=== PATIENT | female | born 1930 | race African-American/Black ===

== ENCOUNTER 2016-07-06 12:43 | Inpatient (IN) | payer MEDICARE, OTHER ==
[~2016-07-06] VITALS: Ht 170.2 cm; Wt 99.8 kg
[2016-07-06] VITALS (8 sets, daily range): BP systolic 106–138; BP diastolic 51–81
[~2016-07-06 12:43] MED LIST: ACETAMINOPHEN325 M1 ORAL; ACETAMINOPHEN500 MG ORAL; ALBUTEROL2.5 MG/3 M HHN; ARICEPT10 MG ORAL; ARICEPT10 MG PO; COLACE100 MG PO; COLACE250 MG ORAL; DEPAKENE L250 MG/5 M ORAL; DEPAKENE250 MG PO; Diltiazem Hcl ORAL; FUROSEMIDE40 MG ORAL; GLUCOPHAGE500 MG PO; GLUCOSAMINE HC500 MG PO; IMDUR30 MG PO; IRON325 M1 PO; Ipratropium Bromide HHN; Isosorbide Mononitrate ORAL; LASIX20 M1 ORAL; LASIX20 MG PO; LEVAQUIN500 MG ORAL; LIPITOR20 MG ORAL; LIPITOR40 MG ORAL; MIRALAX17 G1 PO; MIRALAX17 GM ORAL; NAMENDA10 MG ORAL; NAMENDA10 MG PO; NORCO 5-325 TA1 EACH ORAL; NORVASC5 MG ORAL; PLAVIX75 MG ORAL; PLAVIX75 MG PO; POTASSIUM CHLO20 ME1 ORAL; POTASSIUM CHLO20 ME1 PO; PROTONIX40 MG ORAL; Potassium Chloride ORAL; SIMVASTATIN40 MG PO; TENORMIN50 MG ORAL; TENORMIN50 MG PO; TYLENOL325 MG ORAL; ZITHROMAX500 MG ORAL
--- NOTE | 2016-07-06 12:54 | Emergency Room Report ---
History of Present Illness General Chief Complaint: Dyspnea/Respdistress Source: EMS Present Illness HPI Patient presents from nursing facility with respiratory distress Paramedics reported the patient was seen early the morning by primary physician Patient has acutely decompensated since then Patient herself is not able to provide any input Is in acute respiratory distress There was no reports of vomiting or diarrhea patient has had a previous CVA with what appears to be right-sided carotid surgery Unknown regarding fevers History of present illness is significantly limited given the patient's presentation Allergies: Coded Allergies: AMOXICILLIN (Verified Allergy, Mild, DIARRHEA, 11/03/08) PENICILLINS (Verified Allergy, Mild, HIVES, 09/11/10) Patient History Limited by: medical condition Past Medical History: see triage record Pertinent Family History: unable to obtain Now: No Reviewed Nursing Documentation: PMH: Agreed, PSxH: Agreed Nursing Documentation-PMH Hx Cardiac Problems: Yes Hx Hypertension: Yes Hx Pacemaker: No Hx Asthma: No Hx COPD: Yes Hx Diabetes: No Hx Cancer: No Hx Gastrointestinal Problems: No Hx Dialysis: No Hx Neurological Problems: No Hx Cerebrovascular Accident: No Hx Dementia: Yes Hx Alzheimer's Disease: Yes Hx Seizures: No Hx Speech Problem: Yes Hx Dysphasia: Yes Hx Weakness: Yes Review of Systems All Other Systems: limited - Other than the ones mentioned in the history of present illness all others are reviewed however they do stay limited due to the patient's mental status Physical Exam Vital Signs Date Time Temp Pulse Resp B/P Pulse Ox O2 Delivery O2 Flow Rate FiO2 07/06/16 12:44 106 30 98/44 93 Simple Mask 15.0 Sp02 EP Interpretation: reviewed, normal General Appearance: severe distress - Patient is tachypneic decreased responsiveness, Head: normocephalic, atraumatic Eyes: bilateral eye PERRL ENT: dry mucus membranes, other - Patient has evidence of right-sided neck surgery, has a fullness to the neck area Neck: supple Respiratory: decreased breath sounds, accessory muscle use, wheezing Cardiovascular #1: regular rate, rhythm, no edema Gastrointestinal: soft, no mass Musculoskeletal: other - Patient is not responsive to physical or verbal stimuli, unknown regarding musculoskeletal exam Neurologic: other - Patient has decreased mentation, maintaining gag reflex, appears in acute respiratory distress Skin: no rash, warm/dry Lymphatic: no adenopathy Procedures Critical Care Time Critical Care Time 50 minutes for initial critical presentation Acute respiratory distress impending failure multiple re\re evaluations Not including any procedural time Medical Decision Making Diagnostic Impression: Primary Impression: Respiratory distress Additional Impressions: CHF (congestive heart failure) COPD (chronic obstructive pulmonary disease) Pneumonia ER Course Patient presents in acute respiratory distress Acute intervention is taken for further improvement Patient's ABG is also reassuring I did make contact with the admitting physician Patient's imaging studies also concerning for the left lower lobe infiltrate versus other Patient's presentation limited the use of IV saline and the patient has a history of CHF along with a left-sided markings consideration for CHF is also made Is the reason for the limited IV saline boluses Labs Test 07/06/16 13:00 07/06/16 13:11 07/06/16 13:30 White Blood Count 9.9 K/UL (4.8-10.8) Red Blood Count 4.98 M/UL (4.20-5.40) Hemoglobin 12.8 G/DL (12.0-16.0) Hematocrit 42.3 % (37.0-47.0) Mean Corpuscular Volume 85 FL (80-99) Mean Corpuscular Hemoglobin 25.7 PG (27.0-31.0) Mean Corpuscular Hemoglobin Concent 30.3 G/DL (32.0-36.0) Red Cell Distribution Width 17.0 % (11.6-14.8) Platelet Count 259 K/UL (150-450) Mean Platelet Volume 8.2 FL (6.5-10.1) Neutrophils (%) (Auto) 79.8 % (45.0-75.0) Lymphocytes (%) (Auto) 10.7 % (20.0-45.0) Monocytes (%) (Auto) 7.8 % (1.0-10.0) Eosinophils (%) (Auto) 0.8 % (0.0-3.0) Basophils (%) (Auto) 0.9 % (0.0-2.0) Prothrombin Time 10.1 SEC (9.30-11.50) Prothromb Time International Ratio 1.0 (0.9-1.1) Activated Partial Thromboplast Time 26 SEC (23-33) Sodium Level 142 mEQ/L (135-145) Potassium Level 3.9 mEQ/L (3.4-4.9) Chloride Level 99 mEQ/L (98-107) Carbon Dioxide Level 28 mEQ/L (20-30) Anion Gap 15 (5-15) Blood Urea Nitrogen 12 mg/dL (7-23) Creatinine 0.8 mg/dL (0.5-0.9) Estimat Glomerular Filtration Rate mL/min (>60) Glucose Level 169 mg/dL (74-106) Lactic Acid Level 1.80 mmol/L (0.66-2.22) Calcium Level 8.4 mg/dL (8.6-10.2) Phosphorus Level 3.4 mg/dL (2.5-4.8) Magnesium Level 1.8 mg/dL (1.7-2.5) Total Bilirubin 0.4 mg/dL (0.0-1.2) Aspartate Amino Transf (AST/SGOT) 15 U/L (5-40) Alanine Aminotransferase (ALT/SGPT) 5 U/L (3-33) Alkaline Phosphatase 79 U/L (35-104) Total Creatine Kinase 963 U/L (26-140) Creatine Kinase MB 2.8 ng/mL (< 3.8) Creatine Kinase MB Relative Index 0.2 Troponin I < 0.30 ng/mL (<=0.30) Pro-B-Type Natriuretic Peptide 921 pg/mL (0-450) Total Protein 7.3 g/dL (6.6-8.7) Albumin 3.5 g/dL (3.5-5.2) Globulin 3.8 g/dL Albumin/Globulin Ratio 0.9 (1.0-2.7) Lipase 37 U/L (< 60) Valproic Acid (Depakene) Level 56 ug/mL (50-100) Urine Color Yellow Urine Appearance Clear Urine pH 6 (4.5-8.0) Urine Specific [place] 1.015 (1.005-1.035) Urine Protein Negative (NEGATIVE) Urine Glucose (UA) Negative (NEGATIVE) Urine Ketones Negative (NEGATIVE) Urine Occult Blood 1+ (NEGATIVE) Urine Nitrite Negative (NEGATIVE) Urine Bilirubin Negative (NEGATIVE) Urine Urobilinogen Normal MG/DL (0.0-1.0) Urine Leukocyte Esterase Negative (NEGATIVE) Urine RBC 2-4 /HPF (0 - 2) Urine WBC 0-2 /HPF (0 - 2) Urine Squamous Epithelial Cells Occasional /LPF Urine Bacteria Occasional /HPF (NONE) Arterial Blood pH 7.390 (7.350-7.450) Arterial Blood Partial Pressure CO2 47.8 mmHg (35.0-45.0) Arterial Blood Partial Pressure O2 325.1 mmHg (75.0-100.0) Arterial Blood HCO3 28.9 mmol/L (22.0-26.0) Arterial Blood Oxygen Saturation 99.5 % (92.0-98.0) Arterial Blood Base Excess 3.3 Nii Test Positive EKG Diagnostic Results Rate: normal Rhythm: NSR ST Segments: other - Nonspecific ST AND T WAVE CHANGES Rhythm Strip Diag. Results EP Interpretation: yes Chest X-Ray Diagnostic Results EP Interpretation: Yes Findings: no pneumothorax, other - left pna, inc markings Number of Views: 1 Last Vital Signs Date Time Temp Pulse Resp B/P Pulse Ox O2 Delivery O2 Flow Rate FiO2 07/06/16 12:49 106 30 98/44 93 Simple Mask 15.0 Status: improved Disposition: ADMITTED INPATIENT Condition: Critical ALESIA LAUGHLIN D.O. Jul 06, 2016 12:54
[2016-07-06] MEDS ORDERED: Ipratropium 0.02% Inh Soln 2.5ml UD HHN ONE (13:00)
[2016-07-06] MEDS ORDERED: Racemic EPINEPHrine 2.25% 0.5ml HHN ONE (13:00)
[2016-07-06] MEDS ORDERED: Albuterol ud Inhalation HHN ONE (13:00)
[2016-07-06 13:20] LABS: APPEARANCE,URINE CLEAR; KETONES,URINE NEGATIVE (NEGATIVE); LEUKOCYTE ESTERASE ,URINE NEGATIVE (NEGATIVE); NITRITE,URINE NEGATIVE (NEGATIVE); PH,URINE 6 (4.5-8.0); PROTEIN,URINE NEGATIVE (NEGATIVE); UROBILINOGEN,URINE NORMAL MG/DL (0.0-1.0)
[2016-07-06 13:25] LABS: BASOPHILS % (AUTO) 0.9 % (0.0-2.0); EOSINOPHILS % (AUTO) 0.8 % (0.0-3.0); LYMPHOCYTES % (AUTO) 10.7 % (20.0-45.0); MEAN CORPUSCULAR HEMOGLOBIN 25.7 PG (27.0-31.0); MEAN CORPUSCULAR HGB CONC 30.3 G/DL (32.0-36.0); MEAN CORPUSCULAR VOLUME 85 FL (80-99); MEAN PLATELET VOLUME 8.2 FL (6.5-10.1); MONOCYTES % (AUTO) 7.8 % (1.0-10.0); NEUTROPHILS % (AUTO) 79.8 % (45.0-75.0); PLATELET COUNT 259 K/UL (150-450); RED BLOOD COUNT 4.98 M/UL (4.20-5.40); WHITE BLOOD COUNT 9.9 K/UL (4.8-10.8)
[2016-07-06 13:28] LABS: TROPONIN I < 0.30 ng/mL (<=0.30)
[2016-07-06 13:30] LABS: ALANINE AMINOTRANSFERASE 5 U/L (3-33); ALBUMIN/GLOBULIN RATIO 0.9 (1.0-2.7); ANION GAP 15 (5-15); ASPARTATE AMINO TRANSFERASE 15 U/L (5-40); CALCIUM 8.4 mg/dL (8.6-10.2); CARBON DIOXIDE 28 mEQ/L (20-30); CHLORIDE 99 mEQ/L (98-107); CREATININE 0.8 mg/dL (0.5-0.9); HEMOLYSIS 3; LIPASE 37 U/L (< 60); MAGNESIUM 1.8 mg/dL (1.7-2.5); PHOSPHORUS 3.4 mg/dL (2.5-4.8); POTASSIUM 3.9 mEQ/L (3.4-4.9); SODIUM 142 mEQ/L (135-145); TOTAL PROTEIN 7.3 g/dL (6.6-8.7)
[2016-07-06 13:31] LABS: BACTERIA,URINE OCCASIONAL /HPF; SQUAMOUS EPITHELIAL CELL,UR OCCASIONAL /LPF (NONE/OCC); WBC,URINE 0-2 /HPF (0 - 2)
[2016-07-06 13:32] LABS: PROTHROMBIN TIME 10.1 SEC (9.30-11.50)
[2016-07-06 13:35] LABS: ABG ALLEN TEST POSITIVE; ABG BASE EXCESS 3.3; ABG PCO2 47.8 mmHg (35.0-45.0)
[2016-07-06 13:41] LABS: CKMB 2.8 ng/mL (< 3.8)
[2016-07-06] MEDS ORDERED: Solu-MEDROL 125mg Inj IVP ONE (13:45)
[2016-07-06] MEDS ORDERED: Vancomycin 1.5gm/D5W 300ml 300 ML IVPB ONE (14:00)
[2016-07-06] MEDS ORDERED: Aztreonam Inj 1 GM in NS 50 ML IV ONE (14:00)
[2016-07-06] MEDS ORDERED: Nitroglycerin Subl 0.4mg tab (Bottle Of 25) SL PRN (14:15)
[2016-07-06] MEDS ORDERED: DuoNeb 0.5-3(2.5)mg/3ml neb HHN PRN (14:15)
[2016-07-06] MEDS ORDERED: Mylanta II UD 30ml ORAL PRN (14:15)
[2016-07-06] MEDS ORDERED: Miralax 17gm pkt ORAL PRN (14:15)
--- NOTE | 2016-07-06 14:24 | Pulmonolgy Critical Care Note ---
Critical Care - Asmt/Plan Problems: (1) Respiratory distress (2) COPD (chronic obstructive pulmonary disease) (3) DM (diabetes mellitus) (4) Pneumonia Respiratory: monitor respiratory rate, adjust FIO2, CXR Cardiac: continue to monitor HR/BP Renal: F/U I&O, check electrolytes Infectious Disease: check cultures, other - start aztreonam, since pt is allergic to Penicllins Gastrointestinal: hold feedings Endocrine: monitor blood sugar, continue sliding scale insulin Hematologic: monitor H/H, transfuse if hgb<8.5 Neurologic: keep patient comfortable Prophylaxis: Protonix, Heparin Notes Reviewed: general assembler installer Discussed with: nurses, consultants, case techniciancommissioning manager - Objective Last 24 Hour Vital Signs Date Time Temp Pulse Resp B/P Pulse Ox O2 Delivery O2 Flow Rate FiO2 07/06/16 13:44 15.0 50 07/06/16 13:01 108 29 100 Facial 100 07/06/16 12:50 108 28 100 Bi-pap 100 07/06/16 12:50 106 30 Bi-pap 07/06/16 12:49 100.4 106 30 98/44 93 Simple Mask 15.0 07/06/16 12:45 90 25 132/67 100 Bi-pap 07/06/16 12:45 90 25 Bi-pap Status: awake Condition: critical HEENT: atraumatic Neck: full ROM Lungs: rales, rhonchi Heart: HR/BP stable, regular Abdomen: soft, feeding tube Extremities: no C/C/E, edema Critical Care - Subjective ROS Limited/Unobtainable: Yes Intubation Day: on BIPAP Interval Events: 86 year old female with Hx of COPD, DM, Cardiomyopathy, CAD, CVAnursing home resident,presented to ERwith respiratory distress Paramedics reported the patient was seen early the morning by primary physician. Patient has acutely decompensated since then Patient herself was not able to provide any input Is in acute respiratory distress. Patient had a CXR in the ER showing LLL infiltrate, she was put on BIPAP and transferred to [facility]: 50 Sputum Amount: None CXR: LLL infiltrate Labs: Laboratory Tests Test 07/08/16 11:00 Arterial Blood pH 7.430 (7.350-7.450) Arterial Blood Partial Pressure CO2 45.3 mmHg (35.0-45.0) H Arterial Blood Partial Pressure O2 469.4 mmHg (75.0-100.0) H Arterial Blood HCO3 29.4 mmol/L (22.0-26.0) H Arterial Blood Oxygen Saturation 99.5 % (92.0-98.0) H Arterial Blood Base Excess 41.4 Nii Test Positive DARIAN HOOKS Jul 06, 2016 14:24
[2016-07-06] MEDS ORDERED: Norco 5mg/325mg tab ORAL ONE (18:30)
[2016-07-06] MEDS ORDERED: metFORMIN 500mg tab ORAL STA (18:30)
[2016-07-06] MEDS ORDERED: Morphine Sulfate 2mg/ml Inj IVP ONE (20:00)
[2016-07-06] MEDS ORDERED: Norco 5mg/325mg tab ORAL PRN (20:00)
--- NOTE | 2016-07-06 20:05 | History & Physical ---
History and Physical History & Physicial #[id number] ILA LEE Jul 06, 2016 20:05
[2016-07-06] MEDS: D5 1/2NS 1,000 ML IV SCH (20:30)
[2016-07-06] MEDS ORDERED: Aztreonam Inj 1 GM in NS 50 ML IVPB SCH (20:30)
[2016-07-06] MEDS: Donepezil 10mg tab ORAL SCH (21:00)
[2016-07-06] MEDS: Valproic Acid 250mg/5ml Liquid ORAL SCH (21:00)
[2016-07-06] MEDS: Heparin 5000 units/ml inj SUBQ SCH (21:00)
[2016-07-06] MEDS: Memantine 10mg tab ORAL SCH (21:00)
[2016-07-06] MEDS: Aztreonam Inj 1 GM in NS 50 ML IVPB SCH (21:59)
[2016-07-06] MEDS: NovoLOG Insulin Flexpen SUBQ SCH (22:01)
[2016-07-07] VITALS: BP 118/82
[2016-07-07 04:00] VITALS: BP 138/67
--- NOTE | 2016-07-07 05:18 | History and Physical Report ---
DATE OF ADMISSION: 07/06/2016 HISTORY OF PRESENT ILLNESS: The patient was seen in the emergency room earlier today in the [facility]. She is 86-year-old female, who was found to be wheezing then have respiratory distress and desaturation of oxygen. The patient was transferred via 911 here to [facility] where she was evaluated by Dr. Douglas and is currently being admitted for respiratory distress. There is no history of vomiting or diarrhea. The patient currently is in the emergency room and is on BiPAP, the other is at the bedside PAST MEDICAL HISTORY: Significant for obesity, previous GI bleed, Alzheimer, hypertension, type 2 diabetes, osteoarthritis, congestive heart failure, coronary artery disease, and possible seizure disorder. PHYSICAL EXAMINATION: VITAL SIGNS: Temperature 98.5 degrees, blood pressure 134/61, respiratory rate 22, and pulse rate 85. GENERAL: The patient is obese. HEENT: Head, normocephalic. Neck is full. Face is pale. Sclerae not icteric. LUNGS: The patient has wheeze and upper respiratory rhonchi. HEART: Regular. Slightly tachycardic. ABDOMEN: Obese . EXTREMITIES: Lower extremities, edema 1+ is seen. LABORATORY AND DIAGNOSTIC DATA: The chemistry panel is normal. Electrolytes with CPK of 963. Troponin negative. Natriuretic peptic slightly elevated 921. Hemoglobin 12.8 and WBC 9.9. The valproic level is 56. Urine has 4 RBCs and 2 white blood cells. Chest x-ray suggestive of left sided pneumonia versus aspiration. IMPRESSION: 1. Respiratory distress. / Pneumonia 2. Congestive heart failure. 3. Chronic obstructive pulmonary disease. 4. Pneumonia. 5. Other conditions as mentioned hypertension , History of seizures and dementia. PLAN: At this point, keep the patient NPO, ST evaluation. Antibiotics considering the patient is penicillin allergic, BiPAP, and respiratory support. Continue anti seizure medication and her cardiac medication including Plavix, Imdur, Norvasc, and according to how the patient's condition evolves, we will make the proper changes in our future management. Neel Buchanan M.D. DR: Graeme JOB#: [id number] CC: AAYUSH
[2016-07-07] MEDS: Aztreonam Inj 1 GM in NS 50 ML IVPB SCH ×3 (05:19→22:02)
[2016-07-07 05:30] LABS: BASOPHILS % (AUTO) 0.5 % (0.0-2.0); LYMPHOCYTES % (AUTO) 9.3 % (20.0-45.0); MEAN CORPUSCULAR HGB CONC 31.9 G/DL (32.0-36.0); MEAN CORPUSCULAR VOLUME 82 FL (80-99); MEAN PLATELET VOLUME 8.4 FL (6.5-10.1); MONOCYTES % (AUTO) 5.4 % (1.0-10.0); NEUTROPHILS % (AUTO) 84.8 % (45.0-75.0); PLATELET COUNT 266 K/UL (150-450); RED BLOOD COUNT 4.87 M/UL (4.20-5.40); WHITE BLOOD COUNT 9.1 K/UL (4.8-10.8)
[2016-07-07 05:38] LABS: PROTHROMBIN TIME 10.1 SEC (9.30-11.50)
[2016-07-07 06:07] LABS: ALANINE AMINOTRANSFERASE 5 U/L (3-33); ALBUMIN/GLOBULIN RATIO 0.7 (1.0-2.7); ANION GAP 13 (5-15); ASPARTATE AMINO TRANSFERASE 19 U/L (5-40); CALCIUM 8.7 mg/dL (8.6-10.2); CARBON DIOXIDE 29 mEQ/L (20-30); CHLORIDE 99 mEQ/L (98-107); CHOLESTEROL 199 mg/dL (< 200); CHOLESTEROL/HDL RATIO 4.2 (3.3-4.4); CREATININE 0.7 mg/dL (0.5-0.9); HEMOGLOBIN A1C 5.8 % (< 6.0); HEMOLYSIS 4; LDL CHOLESTEROL (CALC.) 140 mg/dL (60-99); MAGNESIUM 2.3 mg/dL (1.7-2.5); PHOSPHORUS 2.4 mg/dL (2.5-4.8); POTASSIUM 4.4 mEQ/L (3.4-4.9); SODIUM 141 mEQ/L (135-145); TOTAL PROTEIN 7.8 g/dL (6.6-8.7)
[2016-07-07 06:18] LABS: THYROID STIMULATING HORMONE 0.113 uIU/mL (0.300-4.500)
[2016-07-07] MEDS: NovoLOG Insulin Flexpen SUBQ SCH ×4 (06:18→22:03)
[2016-07-07 08:00] VITALS: BP 112/68
[2016-07-07] MEDS: Valproic Acid 250mg/5ml Liquid ORAL SCH ×2 (08:03→22:04)
[2016-07-07] MEDS: Norco 5mg/325mg tab ORAL SCH ×2 (08:05→17:58)
[2016-07-07] MEDS: Docusate 250mg cap ORAL SCH (08:09)
[2016-07-07] MEDS: Memantine 10mg tab ORAL SCH ×2 (08:09→17:58)
[2016-07-07] MEDS: Heparin 5000 units/ml inj SUBQ SCH ×2 (08:26→22:04)
[2016-07-07] MEDS ORDERED: Imdur 30mg tab ORAL SCH (09:00)
--- NOTE | 2016-07-07 09:57 | Diagnostic Imaging Report ---
Indication: SOB Technique: One view of the chest Comparison: 02/13/2016 Findings: There are development of infiltrate in the left mid and lower lung. Previously demonstrated generalized interstitial prominence is no longer evident, although there is mild central bronchial wall thickening persisting clinical apparent difference could be due to better inspiration and exposure on the current study. No definite effusions. Aorta is calcified. Impression: Infiltrates within the left mid and lower lung, concerning for pneumonia Other findings as noted This agrees with the preliminary interpretation provided by the emergency room physician
[2016-07-07 12:00] VITALS: BP 114/64
--- NOTE | 2016-07-07 13:16 | General Progress Note ---
Assessment/Plan Status: doing well - on bipap Assessment/Plan 1. Respiratory distress. / Pneumonia left sided 2. Congestive heart failure. 3. Chronic obstructive pulmonary disease. 4. Pneumonia. 5. Other conditions as mentioned hypertension , History of seizures and dementia. Plan: Awaiting ST eval- start prednisone and taper.. Pulmonary support- Aztreonam and Vanco Subjective ROS Limited/Unobtainable: No Constitutional: Reports: malaise, weakness Respiratory: Reports: shortness of breath - on BIPAP Allergies: Coded Allergies: AMOXICILLIN (Verified Allergy, Mild, DIARRHEA, 11/03/08) PENICILLINS (Verified Allergy, Mild, HIVES, 09/11/10) Objective Last 24 Hour Vital Signs Date Time Temp Pulse Resp B/P Pulse Ox O2 Delivery O2 Flow Rate FiO2 07/07/16 12:55 78 22 97 Facial 40 07/07/16 12:00 40 07/07/16 12:00 98.1 68 22 114/64 98 Bi-pap 40 07/07/16 10:39 77 16 98 Facial 40 07/07/16 09:56 86 120/68 07/07/16 09:56 86 122/68 07/07/16 09:22 85 19 98 Facial 40 07/07/16 09:04 98.1 07/07/16 08:09 112/62 07/07/16 08:00 40 07/07/16 08:00 97.8 77 24 112/68 98 Bi-pap 40 07/07/16 08:00 97 07/07/16 06:45 79 20 97 Facial 40 07/07/16 05:05 80 19 99 Facial 40 07/07/16 04:00 40 07/07/16 04:00 98.1 100 22 138/67 98 Bi-pap 40 07/07/16 03:47 80 07/07/16 03:00 79 19 99 Facial 40 07/07/16 01:28 97 18 98 Facial 40 07/07/16 00:00 98.1 94 22 118/82 99 Bi-pap 40 07/07/16 00:00 40 07/06/16 23:52 82 07/06/16 22:45 85 17 99 Facial 40 07/06/16 21:03 97.5 82 20 122/62 99 Bi-pap 40 07/06/16 20:59 40 07/06/16 20:30 74 18 99 Facial 40 07/06/16 20:25 79 07/06/16 20:14 98.5 86 23 138/81 100 15.0 40 07/06/16 20:14 98.5 86 23 138/81 100 15.0 40 07/06/16 19:42 98.5 07/06/16 19:42 98.5 07/06/16 18:39 91 23 100 Facial 40 07/06/16 17:25 98.5 85 22 134/61 100 15.0 40 07/06/16 16:38 88 18 100 Facial 40 07/06/16 16:26 98.5 78 18 124/61 100 15.0 50 07/06/16 15:58 98.5 67 18 111/51 100 15.0 50 07/06/16 15:16 98.5 87 18 106/54 100 15.0 50 07/06/16 14:43 97 18 100 Facial 50 07/06/16 14:00 98.5 87 21 117/56 100 Bi-pap 50 07/06/16 13:44 15.0 50 Intake and Output 07/06/16 07/07/16 19:00 07:00 Intake Total 200 ml 550 ml Output Total 100 ml 1100 ml Balance 100 ml -550 ml Intake IV Total 200 ml 550 ml Output Urine Total 100 ml 1100 ml # Bowel Movements 1 Laboratory Tests 07/06/16 13:30: Arterial Blood pH 7.390, Arterial Blood Partial Pressure CO2 47.8H, Arterial Blood Partial Pressure O2 325.1H, Arterial Blood HCO3 28.9H, Arterial Blood Oxygen Saturation 99.5H, Arterial Blood Base Excess 3.3, Nii Test Positive 07/07/16 04:05: White Blood Count 9.1, Red Blood Count 4.87, Hemoglobin 12.7, Hematocrit 39.8, Mean Corpuscular Volume 82, Mean Corpuscular Hemoglobin 26.0L, Mean Corpuscular Hemoglobin Concent 31.9L, Red Cell Distribution Width 17.0H, Platelet Count 266 , Mean Platelet Volume 8.4, Neutrophils (%) (Auto) 84.8H, Lymphocytes (%) (Auto ) 9.3L, Monocytes (%) (Auto) 5.4, Eosinophils (%) (Auto) 0.0, Basophils (%) ( Auto) 0.5, Prothrombin Time 10.1, Prothromb Time International Ratio 1.0, Activated Partial Thromboplast Time 28, Sodium Level 141, Potassium Level 4.4, Chloride Level 99, Carbon Dioxide Level 29, Anion Gap 13, Blood Urea Nitrogen 14 , Creatinine 0.7, Estimat Glomerular Filtration Rate , Glucose Level 195H, Hemoglobin A1c 5.8, Lactic Acid Level 1.90, Uric Acid 6.0, Calcium Level 8.7, Phosphorus Level 2.4L, Magnesium Level 2.3, Total Bilirubin 0.3, Aspartate Amino Transf (AST/SGOT) 19, Alanine Aminotransferase (ALT/SGPT) 5, Alkaline Phosphatase 79, Total Creatine Kinase 955H, C-Reactive Protein, Quantitative 10.0H, Pro-B-Type Natriuretic Peptide 1772H, Total Protein 7.8, Albumin 3.4L, Globulin 4.4, Albumin/Globulin Ratio 0.7L, Triglycerides Level 58, Cholesterol Level 199, LDL Cholesterol 140H, HDL Cholesterol 47, Cholesterol/HDL Ratio 4.2, Thyroid Stimulating Hormone (TSH) 0.113L Height (Feet): 5 Height (Inches): 7.00 Weight (Pounds): 220 General Appearance: no apparent distress Neck: stiff neck Cardiovascular: regular rhythm Respiratory/Chest: decreased breath sounds, expiratory wheezing Abdomen: soft, other - obese Edema: trace edema ILA LEE Jul 07, 2016 13:15
[2016-07-07] MEDS: Vancomycin 1250mg/D5W 250ml IVPB SCH ×2 (13:39)
[2016-07-07] MEDS ORDERED: PredniSONE 20mg tab ORAL ONE (14:00)
[2016-07-07] MEDS: D5 1/2NS 1,000 ML IV SCH (15:18)
[2016-07-07 16:00] VITALS: BP 133/71
[2016-07-07 20:00] VITALS: BP 134/55
[2016-07-07] MEDS: Donepezil 10mg tab ORAL SCH (22:05)
[2016-07-08] VITALS: BP 148/58
[2016-07-08 04:00] VITALS: BP 127/99
[2016-07-08] MEDS: Aztreonam Inj 1 GM in NS 50 ML IVPB SCH ×3 (05:54→21:15)
[2016-07-08] MEDS: NovoLOG Insulin Flexpen SUBQ SCH ×4 (06:07→20:52)
[2016-07-08 08:00] VITALS: BP 131/68
[2016-07-08] MEDS ORDERED: PredniSONE 5mg tab ORAL SCH (09:00)
[2016-07-08] MEDS: Valproic Acid 250mg/5ml Liquid ORAL SCH ×2 (10:27→20:51)
[2016-07-08] MEDS: Memantine 10mg tab ORAL SCH ×2 (10:30→17:55)
[2016-07-08] MEDS: Docusate 250mg cap ORAL SCH (10:30)
[2016-07-08] MEDS: Heparin 5000 units/ml inj SUBQ SCH ×2 (10:42→20:53)
[2016-07-08] MEDS: Norco 5mg/325mg tab ORAL SCH ×2 (10:45→17:56)
[2016-07-08 11:20] LABS: ABG ALLEN TEST POSITIVE; ABG BASE EXCESS 41.4; ABG PCO2 45.3 mmHg (35.0-45.0)
--- NOTE | 2016-07-08 11:26 | General Progress Note ---
Assessment/Plan Status: stable Assessment/Plan 1. Respiratory distress. / Pneumonia left sided 2. Congestive heart failure. 3. Chronic obstructive pulmonary disease. 4. Pneumonia. 5. Other conditions as mentioned hypertension , History of seizures and dementia. Plan: ST eval- prednisone and taper.. Pulmonary support- Aztreonam and Vanco ? DC in am if OK?? Subjective ROS Limited/Unobtainable: No Constitutional: Reports: malaise, weakness Allergies: Coded Allergies: AMOXICILLIN (Verified Allergy, Mild, DIARRHEA, 11/03/08) PENICILLINS (Verified Allergy, Mild, HIVES, 09/11/10) Objective Last 24 Hour Vital Signs Date Time Temp Pulse Resp B/P Pulse Ox O2 Delivery O2 Flow Rate FiO2 07/08/16 10:45 117 127/64 07/08/16 10:29 117 127/64 07/08/16 08:00 97.5 74 16 131/68 100 07/08/16 06:56 71 16 100 Facial 40 07/08/16 05:20 67 16 100 Facial 40 07/08/16 04:00 97.2 23 127/99 99 Bi-pap 40 07/08/16 04:00 40 07/08/16 04:00 61 07/08/16 03:00 65 16 100 Facial 40 07/08/16 01:30 68 18 100 Facial 40 07/08/16 00:00 97.0 63 18 148/58 98 Bi-pap 40 07/08/16 00:00 40 07/07/16 23:32 71 16 99 Facial 40 07/07/16 21:09 62 18 99 Facial 40 07/07/16 20:00 97.9 69 18 134/55 99 Bi-pap 07/07/16 20:00 40 07/07/16 20:00 65 07/07/16 19:09 64 19 99 Facial 40 07/07/16 18:57 97.8 07/07/16 17:04 69 20 98 Facial 40 07/07/16 16:00 63 07/07/16 16:00 97.8 71 20 133/71 97 Bi-pap 07/07/16 16:00 40 07/07/16 14:56 72 18 98 Facial 40 07/07/16 12:55 78 22 97 Facial 40 07/07/16 12:00 40 07/07/16 12:00 98.1 68 22 114/64 98 Bi-pap 40 07/07/16 12:00 71 Intake and Output 07/07/16 07/08/16 19:00 07:00 Intake Total 1022 ml Output Total 410 ml 1750 ml Balance 612 ml -1750 ml Intake IV Total 1022 ml Output Urine Total 410 ml 1750 ml Laboratory Tests 07/08/16 11:00: Arterial Blood pH 7.430, Arterial Blood Partial Pressure CO2 45.3H, Arterial Blood Partial Pressure O2 469.4H, Arterial Blood HCO3 29.4H, Arterial Blood Oxygen Saturation 99.5H, Arterial Blood Base Excess 41.4, Nii Test Positive Height (Feet): 5 Height (Inches): 7.00 Weight (Pounds): 220 General Appearance: no apparent distress Cardiovascular: regular rhythm Respiratory/Chest: decreased breath sounds Abdomen: soft ILA LEE Jul 08, 2016 11:26
--- NOTE | 2016-07-08 11:42 | Pulmonology Progress Note ---
Assessment/Plan Problems: (1) Respiratory distress (2) Pneumonia (3) COPD (chronic obstructive pulmonary disease) (4) DM (diabetes mellitus) Assessment/Plan taper off bipap respiratory treatment IV antibiotics chest pt cxr in am check sputum repeat BC dvt prophylaxis Subjective ROS Limited/Unobtainable: No Interval Events: looks comfortable Constitutional: Reports: no symptoms HEENT: Repors: no symptoms Respiratory: Reports: no symptoms Allergies: Coded Allergies: AMOXICILLIN (Verified Allergy, Mild, DIARRHEA, 11/03/08) PENICILLINS (Verified Allergy, Mild, HIVES, 09/11/10) Objective Last 24 Hour Vital Signs Date Time Temp Pulse Resp B/P Pulse Ox O2 Delivery O2 Flow Rate FiO2 07/08/16 10:45 117 127/64 07/08/16 10:29 117 127/64 07/08/16 08:00 97.5 74 16 131/68 100 07/08/16 06:56 71 16 100 Facial 40 07/08/16 05:20 67 16 100 Facial 40 07/08/16 04:00 97.2 23 127/99 99 Bi-pap 40 07/08/16 04:00 40 07/08/16 04:00 61 07/08/16 03:00 65 16 100 Facial 40 07/08/16 01:30 68 18 100 Facial 40 07/08/16 00:00 97.0 63 18 148/58 98 Bi-pap 40 07/08/16 00:00 40 07/07/16 23:32 71 16 99 Facial 40 07/07/16 21:09 62 18 99 Facial 40 07/07/16 20:00 97.9 69 18 134/55 99 Bi-pap 07/07/16 20:00 40 07/07/16 20:00 65 07/07/16 19:09 64 19 99 Facial 40 07/07/16 18:57 97.8 07/07/16 17:04 69 20 98 Facial 40 07/07/16 16:00 63 07/07/16 16:00 97.8 71 20 133/71 97 Bi-pap 07/07/16 16:00 40 07/07/16 14:56 72 18 98 Facial 40 07/07/16 12:55 78 22 97 Facial 40 07/07/16 12:00 40 07/07/16 12:00 98.1 68 22 114/64 98 Bi-pap 40 07/07/16 12:00 71 Intake and Output 07/07/16 07/08/16 19:00 07:00 Intake Total 1022 ml Output Total 410 ml 1750 ml Balance 612 ml -1750 ml Intake IV Total 1022 ml Output Urine Total 410 ml 1750 ml General Appearance: WD/WN HEENT: atraumatic Respiratory/Chest: chest wall non-tender, lungs clear Cardiovascular: normal peripheral pulses, normal rate Abdomen: normal bowel sounds, soft, non tender Genitourinary: normal external genitalia Extremities: no cyanosis, no clubbing Skin: no rash, no lesions Neurologic/Psychiatric: lacing string cutter II-XII grossly normal, no motor/sensory deficits Musculoskeletal: normal muscle bulk Microbiology Date/Time Source Procedure Growth Status 07/06/16 13:00 Blood Blood Culture - Preliminary Resulted 07/06/16 13:00 Blood Blood Culture - Preliminary Resulted 07/06/16 13:25 Nasal Nares Influenza Types A,B Antigen (VU) - Final Complete Laboratory Tests 07/08/16 11:00: Arterial Blood pH 7.430, Arterial Blood Partial Pressure CO2 45.3H, Arterial Blood Partial Pressure O2 469.4H, Arterial Blood HCO3 29.4H, Arterial Blood Oxygen Saturation 99.5H, Arterial Blood Base Excess 41.4, Nii Test Positive Current Medications Medications (Trade) Dose Ordered Sig/Juwan Route PRN Reason Start Time Stop Time Status Last Admin Dose Admin Acetaminophen (Tylenol) 650 mg Q4H PRN ORAL fever 07/06/16 14:15 08/05/16 14:14 Acetaminophen/ Hydrocodone Bitart ([place] 5/325) 1 tab BID ORAL 07/07/16 09:00 07/14/16 08:59 07/08/16 10:45 Acetaminophen/ Hydrocodone Bitart ([place] 5/325) 1 tab TID PRN ORAL Moderate Pain (Pain Scale 4-6) 07/06/16 20:00 07/13/16 19:59 Albuterol/ Ipratropium (DuoNeb 0.5-3(2.5)mg/3ml) 3 ml Q4H PRN HHN Shortness of Breath 07/06/16 14:15 07/11/16 14:14 Amlodipine Besylate (Norvasc) 5 mg DAILY ORAL 07/07/16 09:00 08/06/16 08:59 07/08/16 10:29 Atenolol (Tenormin) 50 mg DAILY ORAL 07/07/16 09:00 08/06/16 08:59 07/08/16 10:45 Atorvastatin Calcium (Lipitor) 40 mg BEDTIME ORAL 07/06/16 21:00 08/05/16 20:59 07/07/16 22:05 Aztreonam/Sodium Chloride (Azactam/Sodium Chloride 50ml bag) 50 ml @ 100 mls/hr Q8H IVPB 07/06/16 22:00 07/13/16 21:59 07/08/16 05:54 Clopidogrel Bisulfate (Plavix) 75 mg DAILY ORAL 07/07/16 09:00 08/06/16 08:59 07/08/16 10:29 Dextrose (Dextrose 50%) STAT PRN IV Hypoglycemia 07/06/16 14:15 08/05/16 14:14 Docusate Sodium (Colace) 200 mg DAILY ORAL 07/07/16 09:00 08/06/16 08:59 07/08/16 10:30 Donepezil HCl (Aricept) 10 mg QHS ORAL 07/06/16 21:00 08/05/16 20:59 07/07/16 22:05 Heparin Sodium (Porcine) (Heparin 5000 units/ml) 5,000 units EVERY 12 HOURS SUBQ 07/06/16 21:00 08/05/16 20:59 07/08/16 10:42 Insulin Aspart (NovoLOG) BEFORE MEALS AND HS SUBQ 07/06/16 21:00 08/05/16 20:59 07/08/16 06:07 Isosorbide Mononitrate (Imdur) 30 mg DAILY ORAL 07/07/16 09:00 08/06/16 08:59 07/07/16 08:09 Memantine (Namenda) 10 mg BID ORAL 07/06/16 21:00 08/05/16 20:59 07/08/16 10:30 Nitroglycerin (Ntg) 0.4 mg Q5M X 3 DOSES PRN SL Prn Chest Pain 07/06/16 14:15 08/05/16 14:14 Ondansetron HCl (Zofran) 4 mg Q6H PRN IVP Nausea & Vomiting 07/06/16 14:15 08/05/16 14:14 Pantoprazole (Protonix) 40 mg BID ORAL 07/07/16 09:00 08/06/16 08:59 07/08/16 10:30 Polyethylene Glycol (Miralax) 17 gm DAILYPRN PRN ORAL Constipation 07/06/16 14:15 08/05/16 14:14 Prednisone (predniSONE) 30 mg DAILY ORAL 07/09/16 09:00 08/08/16 08:59 UNV Valproic Acid 250 mg 250 mg Q12HR@0900,2100 ORAL 07/06/16 21:00 08/05/16 20:59 07/08/16 10:27 Vancomycin HCl 1 ea 1 ea DAILY PRN MISC Per rx protocol 07/06/16 14:15 08/05/16 14:14 Vancomycin HCl/ Dextrose (Vancomycin/D5W 250ml) 250 ml @ 166.667 mls/hr Q24H IVPB 07/07/16 14:00 07/13/16 13:59 07/07/16 13:39 DARIAN HOOKS Jul 08, 2016 11:42
[2016-07-08] MEDS ORDERED: Docusate 100mg tablet NG ONE (11:45)
[2016-07-08 12:00] VITALS: BP 147/90
[2016-07-08] MEDS: Vancomycin 1250mg/D5W 250ml IVPB SCH ×2 (13:02)
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
[2016-07-08 16:14] VITALS: BP 142/115
[2016-07-08 20:00] VITALS: BP 108/51
[2016-07-08] MEDS: Donepezil 10mg tab ORAL SCH (20:50)
[2016-07-08] MEDS: Pantoprazole Inj IVP SCH (20:50)
[2016-07-08] MEDS ORDERED: D5W IVPB ONE (22:00)
[2016-07-08] MEDS ORDERED: VANCOMYCIN IVPB ONE (22:00)
[2016-07-09] VITALS: BP 133/64
[2016-07-09 04:00] VITALS: BP 117/67
[2016-07-09] MEDS: Aztreonam Inj 1 GM in NS 50 ML IVPB SCH ×3 (05:18→21:05)
[2016-07-09 05:56] LABS: BASOPHILS % (AUTO) 0.8 % (0.0-2.0); EOSINOPHILS % (AUTO) 0.1 % (0.0-3.0); LYMPHOCYTES % (AUTO) 24.6 % (20.0-45.0); MEAN CORPUSCULAR HEMOGLOBIN 25.4 PG (27.0-31.0); MEAN CORPUSCULAR HGB CONC 29.8 G/DL (32.0-36.0); MEAN CORPUSCULAR VOLUME 85 FL (80-99); MEAN PLATELET VOLUME 7.5 FL (6.5-10.1); MONOCYTES % (AUTO) 11.2 % (1.0-10.0); NEUTROPHILS % (AUTO) 63.2 % (45.0-75.0); PLATELET COUNT 289 K/UL (150-450); RED CELL DISTRIBUTION WIDTH 16.7 % (11.6-14.8); WHITE BLOOD COUNT 10.5 K/UL (4.8-10.8)
[2016-07-09 06:28] LABS: ALANINE AMINOTRANSFERASE < 5 U/L (3-33); ALBUMIN/GLOBULIN RATIO 0.7 (1.0-2.7); ANION GAP 15 (5-15); ASPARTATE AMINO TRANSFERASE 17 U/L (5-40); CALCIUM 8.5 mg/dL (8.6-10.2); CARBON DIOXIDE 29 mEQ/L (20-30); CHLORIDE 100 mEQ/L (98-107); CREATININE 0.7 mg/dL (0.5-0.9); CRP QUANT 1.7 mg/dL (< 0.5); HEMOLYSIS 5; PHOSPHORUS 2.7 mg/dL (2.5-4.8); POTASSIUM 3.3 mEQ/L (3.4-4.9); SODIUM 144 mEQ/L (135-145); TOTAL PROTEIN 7.1 g/dL (6.6-8.7)
[2016-07-09] MEDS: NovoLOG Insulin Flexpen SUBQ SCH ×4 (06:30→21:05)
[2016-07-09 08:00] VITALS: BP 154/65
[2016-07-09] MEDS ORDERED: PredniSONE 20mg tab ORAL SCH (09:00)
[2016-07-09] MEDS: Pantoprazole Inj IVP SCH ×2 (09:49→21:42)
[2016-07-09] MEDS: Valproic Acid 250mg/5ml Liquid ORAL SCH ×2 (09:49→21:04)
[2016-07-09] MEDS: Norco 5mg/325mg tab ORAL SCH ×2 (09:50→16:43)
[2016-07-09] MEDS: Memantine 10mg tab ORAL SCH ×2 (09:51→16:42)
[2016-07-09] MEDS: Docusate 100mg tablet NG SCH (09:51)
[2016-07-09] MEDS: Heparin 5000 units/ml inj SUBQ SCH ×2 (09:56→21:42)
--- NOTE | 2016-07-09 10:01 | Pulmonology Progress Note ---
Assessment/Plan Problems: (1) Respiratory distress (2) Pneumonia (3) COPD (chronic obstructive pulmonary disease) (4) DM (diabetes mellitus) Assessment/Plan taper off bipap respiratory treatment tolerating NC very well Dc Norvasc and IV antibiotics chest pt check cxr i sputum still pending repeat BC dvt prophylaxis DC NOrvasc and Atenolol. awaiting Video swallow Subjective ROS Limited/Unobtainable: No Interval Events: awake, comfortable, on NC, not communicating Allergies: Coded Allergies: AMOXICILLIN (Verified Allergy, Mild, DIARRHEA, 11/03/08) PENICILLINS (Verified Allergy, Mild, HIVES, 09/11/10) Objective Last 24 Hour Vital Signs Date Time Temp Pulse Resp B/P Pulse Ox O2 Delivery O2 Flow Rate FiO2 07/09/16 09:51 154/65 07/09/16 09:51 57 154/65 07/09/16 09:03 98 Nasal Cannula 2.0 28 07/09/16 09:03 Nasal Cannula 2.0 28 07/09/16 08:00 97.0 57 17 154/65 100 Nasal Cannula 2.0 07/09/16 04:00 52 07/09/16 04:00 96.4 61 19 117/67 100 Nasal Cannula 2.0 07/09/16 00:00 48 07/09/16 00:00 97.0 17 133/64 98 Nasal Cannula 2.0 07/08/16 20:00 53 07/08/16 20:00 97.5 57 13 108/51 95 Nasal Cannula 2.0 07/08/16 20:00 2.0 07/08/16 19:30 68 14 98 2.0 28 07/08/16 17:55 142/98 07/08/16 16:14 97.9 87 14 142/115 100 Room Air 07/08/16 16:00 64 07/08/16 16:00 2.0 07/08/16 13:01 127/64 07/08/16 12:00 2.0 07/08/16 12:00 97.5 61 20 147/90 97 07/08/16 10:45 117 127/64 07/08/16 10:29 117 127/64 Intake and Output 07/08/16 07/09/16 18:59 06:59 Intake Total 600 ml 200 ml Output Total 700 ml 1005 ml Balance -100 ml -805 ml Intake IV Total 600 ml 200 ml Output Urine Total 700 ml 1005 ml Stool Total 0 ml General Appearance: WD/WN HEENT: normocephalic, atraumatic Respiratory/Chest: crackles/rales Breasts: no masses Cardiovascular: normal peripheral pulses Abdomen: normal bowel sounds, soft, non tender Extremities: no cyanosis, no clubbing Skin: no lesions Neurologic/Psychiatric: guardian ad litem II-XII grossly normal Lymphatic: no neck adenopathy Microbiology Date/Time Source Procedure Growth Status 07/06/16 13:00 Blood Blood Culture - Preliminary Staphylococcus Sp Coag Neg Resulted 07/06/16 13:00 Blood Blood Culture - Preliminary Staphylococcus Sp Coag Neg Resulted 07/06/16 13:25 Nasal Nares Influenza Types A,B Antigen (VU) - Final Complete 07/06/16 20:30 Buttock Right Gram Stain - Final Resulted 07/06/16 20:30 Wound Culture - Preliminary Morganella Morg Spp Morganii Gram Negative Bacillus 2 Strep Species, Gamma-Hemolytic Resulted Laboratory Tests 07/08/16 11:00: Arterial Blood pH 7.430, Arterial Blood Partial Pressure CO2 45.3H, Arterial Blood Partial Pressure O2 469.4H, Arterial Blood HCO3 29.4H, Arterial Blood Oxygen Saturation 99.5H, Arterial Blood Base Excess 41.4, Nii Test Positive 07/08/16 13:00: Vancomycin Level Trough 10.0 07/09/16 03:50: White Blood Count 10.5, Red Blood Count 5.00, Hemoglobin 12.7, Hematocrit 42.5, Mean Corpuscular Volume 85, Mean Corpuscular Hemoglobin 25.4L, Mean Corpuscular Hemoglobin Concent 29.8L, Red Cell Distribution Width 16.7H, Platelet Count 289 , Mean Platelet Volume 7.5, Neutrophils (%) (Auto) 63.2, Lymphocytes (%) (Auto) 24.6, Monocytes (%) (Auto) 11.2H, Eosinophils (%) (Auto) 0.1, Basophils (%) ( Auto) 0.8, Sodium Level 144, Potassium Level 3.3L, Chloride Level 100, Carbon Dioxide Level 29, Anion Gap 15, Blood Urea Nitrogen 15, Creatinine 0.7, Estimat Glomerular Filtration Rate , Glucose Level 71L, Calcium Level 8.5L, Phosphorus Level 2.7, Total Bilirubin 0.3, Aspartate Amino Transf (AST/SGOT) 17, Alanine Aminotransferase (ALT/SGPT) < 5, Alkaline Phosphatase 87, C-Reactive Protein, Quantitative 1.7H, Pro-B-Type Natriuretic Peptide 691H, Total Protein 7.1, Albumin 3.1L, Globulin 4.0, Albumin/Globulin Ratio 0.7L Current Medications Medications (Trade) Dose Ordered Sig/Juwan Route PRN Reason Start Time Stop Time Status Last Admin Dose Admin Acetaminophen (Tylenol) 650 mg Q4H PRN ORAL fever 07/06/16 14:15 08/05/16 14:14 Acetaminophen/ Hydrocodone Bitart ([place] 5/325) 1 tab BID ORAL 07/07/16 09:00 07/14/16 08:59 07/09/16 09:50 Acetaminophen/ Hydrocodone Bitart ([place] 5/325) 1 tab TID PRN ORAL Moderate Pain (Pain Scale 4-6) 07/06/16 20:00 07/13/16 19:59 Albuterol/ Ipratropium (DuoNeb 0.5-3(2.5)mg/3ml) 3 ml Q4H PRN HHN Shortness of Breath 07/06/16 14:15 07/11/16 14:14 Amlodipine Besylate (Norvasc) 5 mg DAILY ORAL 07/07/16 09:00 08/06/16 08:59 07/09/16 09:51 Atenolol (Tenormin) 50 mg DAILY ORAL 07/07/16 09:00 08/06/16 08:59 07/08/16 10:45 Atorvastatin Calcium (Lipitor) 40 mg BEDTIME ORAL 07/06/16 21:00 08/05/16 20:59 07/08/16 20:51 Aztreonam/Sodium Chloride (Azactam/Sodium Chloride 50ml bag) 50 ml @ 100 mls/hr Q8H IVPB 07/06/16 22:00 07/13/16 21:59 07/09/16 05:18 Clopidogrel Bisulfate (Plavix) 75 mg DAILY ORAL 07/07/16 09:00 08/06/16 08:59 07/09/16 09:50 Dextrose (Dextrose 50%) STAT PRN IV Hypoglycemia 07/06/16 14:15 08/05/16 14:14 Docusate Sodium 200 mg 200 mg DAILY NG 07/09/16 09:00 08/08/16 08:59 07/09/16 09:51 Donepezil HCl (Aricept) 10 mg QHS ORAL 07/06/16 21:00 08/05/16 20:59 07/08/16 20:50 Heparin Sodium (Porcine) (Heparin 5000 units/ml) 5,000 units EVERY 12 HOURS SUBQ 07/06/16 21:00 08/05/16 20:59 07/09/16 09:56 Insulin Aspart (NovoLOG) BEFORE MEALS AND HS SUBQ 07/06/16 21:00 08/05/16 20:59 07/08/16 20:52 Isosorbide Dinitrate (Isordil) 10 mg TID ORAL 07/08/16 13:00 08/07/16 12:59 07/09/16 09:51 Memantine (Namenda) 10 mg BID ORAL 07/06/16 21:00 08/05/16 20:59 07/09/16 09:51 Nitroglycerin (Ntg) 0.4 mg Q5M X 3 DOSES PRN SL Prn Chest Pain 07/06/16 14:15 08/05/16 14:14 Ondansetron HCl (Zofran) 4 mg Q6H PRN IVP Nausea & Vomiting 07/06/16 14:15 08/05/16 14:14 Pantoprazole (Protonix) 40 mg EVERY 12 HOURS IVP 07/08/16 21:00 08/07/16 20:59 07/09/16 09:49 Polyethylene Glycol (Miralax) 17 gm DAILYPRN PRN ORAL Constipation 07/06/16 14:15 08/05/16 14:14 Prednisone (predniSONE) 30 mg DAILY ORAL 07/09/16 09:00 08/08/16 08:59 07/09/16 09:50 Valproic Acid (Depakene) 250 mg Q12HR@0900,2100 ORAL 07/06/16 21:00 08/05/16 20:59 07/09/16 09:49 Vancomycin HCl 1 ea 1 ea DAILY PRN MISC Per rx protocol 07/06/16 14:15 08/05/16 14:14 Vancomycin HCl/ Dextrose (Vancomycin/D5W 250ml) 300 ml @ 150 mls/hr Q24H IVPB 07/09/16 22:00 07/14/16 21:59 DARIAN HOOKS Jul 09, 2016 10:01
--- NOTE | 2016-07-09 11:02 | Cardiology Report ---
APPROVED REPORT EKG Measurement Heart [id number] Sinus tachycardia with premature atrial complexes with aberrant conduction Possible Left atrial enlargement Nonspecific T wave abnormality Abnormal ECG
[2016-07-09 12:00] VITALS: BP 128/51
--- NOTE | 2016-07-09 15:41 | General Progress Note ---
Assessment/Plan Status: stable Status Narrative failed swallowing study for reg food Assessment/Plan 1. Respiratory distress. / Pneumonia left sided ( Asp Prone) 2. Congestive heart failure. 3. Chronic obstructive pulmonary disease. 4. Pneumonia. 5. Other conditions as mentioned hypertension , History of seizures and dementia. Plan: ST eval- done- diet changed due to subtle aspiration prednisone and taper.. Pulmonary support- Aztreonam and Vanco hold norvasc and atenolol for low HR and start low dose hydralazine and Isosorbide ? DC in am if OK?? Subjective ROS Limited/Unobtainable: No Constitutional: Reports: malaise Allergies: Coded Allergies: AMOXICILLIN (Verified Allergy, Mild, DIARRHEA, 11/03/08) PENICILLINS (Verified Allergy, Mild, HIVES, 09/11/10) Objective Last 24 Hour Vital Signs Date Time Temp Pulse Resp B/P Pulse Ox O2 Delivery O2 Flow Rate FiO2 07/09/16 13:47 128/51 07/09/16 12:00 55 07/09/16 12:00 97.5 55 18 128/51 99 Nasal Cannula 3.0 07/09/16 10:49 97.0 07/09/16 09:51 154/65 07/09/16 09:51 57 154/65 07/09/16 09:03 98 Nasal Cannula 2.0 28 07/09/16 09:03 Nasal Cannula 2.0 28 07/09/16 08:00 70 07/09/16 08:00 97.0 57 17 154/65 100 Nasal Cannula 2.0 07/09/16 04:00 52 07/09/16 04:00 96.4 61 19 117/67 100 Nasal Cannula 2.0 07/09/16 00:00 48 07/09/16 00:00 97.0 17 133/64 98 Nasal Cannula 2.0 07/08/16 20:00 53 07/08/16 20:00 97.5 57 13 108/51 95 Nasal Cannula 2.0 07/08/16 20:00 2.0 07/08/16 19:30 68 14 98 2.0 28 07/08/16 17:55 142/98 07/08/16 16:14 97.9 87 14 142/115 100 Room Air 07/08/16 16:00 64 07/08/16 16:00 2.0 Intake and Output 07/08/16 07/09/16 18:59 06:59 Intake Total 600 ml 200 ml Output Total 700 ml 1005 ml Balance -100 ml -805 ml Intake IV Total 600 ml 200 ml Output Urine Total 700 ml 1005 ml Stool Total 0 ml Laboratory Tests 07/09/16 03:50: White Blood Count 10.5, Red Blood Count 5.00, Hemoglobin 12.7, Hematocrit 42.5, Mean Corpuscular Volume 85, Mean Corpuscular Hemoglobin 25.4L, Mean Corpuscular Hemoglobin Concent 29.8L, Red Cell Distribution Width 16.7H, Platelet Count 289 , Mean Platelet Volume 7.5, Neutrophils (%) (Auto) 63.2, Lymphocytes (%) (Auto) 24.6, Monocytes (%) (Auto) 11.2H, Eosinophils (%) (Auto) 0.1, Basophils (%) ( Auto) 0.8, Sodium Level 144, Potassium Level 3.3L, Chloride Level 100, Carbon Dioxide Level 29, Anion Gap 15, Blood Urea Nitrogen 15, Creatinine 0.7, Estimat Glomerular Filtration Rate , Glucose Level 71L, Calcium Level 8.5L, Phosphorus Level 2.7, Total Bilirubin 0.3, Aspartate Amino Transf (AST/SGOT) 17, Alanine Aminotransferase (ALT/SGPT) < 5, Alkaline Phosphatase 87, C-Reactive Protein, Quantitative 1.7H, Pro-B-Type Natriuretic Peptide 691H, Total Protein 7.1, Albumin 3.1L, Globulin 4.0, Albumin/Globulin Ratio 0.7L Height (Feet): 5 Height (Inches): 7.00 Weight (Pounds): 220 General Appearance: no apparent distress Cardiovascular: bradycardia Respiratory/Chest: decreased breath sounds Abdomen: soft ILA LEE Jul 09, 2016 15:41
[2016-07-09 16:00] VITALS: BP 128/81
[2016-07-09] MEDS: HydrALAZINE 10mg Tab ORAL SCH ×2 (16:42→21:04)
[2016-07-09 20:08] VITALS: BP 118/62
[2016-07-09] MEDS: Donepezil 10mg tab ORAL SCH (21:03)
[2016-07-09] MEDS ORDERED: Vancomycin 1.5 GM/D5W 300 ML IVPB SCH ×2 (22:00)
[2016-07-09] MEDS ORDERED: D5 1/2NS 1000ml IV ONE (22:53)
[2016-07-09] MEDS ORDERED: NS 275ml ONE (22:53)
[2016-07-09] MEDS ORDERED: Tubing IV Secondary IV ONE (22:53)
[2016-07-09] MEDS ORDERED: Sterile Water Irrig 1000ml IRRIG ONE (22:53)
[2016-07-10 00:18] VITALS: BP 126/48
[2016-07-10 04:08] VITALS: BP 122/91
[2016-07-10] MEDS: Aztreonam Inj 1 GM in NS 50 ML IVPB SCH (05:15)
[2016-07-10] MEDS: HydrALAZINE 10mg Tab ORAL SCH ×3 (05:15→21:26)
[2016-07-10 05:29] LABS: BASOPHILS % (AUTO) 1.4 % (0.0-2.0); EOSINOPHILS % (AUTO) 0.2 % (0.0-3.0); MEAN CORPUSCULAR HEMOGLOBIN 25.9 PG (27.0-31.0); MEAN CORPUSCULAR HGB CONC 30.7 G/DL (32.0-36.0); MEAN CORPUSCULAR VOLUME 84 FL (80-99); MEAN PLATELET VOLUME 7.8 FL (6.5-10.1); MONOCYTES % (AUTO) 12.8 % (1.0-10.0); NEUTROPHILS % (AUTO) 59.6 % (45.0-75.0); PLATELET COUNT 239 K/UL (150-450); RED BLOOD COUNT 4.22 M/UL (4.20-5.40); RED CELL DISTRIBUTION WIDTH 16.5 % (11.6-14.8); WHITE BLOOD COUNT 8.5 K/UL (4.8-10.8)
[2016-07-10 05:51] LABS: ALANINE AMINOTRANSFERASE 5 U/L (3-33); ALBUMIN/GLOBULIN RATIO 0.7 (1.0-2.7); ANION GAP 14 (5-15); ASPARTATE AMINO TRANSFERASE 14 U/L (5-40); CALCIUM 8.3 mg/dL (8.6-10.2); CARBON DIOXIDE 28 mEQ/L (20-30); CHLORIDE 104 mEQ/L (98-107); CREATININE 0.9 mg/dL (0.5-0.9); CRP QUANT 1.1 mg/dL (< 0.5); HEMOLYSIS 9; MAGNESIUM 2.1 mg/dL (1.7-2.5); PHOSPHORUS 3.4 mg/dL (2.5-4.8); POTASSIUM 3.3 mEQ/L (3.4-4.9); SODIUM 146 mEQ/L (135-145); TOTAL PROTEIN 6.4 g/dL (6.6-8.7)
[2016-07-10] MEDS: NovoLOG Insulin Flexpen SUBQ SCH ×4 (06:30→20:54)
[2016-07-10 08:00] VITALS: BP 145/65
[2016-07-10] MEDS: Valproic Acid 250mg/5ml Liquid ORAL SCH ×2 (08:44→20:39)
[2016-07-10] MEDS: Norco 5mg/325mg tab ORAL SCH ×2 (08:45→18:24)
[2016-07-10] MEDS: Memantine 10mg tab ORAL SCH ×2 (08:46→18:23)
[2016-07-10] MEDS: Docusate 100mg tablet NG SCH (08:46)
[2016-07-10] MEDS: Pantoprazole Inj IVP SCH (08:46)
[2016-07-10] MEDS: Heparin 5000 units/ml inj SUBQ SCH ×2 (08:47→20:40)
[2016-07-10] MEDS ORDERED: PredniSONE 5mg tab ORAL SCH (09:00)
[2016-07-10 09:48] LABS: ERYTHROCYTE SEDIMENTATION RATE 80 MM/HR (0-42)
[2016-07-10 12:00] VITALS: BP 139/69
--- NOTE | 2016-07-10 13:03 | General Progress Note ---
Assessment/Plan Status: stable Assessment/Plan status: 1. Respiratory distress. / Pneumonia left sided ( Asp Prone) 2. Congestive heart failure. 3. Chronic obstructive pulmonary disease. 4. Pneumonia. 5. Other conditions as mentioned hypertension , History of seizures and dementia. Plan: ST eval- done- diet changed due to subtle aspiration prednisone and taper.. Pulmonary support- Aztreonam and Vanco hold norvasc and atenolol for low HR and start low dose hydralazine and Isosorbide ? DC in am if OK?? today's CXR pending Subjective ROS Limited/Unobtainable: Yes Allergies: Coded Allergies: AMOXICILLIN (Verified Allergy, Mild, DIARRHEA, 11/03/08) PENICILLINS (Verified Allergy, Mild, HIVES, 09/11/10) Objective Last 24 Hour Vital Signs Date Time Temp Pulse Resp B/P Pulse Ox O2 Delivery O2 Flow Rate FiO2 07/10/16 12:00 97.3 70 20 139/69 98 Nasal Cannula 3.0 07/10/16 12:00 66 07/10/16 09:44 98.5 07/10/16 08:45 149/65 07/10/16 08:00 97.7 61 19 145/65 100 Nasal Cannula 3.0 07/10/16 08:00 61 07/10/16 05:15 122/91 07/10/16 04:08 98.5 61 18 122/91 97 Nasal Cannula 3.0 07/10/16 04:00 54 07/10/16 00:18 98.7 58 17 126/48 95 Nasal Cannula 3.0 07/10/16 00:00 54 07/09/16 21:04 129/62 07/09/16 20:24 Nasal Cannula 2.0 28 07/09/16 20:23 98 Nasal Cannula 2.0 28 07/09/16 20:08 97.9 66 26 118/62 99 Nasal Cannula 3.0 07/09/16 20:00 60 07/09/16 17:50 129/56 07/09/16 16:42 128/81 07/09/16 16:00 62 07/09/16 16:00 97.9 60 23 128/81 99 Nasal Cannula 3.0 07/09/16 13:47 128/51 Intake and Output 07/09/16 07/10/16 19:00 07:00 Intake Total 50 ml 100 ml Output Total 175 ml 300 ml Balance -125 ml -200 ml IV Total 50 ml 100 ml Output Urine Total 175 ml 300 ml # Bowel Movements 1 Laboratory Tests 07/10/16 03:25: White Blood Count 8.5, Red Blood Count 4.22, Hemoglobin 10.9L, Hematocrit 35.6L , Mean Corpuscular Volume 84, Mean Corpuscular Hemoglobin 25.9L, Mean Corpuscular Hemoglobin Concent 30.7L, Red Cell Distribution Width 16.5H, Platelet Count 239, Mean Platelet Volume 7.8, Neutrophils (%) (Auto) 59.6, Lymphocytes (%) (Auto) 26.0, Monocytes (%) (Auto) 12.8H, Eosinophils (%) (Auto) 0.2, Basophils (%) (Auto) 1.4, Erythrocyte Sedimentation Rate 80H, Sodium Level 146H, Potassium Level 3.3L, Chloride Level 104, Carbon Dioxide Level 28, Anion Gap 14, Blood Urea Nitrogen 25H, Creatinine 0.9, Estimat Glomerular Filtration Rate , Glucose Level 77, Calcium Level 8.3L, Phosphorus Level 3.4, Magnesium Level 2.1, Total Bilirubin 0.3, Aspartate Amino Transf (AST/SGOT) 14, Alanine Aminotransferase (ALT/SGPT) 5, Alkaline Phosphatase 65, C-Reactive Protein, Quantitative 1.1H, Total Protein 6.4L, Albumin 2.8L, Globulin 3.6, Albumin/ Globulin Ratio 0.7L Height (Feet): 5 Height (Inches): 7.00 Weight (Pounds): 220 General Appearance: no apparent distress Cardiovascular: regular rhythm Respiratory/Chest: decreased breath sounds Abdomen: soft Objective physical exam not changed ILA LEE Jul 10, 2016 13:03
--- NOTE | 2016-07-10 13:26 | Pulmonology Progress Note ---
Assessment/Plan Problems: (1) Respiratory distress (2) Pneumonia (3) COPD (chronic obstructive pulmonary disease) (4) DM (diabetes mellitus) Assessment/Plan off bipap still coughing BC positive respiratory treatment tolerating NC very well IV antibiotics, stop Aztronam chest pt check cxr revewed, no major changes sputum still pending repeat BC dvt prophylaxis may go to med/surg Subjective ROS Limited/Unobtainable: No Constitutional: Reports: no symptoms HEENT: Repors: no symptoms Respiratory: Reports: no symptoms Allergies: Coded Allergies: AMOXICILLIN (Verified Allergy, Mild, DIARRHEA, 11/03/08) PENICILLINS (Verified Allergy, Mild, HIVES, 09/11/10) Objective Last 24 Hour Vital Signs Date Time Temp Pulse Resp B/P Pulse Ox O2 Delivery O2 Flow Rate FiO2 07/10/16 12:00 97.3 70 20 139/69 98 Nasal Cannula 3.0 07/10/16 12:00 66 07/10/16 09:44 98.5 07/10/16 08:45 149/65 07/10/16 08:00 97.7 61 19 145/65 100 Nasal Cannula 3.0 07/10/16 08:00 61 07/10/16 05:15 122/91 07/10/16 04:08 98.5 61 18 122/91 97 Nasal Cannula 3.0 07/10/16 04:00 54 07/10/16 00:18 98.7 58 17 126/48 95 Nasal Cannula 3.0 07/10/16 00:00 54 07/09/16 21:04 129/62 07/09/16 20:24 Nasal Cannula 2.0 28 07/09/16 20:23 98 Nasal Cannula 2.0 28 07/09/16 20:08 97.9 66 26 118/62 99 Nasal Cannula 3.0 07/09/16 20:00 60 07/09/16 17:50 129/56 07/09/16 16:42 128/81 07/09/16 16:00 62 07/09/16 16:00 97.9 60 23 128/81 99 Nasal Cannula 3.0 07/09/16 13:47 128/51 Intake and Output 07/09/16 07/10/16 19:00 07:00 Intake Total 50 ml 100 ml Output Total 175 ml 300 ml Balance -125 ml -200 ml IV Total 50 ml 100 ml Output Urine Total 175 ml 300 ml # Bowel Movements 1 General Appearance: WD/WN HEENT: normocephalic, atraumatic Respiratory/Chest: chest wall non-tender, lungs clear Breasts: no masses Cardiovascular: normal peripheral pulses Abdomen: normal bowel sounds, soft, non tender Extremities: no cyanosis Skin: no rash Neurologic/Psychiatric: telecom sales consultant II-XII grossly normal Microbiology Date/Time Source Procedure Growth Status 07/08/16 16:45 Sputum Induced Gram Stain - Final Complete 07/08/16 16:45 Sputum Induced Sputum Culture - Final NORMAL UPPER RESPIRATORY STEVE PRESENT Complete Laboratory Tests 07/10/16 03:25: White Blood Count 8.5, Red Blood Count 4.22, Hemoglobin 10.9L, Hematocrit 35.6L , Mean Corpuscular Volume 84, Mean Corpuscular Hemoglobin 25.9L, Mean Corpuscular Hemoglobin Concent 30.7L, Red Cell Distribution Width 16.5H, Platelet Count 239, Mean Platelet Volume 7.8, Neutrophils (%) (Auto) 59.6, Lymphocytes (%) (Auto) 26.0, Monocytes (%) (Auto) 12.8H, Eosinophils (%) (Auto) 0.2, Basophils (%) (Auto) 1.4, Erythrocyte Sedimentation Rate 80H, Sodium Level 146H, Potassium Level 3.3L, Chloride Level 104, Carbon Dioxide Level 28, Anion Gap 14, Blood Urea Nitrogen 25H, Creatinine 0.9, Estimat Glomerular Filtration Rate , Glucose Level 77, Calcium Level 8.3L, Phosphorus Level 3.4, Magnesium Level 2.1, Total Bilirubin 0.3, Aspartate Amino Transf (AST/SGOT) 14, Alanine Aminotransferase (ALT/SGPT) 5, Alkaline Phosphatase 65, C-Reactive Protein, Quantitative 1.1H, Total Protein 6.4L, Albumin 2.8L, Globulin 3.6, Albumin/ Globulin Ratio 0.7L Current Medications Medications (Trade) Dose Ordered Sig/[place]wan Route PRN Reason Start Time Stop Time Status Last Admin Dose Admin Acetaminophen (Tylenol) 650 mg Q4H PRN ORAL fever 07/06/16 14:15 08/05/16 14:14 Acetaminophen/ Hydrocodone Bitart ([place] 5/325) 1 tab BID ORAL 07/07/16 09:00 07/14/16 08:59 07/10/16 08:45 Acetaminophen/ Hydrocodone Bitart ([place] 5/325) 1 tab TID PRN ORAL Moderate Pain (Pain Scale 4-6) 07/06/16 20:00 07/13/16 19:59 Albuterol/ Ipratropium (DuoNeb 0.5-3(2.5)mg/3ml) 3 ml Q4H PRN HHN Shortness of Breath 07/06/16 14:15 07/11/16 14:14 Atorvastatin Calcium (Lipitor) 40 mg BEDTIME ORAL 07/06/16 21:00 08/05/16 20:59 07/09/16 21:04 Clopidogrel Bisulfate (Plavix) 75 mg DAILY ORAL 07/07/16 09:00 08/06/16 08:59 07/10/16 08:45 Dextrose (Dextrose 50%) STAT PRN IV Hypoglycemia 07/06/16 14:15 08/05/16 14:14 Docusate Sodium 200 mg 200 mg DAILY NG 07/09/16 09:00 08/08/16 08:59 07/10/16 08:46 Donepezil HCl (Aricept) 10 mg QHS ORAL 07/06/16 21:00 08/05/16 20:59 07/09/16 21:03 Heparin Sodium (Porcine) (Heparin 5000 units/ml) 5,000 units EVERY 12 HOURS SUBQ 07/06/16 21:00 08/05/16 20:59 07/10/16 08:47 Hydralazine HCl (Apresoline) 10 mg Q8HR ORAL 07/09/16 16:00 08/08/16 15:59 07/10/16 05:15 Insulin Aspart (NovoLOG) BEFORE MEALS AND HS SUBQ 07/06/16 21:00 08/05/16 20:59 07/10/16 11:55 Isosorbide Dinitrate (Isordil) 10 mg TID ORAL 07/08/16 13:00 08/07/16 12:59 07/10/16 08:45 Levofloxacin (Levaquin) 100 ml @ 100 mls/hr Q24H IVPB 07/10/16 13:30 07/17/16 13:29 UNV Memantine (Namenda) 10 mg BID ORAL 07/06/16 21:00 08/05/16 20:59 07/10/16 08:46 Nitroglycerin (Ntg) 0.4 mg Q5M X 3 DOSES PRN SL Prn Chest Pain 07/06/16 14:15 08/05/16 14:14 Ondansetron HCl (Zofran) 4 mg Q6H PRN IVP Nausea & Vomiting 07/06/16 14:15 08/05/16 14:14 Pantoprazole (Protonix) 40 mg EVERY 12 HOURS IVP 07/08/16 21:00 08/07/16 20:59 07/10/16 08:46 Polyethylene Glycol (Miralax) 17 gm DAILYPRN PRN ORAL Constipation 07/06/16 14:15 08/05/16 14:14 Prednisone 20 mg 20 mg DAILY ORAL 07/11/16 09:00 08/10/16 08:59 Valproic Acid (Depakene) 250 mg Q12HR@0900,2100 ORAL 07/06/16 21:00 08/05/16 20:59 07/10/16 08:44 Vancomycin HCl (Vanco rx to dose) 1 ea DAILY PRN MISC Per rx protocol 07/06/16 14:15 08/05/16 14:14 Vancomycin HCl/ Dextrose (Vancomycin/D5W 250ml) 300 ml @ 150 mls/hr Q24H IVPB 07/09/16 22:00 07/14/16 21:59 07/09/16 21:43 DARIAN HOOKS Jul 10, 2016 13:26
[2016-07-10] MEDS ORDERED: DuoNeb 0.5-3(2.5)mg/3ml neb HHN PRN ×2 (13:30→15:00)
[2016-07-10] MEDS ORDERED: Promethazine/Codeine 5ml UD ORAL PRN ×2 (13:30→15:30)
[2016-07-10] MEDS ORDERED: Nitroglycerin Subl 0.4mg tab (Bottle Of 25) SL PRN (14:45)
[2016-07-10] MEDS ORDERED: Norco 5mg/325mg tab ORAL PRN (15:30)
[2016-07-10 16:00] VITALS: BP 130/50
[2016-07-10] MEDS ORDERED: Tubing IV Secondary IV ONE (17:18)
[2016-07-10 20:00] VITALS: BP 140/57
[2016-07-10] MEDS ORDERED: Donepezil 10mg tab NG SCH (21:00)
[2016-07-10] MEDS ORDERED: Vancomycin 1.5 GM in D5W 300 ML IVPB SCH (22:00)
[2016-07-11] VITALS: BP 149/68
[2016-07-11 04:00] VITALS: BP 161/79
[2016-07-11] MEDS: NovoLOG Insulin Flexpen SUBQ SCH ×2 (06:28→12:48)
[2016-07-11] MEDS: HydrALAZINE 10mg Tab ORAL SCH (06:28)
[2016-07-11 07:19] LABS: ALANINE AMINOTRANSFERASE 8 U/L (3-33); ALBUMIN/GLOBULIN RATIO 0.7 (1.0-2.7); ANION GAP 14 (5-15); ASPARTATE AMINO TRANSFERASE 22 U/L (5-40); CALCIUM 8.3 mg/dL (8.6-10.2); CARBON DIOXIDE 27 mEQ/L (20-30); CHLORIDE 101 mEQ/L (98-107); CREATININE 0.7 mg/dL (0.5-0.9); HEMOLYSIS 87; POTASSIUM 3.9 mEQ/L (3.4-4.9); SODIUM 142 mEQ/L (135-145); TOTAL PROTEIN 7.1 g/dL (6.6-8.7)
[2016-07-11 07:26] LABS: BASOPHILS % (AUTO) 0.8 % (0.0-2.0); EOSINOPHILS % (AUTO) 1.9 % (0.0-3.0); LYMPHOCYTES % (AUTO) 24.9 % (20.0-45.0); MEAN CORPUSCULAR HEMOGLOBIN 26.3 PG (27.0-31.0); MEAN CORPUSCULAR VOLUME 85 FL (80-99); MEAN PLATELET VOLUME 8.8 FL (6.5-10.1); MONOCYTES % (AUTO) 11.3 % (1.0-10.0); NEUTROPHILS % (AUTO) 61.1 % (45.0-75.0); PLATELET COUNT 249 K/UL (150-450); RED BLOOD COUNT 5.03 M/UL (4.20-5.40); RED CELL DISTRIBUTION WIDTH 16.7 % (11.6-14.8)
[2016-07-11 08:37] VITALS: BP 97/52
--- NOTE | 2016-07-11 08:46 | Diagnostic Imaging Report ---
Indications: DYSPNEA Technique: Portable AP chest Findings: Comparison: 07/10/2016 Cardiac silhouette remains enlarged. Pulmonary vascular redistribution and bilateral interstitial infiltrates have decreased. No new abnormality identified. IMPRESSION: Decrease in bilateral congestive changes
[2016-07-11] MEDS ORDERED: PredniSONE 20mg tab ORAL SCH ×2 (09:00)
[2016-07-11] MEDS ORDERED: Docusate 100mg tablet NG SCH (09:00)
--- NOTE | 2016-07-11 09:36 | General Progress Note ---
Assessment/Plan Status: stable Status Narrative still coughing Assessment/Plan DC to ECF status: 1. Respiratory distress. / Pneumonia left sided ( Asp Prone) 2. Congestive heart failure. 3. Chronic obstructive pulmonary disease. 4. Pneumonia. 5. Other conditions as mentioned hypertension , History of seizures and dementia. Plan: ST eval- done- diet changed due to subtle aspiration prednisone and taper.. Pulmonary support- Aztreonam and Vanco hold norvasc and atenolol for low HR and start low dose hydralazine and Isosorbide ? DC in am if OK?? today's CXR pending Subjective ROS Limited/Unobtainable: No Allergies: Coded Allergies: AMOXICILLIN (Verified Allergy, Mild, DIARRHEA, 11/03/08) PENICILLINS (Verified Allergy, Mild, HIVES, 09/11/10) Objective Last 24 Hour Vital Signs Date Time Temp Pulse Resp B/P Pulse Ox O2 Delivery O2 Flow Rate FiO2 07/11/16 08:37 98.2 67 20 97/52 100 Nasal Cannula 2.0 07/11/16 07:33 Nasal Cannula 2.0 28 07/11/16 07:33 98 Nasal Cannula 2.0 28 07/11/16 07:33 85 20 Nasal Cannula 2.0 28 07/11/16 06:28 161/79 07/11/16 04:00 97.3 86 19 161/79 97 Nasal Cannula 2.0 07/11/16 00:00 97.6 69 19 149/68 100 Nasal Cannula 2.0 07/10/16 21:26 140/57 07/10/16 20:30 72 18 Nasal Cannula 2.0 28 07/10/16 20:27 Nasal Cannula 2.0 28 07/10/16 20:27 99 Nasal Cannula 2.0 28 07/10/16 20:00 97.9 78 18 140/57 100 Room Air 07/10/16 18:23 130/50 07/10/16 16:00 98.1 70 18 130/50 98 Nasal Cannula 3.0 07/10/16 14:08 139/69 07/10/16 13:39 139/69 07/10/16 12:00 97.3 70 20 139/69 98 Nasal Cannula 3.0 07/10/16 12:00 66 07/10/16 09:44 98.5 Intake and Output 07/10/16 07/11/16 19:00 07:00 Intake Total 410 ml 400 ml Output Total 225 ml 775 ml Balance 185 ml -375 ml Intake Oral 410 ml IV Total 400 ml Output Urine Total 225 ml 775 ml # Bowel Movements 1 1 Current Medications Medications (Trade) Dose Ordered Sig/Juwan Route PRN Reason Start Time Stop Time Status Last Admin Dose Admin Acetaminophen (Tylenol) 650 mg Q4H PRN ORAL fever 07/10/16 15:15 08/09/16 15:14 Acetaminophen/ Hydrocodone Bitart (Telferner 5/325) 1 tab BID ORAL 07/10/16 18:00 07/17/16 17:59 07/10/16 18:24 Acetaminophen/ Hydrocodone Bitart (Telferner 5/325) 1 tab Q8H PRN ORAL Moderate Pain (Pain Scale 4-6) 07/10/16 15:30 07/17/16 15:29 Albuterol/ Ipratropium (DuoNeb 0.5-3(2.5)mg/3ml) 3 ml Q4H PRN HHN Shortness of Breath 07/10/16 15:00 07/15/16 14:59 Atorvastatin Calcium (Lipitor) 40 mg BEDTIME ORAL 07/10/16 21:00 08/09/16 20:59 07/10/16 20:39 Clopidogrel Bisulfate (Plavix) 75 mg DAILY ORAL 07/11/16 09:00 08/10/16 08:59 Dextrose (Dextrose 50%) STAT PRN IV Hypoglycemia 07/11/16 14:15 08/10/16 14:14 Docusate Sodium (Colace) 200 mg DAILY NG 07/11/16 09:00 08/10/16 08:59 Donepezil HCl (Aricept) 10 mg QHS NG 07/10/16 21:00 08/09/16 20:59 07/10/16 20:39 Heparin Sodium (Porcine) (Heparin 5000 units/ml) 5,000 units EVERY 12 HOURS SUBQ 07/10/16 21:00 08/09/16 20:59 07/10/16 20:40 Hydralazine HCl (Apresoline) 10 mg Q8HR ORAL 07/10/16 22:00 08/09/16 21:59 07/11/16 06:28 Insulin Aspart (NovoLOG) BEFORE MEALS AND HS SUBQ 07/10/16 16:30 08/09/16 16:29 07/10/16 20:54 Isosorbide Dinitrate (Isordil) 10 mg TID ORAL 07/10/16 18:00 08/09/16 17:59 07/10/16 18:23 Levofloxacin 100 ml @ 100 mls/hr Q24H IVPB 07/10/16 17:00 07/17/16 16:59 07/10/16 18:48 Memantine (Namenda) 10 mg BID ORAL 07/10/16 18:00 08/09/16 17:59 07/10/16 18:23 Nitroglycerin (Ntg) 0.4 mg Q5M X 3 DOSES PRN SL Prn Chest Pain 07/10/16 14:45 08/09/16 14:44 Ondansetron HCl (Zofran) 4 mg Q6H PRN IVP Nausea & Vomiting 07/10/16 15:30 08/09/16 15:29 Polyethylene Glycol (Miralax) 17 gm DAILYPRN PRN ORAL Constipation 07/11/16 14:15 08/10/16 14:14 Prednisone (predniSONE) 20 mg DAILY ORAL 07/11/16 09:00 08/10/16 08:59 Promethazine HCl/ Codeine (Phenergan with Codeine) 5 ml Q4H PRN ORAL For Cough 07/10/16 15:30 08/09/16 15:29 Valproic Acid (Depakene) 250 mg Q12HR@0900,2100 ORAL 07/10/16 21:00 08/09/16 20:59 07/10/16 20:39 Vancomycin HCl (Vanco rx to dose) 1 ea DAILY PRN MISC Per rx protocol 07/10/16 09:00 08/09/16 08:59 Vancomycin HCl/ Dextrose (Vancomycin/D5W 250ml) 300 ml @ 150 mls/hr Q24H IVPB 07/10/16 22:00 07/15/16 21:59 07/10/16 21:25 Laboratory Tests 07/11/16 05:15: White Blood Count 11.0H, Red Blood Count 5.03, Hemoglobin 13.2, Hematocrit 42.6 , Mean Corpuscular Volume 85, Mean Corpuscular Hemoglobin 26.3L, Mean Corpuscular Hemoglobin Concent 31.0L, Red Cell Distribution Width 16.7H, Platelet Count 249, Mean Platelet Volume 8.8, Neutrophils (%) (Auto) 61.1, Lymphocytes (%) (Auto) 24.9, Monocytes (%) (Auto) 11.3H, Eosinophils (%) (Auto) 1.9, Basophils (%) (Auto) 0.8, Sodium Level 142, Potassium Level 3.9, Chloride Level 101, Carbon Dioxide Level 27, Anion Gap 14, Blood Urea Nitrogen 16, Creatinine 0.7, Estimat Glomerular Filtration Rate , Glucose Level 64L, Calcium Level 8.3L, Total Bilirubin 0.4, Aspartate Amino Transf (AST/SGOT) 22, Alanine Aminotransferase (ALT/SGPT) 8, Alkaline Phosphatase 69, Total Protein 7.1, Albumin 3.0L, Globulin 4.1, Albumin/Globulin Ratio 0.7L Height (Feet): 5 Height (Inches): 7.00 Weight (Pounds): 220 General Appearance: no apparent distress Respiratory/Chest: decreased breath sounds Objective physical exam not changed ILA LEE Jul 11, 2016 09:36
[2016-07-11] MEDS ORDERED: PREDNISONE20 MG ORAL (09:41)
--- NOTE | 2016-07-11 09:42 | Discharge Instructions ---
Discharge Instructions Discharge Instructions Follow up with: myself at [facility] Diet: cardiac 2 GM Na, low fat, other - aspiration percautions- Puree with thickened liquids Special Instructions aspiration percautions- For Congestive Heart Failure Reminder Report to your physician any weight gain of 5 pounds or more in one week. ILA LEE Jul 11, 2016 09:42
[2016-07-11] MEDS: Valproic Acid 250mg/5ml Liquid ORAL SCH (09:46)
[2016-07-11] MEDS: Memantine 10mg tab ORAL SCH (09:47)
[2016-07-11 09:55] VITALS: BP 131/61
[2016-07-11] MEDS: Heparin 5000 units/ml inj SUBQ SCH (10:02)
[2016-07-11] MEDS: Norco 5mg/325mg tab ORAL SCH (10:06)
[2016-07-11 12:03] VITALS: BP 116/55
[2016-07-11] MEDS ORDERED: Tubing IV Secondary IV ONE (14:02)
[2016-07-11] MEDS ORDERED: Miralax 17gm pkt ORAL PRN (14:15)
--- NOTE | 2016-07-11 18:43 | Pulmonology Progress Note ---
Assessment/Plan Problems: (1) Respiratory distress (2) Pneumonia (3) COPD (chronic obstructive pulmonary disease) (4) DM (diabetes mellitus) Assessment/Plan off bipap still coughing BC positive respiratory treatment tolerating NC very well IV antibiotics, stop Aztronam chest pt check cxr revewed, no major changes sputum still pending repeat BC dvt prophylaxis may go to med/surg Subjective ROS Limited/Unobtainable: No Respiratory: Reports: dyspnea at rest, dyspnea on exertion, productive cough, shortness of breath, sputum, wheezing Allergies: Coded Allergies: AMOXICILLIN (Verified Allergy, Mild, DIARRHEA, 11/03/08) PENICILLINS (Verified Allergy, Mild, HIVES, 09/11/10) Objective Last 24 Hour Vital Signs Date Time Temp Pulse Resp B/P Pulse Ox O2 Delivery O2 Flow Rate FiO2 07/11/16 12:03 97.8 63 20 116/55 100 Nasal Cannula 2.0 07/11/16 09:58 130/61 07/11/16 09:55 67 131/61 07/11/16 08:37 98.2 67 20 97/52 100 Nasal Cannula 2.0 07/11/16 07:33 Nasal Cannula 2.0 28 07/11/16 07:33 98 Nasal Cannula 2.0 28 07/11/16 07:33 85 20 Nasal Cannula 2.0 28 07/11/16 06:28 161/79 07/11/16 04:00 97.3 86 19 161/79 97 Nasal Cannula 2.0 07/11/16 00:00 97.6 69 19 149/68 100 Nasal Cannula 2.0 07/10/16 21:26 140/57 07/10/16 20:30 72 18 Nasal Cannula 2.0 28 07/10/16 20:27 Nasal Cannula 2.0 28 07/10/16 20:27 99 Nasal Cannula 2.0 28 07/10/16 20:00 97.9 78 18 140/57 100 Room Air Intake and Output 07/10/16 07/11/16 19:00 07:00 Intake Total 410 ml 400 ml Output Total 225 ml 775 ml Balance 185 ml -375 ml Intake Oral 410 ml IV Total 400 ml Output Urine Total 225 ml 775 ml # Bowel Movements 1 1 General Appearance: no acute distress HEENT: normocephalic, atraumatic, PERRL Respiratory/Chest: chest wall non-tender, decreased breath sounds, accessory muscle use, rhonchi Breasts: no masses Cardiovascular: normal peripheral pulses, normal rate, regular rhythm, no JVD Abdomen: normal bowel sounds, soft, non tender, no organomegaly Genitourinary: normal external genitalia Extremities: no cyanosis Skin: no rash, no lesions Neurologic/Psychiatric: student support services director II-XII grossly normal, no motor/sensory deficits Laboratory Tests 07/11/16 05:15: White Blood Count 11.0H, Red Blood Count 5.03, Hemoglobin 13.2, Hematocrit 42.6 , Mean Corpuscular Volume 85, Mean Corpuscular Hemoglobin 26.3L, Mean Corpuscular Hemoglobin Concent 31.0L, Red Cell Distribution Width 16.7H, Platelet Count 249, Mean Platelet Volume 8.8, Neutrophils (%) (Auto) 61.1, Lymphocytes (%) (Auto) 24.9, Monocytes (%) (Auto) 11.3H, Eosinophils (%) (Auto) 1.9, Basophils (%) (Auto) 0.8, Sodium Level 142, Potassium Level 3.9, Chloride Level 101, Carbon Dioxide Level 27, Anion Gap 14, Blood Urea Nitrogen 16, Creatinine 0.7, Estimat Glomerular Filtration Rate , Glucose Level 64L, Calcium Level 8.3L, Total Bilirubin 0.4, Aspartate Amino Transf (AST/SGOT) 22, Alanine Aminotransferase (ALT/SGPT) 8, Alkaline Phosphatase 69, Total Protein 7.1, Albumin 3.0L, Globulin 4.1, Albumin/Globulin Ratio 0.7L DARIAN HOOKS Jul 11, 2016 18:43
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
--- NOTE | 2016-07-14 10:31 | Diagnostic Imaging Report ---
Indication: DYSPNEA Technique: One view of the chest Comparison: 07/06/2016 Findings: Increased density of consolidation of the left mid and lower lung is noted. Right lung and pleural space remain clear. There is slightly better inspiration currently. There is central bronchial wall thickening, probably on the basis of senescent changes. The heart size is upper limits normal Impression: Increasingly dense consolidation of the left mid and lower lung, likely representing pneumonia
--- NOTE | 2016-07-14 10:32 | Diagnostic Imaging Report ---
Indication: DYSPNEA Technique: One view of the chest Comparison: 07/07/2016 Findings: Interim near-complete clearing of previously demonstrated left basilar opacity. No new infiltrates. Heart remains enlarged. Aorta is tortuous and calcified. Contrast is seen within the colon Impression: Interim clearing of previously demonstrated left basilar opacity. No new infiltrates. Other findings as noted
--- NOTE | 2016-07-23 12:00 | Diagnostic Imaging Report ---
Indication: Dysphasia Procedure and findings: Real-time fluoroscopic imaging performed in a lateral projection in conjunction with the speech pathologist evaluation. Variable consistencies of barium given per mouth. Findings: Significant abnormalities of both oral and pharyngeal phases of swallowing are demonstrated. Total fluoroscopic time 237 seconds. Trace penetration noted with thin barium. No definite aspiration identified. Abnormal video swallow. Please refer to speech pathology evaluation for more information.
== END 2016-07-11 14:00 | DRG 190 ==
LOC: EDBD 12:43 → EDUNIT# 12:43 → EDBEDREQ 12:55 → EMR 13:00 → 2W 13:03 → EDBEDREQSVC 13:46 → EDBEDREQ 15:52 → 4W 07-10 14:38
PROC: 5A09457 Assistance with Respiratory Ventilation, 24-96 Consecutive Hours, Continuous Positive Airway Pressure (ICD-10-PCS; principal; 2016-07-06)
DX: J44.0 Chronic obstructive pulmonary disease with (acute) lower respiratory infection (principal); J18.9 Pneumonia, unspecified organism; J96.00 Acute respiratory failure, unspecified whether with hypoxia or hypercapnia; L89.153 Pressure ulcer of sacral region, stage 3; I11.0 Hypertensive heart disease with heart failure; I50.9 Heart failure, unspecified; F03.90 Unspecified dementia, unspecified severity, without behavioral disturbance, psychotic disturbance, mood disturbance, and anxiety; I10 Essential (primary) hypertension; Z88.0 Allergy status to penicillin
CPT/HCPCS: 36415; 36600; 71010; 74230; 80053; 80061; 80069; 80164; 80202; 81003; 82164; 82550; 82553; 82803; 82962; 83036; 83605; 83690; 83735; 83880; 84100; 84443; 84484; 84550; 85025; 85610; 85651; 85730; 86140; 86710; 87040; 87070; 87181; 87205; 93005; 94640; 94660; 94664; 94760; J1815

== ENCOUNTER 2017-09-06 10:38 | Inpatient (IN) | payer MEDICARE, OTHER ==
[2017-09-06] VITALS (7 sets, daily range): BP systolic 103–156; BP diastolic 43–92
[~2017-09-06] VITALS: Ht 160 cm; Wt 89.4 kg
[~2017-09-06 10:38] MED LIST changes: +PREDNISONE20 MG ORAL
[2017-09-06] MEDS ORDERED: LIPITOR40 MG ORAL (11:01)
[2017-09-06] MEDS ORDERED: BETADINE1 EAC1 TP (11:01)
[2017-09-06] MEDS ORDERED: EYE ALLERGY REL15 M1 OP ×2 (11:01)
[2017-09-06] MEDS ORDERED: NAMENDA10 MG ORAL (11:01)
[2017-09-06] MEDS ORDERED: NORCO 5-325 TA1 EACH ORAL (11:01)
[2017-09-06] MEDS ORDERED: FUROSEMIDE20 M1 ORAL (11:01)
[2017-09-06] MEDS ORDERED: CALMOSEPTINE1 APPLIC TOPIC (11:01)
[2017-09-06] MEDS ORDERED: MULTIVITAMINS1 EAC8 ORAL (11:01)
[2017-09-06] MEDS ORDERED: VITAMIN C500 M1 ORAL (11:06)
[2017-09-06] MEDS ORDERED: PLAVIX75 MG ORAL (11:06)
[2017-09-06] MEDS ORDERED: VALPROIC A250 MG/5 M PO (11:06)
[2017-09-06] MEDS ORDERED: TRIPLE ANTIBI28.4 GM TP (11:06)
[2017-09-06] MEDS ORDERED: MIRTAZAPINE15 MG ORAL (11:06)
[2017-09-06] MEDS ORDERED: OMEPRAZOLE20 M2 ORAL (11:06)
--- NOTE | 2017-09-06 11:16 | Emergency Room Report ---
History of Present Illness General Chief Complaint: Fever Source: Family Member, Medical Record, EMS Present Illness HPI 87-year-old female, with dementia nonverbal, bedbound, hypertension, COPD, CAD with stents, CHF, presenting with respiratory distress. Patient unable to speak , family members states that patient was fine on , however yesterday and this morning, more respiratory distress and coughing. Making a gurgling sound. No other history able to be obtained Allergies: Coded Allergies: AMOXICILLIN (Verified Allergy, Mild, DIARRHEA, 11/03/08) PENICILLINS (Verified Allergy, Mild, HIVES, 09/11/10) Patient History Past Medical History: see triage record Past Surgical History: unable to obtain Pertinent Family History: unable to obtain Last Menstrual Period: Post Reviewed Nursing Documentation: PMH: Agreed, PSxH: Agreed Nursing Documentation-PMH Hx Cardiac Problems: Yes - CHF, Atherosclerosis, Hyperlipidemia Hx Hypertension: Yes Hx Pacemaker: No Hx Asthma: No - PNA Hx COPD: Yes Hx Diabetes: Yes Hx Cancer: No Hx Gastrointestinal Problems: Yes - Dysphagia Hx Dialysis: No Hx Neurological Problems: Yes - Weakness, Morbid Obesity Hx Cerebrovascular Accident: No Hx Dementia: Yes Hx Alzheimer's Disease: Yes 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 Hx Memory Loss: Yes Hx Speech Problem: Yes Hx Aphasia: Yes Hx Dysphasia: Yes Hx Weakness: Yes Review of Systems All Other Systems: limited Physical Exam Vital Signs Date Time Temp Pulse Resp B/P (MAP) Pulse Ox O2 Delivery O2 Flow Rate FiO2 09/06/17 10:40 100.3 120 28 107/81 97 Nasal Cannula 4.0 100.2 Sp02 EP Interpretation: abnormal General Appearance: severe distress, lethargic, Chronically Ill Head: normocephalic, atraumatic Eyes: bilateral eye normal inspection, bilateral eye PERRL, bilateral eye EOMI ENT: dry mucus membranes, other - +secretions Neck: normal inspection, full range of motion, supple Respiratory: respiratory distress, crackles, wheezing, chest symmetrical Cardiovascular #1: tachycardia, edema Cardiovascular #2: 2+ radial (R), 2+ radial (L) Gastrointestinal: other - soft abdomen no grimace to deep palpation Musculoskeletal: other - no signs trauma Neurologic: other - not speaking, but moans/withdraws to pain Psychiatric: other Skin: normal inspection, normal color, no rash, warm/dry, well hydrated, normal turgor Procedures Critical Care Time Critical Care Time 40 minutes of CC time 87 female with respiratory distress VS: Tachycardic, tachypneic, febrile PLAN: IV access, labs, lactate, troponin, Blood/Urine Cx, Abx, IVF Anticipate admission to [facility] vs. [facility] CC time also includes review of labs, review of EMR, discussion with family and paperwork from SNF, d/w hospitalist CC could include dosing of pressors, additional Abx CC time does not include procedures Medical Decision Making Diagnostic Impression: Primary Impression: HCAP (healthcare-associated pneumonia) Additional Impressions: Respiratory failure UTI (urinary tract infection) Severe sepsis Influenza B CHF (congestive heart failure) ER Course 87-year-old female p/w SOB for 2 days. DDX: COPD exacerbation, ACS, pneumonia, CHF exacerbation, viral illness Plan: IV access, hospital monitor, O2 nasal cannula, EKG, CXR obtain basic labs including blood gas, troponin, Duonebs, steroids, abx Fluids - NOT full bolus due to CHF ER Course: Patient was satting 80 use or nasal cannula, put on nonrebreather and it is satting at 95% Given nebulizer for wheezing Broad-spectrum antibiotics Given for both healthcare associated pneumonia and UTI, patient is allergic to penicillin Patient's ABG, not hypercarbic but is hypoxic. She is currently on nonrebreather satting at 97% Patient placed on BIPAP Sepsis Re-examination Time: 12 PM VS: Temp 100 HR 133 BP 140/90 RR 25 CVS: Tachycardic Respiratory: Wheezing bilaterally Peripheral pulses: 2+ radial Capillary refill: <2 seconds Skin exam: warm, dry, no rash, not mottled Disposition: Patient will be admitted to [facility] D/W hospitalist Dr Martin Please note that this Emergency Department Report was dictated using [employer] writer technology software, occasionally this can lead to erroneous entry secondary to interpretation by the dictation equipment. EKG Diagnostic Results EP Interpretation: Yes Rate: Tachycardic Rhythm: NSR ST Segments: No acute changes ASA given to patient: No Rhythm Strip EP Interpretation: Yes [id number] Rhythm: NSR, no PVCs, no ectopy Chest X-ray CXR: Ordered: Yes 1 view Indication: SOB EP interpretation: Yes Interpretation: Cardiomegaly, left-sided consolidation Impression: Left-sided pneumonia Electronically signed by Maria Alejandra Raya MD Laboratory Tests Test 09/06/17 10:55 09/06/17 11:00 09/06/17 11:22 White Blood Count 9.9 K/UL (4.8-10.8) Red Blood Count 4.69 M/UL (4.20-5.40) Hemoglobin 13.0 G/DL (12.0-16.0) Hematocrit 40.7 % (37.0-47.0) Mean Corpuscular Volume 87 FL (80-99) Mean Corpuscular Hemoglobin 27.8 PG (27.0-31.0) Mean Corpuscular Hemoglobin Concent 32.0 G/DL (32.0-36.0) Red Cell Distribution Width 15.5 % (11.6-14.8) H Platelet Count 188 K/UL (150-450) Mean Platelet Volume 8.4 FL (6.5-10.1) Neutrophils (%) (Auto) 81.1 % (45.0-75.0) H Lymphocytes (%) (Auto) 11.7 % (20.0-45.0) L Monocytes (%) (Auto) 6.3 % (1.0-10.0) Eosinophils (%) (Auto) 0.0 % (0.0-3.0) Basophils (%) (Auto) 0.9 % (0.0-2.0) Sodium Level 137 MMOL/L (136-145) Potassium Level 3.6 MMOL/L (3.5-5.1) Chloride Level 100 MMOL/L (98-107) Carbon Dioxide Level 29 MMOL/L (21-32) Anion Gap 8 mmol/L (5-15) Blood Urea Nitrogen 12 mg/dL (7-18) Creatinine 1.0 MG/DL (0.55-1.30) Estimate Glomerular Filtration Rate mL/min (>60) Glucose Level Pending Lactic Acid Level 2.20 mmol/L (0.66-2.22) Calcium Level Pending Total Bilirubin 0.4 MG/DL (0.2-1.0) Aspartate Amino Transferase (AST) 43 U/L (15-37) H Alanine Aminotransferase (ALT) 14 U/L (12-78) Alkaline Phosphatase 93 U/L (46-116) Troponin I 0.131 ng/mL (0.000-0.056) Pro-B-Type Natriuretic Peptide 1161 pg/mL (0-125) H Total Protein 7.5 G/DL (6.4-8.2) Albumin 2.7 G/DL (3.4-5.0) L Globulin 4.8 g/dL Albumin/Globulin Ratio 0.6 (1.0-2.7) L Arterial Blood pH 7.445 (7.350-7.450) Arterial Blood Partial Pressure CO2 33.4 mmHg (35.0-45.0) L Arterial Blood Partial Pressure O2 63.8 mmHg (75.0-100.0) L Arterial Blood HCO3 22.4 mmol/L (22.0-26.0) Arterial Blood Oxygen Saturation 92.4 % (92.0-98.0) Arterial Blood Base Excess -1.1 Nii Test Positive Urine Color Pale yellow Urine Appearance Slightly cloudy Urine pH 6 (4.5-8.0) Urine Specific [place] 1.010 (1.005-1.035) Urine Protein 2+ (NEGATIVE) H Urine Glucose (UA) Negative (NEGATIVE) Urine Ketones Negative (NEGATIVE) Urine Occult Blood 4+ (NEGATIVE) H Urine Nitrite Positive (NEGATIVE) H Urine Bilirubin Negative (NEGATIVE) Urine Urobilinogen Normal MG/DL (0.0-1.0) Urine Leukocyte Esterase 2+ (NEGATIVE) H Urine RBC 5-10 /HPF (0 - 2) H Urine WBC 2-4 /HPF (0 - 2) Urine Squamous Epithelial Cells Moderate /LPF (NONE/OCC) H Urine Bacteria Moderate /HPF (NONE) H Microbiology Date/Time Source Procedure Growth Status 09/06/17 10:55 Nasal Nares Influenza Types A,B Antigen (VU) - Final Complete Last Vital Signs Date Time Temp Pulse Resp B/P (MAP) Pulse Ox O2 Delivery O2 Flow Rate FiO2 09/06/17 10:40 100.3 120 28 107/81 97 Nasal Cannula 4.0 100.2 Disposition: ADMITTED INPATIENT Condition: Critical Maria Alejandra Raya M.D. Sep 06, 2017 11:16
--- NOTE | 2017-09-06 11:21 | Diagnostic Imaging Report ---
Indication: Cough Comparison: 07/11/2016 A single view chest radiograph was obtained. Findings: There is dense opacification of the retrocardiac aspect of the left lung base. This is associated with volume loss with shifting of the heart and trachea toward the left. Findings indicate atelectasis. There could be other superimposed disease such as a pleural effusion or pneumonia. Clinical correlation is needed. The bones are osteopenic. IMPRESSION: Left basilar atelectasis. Further evaluation recommended. Follow-up recommended.
[2017-09-06 11:30] LABS: BASOPHILS % (AUTO) 0.9 % (0.0-2.0); HEMATOCRIT 40.7 % (37.0-47.0); LYMPHOCYTES % (AUTO) 11.7 % (20.0-45.0); MEAN CORPUSCULAR VOLUME 87 FL (80-99); MONOCYTES % (AUTO) 6.3 % (1.0-10.0); NEUTROPHILS % (AUTO) 81.1 % (45.0-75.0); PLATELET COUNT 188 K/UL (150-450); RED BLOOD COUNT 4.69 M/UL (4.20-5.40); RED CELL DISTRIBUTION WIDTH 15.5 % (11.6-14.8); WHITE BLOOD COUNT 9.9 K/UL (4.8-10.8)
[2017-09-06] MEDS ORDERED: Solu-MEDROL 125mg Inj IVP ONE (11:30)
[2017-09-06] MEDS ORDERED: Vancomycin 1.5gm/D5W 250ml 250 ML IVPB ONE (11:30)
[2017-09-06 11:34] LABS: ANION GAP 8 mmol/L (5-15); BLOOD UREA NITROGEN 12 mg/dL (7-18); CALCIUM 8.9 MG/DL (8.5-10.1); CARBON DIOXIDE 29 MMOL/L (21-32); CHLORIDE 100 MMOL/L (98-107); POTASSIUM 3.6 MMOL/L (3.5-5.1); SODIUM 137 MMOL/L (136-145)
[2017-09-06] MEDS: Ipratropium 0.02% Inh Soln 2.5ml UD HHN SCH ×3 (11:39→12:09)
[2017-09-06] MEDS: Albuterol ud Inhalation HHN SCH ×3 (11:39→12:09)
[2017-09-06 11:45] LABS: ALANINE AMINOTRANSFERASE 14 U/L (12-78); ALBUMIN 2.7 G/DL (3.4-5.0); ALBUMIN/GLOBULIN RATIO 0.6 (1.0-2.7); ALKALINE PHOSPHATASE 93 U/L (46-116); ASPARTATE AMINO TRANSFERASE 43 U/L (15-37); BILIRUBIN,TOTAL 0.4 MG/DL (0.2-1.0)
[2017-09-06] MEDS ORDERED: Acetaminophen 650 MG SUPP RECTAL ONE (11:45)
[2017-09-06 11:46] LABS: APPEARANCE,URINE SLIGHTLY CLOUDY; BILIRUBIN, URINE NEGATIVE (NEGATIVE); COLOR,URINE PALE YELLOW; GLUCOSE, URINE (UA) NEGATIVE (NEGATIVE); KETONES,URINE NEGATIVE (NEGATIVE); LEUKOCYTE ESTERASE ,URINE 2+ (NEGATIVE); NITRITE,URINE POSITIVE (NEGATIVE); PH,URINE 6 (4.5-8.0); PROTEIN,URINE 2+ (NEGATIVE); UROBILINOGEN,URINE NORMAL MG/DL (0.0-1.0)
--- NOTE | 2017-09-06 14:29 | Infectious Diseases Prog Note ---
Assessment/Plan Problems: (1) HCAP (healthcare-associated pneumonia) Assessment & Plan: complicated with respiratory failure, will send sputum culture and start vancomycin, aztreonam and flagyl empiric coverage (2) Influenza B Assessment & Plan: complicated with Left side pneumonia , will start tamiflu and keep in droplets isolation (3) Severe sepsis Assessment & Plan: due to the above, will send blood culture and start vancomycin and aztreonam pending culture results (4) Respiratory failure Assessment & Plan: due to the above, continue BIPAP for respiratory support and monitor ABG, with CXR (5) UTI (urinary tract infection) Assessment & Plan: will send urine culture and start aztreonam empiric coverage (6) DM (diabetes mellitus) Assessment & Plan: recommend tight glycemic control to keep blood glucose between 100-140 Subjective Allergies: Coded Allergies: AMOXICILLIN (Verified Allergy, Mild, DIARRHEA, 11/03/08) PENICILLINS (Verified Allergy, Mild, HIVES, 09/11/10) Objective Vital Signs Last 24 Hour Vital Signs Date Time Temp Pulse Resp B/P (MAP) Pulse Ox O2 Delivery O2 Flow Rate FiO2 09/06/17 14:00 101.1 106 23 155/73 100 Bi-pap 100 101.1 09/06/17 13:20 102.9 09/06/17 13:00 102.9 140 28 131/83 100 Bi-pap 100 102.9 09/06/17 12:36 100 09/06/17 12:30 104 28 100 Full Face 100 09/06/17 12:30 104 28 100 Bi-pap 100 09/06/17 12:00 140 20 144/43 97 Non-Rebreather 15.0 09/06/17 11:48 104.5 09/06/17 11:39 138 32 Non-Rebreather 15.0 100 09/06/17 11:39 136 32 98 Non-Rebreather 15.0 100 09/06/17 10:45 104.5 125 22 156/92 92 Nasal Cannula 2.0 104.5 09/06/17 10:40 100.3 120 28 107/81 97 Nasal Cannula 4.0 100.2 Height (Feet): 5 Height (Inches): 3.00 Weight (Pounds): 190 Microbiology Date/Time Source Procedure Growth Status 09/06/17 10:55 Nasal Nares Influenza Types A,B Antigen (VU) - Final Complete Laboratory Tests Test 09/06/17 10:55 09/06/17 11:00 09/06/17 11:22 09/06/17 13:10 White Blood Count 9.9 K/UL (4.8-10.8) Red Blood Count 4.69 M/UL (4.20-5.40) Hemoglobin 13.0 G/DL (12.0-16.0) Hematocrit 40.7 % (37.0-47.0) Mean Corpuscular Volume 87 FL (80-99) Mean Corpuscular Hemoglobin 27.8 PG (27.0-31.0) Mean Corpuscular Hemoglobin Concent 32.0 G/DL (32.0-36.0) Red Cell Distribution Width 15.5 % (11.6-14.8) H Platelet Count 188 K/UL (150-450) Mean Platelet Volume 8.4 FL (6.5-10.1) Neutrophils (%) (Auto) 81.1 % (45.0-75.0) H Lymphocytes (%) (Auto) 11.7 % (20.0-45.0) L Monocytes (%) (Auto) 6.3 % (1.0-10.0) Eosinophils (%) (Auto) 0.0 % (0.0-3.0) Basophils (%) (Auto) 0.9 % (0.0-2.0) Sodium Level 137 MMOL/L (136-145) Potassium Level 3.6 MMOL/L (3.5-5.1) Chloride Level 100 MMOL/L (98-107) Carbon Dioxide Level 29 MMOL/L (21-32) Anion Gap 8 mmol/L (5-15) Blood Urea Nitrogen 12 mg/dL (7-18) Creatinine 1.0 MG/DL (0.55-1.30) Estimat Glomerular Filtration Rate mL/min (>60) Glucose Level Pending Lactic Acid Level 2.20 mmol/L (0.66-2.22) 5.10 mmol/L (0.66-2.22) H Calcium Level Pending Total Bilirubin 0.4 MG/DL (0.2-1.0) Aspartate Amino Transf (AST/SGOT) 43 U/L (15-37) H Alanine Aminotransferase (ALT/SGPT) 14 U/L (12-78) Alkaline Phosphatase 93 U/L (46-116) Troponin I 0.131 ng/mL (0.000-0.056) Pro-B-Type Natriuretic Peptide 1161 pg/mL (0-125) H Total Protein 7.5 G/DL (6.4-8.2) Albumin 2.7 G/DL (3.4-5.0) L Globulin 4.8 g/dL Albumin/Globulin Ratio 0.6 (1.0-2.7) L Arterial Blood pH 7.445 (7.350-7.450) Arterial Blood Partial Pressure CO2 33.4 mmHg (35.0-45.0) L Arterial Blood Partial Pressure O2 63.8 mmHg (75.0-100.0) L Arterial Blood HCO3 22.4 mmol/L (22.0-26.0) Arterial Blood Oxygen Saturation 92.4 % (92.0-98.0) Arterial Blood Base Excess -1.1 Nii Test Positive Urine Color Pale yellow Urine Appearance Slightly cloudy Urine pH 6 (4.5-8.0) Urine Specific [place] 1.010 (1.005-1.035) Urine Protein 2+ (NEGATIVE) H Urine Glucose (UA) Negative (NEGATIVE) Urine Ketones Negative (NEGATIVE) Urine Occult Blood 4+ (NEGATIVE) H Urine Nitrite Positive (NEGATIVE) H Urine Bilirubin Negative (NEGATIVE) Urine Urobilinogen Normal MG/DL (0.0-1.0) Urine Leukocyte Esterase 2+ (NEGATIVE) H Urine RBC 5-10 /HPF (0 - 2) H Urine WBC 2-4 /HPF (0 - 2) Urine Squamous Epithelial Cells Moderate /LPF (NONE/OCC) H Urine Bacteria Moderate /HPF (NONE) H Current Medications Medications (Trade) Dose Ordered Sig/Juwan Route PRN Reason Start Time Stop Time Status Last Admin Dose Admin Aztreonam 2 gm/ Sodium Chloride 110 ml @ 220 mls/hr Q8H IVPB 09/06/17 15:00 09/13/17 14:59 Metronidazole (Flagyl) 500 mg Q6HR ORAL 09/06/17 18:00 09/13/17 17:59 Oseltamivir Phosphate (Tamiflu) 30 mg TWICE A DAY ORAL 09/06/17 15:30 09/11/17 15:29 Vancomycin HCl (Vanco rx to dose) 1 ea DAILY PRN MISC Per rx protocol 09/06/17 14:00 10/06/17 13:59 Eddy Garcia M.D. Sep 06, 2017 14:29
[2017-09-06] MEDS ORDERED: Nitroglycerin 2% oint pkt TOPIC ONE (15:30)
--- NOTE | 2017-09-06 15:37 | History & Physical ---
History and Physical History & Physicial seen in ER 87-year-old female, with dementia nonverbal, bedbound, hypertension, COPD, CAD with stents, CHF, presenting with respiratory distress. Patient unable to speak , family members states that patient was fine on , however yesterday and this morning, more respiratory distress and coughing. Making a gurgling sound. No other history able to be obtained daughter at bed side fever, respiratory distress on BIPAP (1) HCAP (healthcare-associated pneumonia), left side (2) Influenza B (3) Severe sepsis, tach high lactate (4) Respiratory failure on BIPAP- h/o COPD (5) UTI (urinary tract infection) (6) DM (diabetes mellitus) (7) PCN Allergy (8) OBS (9) DM (10) CHF (11) CAD (12) Sz DISORDER (13) Functional Quad # [id number] Antibiotics per ID Pulm support IV steroids Raúl ANN KELVIN Discussed with daughter the critical state ILA LEE Sep 06, 2017 15:37
--- NOTE | 2017-09-06 16:00 | Consultation ---
History of Present Illness General Date patient seen: Sep 06, 2017 Time patient seen: 15:00 Chief Complaint: Fever Referring physician: dr Buchanan Reason for Consultation: resp failure Present Illness HPI 87 y/old female, resident of the SNF, with PMH of CHF, COPD, DM, atherosclerosis, hyperlipidemia, morbid obesity, seizure disorder, dysphagia, dementia patient was altered and unable to provide any information according to daughter patient was fine on when she saw her mother On evaluation febrile, tachycardic, tachypneic, hypoxic lactic acid -5.1 no leucocytosis UA with evidence of probable UTI CXR with evidence of PNA positive for influenza type B elevated troponin -0.131 pro [id number] CXR with possible PNA ECG-ST no acute ischemic changes ABG on 5 L via NC demonstrated sat 94% only patient was admitted for further management Allergies: Coded Allergies: AMOXICILLIN (Verified Allergy, Mild, DIARRHEA, 11/03/08) PENICILLINS (Verified Allergy, Mild, HIVES, 09/11/10) Medication History Scheduled Albuterol Sulfate* (Albuterol Sulfate Hhn*), 2.5 MG HHN QIDRT Amlodipine Besylate (Norvasc), 5 MG ORAL DAILY, (Reported) Ascorbic Acid* (Vitamin C*), 500 MG ORAL DAILY, (Reported) Atenolol* (Tenormin*), 50 MG PO DAILY, (Reported) Atorvastatin Calcium* (Lipitor*), 40 MG ORAL BEDTIME, (Reported) Azithromycin (Zithromax), 500 MG ORAL DAILY Clopidogrel Bisulfate* (Plavix*), 75 MG PO DAILY, (Reported) Clopidogrel Bisulfate* (Plavix*), 75 MG ORAL DAILY Clopidogrel Bisulfate* (Plavix*), 75 MG ORAL DAILY, (Reported) Docusate Sodium (Docusate Sodium), 200 MG ORAL DAILY Docusate Sodium* (Colace*), 200 MG PO DAILY, (Reported) Donepezil Hcl* (Aricept*), 10 MG PO QHS, (Reported) Furosemide* (Lasix*), 20 MG ORAL DAILY, (Reported) Glucosamine Hcl (Glucosamine Hcl), 500 MG PO DAILY, (Reported) Isosorbide Mononitrate* (Imdur*), 30 MG PO DAILY, (Reported) Levofloxacin* (Levaquin*), 500 MG ORAL DAILY Memantine Hcl* (Namenda*), 10 MG ORAL TWICE A DAY, (Reported) Menthol (Calmoseptine Ointment), 1 APPLIC TOPIC DAILY, (Reported) Metformin Hcl* (Glucophage*), 500 MG PO BID, (Reported) Mirtazapine* (Remeron*), 7.5 MG ORAL DAILY, (Reported) Multivitamin With Minerals (Multivitamins With Minerals*), 1 TAB ORAL DAILY, ( Reported) Naphazoline Hcl/Pheniramine (Eye Allergy Relief Drops), 15 ML OP FOUR TIMES A DAY, (Reported) Naphazoline Hcl/Pheniramine (Eye Allergy Relief Drops), 15 ML OP TID, (Reported) Neomycn/Baci Zn/Pmyx Bs/Pramox (Triple Antibiotic Plus Ointmnt), 28.4 GM TP DAILY, (Reported) Omeprazole (Omeprazole), 20 MG ORAL DAILY, (Reported) Pantoprazole* (Protonix*), 40 MG ORAL DAILY, (Reported) Pantoprazole* (Protonix*), 40 MG ORAL DAILY Polyethylene Glycol* (Miralax*), 17 GM ORAL Q72H, (Reported) Potassium Chloride* (K-Dur*), 20 MEQ PO DAILY, (Reported) Povidone-Iodine (Betadine), 1 EACH TP DAILY, (Reported) Valproic Acid (Valproic Acid), 250 MG ORAL BID [Diltiazem Hcl], 120 MG ORAL DAILY [Ipratropium [place]], 500 MCG HHN QIDRT [Isosorbide Mononitrate], 30 MG ORAL DAILY [Potassium Chloride], 20 MEQ ORAL DAILY Scheduled PRN Acetaminophen* (Tylenol Extra Strength*), 1,000 MG ORAL Q4HR PRN for Moderate Pain (Pain Scale 4-6), (Reported) Acetaminophen* (Acetaminophen 325MG Tablet*), 650 MG ORAL Q4H PRN for Mild Pain/ Temp > 100.5 Hydrocodone Bit/Acetaminophen 5-325* (Donna 5-325*), 1 TAB ORAL TID PRN for For Pain, (Reported) Polyethylene Glycol* (Miralax*), 17 GM ORAL EVERY 72 HOURS PRN for Constipation Valproate Sodium (Valproic Acid), 250 MG PO BID PRN for For Seizures, (Reported) Discontinued Medications Acetaminophen (Tylenol), 650 MG ORAL Q4HR PRN for Mild Pain (Pain Scale 1-3), ( Reported) Discontinued Reason: Medication dose changed Atenolol* (Tenormin*), 50 MG ORAL DAILY Discontinued Reason: Therapy completed Atorvastatin Calcium* (Lipitor*), 40 MG ORAL BEDTIME, (Reported) Discontinued Reason: Therapy completed Atorvastatin Calcium* (Lipitor*), 40 MG ORAL BEDTIME Discontinued Reason: Therapy completed Donepezil Hcl* (Aricept*), 10 MG ORAL QHS Discontinued Reason: Therapy completed Furosemide (Furosemide), 20 MG PO DAILY, (Reported) Discontinued Reason: Therapy completed Furosemide* (Lasix*), 20 MG ORAL DAILY Discontinued Reason: Therapy completed Furosemide* (Lasix*), 40 MG ORAL DAILY Discontinued Reason: Therapy completed Hydrocodone Bit/Acetaminophen 5-325* (Donna 5-325*), 1 TAB ORAL BID, (Reported) Discontinued Reason: Therapy completed Hydrocodone Bit/Acetaminophen 5-325* (Donna 5-325*), 1 TAB ORAL BID PRN for Moderate Pain (Pain Scale 4-6) Discontinued Reason: Therapy completed Memantine Hcl* (Namenda*), 10 MG PO BID, (Reported) Discontinued Reason: Therapy completed Memantine Hcl* (Namenda*), 10 MG ORAL DAILY Discontinued Reason: Therapy completed Potassium Chloride* (K-Dur*), 40 MEQ ORAL DAILY Discontinued Reason: Therapy completed Prednisone* (Prednisone*), 20 MG ORAL DAILY Discontinued Reason: Therapy completed Valproic Acid (Depakene), 250 MG PO DAILY, (Reported) Discontinued Reason: Therapy completed Patient History Healthcare decision maker Resuscitation status Advanced Directive on File Yes Review of Systems ROS Narrative unable to obtain due to ALOC Physical Exam General Appearance: lethargic Lines, tubes and drains: peripheral HEENT: normocephalic, atraumatic, anicteric, other - BiPAP mask on 18/11/ FiO2 100% Neck: non-tender, normal alignment, supple Respiratory/Chest: expiratory wheezing Cardiovascular/Chest: tachycardia - ST on tele Abdomen: normal bowel sounds, non tender, soft - obese Extremities: no calf tenderness, normal capillary refill Neurologic: abnormal gait, other - lethargic Musculoskeletal: atrophy - BLE Last 24 Hour Vital Signs Date Time Temp Pulse Resp B/P (MAP) Pulse Ox O2 Delivery O2 Flow Rate FiO2 09/06/17 15:25 117 18 100 Full Face 100 09/06/17 15:00 101.1 110 25 126/60 100 Bi-pap 100 101.1 09/06/17 14:00 101.1 106 23 155/73 100 Bi-pap 100 101.1 09/06/17 13:20 102.9 09/06/17 13:00 102.9 140 28 131/83 100 Bi-pap 100 102.9 09/06/17 12:36 100 09/06/17 12:30 104 28 100 Full Face 100 09/06/17 12:30 104 28 100 Bi-pap 100 09/06/17 12:00 140 20 144/43 97 Non-Rebreather 15.0 09/06/17 11:48 104.5 09/06/17 11:39 138 32 Non-Rebreather 15.0 100 09/06/17 11:39 136 32 98 Non-Rebreather 15.0 100 09/06/17 10:45 104.5 125 22 156/92 92 Nasal Cannula 2.0 104.5 09/06/17 10:40 100.3 120 28 107/81 97 Nasal Cannula 4.0 100.2 Laboratory Tests Test 09/06/17 10:55 09/06/17 11:00 09/06/17 11:22 09/06/17 13:10 White Blood Count 9.9 K/UL (4.8-10.8) Red Blood Count 4.69 M/UL (4.20-5.40) Hemoglobin 13.0 G/DL (12.0-16.0) Hematocrit 40.7 % (37.0-47.0) Mean Corpuscular Volume 87 FL (80-99) Mean Corpuscular Hemoglobin 27.8 PG (27.0-31.0) Mean Corpuscular Hemoglobin Concent 32.0 G/DL (32.0-36.0) Red Cell Distribution Width 15.5 % (11.6-14.8) H Platelet Count 188 K/UL (150-450) Mean Platelet Volume 8.4 FL (6.5-10.1) Neutrophils (%) (Auto) 81.1 % (45.0-75.0) H Lymphocytes (%) (Auto) 11.7 % (20.0-45.0) L Monocytes (%) (Auto) 6.3 % (1.0-10.0) Eosinophils (%) (Auto) 0.0 % (0.0-3.0) Basophils (%) (Auto) 0.9 % (0.0-2.0) Sodium Level 137 MMOL/L (136-145) Potassium Level 3.6 MMOL/L (3.5-5.1) Chloride Level 100 MMOL/L (98-107) Carbon Dioxide Level 29 MMOL/L (21-32) Anion Gap 8 mmol/L (5-15) Blood Urea Nitrogen 12 mg/dL (7-18) Creatinine 1.0 MG/DL (0.55-1.30) Estimat Glomerular Filtration Rate mL/min (>60) Glucose Level Pending Lactic Acid Level 2.20 mmol/L (0.66-2.22) 5.10 mmol/L (0.66-2.22) H Calcium Level Pending Total Bilirubin 0.4 MG/DL (0.2-1.0) Aspartate Amino Transf (AST/SGOT) 43 U/L (15-37) H Alanine Aminotransferase (ALT/SGPT) 14 U/L (12-78) Alkaline Phosphatase 93 U/L (46-116) Troponin I 0.131 ng/mL (0.000-0.056) Pro-B-Type Natriuretic Peptide 1161 pg/mL (0-125) H Total Protein 7.5 G/DL (6.4-8.2) Albumin 2.7 G/DL (3.4-5.0) L Globulin 4.8 g/dL Albumin/Globulin Ratio 0.6 (1.0-2.7) L Arterial Blood pH 7.445 (7.350-7.450) Arterial Blood Partial Pressure CO2 33.4 mmHg (35.0-45.0) L Arterial Blood Partial Pressure O2 63.8 mmHg (75.0-100.0) L Arterial Blood HCO3 22.4 mmol/L (22.0-26.0) Arterial Blood Oxygen Saturation 92.4 % (92.0-98.0) Arterial Blood Base Excess -1.1 Nii Test Positive Urine Color Pale yellow Urine Appearance Slightly cloudy Urine pH 6 (4.5-8.0) Urine Specific [place] 1.010 (1.005-1.035) Urine Protein 2+ (NEGATIVE) H Urine Glucose (UA) Negative (NEGATIVE) Urine Ketones Negative (NEGATIVE) Urine Occult Blood 4+ (NEGATIVE) H Urine Nitrite Positive (NEGATIVE) H Urine Bilirubin Negative (NEGATIVE) Urine Urobilinogen Normal MG/DL (0.0-1.0) Urine Leukocyte Esterase 2+ (NEGATIVE) H Urine RBC 5-10 /HPF (0 - 2) H Urine WBC 2-4 /HPF (0 - 2) Urine Squamous Epithelial Cells Moderate /LPF (NONE/OCC) H Urine Bacteria Moderate /HPF (NONE) H Microbiology Date/Time Source Procedure Growth Status 09/06/17 10:55 Nasal Nares Influenza Types A,B Antigen (VU) - Final Complete Height (Feet): 5 Height (Inches): 3.00 Weight (Pounds): 190 Medications Current Medications Medications (Trade) Dose Ordered Sig/Juwan Route PRN Reason Start Time Stop Time Status Last Admin Dose Admin Acetaminophen (Tylenol) 650 mg Q4H PRN GT Mild Pain/Temp > 100.5 09/06/17 15:45 10/06/17 15:44 Atenolol (Tenormin) 50 mg DAILY NG 09/07/17 09:00 10/07/17 08:59 Aztreonam 2 gm/ Sodium Chloride 110 ml @ 220 mls/hr Q8H IVPB 09/06/17 15:00 09/13/17 14:59 Clopidogrel Bisulfate (Plavix) 75 mg DAILY NG 09/07/17 09:00 10/07/17 08:59 Dextrose/Sodium Chloride 1,000 ml @ 75 mls/hr [id number] IV 09/06/17 15:45 10/06/17 15:44 Docusate Sodium (Colace) 200 mg DAILY GT 09/07/17 09:00 10/07/17 08:59 Heparin Sodium (Porcine) (Heparin 5000 units/ml) 5,000 units EVERY 8 HOURS SUBQ 09/06/17 22:00 10/06/17 21:59 Methylprednisolone Sodium Succinate (Solu-MEDROL) 40 mg EVERY 8 HOURS IVP 09/06/17 22:00 10/06/17 21:59 Metronidazole (Flagyl) 500 mg Q6HR ORAL 09/06/17 18:00 09/13/17 17:59 Oseltamivir Phosphate (Tamiflu) 30 mg TWICE A DAY ORAL 09/06/17 15:30 09/11/17 15:29 Pantoprazole (Protonix) 40 mg Q12HR IVP 09/06/17 21:00 10/06/17 20:59 Valproic Acid (Depakene) 250 mg BID NG 09/06/17 18:00 10/06/17 17:59 Vancomycin HCl (Vanco rx to dose) 1 ea DAILY PRN MISC Per rx protocol 09/06/17 14:00 10/06/17 13:59 Vancomycin HCl/ Dextrose 250 ml @ 166.667 mls/hr Q24H IVPB 09/07/17 13:00 09/12/17 12:59 Assessment/Plan Assessment/Plan ASSESSMENT acute toxic metabolic encephalopathy ( likely due to resp failure and sepsis) Acute hypoxemic RF requiring BiPAP severe sepsis UTI HCAP influenza type B COPD exacerbation CHF DM Hyperlipidemia seizure disorder morbid obesity PLAN OF CARE KELVIN status BiPAP ABG in am and titrate settings as needed IV steroids taper as permitted Fup with CXR pulmonary toilet droplet isolation empiric abx and Tamiflu ID follows fup with cx serial troponin ECHO a/PLT-Plavix , BB check lipid panel, continue stain BS management seizure precautions, hold Depakote due to ALOC for now DVT GI prophylaxis bowel regimen supportive care swallow eval when more alert case discussed and evaluated by supervising physician Luis Alberto Guerra)Shayla NP Sep 06, 2017 16:00
[2017-09-06] MEDS: Aztreonam Inj 2 GM in NS 110 ML IVPB SCH ×2 (16:24→22:02)
[2017-09-06] MEDS: D5NS 1,000 ML IV SCH (16:59)
[2017-09-06] MEDS: metroNIDAZOLE 500mg tab ORAL SCH (18:00)
[2017-09-06] MEDS: Valproic Acid 250mg/5ml Liquid NG SCH (21:56)
[2017-09-06] MEDS: Solu-MEDROL 40mg Inj IVP SCH (21:56)
[2017-09-06] MEDS: Pantoprazole Inj IVP SCH (21:57)
[2017-09-06] MEDS: Heparin 5000 units/ml inj SUBQ SCH (21:59)
--- NOTE | 2017-09-06 23:00 | Consultation ---
DATE OF CONSULTATION: 09/06/2017 INFECTIOUS DISEASE CONSULTATION CONSULTING PHYSICIAN: Eddy Worthy M.D. REQUESTING PHYSICIAN: Neel Buchanan M.D. REASON FOR CONSULTATION: Left-sided pneumonia with influenza B infection, sepsis, and urinary tract infection. Recommendation for antibiotics therapy in a patient who is allergic to penicillin and amoxicillin. HISTORY OF PRESENT ILLNESS: The patient is an 87-year-old female with past medical history of congestive heart failure, hyperlipidemia, hypertension, chronic obstructive pulmonary disease, diabetes, dysphagia, and Alzheimer dementia, who was sent from the correction at [facility] to the emergency room at [facility] for respiratory distress and productive cough. The patient was altered, becoming hypoxemic with more shortness of breath and coughing yellowish phlegm. The patient was found to be febrile in the emergency room with temperature of 100.3 with low oxygen saturation and tachycardia, so she was started on BiPAP. The patient received vancomycin and Levaquin in the emergency room. Chest x-ray showed left-sided pneumonia, so Infectious Disease consultation was requested since the patient is allergic to penicillin and amoxicillin for further evaluation and management of her pneumonia, influenza, sepsis, and urinary tract infection. As of note, the patient is a poor historian, cannot provide any history. History was mainly obtained from the medical record and daughter at the bedside. REVIEW OF SYSTEMS: Unable to obtain. The patient is a poor historian. Unable to provide any history. PAST MEDICAL HISTORY: Significant for congestive heart failure, atherosclerosis, hyperlipidemia, hypertension, chronic obstructive pulmonary disease, diabetes, dysphagia, morbid obesity, dementia with Alzheimer, memory loss, speech disorder, aphasia, dysphagia, and weakness. PAST SURGICAL HISTORY: Not on records. FAMILY HISTORY: Unable to obtain. SOCIAL HISTORY: The patient lives at [facility]. No recent drugs, tobacco, or alcohol. ALLERGIES: She is allergic to penicillin with skin rash and amoxicillin and unclear reaction. MEDICATIONS: She was given vancomycin, methylprednisolone, and Levaquin in the emergency room. For the rest of her medications, please refer to MAR. PHYSICAL EXAMINATION: VITAL SIGNS: Temperature is 101, pulse 106, respirations 23, blood pressure 155/73, and pulse oximetry 100% on FiO2 of 100% on BiPAP machine. GENERAL: Elderly female, morbidly obese, lying in bed, unresponsive on BiPAP machine, not in distress. Daughter at the bedside. HEENT: Normocephalic and atraumatic. Pupils reactive to light equally. Unable to assess oral mucosa due to the BiPAP. NECK: Supple. No lymphadenopathy. CARDIOVASCULAR: She is tachycardic. S1 and S2 normal. No murmur or gallop. LUNGS: She had crackles and wheezing mainly on the left lower base with diminished breathing sounds. ABDOMEN: Soft, obese, and mildly distended. No rebound. No organomegaly. No ascites. EXTREMITIES: Trace edema. No cyanosis. SKIN: No rash. No hives. LABORATORY AND DIAGNOSTIC DATA: Labs showed white count of 9.9, hemoglobin of 13, and platelet count of 188. BUN of 12, creatinine of 1. AST of 43, ALT of 14. Urinalysis showed positive nitrites, +2 leukocyte esterase, WBC 2 to 4, and moderate amount of bacteria. Microbiology, blood culture and urine culture pending at the time of this dictation. Influenza screening came back positive for influenza B. Imaging, chest x-ray showed left basilar atelectases. ASSESSMENT AND RECOMMENDATIONS: 1. Healthcare-acquired pneumonia, complicated with respiratory failure and sepsis. We will send sputum culture and start the patient on vancomycin, aztreonam, and Flagyl empiric coverage pending culture. Monitor chest x-ray. 2. Influenza B infection, complicated with left-sided pneumonia. We will start Tamiflu and wide-spectrum antibiotics. Continue inhalers. Keep in droplet isolation for now. 3. Severe sepsis due to the above. We will send blood culture and start vancomycin and aztreonam empirically pending blood culture results. 4. Respiratory failure, acute due to the above. Continue BiPAP for respiratory support and monitor ABG with chest x-ray. Pulmonary team is following. 5. Urinary tract infection. We will send urine culture and start aztreonam empiric coverage. 6. Diabetes, recommend tight glycemic control to keep blood glucose between 100 to 140. Thank you for the consultation. Infectious Disease will continue to follow. Please feel free to call with any question. Plan of care was discussed with the daughter at the bedside and the property disposal officer nurse practitioner. Eddy Worthy M.D. DR: DEANDRA JOB#: [id number] CC:
[2017-09-07] VITALS: BP 123/59
[2017-09-07] MEDS: metroNIDAZOLE 500mg tab ORAL SCH ×4 (00:45→17:43)
[2017-09-07 04:00] VITALS: BP 115/62
[2017-09-07] MEDS: D5NS 1,000 ML IV SCH ×2 (06:00→10:47)
[2017-09-07] MEDS: Solu-MEDROL 40mg Inj IVP SCH ×2 (06:45→20:15)
[2017-09-07] MEDS: Heparin 5000 units/ml inj SUBQ SCH ×3 (06:47→20:16)
[2017-09-07 06:57] LABS: HEMOGLOBIN 13.9 G/DL (12.0-16.0); MEAN CORPUSCULAR VOLUME 85 FL (80-99); PLATELET COUNT 177 K/UL (150-450); RED BLOOD COUNT 4.93 M/UL (4.20-5.40); RED CELL DISTRIBUTION WIDTH 15.4 % (11.6-14.8); WHITE BLOOD COUNT 13.8 K/UL (4.8-10.8)
[2017-09-07 07:17] LABS: ALANINE AMINOTRANSFERASE 13 U/L (12-78); ALBUMIN 2.2 G/DL (3.4-5.0); ALBUMIN/GLOBULIN RATIO 0.4 (1.0-2.7); ALKALINE PHOSPHATASE 72 U/L (46-116); ANION GAP 11 mmol/L (5-15); ASPARTATE AMINO TRANSFERASE 35 U/L (15-37); BILIRUBIN,TOTAL 0.5 MG/DL (0.2-1.0); BLOOD UREA NITROGEN 13 mg/dL (7-18); CALCIUM 8.8 MG/DL (8.5-10.1); CARBON DIOXIDE 27 MMOL/L (21-32); CHLORIDE 101 MMOL/L (98-107); CHOLESTEROL 158 MG/DL (< 200); CREATINE KINASE 794 U/L (26-308); CREATININE 1.1 MG/DL (0.55-1.30); GAMMA GLUTAMYL TRANSPEPTIDASE 40 U/L (5-85); HDL CHOLESTEROL 55 MG/DL (40-60); PHOSPHORUS 2.8 MG/DL (2.5-4.9); SODIUM 138 MMOL/L (136-145); TRIGLYCERIDES 43 MG/DL (30-150)
[2017-09-07 07:24] LABS: POTASSIUM 2.7 MMOL/L (3.5-5.1)
[2017-09-07] MEDS: Aztreonam Inj 2 GM in NS 110 ML IVPB SCH ×3 (07:43→22:22)
[2017-09-07] MEDS: Acetaminophen 650mg/20.3ml GT PRN (07:45)
[2017-09-07 08:00] VITALS: BP 136/56
[2017-09-07] MEDS: Valproic Acid 250mg/5ml Liquid NG SCH ×2 (08:41→20:15)
[2017-09-07] MEDS: Pantoprazole Inj IVP SCH ×2 (08:41→20:14)
[2017-09-07] MEDS: Docusate 100mg/10ml Liq GT SCH (08:42)
[2017-09-07] MEDS ORDERED: Morphine Sulfate 2mg/ml Inj IVP PRN (09:30)
[2017-09-07] MEDS ORDERED: Levemir Flexpen SUBQ ONE (10:30)
--- NOTE | 2017-09-07 10:36 | General Progress Note ---
Assessment/Plan Problem List: (1) Severe sepsis Assessment & Plan: pneumonia ? aspiration and Influenza B ICD Codes: A41.9 - Sepsis, unspecified organism; R65.20 - Severe sepsis without septic shock SNOMED: 17874188 (2) COPD (chronic obstructive pulmonary disease) ICD Codes: J44.9 - COPD (chronic obstructive pulmonary disease) SNOMED: 27069928 (3) CHF (congestive heart failure) ICD Codes: I50.9 - Heart failure, unspecified SNOMED: 51186805 (4) Functional quadriplegia ICD Codes: R53.2 - Functional quadriplegia SNOMED: 716214673346745 (5) DM (diabetes mellitus) ICD Codes: E11.9 - DM (diabetes mellitus) SNOMED: 06199004 Status Narrative (1) HCAP (healthcare-associated pneumonia), left side (2) Influenza B (3) Severe sepsis, tach high lactate (4) Respiratory failure on BIPAP- h/o COPD (5) UTI (urinary tract infection) (6) DM (diabetes mellitus) (7) PCN Allergy (8) OBS (9) DM (10) CHF (11) CAD (12) sZ DISORDER Assessment/Plan Respiratory support Antibiotics per ID IV steroid- taper as possible Sliding scale insulin NGT feeding until ST eval Subjective ROS Limited/Unobtainable: No Constitutional: Reports: malaise Allergies: Coded Allergies: AMOXICILLIN (Verified Allergy, Mild, DIARRHEA, 11/03/08) PENICILLINS (Verified Allergy, Mild, HIVES, 09/11/10) Objective Last 24 Hour Vital Signs Date Time Temp Pulse Resp B/P (MAP) Pulse Ox O2 Delivery O2 Flow Rate FiO2 09/07/17 08:41 89 136/56 09/07/17 08:10 98.9 09/07/17 08:00 97.3 84 20 136/56 100 Nasal Cannula 2.0 97.3 09/07/17 08:00 2.0 09/07/17 07:45 98.9 09/07/17 07:38 109 19 100 Full Face 100 09/07/17 05:13 109 19 100 Full Face 100 09/07/17 04:00 100 09/07/17 04:00 96 09/07/17 04:00 98.9 89 20 115/62 100 Bi-pap 100 98.9 09/07/17 03:15 100 22 100 Full Face 100 09/07/17 00:47 104 30 98 Full Face 100 09/07/17 00:00 100 09/07/17 00:00 93 09/07/17 00:00 99.0 84 20 123/59 100 Bi-pap 100 99.0 09/06/17 22:40 109 26 98 Full Face 100 09/06/17 21:28 100 22 98 Full Face 100 09/06/17 20:00 100 09/06/17 20:00 99.3 84 20 146/59 100 Bi-pap 100 99.3 09/06/17 19:48 105 22 98 Full Face 100 09/06/17 17:19 111 23 99 Full Face 100 09/06/17 16:50 101.1 128 20 103/86 100 Bi-pap 15.0 100 101.1 09/06/17 16:32 103/86 09/06/17 16:00 101.1 128 20 103/86 100 Bi-pap 100 101.1 09/06/17 15:25 117 18 100 Full Face 100 09/06/17 15:00 101.1 110 25 126/60 100 Bi-pap 100 101.1 09/06/17 14:00 101.1 106 23 155/73 100 Bi-pap 100 101.1 09/06/17 13:20 102.9 09/06/17 13:00 102.9 140 28 131/83 100 Bi-pap 100 102.9 09/06/17 12:36 100 09/06/17 12:30 104 28 100 Full Face 100 09/06/17 12:30 104 28 100 Bi-pap 100 09/06/17 12:00 140 20 144/43 97 Non-Rebreather 15.0 09/06/17 11:48 104.5 09/06/17 11:39 138 32 Non-Rebreather 15.0 100 09/06/17 11:39 136 32 98 Non-Rebreather 15.0 100 09/06/17 10:45 104.5 125 22 156/92 92 Nasal Cannula 2.0 104.5 09/06/17 10:40 100.3 120 28 107/81 97 Nasal Cannula 4.0 100.2 Intake and Output 09/06/17 09/07/17 19:00 07:00 Intake Total 1225 ml 935 ml Output Total 60 ml 1000 ml Balance 1165 ml -65 ml Intake IV Total 1225 ml 935 ml Output Urine Total 1000 ml Stool Total 60 ml # Bowel Movements 1 2 Laboratory Tests 09/06/17 10:55: White Blood Count 9.9, Red Blood Count 4.69, Hemoglobin 13.0, Hematocrit 40.7, Mean Corpuscular Volume 87, Mean Corpuscular Hemoglobin 27.8, Mean Corpuscular Hemoglobin Concent 32.0, Red Cell Distribution Width 15.5H, Platelet Count 188, Mean Platelet Volume 8.4, Neutrophils (%) (Auto) 81.1H, Lymphocytes (%) (Auto) 11.7L, Monocytes (%) (Auto) 6.3, Eosinophils (%) (Auto) 0.0, Basophils (%) (Auto ) 0.9, Sodium Level 137, Potassium Level 3.6, Chloride Level 100, Carbon Dioxide Level 29, Anion Gap 8, Blood Urea Nitrogen 12, Creatinine 1.0, Estimat Glomerular Filtration Rate , Glucose Level [Pending], Lactic Acid Level 2.20, Calcium Level [Pending], Total Bilirubin 0.4, Aspartate Amino Transf (AST/SGOT) 43H, Alanine Aminotransferase (ALT/SGPT) 14, Alkaline Phosphatase 93, Troponin I 0.131H, C-Reactive Protein, Quantitative 11.7H, Pro-B-Type Natriuretic Peptide 1161H, Total Protein 7.5, Albumin 2.7L, Globulin 4.8, Albumin/Globulin Ratio 0.6L 09/06/17 11:00: Arterial Blood pH 7.445, Arterial Blood Partial Pressure CO2 33.4L, Arterial Blood Partial Pressure O2 63.8L, Arterial Blood HCO3 22.4, Arterial Blood Oxygen Saturation 92.4, Arterial Blood Base Excess -1.1, Nii Test Positive 09/06/17 11:22: Urine Color Pale yellow, Urine Appearance Slightly cloudy, Urine pH 6, Urine Specific [place] 1.010, Urine Protein 2+H, Urine Glucose (UA) Negative, Urine Ketones Negative, Urine Occult Blood 4+H, Urine Nitrite PositiveH, Urine Bilirubin Negative, Urine Urobilinogen Normal, Urine Leukocyte Esterase 2+H, Urine RBC 5-10H, Urine WBC 2-4, Urine Squamous Epithelial Cells ModerateH, Urine Bacteria ModerateH 09/06/17 13:10: Lactic Acid Level 5.10H 09/07/17 06:00: White Blood Count 13.8H, Red Blood Count 4.93, Hemoglobin 13.9, Hematocrit 42.0 , Mean Corpuscular Volume 85, Mean Corpuscular Hemoglobin 28.1, Mean Corpuscular Hemoglobin Concent 33.0, Red Cell Distribution Width 15.4H, Platelet Count 177, Mean Platelet Volume 9.1, Neutrophils (%) (Auto) , Lymphocytes (%) (Auto) , Monocytes (%) (Auto) , Eosinophils (%) (Auto) , Basophils (%) (Auto) , Differential Total Cells Counted 100, Neutrophils % ( Manual) 78H, Lymphocytes % (Manual) 13L, Monocytes % (Manual) 3, Eosinophils % ( Manual) 0, Basophils % (Manual) 0, Band Neutrophils 6, Platelet Estimate DecreasedL, Platelet Morphology Normal, Anisocytosis 1+, Sodium Level 138, Potassium Level 2.7*L, Chloride Level 101, Carbon Dioxide Level 27, Anion Gap 11 , Blood Urea Nitrogen 13, Creatinine 1.1, Estimat Glomerular Filtration Rate , Glucose Level 214H, Hemoglobin A1c 6.7H, Lactic Acid Level 4.10H, Uric Acid 5.0 , Calcium Level 8.8, Phosphorus Level 2.8, Magnesium Level 1.8, Total Bilirubin 0.5, Gamma Glutamyl Transpeptidase 40, Aspartate Amino Transf (AST/SGOT) 35, Alanine Aminotransferase (ALT/SGPT) 13, Alkaline Phosphatase 72, Total Creatine Kinase 794H, Troponin I 0.640H, Pro-B-Type Natriuretic Peptide 2531H, Total Protein 7.4, Albumin 2.2L, Globulin 5.2, Albumin/Globulin Ratio 0.4L, Triglycerides Level 43, Cholesterol Level 158, LDL Cholesterol 89, HDL Cholesterol 55, Cholesterol/HDL Ratio 2.9L, Thyroid Stimulating Hormone (TSH) 0.111L 09/07/17 08:00: Arterial Blood pH 7.430, Arterial Blood Partial Pressure CO2 34.1L, Arterial Blood Partial Pressure O2 327.4H, Arterial Blood HCO3 22.3, Arterial Blood Oxygen Saturation 99.8H, Arterial Blood Base Excess -1.3, Nii Test Positive 09/07/17 08:40: Lactic Acid Level 3.90H Height (Feet): 5 Height (Inches): 3.00 Weight (Pounds): 190 General Appearance: mild distress EENT: other - NGT Cardiovascular: tachycardia Respiratory/Chest: decreased breath sounds Abdomen: distended Edema: no edema noted Arm (L), no edema noted Arm (R), no edema noted Leg (L), no edema noted Leg (R), no edema noted Pedal (L), no edema noted Pedal (R), no edema noted Generalized Skin: other - functional Quad IAL LEE Sep 07, 2017 10:36
[2017-09-07] MEDS ORDERED: Nitroglycerin 2% oint pkt TOPIC ONE (10:45)
--- NOTE | 2017-09-07 11:45 | Wound Care Consultation ---
Wound Assessment Wound Assessment #1: Wound Number: 1 Wound Present on Admission: Yes New Wound: No Status Change of Wound: No Wound Location Body Site Modif: left Wound Location Body Site: trochanter Wound Type: pressure ulcer Paola Test: Does not Paola Pressure Ulcer Stage: Deep Tissue Injury Wound Thickness: Full Thickness Wound Length: 5.5 Wound Width: 5.5 Wound Depth: utd Percent of Wound Purple/Maroon: 100 Wound Drainage Amount: None Wound Drainage Odor: None/Absent Tissue Surrounding Wound: Intact Wound General Appearance: Reddened - purple/maroon Wound Assessment #2: Wound Number: 2 Wound Present on Admission: Yes New Wound: No Status Change of Wound: No Wound Location Body Site Modif: left, mid Wound Location Body Site: back Wound Type: pressure ulcer Paola Test: Does not Paola Pressure Ulcer Stage: Deep Tissue Injury Wound Thickness: Full Thickness Wound Length: 2.5 Wound Width: 5.0 Wound Depth: utd Percent of Wound Purple/Maroon: 100 Wound Drainage Amount: None Wound Drainage Odor: None/Absent Tissue Surrounding Wound: Intact Wound General Appearance: Reddened - purple/maroon Wound Assessment #3: Wound Number: 3 Wound Present on Admission: Yes New Wound: No Status Change of Wound: No Wound Location Body Site Modif: right Wound Location Body Site: heel Wound Type: pressure ulcer Paola Test: Does not Paola Pressure Ulcer Stage: Deep Tissue Injury Wound Thickness: Full Thickness Wound Length: 3.5 Wound Width: 4.5 Wound Depth: utd Percent of Wound Purple/Maroon: 100 Wound Drainage Amount: None Wound Drainage Odor: None/Absent Tissue Surrounding Wound: Erythemic Wound General Appearance: Reddened - maroon/purple Wound Assessment #4: Wound Number: 4 Wound Present on Admission: Yes New Wound: No Status Change of Wound: No Wound Location Body Site Modif: left Wound Location Body Site: heel Wound Type: pressure ulcer Paola Test: Does not Paola Pressure Ulcer Stage: Unstageable Wound Thickness: Full Thickness Wound Length: 2.5 Wound Width: 2.5 Wound Depth: utd Percent of Wound [place]/Red: 50 Percent of Wound Purple/Maroon: 50 Wound Drainage Description: Serosanguineous Wound Drainage Amount: Scant Wound Drainage Odor: None/Absent Tissue Surrounding Wound: Erythemic Wound General Appearance: Reddened - maroon, Draining Wound Assessment #5: Wound Number: 5 Wound Present on Admission: Yes New Wound: No Status Change of Wound: No Wound Location Body Site Modif: mid Wound Location Body Site: sacral Wound Type: pressure ulcer Paola Test: Does not Paola Pressure Ulcer Stage: III Wound Thickness: Full Thickness Wound Length: 3.5 Wound Width: 3.5 Wound Depth: 0.3 Percent of Wound [place]/Red: 90 Percent of Wound Bed Yellow/Wh: 10 Wound Drainage Description: Serosanguineous Wound Drainage Amount: Moderate Wound Drainage Odor: None/Absent Tissue Surrounding Wound: Macerated Wound General Appearance: Reddened, Draining Wound Comment #1 Left trochanter DTI pressure ulcer #2 Left mid back DTI pressure ulcer #3 Right heel DTI pressure ulcer #4 Left heel unstageable pressure ulcer #5 Sacral stage III pressure ulcer Recommendation -Local wound care per protocol -Keep clean and dry -Turn and reposition -Offload both heels -Heel protector on both heels -Optimize nutrition -Low air loss mattress -Assess and f/u accordingly for any changes PAOLA WINSLOW RN Sep 07, 2017 11:45
[2017-09-07 12:00] VITALS: BP 135/96
[2017-09-07] MEDS: NovoLOG Insulin Flexpen SUBQ SCH ×2 (12:01→17:48)
--- NOTE | 2017-09-07 12:07 | Diagnostic Imaging Report ---
Indication: Abdominal pain Comparison: None Single view of the abdomen obtained Findings: NG tube is in the body the stomach in good position. Bowel gas pattern is nonspecific. Bones are osteopenic. IMPRESSION: NG tube in good position
--- NOTE | 2017-09-07 13:11 | Pulmonology Progress Note ---
Assessment/Plan Assessment/Plan ASSESSMENT acute toxic metabolic encephalopathy ( likely due to resp failure and sepsis) Acute hypoxemic RF requiring BiPAP severe sepsis UTI HCAP influenza type B COPD exacerbation elevated troponin CHF DM Hyperlipidemia seizure disorder morbid obesity PLAN OF C[employer] [place]EL[place]IN status off BiPAP ABG stable this am downgraded to NC IV steroids and taper as permitted Fup with CXR in am pulmonary toilet droplet isolation empiric abx and Tamiflu ID follows fup with cx serial troponin with elevation- per PMD ? cardio eval ECHO a/PLT-Plavix , BB lipid panel stable , continue stain BS management seizure precautions, hold Depakote due to ALOC for now DVT GI prophylaxis bowel regimen supportive care swallow eval when more alert case discussed and evaluated by supervising physician Subjective Allergies: Coded Allergies: AMOXICILLIN (Verified Allergy, Mild, DIARRHEA, 11/03/08) PENICILLINS (Verified Allergy, Mild, HIVES, 09/11/10) Subjective weaned from BiPAP Objective Last 24 Hour Vital Signs Date Time Temp Pulse Resp B/P (MAP) Pulse Ox O2 Delivery O2 Flow Rate FiO2 09/07/17 12:00 2.0 09/07/17 12:00 97.9 89 20 135/96 100 Nasal Cannula 2.0 97.9 09/07/17 11:32 135/96 09/07/17 10:47 136/56 09/07/17 08:41 89 136/56 09/07/17 08:10 98.9 09/07/17 08:00 84 09/07/17 08:00 97.3 84 20 136/56 100 Nasal Cannula 2.0 97.3 09/07/17 08:00 2.0 09/07/17 07:45 98.9 09/07/17 07:38 109 19 100 Full Face 100 09/07/17 07:00 Nasal Cannula 2.0 28 09/07/17 05:13 109 19 100 Full Face 100 09/07/17 04:00 100 09/07/17 04:00 96 09/07/17 04:00 98.9 89 20 115/62 100 Bi-pap 100 98.9 09/07/17 03:15 100 22 100 Full Face 100 09/07/17 00:47 104 30 98 Full Face 100 09/07/17 00:00 100 09/07/17 00:00 93 09/07/17 00:00 99.0 84 20 123/59 100 Bi-pap 100 99.0 09/06/17 22:40 109 26 98 Full Face 100 09/06/17 21:28 100 22 98 Full Face 100 09/06/17 20:00 100 09/06/17 20:00 99.3 84 20 146/59 100 Bi-pap 100 99.3 09/06/17 19:48 105 22 98 Full Face 100 09/06/17 17:19 111 23 99 Full Face 100 09/06/17 16:50 101.1 128 20 103/86 100 Bi-pap 15.0 100 101.1 09/06/17 16:32 103/86 09/06/17 16:00 101.1 128 20 103/86 100 Bi-pap 100 101.1 09/06/17 15:25 117 18 100 Full Face 100 09/06/17 15:00 101.1 110 25 126/60 100 Bi-pap 100 101.1 09/06/17 14:00 101.1 106 23 155/73 100 Bi-pap 100 101.1 09/06/17 13:20 102.9 09/06/17 13:00 102.9 140 28 131/83 100 Bi-pap 100 102.9 Intake and Output 09/06/17 09/07/17 19:00 07:00 Intake Total 1225 ml 935 ml Output Total 60 ml 1000 ml Balance 1165 ml -65 ml Intake IV Total 1225 ml 935 ml Output Urine Total 1000 ml Stool Total 60 ml # Bowel Movements 1 2 Objective General Appearance: somnolent, arousable, open eyes spontaneously Lines, tubes and drains: peripheral HEENT: normocephalic, atraumatic, anicteric, O 2 via NC, NGT with TF Neck: non-tender, normal alignment, supple Respiratory/Chest: few expiratory wheezes Cardiovascular/Chest: SR on tele Abdomen: normal bowel sounds, non tender, soft - obese Extremities: no calf tenderness, normal capillary refill Neurologic: abnormal gait, rigid Musculoskeletal: atrophy - BLE Microbiology Date/Time Source Procedure Growth Status 09/06/17 18:00 Sputum Expectorated Gram Stain - Final Resulted 09/06/17 18:00 Sputum Expectorated Sputum Culture - Preliminary Resulted 09/06/17 10:55 Nasal Nares Influenza Types A,B Antigen (VU) - Final Complete 09/06/17 11:22 Urine,Clean Catch Urine Culture - Preliminary Gram Negative Bacillus 1 Resulted Laboratory Tests 09/06/17 13:10: Lactic Acid Level 5.10H 09/07/17 06:00: Lactic Acid Level 4.10H, White Blood Count 13.8H, Red Blood Count 4.93, Hemoglobin 13.9, Hematocrit 42.0, Mean Corpuscular Volume 85, Mean Corpuscular Hemoglobin 28.1, Mean Corpuscular Hemoglobin Concent 33.0, Red Cell Distribution Width 15.4H, Platelet Count 177, Mean Platelet Volume 9.1, Neutrophils (%) (Auto) , Lymphocytes (%) (Auto) , Monocytes (%) (Auto) , Eosinophils (%) (Auto) , Basophils (%) (Auto) , Differential Total Cells Counted 100, Neutrophils % (Manual) 78H, Lymphocytes % (Manual) 13L, Monocytes % (Manual) 3, Eosinophils % (Manual) 0, Basophils % (Manual) 0, Band Neutrophils 6, Platelet Estimate DecreasedL, Platelet Morphology Normal, Anisocytosis 1+, Sodium Level 138, Potassium Level 2.7*L, Chloride Level 101, Carbon Dioxide Level 27, Anion Gap 11, Blood Urea Nitrogen 13, Creatinine 1.1, Estimat Glomerular Filtration Rate , Glucose Level 214H, Hemoglobin A1c 6.7H, Uric Acid 5.0, Calcium Level 8.8, Phosphorus Level 2.8, Magnesium Level 1.8, Total Bilirubin 0.5, Gamma Glutamyl Transpeptidase 40, Aspartate Amino Transf ( AST/SGOT) 35, Alanine Aminotransferase (ALT/SGPT) 13, Alkaline Phosphatase 72, Total Creatine Kinase 794H, Troponin I 0.640H, C-Reactive Protein, Quantitative > 70.0H, Pro-B-Type Natriuretic Peptide 2531H, Total Protein 7.4, Albumin 2.2L, Globulin 5.2, Albumin/Globulin Ratio 0.4L, Triglycerides Level 43, Cholesterol Level 158, LDL Cholesterol 89, HDL Cholesterol 55, Cholesterol/HDL Ratio 2.9L, Thyroid Stimulating Hormone (TSH) 0.111L 09/07/17 08:00: Arterial Blood pH 7.430, Arterial Blood Partial Pressure CO2 34.1L, Arterial Blood Partial Pressure O2 327.4H, Arterial Blood HCO3 22.3, Arterial Blood Oxygen Saturation 99.8H, Arterial Blood Base Excess -1.3, Nii Test Positive 09/07/17 08:40: Lactic Acid Level 3.90H Current Medications Medications (Trade) Dose Ordered Sig/[place] Route PRN Reason Start Time Stop Time Status Last Admin Dose Admin Acetaminophen (Tylenol) 650 mg Q4H PRN GT Mild Pain/Temp > 100.5 09/06/17 15:45 10/06/17 15:44 09/07/17 07:45 Albuterol/ Ipratropium (Albuterol/ Ipratropium) 3 ml Q4H PRN HHN Shortness of Breath 09/06/17 16:30 09/11/17 16:29 Atenolol (Tenormin) 50 mg DAILY NG 09/07/17 09:00 10/07/17 08:59 09/07/17 08:41 Aztreonam 2 gm/ Sodium Chloride 110 ml @ 220 mls/hr Q8H IVPB 09/06/17 15:00 09/13/17 14:59 09/07/17 07:43 Clopidogrel Bisulfate (Plavix) 75 mg DAILY NG 09/07/17 09:00 10/07/17 08:59 09/07/17 08:41 Dextrose (Dextrose 50%) STAT PRN IV Hypoglycemia 09/07/17 11:00 10/07/17 10:59 Dextrose/Sodium Chloride 1,000 ml @ 50 mls/hr Q20H IV 09/07/17 11:00 10/07/17 10:59 09/07/17 10:47 Docusate Sodium (Colace) 200 mg DAILY GT 09/07/17 09:00 10/07/17 08:59 Heparin Sodium (Porcine) (Heparin 5000 units/ml) 5,000 units EVERY 8 HOURS SUBQ 09/06/17 22:00 10/06/17 21:59 09/07/17 06:47 Hydromorphone HCl (Dilaudid) 0.5 mg Q4H PRN IVP Pain Scale (6-10) 09/07/17 10:00 09/14/17 09:59 Insulin Aspart (NovoLOG) Q6HR SUBQ 09/07/17 12:00 10/07/17 11:59 09/07/17 12:01 Isosorbide Dinitrate (Isordil) 10 mg Q6HR NG 09/07/17 12:00 10/07/17 11:59 09/07/17 11:32 Methylprednisolone Sodium Succinate (Solu-MEDROL) 40 mg EVERY 12 HOURS IVP 09/07/17 21:00 10/06/17 21:59 Metronidazole (Flagyl) 500 mg Q6HR ORAL 09/06/17 18:00 09/13/17 17:59 09/07/17 11:31 Oseltamivir Phosphate (Tamiflu) 30 mg DAILY ORAL 09/08/17 09:00 09/10/17 09:15 Pantoprazole (Protonix) 40 mg Q12HR IVP 09/06/17 21:00 10/06/17 20:59 09/07/17 08:41 Valproic Acid (Depakene) 500 mg Q12HR NG 09/07/17 21:00 10/07/17 20:59 Vancomycin HCl (Vanco rx to dose) 1 ea DAILY PRN MISC Per rx protocol 09/06/17 14:00 10/06/17 13:59 Vancomycin HCl/ Dextrose 250 ml @ 166.667 mls/hr Q24H IVPB 09/07/17 13:00 09/12/17 12:59 Luis Alberto (Fransisco)Shayla NP Sep 07, 2017 13:11
[2017-09-07] MEDS: Vancomycin 1250mg/D5W 250ml IVPB SCH (13:42)
--- NOTE | 2017-09-07 14:56 | Infectious Diseases Prog Note ---
Assessment/Plan Problems: (1) HCAP (healthcare-associated pneumonia) Assessment & Plan: complicated with respiratory failure, await sputum culture and continue vancomycin, aztreonam and flagyl empiric coverage (2) Influenza B Assessment & Plan: complicated with Left side pneumonia , continue tamiflu for 5 days, and keep in droplets isolation (3) Severe sepsis Assessment & Plan: due to the above, await blood culture and continue vancomycin and aztreonam pending culture results (4) Respiratory failure Assessment & Plan: due to the above, continue BIPAP for respiratory support and monitor ABG, with CXR (5) UTI (urinary tract infection) Assessment & Plan: await urine culture and continue aztreonam empiric coverage (6) DM (diabetes mellitus) Assessment & Plan: recommend tight glycemic control to keep blood glucose between 100-140 (7) Diarrhea Assessment & Plan: will send stool for C diff Subjective ROS Limited/Unobtainable: Yes Allergies: Coded Allergies: AMOXICILLIN (Verified Allergy, Mild, DIARRHEA, 11/03/08) PENICILLINS (Verified Allergy, Mild, HIVES, 09/11/10) Subjective she was resting in bed, awake and alert, off BIPAP, no cough or SOB, no fever or chills, had diarrhea Objective Vital Signs Last 24 Hour Vital Signs Date Time Temp Pulse Resp B/P (MAP) Pulse Ox O2 Delivery O2 Flow Rate FiO2 09/07/17 12:00 80 09/07/17 12:00 2.0 09/07/17 12:00 97.9 89 20 135/96 100 Nasal Cannula 2.0 97.9 09/07/17 11:32 135/96 09/07/17 10:47 136/56 09/07/17 08:41 89 136/56 09/07/17 08:10 98.9 09/07/17 08:00 84 09/07/17 08:00 97.3 84 20 136/56 100 Nasal Cannula 2.0 97.3 09/07/17 08:00 2.0 09/07/17 07:45 98.9 09/07/17 07:38 109 19 100 Full Face 100 09/07/17 07:00 Nasal Cannula 2.0 28 09/07/17 05:13 109 19 100 Full Face 100 09/07/17 04:00 100 09/07/17 04:00 96 09/07/17 04:00 98.9 89 20 115/62 100 Bi-pap 100 98.9 09/07/17 03:15 100 22 100 Full Face 100 09/07/17 00:47 104 30 98 Full Face 100 09/07/17 00:00 100 09/07/17 00:00 93 09/07/17 00:00 99.0 84 20 123/59 100 Bi-pap 100 99.0 09/06/17 22:40 109 26 98 Full Face 100 09/06/17 21:28 100 22 98 Full Face 100 09/06/17 20:00 100 09/06/17 20:00 99.3 84 20 146/59 100 Bi-pap 100 99.3 09/06/17 19:48 105 22 98 Full Face 100 09/06/17 17:19 111 23 99 Full Face 100 09/06/17 16:50 101.1 128 20 103/86 100 Bi-pap 15.0 100 101.1 09/06/17 16:32 103/86 09/06/17 16:00 101.1 128 20 103/86 100 Bi-pap 100 101.1 09/06/17 15:25 117 18 100 Full Face 100 09/06/17 15:00 101.1 110 25 126/60 100 Bi-pap 100 101.1 Height (Feet): 5 Height (Inches): 3.00 Weight (Pounds): 190 General Appearance: WD/WN, no acute distress HEENT: normocephalic, atraumatic, anicteric, mucous membranes moist, PERRL Respiratory/Chest: chest wall non-tender, lungs clear, normal breath sounds, no respiratory distress, no accessory muscle use Cardiovascular: normal peripheral pulses, normal rate, regular rhythm, no gallop/murmur, no JVD Abdomen: normal bowel sounds, soft, non tender, no organomegaly, non distended , no mass, no scars Extremities: no cyanosis, no clubbing Skin: no rash, no lesions Neurologic/Psychiatric: alert Microbiology Date/Time Source Procedure Growth Status 09/06/17 18:00 Sputum Expectorated Gram Stain - Final Resulted 09/06/17 18:00 Sputum Expectorated Sputum Culture - Preliminary Resulted 09/06/17 10:55 Nasal Nares Influenza Types A,B Antigen (VU) - Final Complete 09/06/17 11:22 Urine,Clean Catch Urine Culture - Preliminary Gram Negative Bacillus 1 Resulted Laboratory Tests Test 09/07/17 06:00 09/07/17 08:00 09/07/17 08:40 White Blood Count 13.8 K/UL (4.8-10.8) H Red Blood Count 4.93 M/UL (4.20-5.40) Hemoglobin 13.9 G/DL (12.0-16.0) Hematocrit 42.0 % (37.0-47.0) Mean Corpuscular Volume 85 FL (80-99) Mean Corpuscular Hemoglobin 28.1 PG (27.0-31.0) Mean Corpuscular Hemoglobin Concent 33.0 G/DL (32.0-36.0) Red Cell Distribution Width 15.4 % (11.6-14.8) H Platelet Count 177 K/UL (150-450) Mean Platelet Volume 9.1 FL (6.5-10.1) Neutrophils (%) (Auto) % (45.0-75.0) Lymphocytes (%) (Auto) % (20.0-45.0) Monocytes (%) (Auto) % (1.0-10.0) Eosinophils (%) (Auto) % (0.0-3.0) Basophils (%) (Auto) % (0.0-2.0) Differential Total Cells Counted 100 Neutrophils % (Manual) 78 % (45-75) H Lymphocytes % (Manual) 13 % (20-45) L Monocytes % (Manual) 3 % (1-10) Eosinophils % (Manual) 0 % (0-3) Basophils % (Manual) 0 % (0-2) Band Neutrophils 6 % (0-8) Platelet Estimate Decreased L Platelet Morphology Normal Anisocytosis 1+ Sodium Level 138 MMOL/L (136-145) Potassium Level 2.7 MMOL/L (3.5-5.1) *L Chloride Level 101 MMOL/L (98-107) Carbon Dioxide Level 27 MMOL/L (21-32) Anion Gap 11 mmol/L (5-15) Blood Urea Nitrogen 13 mg/dL (7-18) Creatinine 1.1 MG/DL (0.55-1.30) Estimat Glomerular Filtration Rate mL/min (>60) Glucose Level 214 MG/DL (74-106) H Hemoglobin A1c 6.7 % (4.3-6.0) H Lactic Acid Level 4.10 mmol/L (0.66-2.22) H 3.90 mmol/L (0.66-2.22) H Uric Acid 5.0 MG/DL (2.6-7.2) Calcium Level 8.8 MG/DL (8.5-10.1) Phosphorus Level 2.8 MG/DL (2.5-4.9) Magnesium Level 1.8 MG/DL (1.8-2.4) Total Bilirubin 0.5 MG/DL (0.2-1.0) Gamma Glutamyl Transpeptidase 40 U/L (5-85) Aspartate Amino Transf (AST/SGOT) 35 U/L (15-37) Alanine Aminotransferase (ALT/SGPT) 13 U/L (12-78) Alkaline Phosphatase 72 U/L (46-116) Total Creatine Kinase 794 U/L (26-308) H Troponin I 0.640 ng/mL (0.000-0.056) C-Reactive Protein, Quantitative > 70.0 mg/dL (0.00-0.90) H Pro-B-Type Natriuretic Peptide 2531 pg/mL (0-125) H Total Protein 7.4 G/DL (6.4-8.2) Albumin 2.2 G/DL (3.4-5.0) L Globulin 5.2 g/dL Albumin/Globulin Ratio 0.4 (1.0-2.7) L Triglycerides Level 43 MG/DL (30-150) Cholesterol Level 158 MG/DL (< 200) LDL Cholesterol 89 mg/dL (<100) HDL Cholesterol 55 MG/DL (40-60) Cholesterol/HDL Ratio 2.9 (3.3-4.4) L Thyroid Stimulating Hormone (TSH) 0.111 uiU/mL (0.358-3.740) Arterial Blood pH 7.430 (7.350-7.450) Arterial Blood Partial Pressure CO2 34.1 mmHg (35.0-45.0) L Arterial Blood Partial Pressure O2 327.4 mmHg (75.0-100.0) H Arterial Blood HCO3 22.3 mmol/L (22.0-26.0) Arterial Blood Oxygen Saturation 99.8 % (92.0-98.0) H Arterial Blood Base Excess -1.3 Nii Test Positive Current Medications Medications (Trade) Dose Ordered Sig/Juwan Route PRN Reason Start Time Stop Time Status Last Admin Dose Admin Acetaminophen (Tylenol) 650 mg Q4H PRN GT Mild Pain/Temp > 100.5 09/06/17 15:45 10/06/17 15:44 09/07/17 07:45 Albuterol/ Ipratropium (Albuterol/ Ipratropium) 3 ml Q4H PRN HHN Shortness of Breath 09/06/17 16:30 09/11/17 16:29 Atenolol (Tenormin) 50 mg DAILY NG 09/07/17 09:00 10/07/17 08:59 09/07/17 08:41 Aztreonam 2 gm/ Sodium Chloride 110 ml @ 220 mls/hr Q8H IVPB 09/06/17 15:00 09/13/17 14:59 09/07/17 07:43 Clopidogrel Bisulfate (Plavix) 75 mg DAILY NG 09/07/17 09:00 10/07/17 08:59 09/07/17 08:41 Dextrose (Dextrose 50%) STAT PRN IV Hypoglycemia 09/07/17 11:00 10/07/17 10:59 Dextrose/Sodium Chloride 1,000 ml @ 50 mls/hr Q20H IV 09/07/17 11:00 10/07/17 10:59 09/07/17 10:47 Docusate Sodium (Colace) 200 mg DAILY GT 09/07/17 09:00 10/07/17 08:59 Heparin Sodium (Porcine) (Heparin 5000 units/ml) 5,000 units EVERY 8 HOURS SUBQ 09/06/17 22:00 10/06/17 21:59 09/07/17 13:40 Hydromorphone HCl (Dilaudid) 0.5 mg Q4H PRN IVP Pain Scale (6-10) 09/07/17 10:00 09/14/17 09:59 Insulin Aspart (NovoLOG) Q6HR SUBQ 09/07/17 12:00 10/07/17 11:59 09/07/17 12:01 Isosorbide Dinitrate (Isordil) 10 mg Q6HR NG 09/07/17 12:00 10/07/17 11:59 09/07/17 11:32 Methylprednisolone Sodium Succinate (Solu-MEDROL) 40 mg EVERY 12 HOURS IVP 09/07/17 21:00 10/06/17 21:59 Metronidazole (Flagyl) 500 mg Q6HR ORAL 09/06/17 18:00 09/13/17 17:59 09/07/17 11:31 Oseltamivir Phosphate (Tamiflu) 30 mg DAILY ORAL 09/08/17 09:00 09/10/17 09:15 Pantoprazole (Protonix) 40 mg Q12HR IVP 09/06/17 21:00 10/06/17 20:59 09/07/17 08:41 Valproic Acid (Depakene) 500 mg Q12HR NG 09/07/17 21:00 10/07/17 20:59 Vancomycin HCl (Vanco rx to dose) 1 ea DAILY PRN MISC Per rx protocol 09/06/17 14:00 10/06/17 13:59 Vancomycin HCl/ Dextrose 250 ml @ 166.667 mls/hr Q24H IVPB 09/07/17 13:00 09/12/17 12:59 09/07/17 13:42 Eddy Worthy M.D. Sep 07, 2017 14:56
--- NOTE | 2017-09-07 15:30 | Cardiology Report ---
APPROVED REPORT EXAM: Two-dimensional and M-mode echocardiogram with Doppler and color Doppler. INDICATION Congestive Heart Failure M-Mode DIMENSIONS IVSd1.3 (0.7-1.1cm)Left Atrium (MM)3.2 (1.6-4.0cm) LVDd5.7 (3.5-5.6cm)Aortic Root3.3 (2.0-3.7cm) PWd1.4 (0.7-1.1cm)Aortic Cusp Exc.1.6 (1.5-2.0cm) IVSs1.7 cm LVDs4.5 (2.5-4.0cm) PWs1.4 cm Global left ventricular hypokinesis. Mild left ventricular enlargements . Left ventricular ejection fraction estimated to be 45 %. Mild left ventricular hypertrophy by 2-D. No evidence of pericardial effusion . Right cardiac chamber sizes are within normal limits . Heavy Focal aortic valve sclerosis . Heavy Thickened mitral valve leaflets . Mitral annulus and aortic root calcification. Pulmonic valve not well visualized. Normal tricuspid valve structure. IVC at normal size with physiologic collapse. A color flow and spectral Doppler study was performed and revealed: Mild aortic regurgitation. Peak aortic valve gradient of 17 mm Hg and a mean of 9 mmHg. Aortic valve area 1.7 cm2 calculated by continuity equation. Mild mitral regurgitation. Mitral diastolic velocities suggest reduced left ventricular relaxation c/w mild LV diastolic dysfunction (Grade I ). Mild tricuspid regurgitation. Tricuspid systolic velocities suggests peak right ventricular systolic pressure of 38 mmHg,consistent with mild pulmonary hypertension. No Pulmonic regurgitation present.
[2017-09-07 16:00] VITALS: BP 110/60
[2017-09-07] MEDS ORDERED: Tubing IV Secondary IV ONE (16:48)
[2017-09-07] MEDS ORDERED: D5NS 1000ml IV ONE (16:48)
--- NOTE | 2017-09-07 19:30 | History and Physical Report ---
DATE OF ADMISSION: 09/06/2017 HISTORY OF PRESENT ILLNESS: The patient is an 87-year-old female, who has multiple medical problems. The patient came into emergency room with respiratory discomfort and coughing. PAST HISTORY: Significant for organic brain syndrome, obesity, previous GI bleed, hypertension, type 2 diabetes, osteoarthritis, congestive heart failure, coronary artery disease, and possible seizure disorder. The patient was in respiratory distress in emergency room, started on BiPAP and was found to have pneumonia, most likely aspiration related. ALLERGIES: Amoxicillin and penicillin. PHYSICAL EXAMINATION: VITAL SIGNS: The patient was tachypneic with a temperature of 100.3 degrees, pulse rate of 120, respiratory rate of 28, and blood pressure of 108/81. NECK: Full on BiPAP. Sclerae are not icteric. LUNGS: Rhonchi bilaterally. HEART: Heart sounds distant, however, tachycardic. ABDOMEN: Obese. Soft. EXTREMITIES: Lower extremities trace edema. LABORATORY AND DIAGNOSTIC DATA: Initial labs, WBC 9.9 and hemoglobin 13. Electrolytes are normal. Troponin 0.131. Pro natriuretic peptic 1161. Albumin 2.7. Urinalysis, 4 WBCs and 2+ leukocyte esterase. Initial blood gas, pH 7.44, pCO2 33, and pO2 63. IMPRESSION: 1. Pneumonia left side most likely aspiration. 2. Influenza B. 3. Severe sepsis with tachycardia and high lactate level. 4. Respiratory failure, on BiPAP. 5. UTI. 6. Diabetes mellitus. 7. Penicillin allergy. 8. Organic brain syndrome. 9. Diabetes mellitus. 10. History of congestive heart failure. 11. Coronary artery disease. 12. Seizure disorder. 13. Functional quadriplegia. PLAN: The patient was put on NG tube and Olsen catheter. Started on Azactam, Flagyl, and Tamiflu. Started also on IV prednisone and Flagyl. Depakote and Protonix continued. Also started on Isordil, Plavix, and atenolol. Slow IV hydration. Breathing support. Consultants were called. According to how the patient's condition evolves, we will make the proper changes in our future management. Neel Buchanan M.D. DR: JERARDO JOB#: [id number] CC:
[2017-09-07 20:00] VITALS: BP 138/86
[2017-09-08] VITALS: BP 117/88
[2017-09-08] MEDS: metroNIDAZOLE 500mg tab ORAL SCH ×4 (00:01→17:33)
[2017-09-08] MEDS: NovoLOG Insulin Flexpen SUBQ SCH ×4 (00:03→17:48)
[2017-09-08 04:00] VITALS: BP 114/86
[2017-09-08] MEDS: Heparin 5000 units/ml inj SUBQ SCH ×3 (05:37→21:29)
[2017-09-08] MEDS: D5NS 1,000 ML IV SCH (05:38)
[2017-09-08] MEDS: Aztreonam Inj 2 GM in NS 110 ML IVPB SCH ×3 (06:15→23:07)
[2017-09-08 07:29] LABS: HEMATOCRIT 39.2 % (37.0-47.0); HEMOGLOBIN 12.8 G/DL (12.0-16.0); MEAN CORPUSCULAR VOLUME 86 FL (80-99); PLATELET COUNT 186 K/UL (150-450); RED BLOOD COUNT 4.56 M/UL (4.20-5.40); RED CELL DISTRIBUTION WIDTH 15.7 % (11.6-14.8); WHITE BLOOD COUNT 10.9 K/UL (4.8-10.8)
[2017-09-08 08:00] VITALS: BP 129/61
[2017-09-08 08:11] LABS: ALANINE AMINOTRANSFERASE 15 U/L (12-78); ALBUMIN 1.9 G/DL (3.4-5.0); ALBUMIN/GLOBULIN RATIO 0.4 (1.0-2.7); ALKALINE PHOSPHATASE 67 U/L (46-116); ANION GAP 8 mmol/L (5-15); ASPARTATE AMINO TRANSFERASE 38 U/L (15-37); BILIRUBIN,TOTAL 0.3 MG/DL (0.2-1.0); BLOOD UREA NITROGEN 22 mg/dL (7-18); CALCIUM 8.6 MG/DL (8.5-10.1); CARBON DIOXIDE 26 MMOL/L (21-32); CHLORIDE 108 MMOL/L (98-107); CHOLESTEROL 155 MG/DL (< 200); CREATININE 0.9 MG/DL (0.55-1.30); GAMMA GLUTAMYL TRANSPEPTIDASE 36 U/L (5-85); HDL CHOLESTEROL 23 MG/DL (40-60); PHOSPHORUS 2.3 MG/DL (2.5-4.9); POTASSIUM 3.2 MMOL/L (3.5-5.1); SODIUM 142 MMOL/L (136-145); TRIGLYCERIDES 90 MG/DL (30-150)
[2017-09-08] MEDS: Docusate 100mg/10ml Liq GT SCH (09:00)
[2017-09-08] MEDS: Pantoprazole Inj IVP SCH (09:18)
[2017-09-08] MEDS: Valproic Acid 250mg/5ml Liquid NG SCH ×2 (09:19→21:28)
[2017-09-08] MEDS: Solu-MEDROL 40mg Inj IVP SCH (09:19)
[2017-09-08] MEDS ORDERED: Potassium Phosphate 30 MM in NS 275 ML IV ONE (11:00)
--- NOTE | 2017-09-08 11:32 | General Progress Note ---
Assessment/Plan Problem List: (1) Severe sepsis Assessment & Plan: pneumonia ? aspiration and Influenza B ICD Codes: A41.9 - Sepsis, unspecified organism; R65.20 - Severe sepsis without septic shock SNOMED: 90530359 (2) COPD (chronic obstructive pulmonary disease) ICD Codes: J44.9 - COPD (chronic obstructive pulmonary disease) SNOMED: 65727925 (3) CHF (congestive heart failure) ICD Codes: I50.9 - Heart failure, unspecified SNOMED: 50535416 (4) Functional quadriplegia ICD Codes: R53.2 - Functional quadriplegia SNOMED: 393877905806484 (5) DM (diabetes mellitus) ICD Codes: E11.9 - DM (diabetes mellitus) SNOMED: 93530394 (6) Elevated troponin I level ICD Codes: R74.8 - Abnormal levels of other serum enzymes SNOMED: 308915369 Status: stable Assessment/Plan Respiratory support Antibiotics per ID IV steroid- taper as possible Sliding scale insulin NGT feeding until ST eval DC IV to tele increase isordil Subjective ROS Limited/Unobtainable: No Constitutional: Reports: malaise Allergies: Coded Allergies: AMOXICILLIN (Verified Allergy, Mild, DIARRHEA, 11/03/08) PENICILLINS (Verified Allergy, Mild, HIVES, 09/11/10) Objective Last 24 Hour Vital Signs Date Time Temp Pulse Resp B/P (MAP) Pulse Ox O2 Delivery O2 Flow Rate FiO2 09/08/17 10:19 74 20 Nasal Cannula 2.0 28 09/08/17 09:20 75 129/69 09/08/17 07:48 91 Nasal Cannula 2.0 28 09/08/17 07:48 Nasal Cannula 2.0 28 09/08/17 05:33 134/82 09/08/17 04:00 2.0 09/08/17 04:00 97.7 80 20 114/86 96 Nasal Cannula 2.0 97.7 09/08/17 03:37 76 09/08/17 00:01 138/86 09/08/17 00:00 2.0 09/08/17 00:00 98.9 82 20 117/88 96 Nasal Cannula 2.0 98.9 09/08/17 00:00 77 09/07/17 20:00 2.0 09/07/17 20:00 98.6 80 21 138/86 95 Nasal Cannula 2.0 98.6 09/07/17 20:00 71 09/07/17 19:53 Nasal Cannula 2.0 100 09/07/17 17:44 132/87 09/07/17 16:00 98.0 92 21 110/60 99 Nasal Cannula 2.0 98.0 09/07/17 16:00 2.0 09/07/17 16:00 66 09/07/17 12:00 80 09/07/17 12:00 2.0 09/07/17 12:00 97.9 89 20 135/96 100 Nasal Cannula 2.0 97.9 09/07/17 11:32 135/96 Intake and Output 09/07/17 09/08/17 19:00 07:00 Intake Total 1150.000 ml 1040 ml Output Total 750 ml 350 ml Balance 400.000 ml 690 ml Intake IV Total 955.000 ml 580 ml Tube Feeding 105 ml 360 ml Other 90 ml 100 ml Output Urine Total 750 ml 350 ml # Bowel Movements 5 1 Laboratory Tests 09/08/17 06:45: White Blood Count 10.9H, Red Blood Count 4.56, Hemoglobin 12.8, Hematocrit 39.2 , Mean Corpuscular Volume 86, Mean Corpuscular Hemoglobin 28.0, Mean Corpuscular Hemoglobin Concent 32.6, Red Cell Distribution Width 15.7H, Platelet Count 186, Mean Platelet Volume 9.2, Neutrophils (%) (Auto) , Lymphocytes (%) (Auto) , Monocytes (%) (Auto) , Eosinophils (%) (Auto) , Basophils (%) (Auto) , Differential Total Cells Counted 100, Neutrophils % ( Manual) 83H, Lymphocytes % (Manual) 11L, Monocytes % (Manual) 6, Eosinophils % ( Manual) 0, Basophils % (Manual) 0, Band Neutrophils 0, Platelet Estimate Adequate, Platelet Morphology Normal, Anisocytosis 1+, Sodium Level 142, Potassium Level 3.2L, Chloride Level 108H, Carbon Dioxide Level 26, Anion Gap 8 , Blood Urea Nitrogen 22H, Creatinine 0.9, Estimat Glomerular Filtration Rate , Glucose Level 156H, Uric Acid 5.3, Calcium Level 8.6, Phosphorus Level 2.3L, Magnesium Level 1.9, Total Bilirubin 0.3, Gamma Glutamyl Transpeptidase 36, Aspartate Amino Transf (AST/SGOT) 38H, Alanine Aminotransferase (ALT/SGPT) 15, Alkaline Phosphatase 67, Troponin I 0.265H, Pro-B-Type Natriuretic Peptide 1412H , Total Protein 7.0, Albumin 1.9L, Globulin 5.1, Albumin/Globulin Ratio 0.4L, Triglycerides Level 90, Cholesterol Level 155, LDL Cholesterol 85, HDL Cholesterol 23L, Cholesterol/HDL Ratio 6.7H Height (Feet): 5 Height (Inches): 3.00 Weight (Pounds): 190 EENT: other - NGT+ Cardiovascular: regular rhythm Respiratory/Chest: decreased breath sounds Abdomen: soft ILA LEE 5, 2018 11:32
--- NOTE | 2017-09-08 11:43 | Diagnostic Imaging Report ---
Indication: Shortness of breath Technique: One view of the chest Comparison: 09/06/2017 Findings: Left mid and lower lung opacity has improved, likely reflecting improving atelectasis/consolidation and pleural fluid. However, retrocardiac consolidation with air bronchograms persists. There is some residual faint opacity in the left midlung. Nodular and linear opacities have developed at the right lung base. Heart size is normal. There is suggestion of left lateral tracheal and esophageal deviation in the lower neck. Nasogastric tube has been placed, tip projected at the level gastric body Impression: Significantly improved pleural and parenchymal disease on the left. However, retrocardiac consolidation and left midlung patchy infiltrates persist Developing right perihilar and basilar atelectasis versus reticular infiltrates Apparent leftward tracheal and esophageal deviation, may indicate lower neck/upper mediastinal mass or enlarged right thyroid lobe.
--- NOTE | 2017-09-08 12:16 | Pulmonology Progress Note ---
Assessment/Plan Problems: (1) Pneumonia (2) Respiratory failure (3) COPD (chronic obstructive pulmonary disease) (4) DM (diabetes mellitus) (5) ARF (acute renal failure) Assessment/Plan BIPAP prn titrate fio2 ot Sat of 92% respiratory treatment IV abc check sputum dvt prophylaxis, Subjective ROS Limited/Unobtainable: Yes Constitutional: Reports: no symptoms Respiratory: Reports: no symptoms Allergies: Coded Allergies: AMOXICILLIN (Verified Allergy, Mild, DIARRHEA, 11/03/08) PENICILLINS (Verified Allergy, Mild, HIVES, 09/11/10) Objective Last 24 Hour Vital Signs Date Time Temp Pulse Resp B/P (MAP) Pulse Ox O2 Delivery O2 Flow Rate FiO2 09/08/17 10:19 74 20 Nasal Cannula 2.0 28 09/08/17 09:20 75 129/69 09/08/17 07:48 91 Nasal Cannula 2.0 28 09/08/17 07:48 Nasal Cannula 2.0 28 09/08/17 05:33 134/82 09/08/17 04:00 2.0 09/08/17 04:00 97.7 80 20 114/86 96 Nasal Cannula 2.0 97.7 09/08/17 03:37 76 09/08/17 00:01 138/86 09/08/17 00:00 2.0 09/08/17 00:00 98.9 82 20 117/88 96 Nasal Cannula 2.0 98.9 09/08/17 00:00 77 09/07/17 20:00 2.0 09/07/17 20:00 98.6 80 21 138/86 95 Nasal Cannula 2.0 98.6 09/07/17 20:00 71 09/07/17 19:53 Nasal Cannula 2.0 100 09/07/17 17:44 132/87 09/07/17 16:00 98.0 92 21 110/60 99 Nasal Cannula 2.0 98.0 09/07/17 16:00 2.0 09/07/17 16:00 66 Intake and Output 09/07/17 09/08/17 19:00 07:00 Intake Total 1150.000 ml 1040 ml Output Total 750 ml 350 ml Balance 400.000 ml 690 ml Intake IV Total 955.000 ml 580 ml Tube Feeding 105 ml 360 ml Other 90 ml 100 ml Output Urine Total 750 ml 350 ml # Bowel Movements 5 1 General Appearance: WD/WN, no acute distress HEENT: normocephalic, anicteric Respiratory/Chest: chest wall non-tender, decreased breath sounds, accessory muscle use Breasts: no masses Cardiovascular: normal peripheral pulses, normal rate Abdomen: normal bowel sounds, soft, non tender Genitourinary: normal external genitalia Extremities: no cyanosis Skin: no rash Microbiology Date/Time Source Procedure Growth Status 09/06/17 11:05 Blood Blood Culture - Preliminary NO GROWTH AFTER 24 HOURS Resulted 09/06/17 10:55 Blood Blood Culture - Preliminary NO GROWTH AFTER 24 HOURS Resulted 09/06/17 18:00 Sputum Expectorated Gram Stain - Final Resulted 09/06/17 18:00 Sputum Expectorated Sputum Culture - Preliminary NORMAL UPPER RESPIRATORY STEVE AT 24 ... Resulted 09/06/17 10:55 Nasal Nares MRSA Culture - Final NO METHICILLIN RESISTANT STAPH AUREUS... Complete 09/06/17 10:55 Nasal Nares Influenza Types A,B Antigen (VU) - Final Complete 09/07/17 18:00 Stool Clostridium difficile Toxin Assay - Final Complete 09/06/17 11:22 Urine,Clean Catch Urine Culture - Final Escherichia Coli Complete Laboratory Tests 09/08/17 06:40: C-Reactive Protein, Quantitative [Pending] 09/08/17 06:45: White Blood Count 10.9H, Red Blood Count 4.56, Hemoglobin 12.8, Hematocrit 39.2 , Mean Corpuscular Volume 86, Mean Corpuscular Hemoglobin 28.0, Mean Corpuscular Hemoglobin Concent 32.6, Red Cell Distribution Width 15.7H, Platelet Count 186, Mean Platelet Volume 9.2, Neutrophils (%) (Auto) , Lymphocytes (%) (Auto) , Monocytes (%) (Auto) , Eosinophils (%) (Auto) , Basophils (%) (Auto) , Differential Total Cells Counted 100, Neutrophils % ( Manual) 83H, Lymphocytes % (Manual) 11L, Monocytes % (Manual) 6, Eosinophils % ( Manual) 0, Basophils % (Manual) 0, Band Neutrophils 0, Platelet Estimate Adequate, Platelet Morphology Normal, Anisocytosis 1+, Sodium Level 142, Potassium Level 3.2L, Chloride Level 108H, Carbon Dioxide Level 26, Anion Gap 8 , Blood Urea Nitrogen 22H, Creatinine 0.9, Estimat Glomerular Filtration Rate , Glucose Level 156H, Uric Acid 5.3, Calcium Level 8.6, Phosphorus Level 2.3L, Magnesium Level 1.9, Total Bilirubin 0.3, Gamma Glutamyl Transpeptidase 36, Aspartate Amino Transf (AST/SGOT) 38H, Alanine Aminotransferase (ALT/SGPT) 15, Alkaline Phosphatase 67, Troponin I 0.265H, Pro-B-Type Natriuretic Peptide 1412H , Total Protein 7.0, Albumin 1.9L, Globulin 5.1, Albumin/Globulin Ratio 0.4L, Triglycerides Level 90, Cholesterol Level 155, LDL Cholesterol 85, HDL Cholesterol 23L, Cholesterol/HDL Ratio 6.7H Current Medications Medications (Trade) Dose Ordered Sig/Juwan Route PRN Reason Start Time Stop Time Status Last Admin Dose Admin Acetaminophen (Tylenol) 650 mg Q4H PRN GT Mild Pain/Temp > 100.5 09/06/17 15:45 10/06/17 15:44 09/07/17 07:45 Albuterol/ Ipratropium (Albuterol/ Ipratropium) 3 ml Q4H PRN HHN Shortness of Breath 09/06/17 16:30 09/11/17 16:29 Atenolol (Tenormin) 50 mg DAILY NG 09/07/17 09:00 10/07/17 08:59 09/08/17 09:20 Aztreonam 2 gm/ Sodium Chloride 110 ml @ 220 mls/hr Q8H IVPB 09/06/17 15:00 09/13/17 14:59 09/08/17 06:15 Clopidogrel Bisulfate (Plavix) 75 mg DAILY NG 09/07/17 09:00 10/07/17 08:59 09/08/17 09:19 Dextrose (Dextrose 50%) STAT PRN IV Hypoglycemia 09/07/17 11:00 10/07/17 10:59 Docusate Sodium (Colace) 200 mg DAILY GT 09/07/17 09:00 10/07/17 08:59 Heparin Sodium (Porcine) (Heparin 5000 units/ml) 5,000 units EVERY 8 HOURS SUBQ 09/06/17 22:00 10/06/17 21:59 09/08/17 05:37 Hydromorphone HCl (Dilaudid) 0.5 mg Q4H PRN IVP Pain Scale (6-10) 09/07/17 10:00 09/14/17 09:59 Insulin Aspart (NovoLOG) Q6HR SUBQ 09/07/17 12:00 10/07/17 11:59 09/08/17 05:36 Isosorbide Dinitrate (Isordil) 20 mg Q6HR NG 09/08/17 12:00 10/08/17 11:59 Methylprednisolone Sodium Succinate (Solu-MEDROL) 40 mg DAILY IVP 09/09/17 09:00 10/06/17 21:59 Metronidazole (Flagyl) 500 mg Q6HR ORAL 09/06/17 18:00 09/13/17 17:59 09/08/17 05:33 Oseltamivir Phosphate (Tamiflu) 30 mg DAILY ORAL 09/08/17 09:00 09/10/17 09:15 09/08/17 09:22 Pantoprazole (Protonix) 40 mg DAILY IVP 09/09/17 09:00 10/06/17 20:59 Potassium Phosphate 30 mm/ Sodium Chloride 285 ml @ 47.5 mls/hr ONCE ONCE IV 09/08/17 11:00 09/08/17 16:59 Valproic Acid (Depakene) 500 mg Q12HR NG 09/07/17 21:00 10/07/17 20:59 09/08/17 09:19 Vancomycin HCl (Vanco rx to dose) 1 ea DAILY PRN MISC Per rx protocol 09/06/17 14:00 10/06/17 13:59 Vancomycin HCl/ Dextrose 250 ml @ 166.667 mls/hr Q24H IVPB 09/07/17 13:00 09/12/17 12:59 09/07/17 13:42 DARIAN HOOKS Sep 08, 2017 12:16
[2017-09-08 12:55] VITALS: BP 128/71
[2017-09-08] MEDS: Vancomycin 1250mg/D5W 250ml IVPB SCH (13:52)
--- NOTE | 2017-09-08 14:07 | Infectious Diseases Prog Note ---
Assessment/Plan Problems: (1) HCAP (healthcare-associated pneumonia) Assessment & Plan: complicated with respiratory failure, await sputum culture and continue vancomycin, aztreonam and flagyl empiric coverage (2) Influenza B Assessment & Plan: complicated with Left side pneumonia , continue tamiflu for 5 days, and keep in droplets isolation (3) Severe sepsis Assessment & Plan: due to the above, await blood culture and continue vancomycin and aztreonam pending culture results (4) Respiratory failure Assessment & Plan: due to the above, improving, off BIPAP , monitor CXR (5) UTI (urinary tract infection) Assessment & Plan: due to E coli , already on aztreonam coverage (6) DM (diabetes mellitus) Assessment & Plan: recommend tight glycemic control to keep blood glucose between 100-140 (7) Diarrhea Assessment & Plan: not due to C diff , with negative toxin Subjective ROS Limited/Unobtainable: Yes Allergies: Coded Allergies: AMOXICILLIN (Verified Allergy, Mild, DIARRHEA, 11/03/08) PENICILLINS (Verified Allergy, Mild, HIVES, 09/11/10) Subjective she was resting in bed, alert, off BIPAP, no cough or SOB, no fever or chills, no diarrhea today, still has NGT for feeding and meds Objective Vital Signs Last 24 Hour Vital Signs Date Time Temp Pulse Resp B/P (MAP) Pulse Ox O2 Delivery O2 Flow Rate FiO2 09/08/17 12:55 97.7 79 18 128/71 98 Nasal Cannula 2.0 97.7 09/08/17 12:11 128/71 09/08/17 10:19 74 20 Nasal Cannula 2.0 28 09/08/17 09:20 75 129/69 09/08/17 08:00 97.8 75 18 129/61 93 Nasal Cannula 2.0 97.8 09/08/17 07:48 91 Nasal Cannula 2.0 28 09/08/17 07:48 Nasal Cannula 2.0 28 09/08/17 05:33 134/82 09/08/17 04:00 2.0 09/08/17 04:00 97.7 80 20 114/86 96 Nasal Cannula 2.0 97.7 09/08/17 03:37 76 09/08/17 00:01 138/86 09/08/17 00:00 2.0 09/08/17 00:00 98.9 82 20 117/88 96 Nasal Cannula 2.0 98.9 09/08/17 00:00 77 09/07/17 20:00 2.0 09/07/17 20:00 98.6 80 21 138/86 95 Nasal Cannula 2.0 98.6 09/07/17 20:00 71 09/07/17 19:53 Nasal Cannula 2.0 100 09/07/17 17:44 132/87 09/07/17 16:00 98.0 92 21 110/60 99 Nasal Cannula 2.0 98.0 09/07/17 16:00 2.0 09/07/17 16:00 66 Height (Feet): 5 Height (Inches): 3.00 Weight (Pounds): 190 General Appearance: WD/WN, no acute distress HEENT: normocephalic, atraumatic, anicteric, mucous membranes moist Respiratory/Chest: chest wall non-tender, no respiratory distress, no accessory muscle use, decreased breath sounds, expiratory wheezing Cardiovascular: normal peripheral pulses, normal rate, regular rhythm, no gallop/murmur, no JVD Abdomen: normal bowel sounds, soft, non tender, no organomegaly, non distended , no mass, no scars Extremities: no cyanosis, no clubbing Skin: no rash, no lesions, no ulcers Neurologic/Psychiatric: alert Lymphatic: no neck adenopathy, no groin adenopathy Microbiology Date/Time Source Procedure Growth Status 09/06/17 11:05 Blood Blood Culture - Preliminary NO GROWTH AFTER 24 HOURS Resulted 09/06/17 10:55 Blood Blood Culture - Preliminary NO GROWTH AFTER 24 HOURS Resulted 09/06/17 18:00 Sputum Expectorated Gram Stain - Final Resulted 09/06/17 18:00 Sputum Expectorated Sputum Culture - Preliminary NORMAL UPPER RESPIRATORY STEVE AT 24 ... Resulted 09/06/17 10:55 Nasal Nares MRSA Culture - Final NO METHICILLIN RESISTANT STAPH AUREUS... Complete 09/06/17 10:55 Nasal Nares Influenza Types A,B Antigen (VU) - Final Complete 09/07/17 18:00 Stool Clostridium difficile Toxin Assay - Final Complete 09/06/17 11:22 Urine,Clean Catch Urine Culture - Final Escherichia Coli Complete Laboratory Tests Test 09/08/17 06:40 09/08/17 06:45 C-Reactive Protein, Quantitative 23.3 mg/dL (0.00-0.90) H White Blood Count 10.9 K/UL (4.8-10.8) H Red Blood Count 4.56 M/UL (4.20-5.40) Hemoglobin 12.8 G/DL (12.0-16.0) Hematocrit 39.2 % (37.0-47.0) Mean Corpuscular Volume 86 FL (80-99) Mean Corpuscular Hemoglobin 28.0 PG (27.0-31.0) Mean Corpuscular Hemoglobin Concent 32.6 G/DL (32.0-36.0) Red Cell Distribution Width 15.7 % (11.6-14.8) H Platelet Count 186 K/UL (150-450) Mean Platelet Volume 9.2 FL (6.5-10.1) Neutrophils (%) (Auto) % (45.0-75.0) Lymphocytes (%) (Auto) % (20.0-45.0) Monocytes (%) (Auto) % (1.0-10.0) Eosinophils (%) (Auto) % (0.0-3.0) Basophils (%) (Auto) % (0.0-2.0) Differential Total Cells Counted 100 Neutrophils % (Manual) 83 % (45-75) H Lymphocytes % (Manual) 11 % (20-45) L Monocytes % (Manual) 6 % (1-10) Eosinophils % (Manual) 0 % (0-3) Basophils % (Manual) 0 % (0-2) Band Neutrophils 0 % (0-8) Platelet Estimate Adequate Platelet Morphology Normal Anisocytosis 1+ Sodium Level 142 MMOL/L (136-145) Potassium Level 3.2 MMOL/L (3.5-5.1) L Chloride Level 108 MMOL/L (98-107) H Carbon Dioxide Level 26 MMOL/L (21-32) Anion Gap 8 mmol/L (5-15) Blood Urea Nitrogen 22 mg/dL (7-18) H Creatinine 0.9 MG/DL (0.55-1.30) Estimat Glomerular Filtration Rate mL/min (>60) Glucose Level 156 MG/DL (74-106) H Uric Acid 5.3 MG/DL (2.6-7.2) Calcium Level 8.6 MG/DL (8.5-10.1) Phosphorus Level 2.3 MG/DL (2.5-4.9) L Magnesium Level 1.9 MG/DL (1.8-2.4) Total Bilirubin 0.3 MG/DL (0.2-1.0) Gamma Glutamyl Transpeptidase 36 U/L (5-85) Aspartate Amino Transf (AST/SGOT) 38 U/L (15-37) H Alanine Aminotransferase (ALT/SGPT) 15 U/L (12-78) Alkaline Phosphatase 67 U/L (46-116) Troponin I 0.265 ng/mL (0.000-0.056) Pro-B-Type Natriuretic Peptide 1412 pg/mL (0-125) H Total Protein 7.0 G/DL (6.4-8.2) Albumin 1.9 G/DL (3.4-5.0) L Globulin 5.1 g/dL Albumin/Globulin Ratio 0.4 (1.0-2.7) L Triglycerides Level 90 MG/DL (30-150) Cholesterol Level 155 MG/DL (< 200) LDL Cholesterol 85 mg/dL (<100) HDL Cholesterol 23 MG/DL (40-60) L Cholesterol/HDL Ratio 6.7 (3.3-4.4) H Current Medications Medications (Trade) Dose Ordered Sig/Juwan Route PRN Reason Start Time Stop Time Status Last Admin Dose Admin Acetaminophen (Tylenol) 650 mg Q4H PRN GT Mild Pain/Temp > 100.5 09/06/17 15:45 10/06/17 15:44 09/07/17 07:45 Albuterol/ Ipratropium (Albuterol/ Ipratropium) 3 ml Q4H PRN HHN Shortness of Breath 09/06/17 16:30 09/11/17 16:29 Atenolol (Tenormin) 50 mg DAILY NG 09/07/17 09:00 10/07/17 08:59 09/08/17 09:20 Aztreonam 2 gm/ Sodium Chloride 110 ml @ 220 mls/hr Q8H IVPB 09/06/17 15:00 09/13/17 14:59 09/08/17 06:15 Clopidogrel Bisulfate (Plavix) 75 mg DAILY NG 09/07/17 09:00 10/07/17 08:59 09/08/17 09:19 Dextrose (Dextrose 50%) STAT PRN IV Hypoglycemia 09/07/17 11:00 10/07/17 10:59 Docusate Sodium (Colace) 200 mg DAILY GT 09/07/17 09:00 10/07/17 08:59 Heparin Sodium (Porcine) (Heparin 5000 units/ml) 5,000 units EVERY 8 HOURS SUBQ 09/06/17 22:00 10/06/17 21:59 09/08/17 05:37 Hydromorphone HCl (Dilaudid) 0.5 mg Q4H PRN IVP Pain Scale (6-10) 09/07/17 10:00 09/14/17 09:59 Insulin Aspart (NovoLOG) Q6HR SUBQ 09/07/17 12:00 10/07/17 11:59 09/08/17 12:26 Isosorbide Dinitrate (Isordil) 20 mg Q6HR NG 09/08/17 12:00 10/08/17 11:59 09/08/17 12:11 Methylprednisolone Sodium Succinate (Solu-MEDROL) 40 mg DAILY IVP 09/09/17 09:00 10/06/17 21:59 Metronidazole (Flagyl) 500 mg Q6HR ORAL 09/06/17 18:00 09/13/17 17:59 09/08/17 12:10 Oseltamivir Phosphate (Tamiflu) 30 mg DAILY ORAL 09/08/17 09:00 09/10/17 09:15 09/08/17 09:22 Pantoprazole (Protonix) 40 mg DAILY IVP 09/09/17 09:00 10/06/17 20:59 Potassium Phosphate 30 mm/ Sodium Chloride 285 ml @ 47.5 mls/hr ONCE ONCE IV 09/08/17 11:00 09/08/17 16:59 09/08/17 12:24 Valproic Acid (Depakene) 500 mg Q12HR NG 09/07/17 21:00 10/07/17 20:59 09/08/17 09:19 Vancomycin HCl (Vanco rx to dose) 1 ea DAILY PRN MISC Per rx protocol 09/06/17 14:00 10/06/17 13:59 Vancomycin HCl/ Dextrose 250 ml @ 166.667 mls/hr Q24H IVPB 09/07/17 13:00 09/12/17 12:59 09/08/17 13:52 Eddy Worthy M.D. Sep 08, 2017 14:07
--- NOTE | 2017-09-08 14:29 | Cardiac Electrophysiology PN ---
Subjective Subjective [id number] Objective Last 24 Hour Vital Signs Date Time Temp Pulse Resp B/P (MAP) Pulse Ox O2 Delivery O2 Flow Rate FiO2 09/08/17 12:55 97.7 79 18 128/71 98 Nasal Cannula 2.0 97.7 09/08/17 12:11 128/71 09/08/17 10:19 74 20 Nasal Cannula 2.0 28 09/08/17 09:20 75 129/69 09/08/17 08:00 97.8 75 18 129/61 93 Nasal Cannula 2.0 97.8 09/08/17 07:48 91 Nasal Cannula 2.0 28 09/08/17 07:48 Nasal Cannula 2.0 28 09/08/17 05:33 134/82 09/08/17 04:00 2.0 09/08/17 04:00 97.7 80 20 114/86 96 Nasal Cannula 2.0 97.7 09/08/17 03:37 76 09/08/17 00:01 138/86 09/08/17 00:00 2.0 09/08/17 00:00 98.9 82 20 117/88 96 Nasal Cannula 2.0 98.9 09/08/17 00:00 77 09/07/17 20:00 2.0 09/07/17 20:00 98.6 80 21 138/86 95 Nasal Cannula 2.0 98.6 09/07/17 20:00 71 09/07/17 19:53 Nasal Cannula 2.0 100 09/07/17 17:44 132/87 09/07/17 16:00 98.0 92 21 110/60 99 Nasal Cannula 2.0 98.0 09/07/17 16:00 2.0 09/07/17 16:00 66 Intake and Output 09/07/17 09/08/17 19:00 07:00 Intake Total 1150.000 ml 1040 ml Output Total 750 ml 350 ml Balance 400.000 ml 690 ml Intake IV Total 955.000 ml 580 ml Tube Feeding 105 ml 360 ml Other 90 ml 100 ml Output Urine Total 750 ml 350 ml # Bowel Movements 5 1 Laboratory Tests Test 09/08/17 06:40 09/08/17 06:45 C-Reactive Protein, Quantitative 23.3 mg/dL (0.00-0.90) H White Blood Count 10.9 K/UL (4.8-10.8) H Red Blood Count 4.56 M/UL (4.20-5.40) Hemoglobin 12.8 G/DL (12.0-16.0) Hematocrit 39.2 % (37.0-47.0) Mean Corpuscular Volume 86 FL (80-99) Mean Corpuscular Hemoglobin 28.0 PG (27.0-31.0) Mean Corpuscular Hemoglobin Concent 32.6 G/DL (32.0-36.0) Red Cell Distribution Width 15.7 % (11.6-14.8) H Platelet Count 186 K/UL (150-450) Mean Platelet Volume 9.2 FL (6.5-10.1) Neutrophils (%) (Auto) % (45.0-75.0) Lymphocytes (%) (Auto) % (20.0-45.0) Monocytes (%) (Auto) % (1.0-10.0) Eosinophils (%) (Auto) % (0.0-3.0) Basophils (%) (Auto) % (0.0-2.0) Differential Total Cells Counted 100 Neutrophils % (Manual) 83 % (45-75) H Lymphocytes % (Manual) 11 % (20-45) L Monocytes % (Manual) 6 % (1-10) Eosinophils % (Manual) 0 % (0-3) Basophils % (Manual) 0 % (0-2) Band Neutrophils 0 % (0-8) Platelet Estimate Adequate Platelet Morphology Normal Anisocytosis 1+ Sodium Level 142 MMOL/L (136-145) Potassium Level 3.2 MMOL/L (3.5-5.1) L Chloride Level 108 MMOL/L (98-107) H Carbon Dioxide Level 26 MMOL/L (21-32) Anion Gap 8 mmol/L (5-15) Blood Urea Nitrogen 22 mg/dL (7-18) H Creatinine 0.9 MG/DL (0.55-1.30) Estimat Glomerular Filtration Rate mL/min (>60) Glucose Level 156 MG/DL (74-106) H Uric Acid 5.3 MG/DL (2.6-7.2) Calcium Level 8.6 MG/DL (8.5-10.1) Phosphorus Level 2.3 MG/DL (2.5-4.9) L Magnesium Level 1.9 MG/DL (1.8-2.4) Total Bilirubin 0.3 MG/DL (0.2-1.0) Gamma Glutamyl Transpeptidase 36 U/L (5-85) Aspartate Amino Transf (AST/SGOT) 38 U/L (15-37) H Alanine Aminotransferase (ALT/SGPT) 15 U/L (12-78) Alkaline Phosphatase 67 U/L (46-116) Troponin I 0.265 ng/mL (0.000-0.056) Pro-B-Type Natriuretic Peptide 1412 pg/mL (0-125) H Total Protein 7.0 G/DL (6.4-8.2) Albumin 1.9 G/DL (3.4-5.0) L Globulin 5.1 g/dL Albumin/Globulin Ratio 0.4 (1.0-2.7) L Triglycerides Level 90 MG/DL (30-150) Cholesterol Level 155 MG/DL (< 200) LDL Cholesterol 85 mg/dL (<100) HDL Cholesterol 23 MG/DL (40-60) L Cholesterol/HDL Ratio 6.7 (3.3-4.4) H Microbiology Date/Time Source Procedure Growth Status 09/06/17 11:05 Blood Blood Culture - Preliminary NO GROWTH AFTER 24 HOURS Resulted 09/06/17 10:55 Blood Blood Culture - Preliminary NO GROWTH AFTER 24 HOURS Resulted 09/06/17 18:00 Sputum Expectorated Gram Stain - Final Resulted 09/06/17 18:00 Sputum Expectorated Sputum Culture - Preliminary NORMAL UPPER RESPIRATORY STEVE AT 24 ... Resulted 09/06/17 10:55 Nasal Nares MRSA Culture - Final NO METHICILLIN RESISTANT STAPH AUREUS... Complete 09/06/17 10:55 Nasal Nares Influenza Types A,B Antigen (VU) - Final Complete 09/07/17 18:00 Stool Clostridium difficile Toxin Assay - Final Complete 09/06/17 11:22 Urine,Clean Catch Urine Culture - Final Escherichia Coli Complete MARKEL PAGE Sep 08, 2017 14:29
[2017-09-08 16:15] VITALS: BP 124/67
--- NOTE | 2017-09-08 18:15 | Consultation ---
DATE OF CONSULTATION: 09/08/2017 CARDIOLOGY CONSULTATION CONSULTING PHYSICIAN: Deangelo Chan M.D. REFERRING PHYSICIAN: Neel Buchanan M.D. REASON FOR CONSULTATION: Management of hypertension and coronary artery disease. HISTORY OF PRESENT ILLNESS: The patient is an 87-year-old, lady with history of hypertension, diabetes, and coronary artery disease with history of three stents at [facility] about 4-5 years ago per the patient's daughter at the bedside. The patient also has history of advanced dementia, obesity, as well as osteoarthritis and congestive heart failure and possible seizure disorder. The patient was brought to the emergency room for shortness of breath and was found with respiratory distress in the ER, was started on BiPAP, likely aspiration related. At the time of my evaluation, the patient has been on NG-tube and the daughter is at bedside, is unable to provide any information. REVIEW OF SYMPTOMS: Cannot be obtained. PAST MEDICAL HISTORY: As mentioned above. FAMILY HISTORY: Noncontributory. ALLERGIES: She is allergic to amoxicillin and penicillin. PHYSICAL EXAMINATION: VITAL SIGNS: Blood pressure of 122/71, pulse 79, respirations 18, and temperature 97.7 degrees. HEAD AND NECK: No JVD, and she has NG tube. LUNGS: Coarse rhonchi. CARDIOVASCULAR: Regular S1 and S2 with no gallop or murmur. ABDOMEN: Obese. EXTREMITIES: 1+ pitting edema. LABORATORY AND DIAGNOSTIC DATA: Her EKG shows sinus rhythm with nonspecific ST-T wave abnormality. Her echocardiogram shows ejection fraction of 45% and left ventricular hypertrophy. No evidence of pericardial effusion and aortic valve area 1.7 cm2. Her labs show white count of 10.9, hemoglobin of 12.8, hematocrit of 39.2, and platelet count of 186. Sodium 142, potassium 3.2, BUN of 22, creatinine 0.9, and glucose of 156. Her troponin is 0.265 and 0.640. ASSESSMENT AND PLAN: 1. Non-ST elevation myocardial infarction elevated cardiac enzymes. The level was 0.64 and now is 0.26. The patient is currently nonverbal. We will treat the patient medically with Isordil, atenolol 50 mg daily, Plavix 75 mg daily, and aspirin. After stabilization, the patient may need a nuclear stress test, but at this time, the patient is confused and nonverbal and unable to proceed. 2. Coronary artery disease, history of prior stent placement. Again, on Plavix, Isordil, and atenolol. We will add Lipitor to her medical regimen. 3. Hypertension. Continue Isordil and atenolol. 4. Severe hypokalemia. Potassium was replaced. 5. Cardiomyopathy, ejection fraction of 45%. 6. Aspiration pneumonia, on Flagyl, vancomycin, and aztreonam. Thank you very much, Dr. Buchanan, for allowing me to participate in the care of this patient. Please do not hesitate to contact me for any questions regarding my evaluation. Deangelo Chan M.D. DR: KENYATTA JOB#: [id number] CC:
[2017-09-08 20:00] VITALS: BP 155/67
[2017-09-09] VITALS: BP 158/78
[2017-09-09] MEDS: metroNIDAZOLE 500mg tab ORAL SCH ×4 (00:04→17:56)
[2017-09-09] MEDS: NovoLOG Insulin Flexpen SUBQ SCH ×4 (00:13→18:00)
[2017-09-09 04:00] VITALS: BP 135/70
[2017-09-09] MEDS: Heparin 5000 units/ml inj SUBQ SCH ×3 (05:47→21:01)
[2017-09-09] MEDS: Aztreonam Inj 2 GM in NS 110 ML IVPB SCH ×3 (06:05→23:00)
[2017-09-09 08:00] VITALS: BP 123/69
[2017-09-09] MEDS ORDERED: Solu-MEDROL 40mg Inj IVP SCH (09:00)
[2017-09-09 09:41] LABS: HEMATOCRIT 34.2 % (37.0-47.0); HEMOGLOBIN 11.3 G/DL (12.0-16.0); MEAN CORPUSCULAR VOLUME 86 FL (80-99); PLATELET COUNT 190 K/UL (150-450); RED BLOOD COUNT 3.97 M/UL (4.20-5.40); RED CELL DISTRIBUTION WIDTH 15.8 % (11.6-14.8); WHITE BLOOD COUNT 11.6 K/UL (4.8-10.8)
[2017-09-09] MEDS: Valproic Acid 250mg/5ml Liquid NG SCH ×2 (09:49→20:51)
[2017-09-09] MEDS: Docusate 100mg/10ml Liq GT SCH (09:49)
[2017-09-09] MEDS: Aspirin EC 81mg tab ORAL SCH (09:49)
[2017-09-09] MEDS: Pantoprazole Inj IVP SCH (09:50)
[2017-09-09 09:56] LABS: ALANINE AMINOTRANSFERASE 9 U/L (12-78); ALBUMIN 1.8 G/DL (3.4-5.0); ALBUMIN/GLOBULIN RATIO 0.4 (1.0-2.7); ALKALINE PHOSPHATASE 59 U/L (46-116); ANION GAP 11 mmol/L (5-15); ASPARTATE AMINO TRANSFERASE 25 U/L (15-37); BILIRUBIN,TOTAL 0.3 MG/DL (0.2-1.0); BLOOD UREA NITROGEN 27 mg/dL (7-18); CALCIUM 8.6 MG/DL (8.5-10.1); CARBON DIOXIDE 23 MMOL/L (21-32); CHLORIDE 111 MMOL/L (98-107); CREATININE 0.9 MG/DL (0.55-1.30); GAMMA GLUTAMYL TRANSPEPTIDASE 32 U/L (5-85); PHOSPHORUS 3.4 MG/DL (2.5-4.9); POTASSIUM 3.4 MMOL/L (3.5-5.1); SODIUM 145 MMOL/L (136-145)
--- NOTE | 2017-09-09 10:33 | Pulmonology Progress Note ---
Assessment/Plan Problems: (1) Pneumonia (2) Respiratory failure (3) COPD (chronic obstructive pulmonary disease) (4) DM (diabetes mellitus) (5) ARF (acute renal failure) Assessment/Plan off BIPAP now, titrate fio2 ot Sat of 92% respiratory treatment IV abc check sputum dvt prophylaxis, swallow study when mental status is better. Subjective ROS Limited/Unobtainable: No Interval Events: still altered, has a NG tube feeding Allergies: Coded Allergies: AMOXICILLIN (Verified Allergy, Mild, DIARRHEA, 11/03/08) PENICILLINS (Verified Allergy, Mild, HIVES, 09/11/10) Objective Last 24 Hour Vital Signs Date Time Temp Pulse Resp B/P (MAP) Pulse Ox O2 Delivery O2 Flow Rate FiO2 09/09/17 09:49 77 123/69 09/09/17 06:49 Nasal Cannula 2.0 09/09/17 06:49 69 Nasal Cannula 2.0 09/09/17 05:46 155/67 09/09/17 04:00 69 09/09/17 04:00 97.9 67 20 135/70 96 Nasal Cannula 2.0 97.9 09/09/17 00:10 155/67 09/09/17 00:00 64 09/09/17 00:00 97.9 65 22 158/78 96 Nasal Cannula 2.0 97.9 09/08/17 20:00 63 09/08/17 20:00 98.8 79 24 155/67 96 Nasal Cannula 2.0 98.8 17 09/08/17 19:03 Nasal Cannula 2.0 28 09/08/17 19:03 98 Nasal Cannula 2.0 28 09/08/17 17:33 124/57 09/08/17 16:15 99.1 71 124/67 97 99.1 17 09/08/17 16:00 66 09/08/17 12:55 97.7 79 18 128/71 98 Nasal Cannula 2.0 97.7 09/08/17 12:11 128/71 09/08/17 12:02 66 Intake and Output 09/08/17 09/09/17 19:00 07:00 Intake Total 1388.334 ml 310 ml Output Total 550 ml 475 ml Balance 838.334 ml -165 ml Intake Free Water 220 ml IV Total 838.334 ml Tube Feeding 330 ml 210 ml Other 100 ml Output Urine Total 550 ml 475 ml # Bowel Movements 4 General Appearance: WD/WN HEENT: normocephalic, atraumatic Respiratory/Chest: chest wall non-tender, lungs clear Breasts: no masses Cardiovascular: normal rate Abdomen: normal bowel sounds, soft, non tender Genitourinary: normal external genitalia Extremities: no cyanosis Microbiology Date/Time Source Procedure Growth Status 09/06/17 11:05 Blood Blood Culture - Preliminary NO GROWTH AFTER 24 HOURS Resulted 09/06/17 10:55 Blood Blood Culture - Preliminary NO GROWTH AFTER 24 HOURS Resulted 09/06/17 18:00 Sputum Expectorated Gram Stain - Final Complete 09/06/17 18:00 Sputum Expectorated Sputum Culture - Final NORMAL UPPER RESPIRATORY STEVE PRESENT Complete 09/06/17 10:55 Nasal Nares MRSA Culture - Final NO METHICILLIN RESISTANT STAPH AUREUS... Complete 09/06/17 10:55 Nasal Nares Influenza Types A,B Antigen (VU) - Final Complete 09/07/17 18:00 Stool Clostridium difficile Toxin Assay - Final Complete 09/06/17 11:22 Urine,Clean Catch Urine Culture - Final Escherichia Coli Complete Laboratory Tests 09/09/17 08:50: White Blood Count 11.6H, Red Blood Count 3.97L, Hemoglobin 11.3L, Hematocrit 34.2L, Mean Corpuscular Volume 86, Mean Corpuscular Hemoglobin 28.5, Mean Corpuscular Hemoglobin Concent 33.1, Red Cell Distribution Width 15.8H, Platelet Count 190, Mean Platelet Volume 8.8, Neutrophils (%) (Auto) , Lymphocytes (%) (Auto) , Monocytes (%) (Auto) , Eosinophils (%) (Auto) , Basophils (%) (Auto) , Neutrophils % (Manual) [Pending], Lymphocytes % (Manual) [Pending], Platelet Estimate [Pending], Platelet Morphology [Pending], Sodium Level 145, Potassium Level 3.4L, Chloride Level 111H, Carbon Dioxide Level 23, Anion Gap 11, Blood Urea Nitrogen 27H, Creatinine 0.9, Estimat Glomerular Filtration Rate , Glucose Level 130H, Uric Acid 5.4, Calcium Level 8.6, Phosphorus Level 3.4, Magnesium Level 2.2, Total Bilirubin 0.3, Gamma Glutamyl Transpeptidase 32, Aspartate Amino Transf (AST/SGOT) 25, Alanine Aminotransferase (ALT/SGPT) 9L, Alkaline Phosphatase 59, Troponin I 0.170H, Pro- B-Type Natriuretic Peptide 2375H, Total Protein 6.5, Albumin 1.8L, Globulin 4.7 , Albumin/Globulin Ratio 0.4L, Valproic Acid (Depakene) Level 21L Current Medications Medications (Trade) Dose Ordered Sig/Juwan Route PRN Reason Start Time Stop Time Status Last Admin Dose Admin Acetaminophen (Tylenol) 650 mg Q4H PRN GT Mild Pain/Temp > 100.5 09/06/17 15:45 10/06/17 15:44 09/07/17 07:45 Albuterol/ Ipratropium (Albuterol/ Ipratropium) 3 ml Q4H PRN HHN Shortness of Breath 09/06/17 16:30 09/11/17 16:29 Aspirin (Ecotrin) 81 mg DAILY ORAL 09/09/17 09:00 10/09/17 08:59 09/09/17 09:49 Atenolol (Tenormin) 50 mg DAILY NG 09/07/17 09:00 10/07/17 08:59 09/09/17 09:49 Atorvastatin Calcium (Lipitor) 10 mg BEDTIME ORAL 09/08/17 21:00 10/08/17 20:59 09/08/17 21:28 Aztreonam 2 gm/ Sodium Chloride 110 ml @ 220 mls/hr Q8H IVPB 09/06/17 15:00 09/13/17 14:59 09/09/17 06:05 Clopidogrel Bisulfate (Plavix) 75 mg DAILY NG 09/07/17 09:00 10/07/17 08:59 09/09/17 09:49 Dextrose (Dextrose 50%) STAT PRN IV Hypoglycemia 09/07/17 11:00 10/07/17 10:59 Docusate Sodium (Colace) 200 mg DAILY GT 09/07/17 09:00 10/07/17 08:59 09/09/17 09:49 Heparin Sodium (Porcine) (Heparin 5000 units/ml) 5,000 units EVERY 8 HOURS SUBQ 09/06/17 22:00 10/06/17 21:59 09/09/17 05:47 Hydromorphone HCl (Dilaudid) 0.5 mg Q4H PRN IVP Pain Scale (6-10) 09/07/17 10:00 09/14/17 09:59 Insulin Aspart (NovoLOG) Q6HR SUBQ 09/07/17 12:00 10/07/17 11:59 09/09/17 05:49 Isosorbide Dinitrate (Isordil) 20 mg Q6HR NG 09/08/17 12:00 10/08/17 11:59 09/09/17 05:46 Methylprednisolone Sodium Succinate (Solu-MEDROL) 40 mg DAILY IVP 09/09/17 09:00 10/06/17 21:59 09/09/17 09:50 Metronidazole (Flagyl) 500 mg Q6HR ORAL 09/06/17 18:00 09/13/17 17:59 09/09/17 05:46 Oseltamivir Phosphate (Tamiflu) 30 mg DAILY ORAL 09/08/17 09:00 09/10/17 09:15 09/09/17 09:56 Pantoprazole (Protonix) 40 mg DAILY IVP 09/09/17 09:00 10/06/17 20:59 09/09/17 09:50 Valproic Acid (Depakene) 500 mg Q12HR NG 09/07/17 21:00 10/07/17 20:59 09/09/17 09:49 Vancomycin HCl (Vanco rx to dose) 1 ea DAILY PRN MISC Per rx protocol 09/06/17 14:00 10/06/17 13:59 Vancomycin HCl/ Dextrose 250 ml @ 166.667 mls/hr Q24H IVPB 09/07/17 13:00 09/12/17 12:59 09/08/17 13:52 DARIAN HOOKS Sep 09, 2017 10:33
[2017-09-09 12:00] VITALS: BP 141/61
[2017-09-09] MEDS: Vancomycin 1250mg/D5W 250ml IVPB SCH (12:10)
--- NOTE | 2017-09-09 13:33 | General Progress Note ---
Assessment/Plan Problem List: (1) Severe sepsis Assessment & Plan: pneumonia ? aspiration and Influenza B ICD Codes: A41.9 - Sepsis, unspecified organism; R65.20 - Severe sepsis without septic shock SNOMED: 55015306 (2) COPD (chronic obstructive pulmonary disease) ICD Codes: J44.9 - COPD (chronic obstructive pulmonary disease) SNOMED: 96399876 (3) CHF (congestive heart failure) ICD Codes: I50.9 - Heart failure, unspecified SNOMED: 72124140 (4) Functional quadriplegia ICD Codes: R53.2 - Functional quadriplegia SNOMED: 089263895184307 (5) DM (diabetes mellitus) ICD Codes: E11.9 - DM (diabetes mellitus) SNOMED: 93456946 (6) Elevated troponin I level ICD Codes: R74.8 - Abnormal levels of other serum enzymes SNOMED: 486596082 Status: stable Status Narrative cant take PO Assessment/Plan discussed with daughter who is considering PEG IV K supplement Respiratory support Antibiotics per ID IV steroid- taper as possible Sliding scale insulin NGT feeding until ST eval DC IV to tele increase isordil dose Subjective ROS Limited/Unobtainable: No Constitutional: Reports: malaise Allergies: Coded Allergies: AMOXICILLIN (Verified Allergy, Mild, DIARRHEA, 11/03/08) PENICILLINS (Verified Allergy, Mild, HIVES, 09/11/10) Objective Last 24 Hour Vital Signs Date Time Temp Pulse Resp B/P (MAP) Pulse Ox O2 Delivery O2 Flow Rate FiO2 09/09/17 12:10 124/68 09/09/17 12:00 98.1 66 20 141/61 97 Nasal Cannula 2.0 98.1 09/09/17 09:49 77 123/69 09/09/17 08:00 97.9 77 20 123/69 97 Nasal Cannula 2.0 97.9 09/09/17 08:00 72 09/09/17 06:49 Nasal Cannula 2.0 09/09/17 06:49 69 Nasal Cannula 2.0 09/09/17 05:46 155/67 09/09/17 04:00 69 09/09/17 04:00 97.9 67 20 135/70 96 Nasal Cannula 2.0 97.9 09/09/17 00:10 155/67 09/09/17 00:00 64 09/09/17 00:00 97.9 65 22 158/78 96 Nasal Cannula 2.0 97.9 09/08/17 20:00 63 09/08/17 20:00 98.8 79 24 155/67 96 Nasal Cannula 2.0 98.8 17 09/08/17 19:03 Nasal Cannula 2.0 28 09/08/17 19:03 98 Nasal Cannula 2.0 28 09/08/17 17:33 124/57 09/08/17 16:15 99.1 71 124/67 97 99.1 17 09/08/17 16:00 66 Intake and Output 09/08/17 09/09/17 19:00 07:00 Intake Total 1388.334 ml 310 ml Output Total 550 ml 475 ml Balance 838.334 ml -165 ml Intake Free Water 220 ml IV Total 838.334 ml Tube Feeding 330 ml 210 ml Other 100 ml Output Urine Total 550 ml 475 ml # Bowel Movements 4 Laboratory Tests 09/09/17 08:50: White Blood Count 11.6H, Red Blood Count 3.97L, Hemoglobin 11.3L, Hematocrit 34.2L, Mean Corpuscular Volume 86, Mean Corpuscular Hemoglobin 28.5, Mean Corpuscular Hemoglobin Concent 33.1, Red Cell Distribution Width 15.8H, Platelet Count 190, Mean Platelet Volume 8.8, Neutrophils (%) (Auto) , Lymphocytes (%) (Auto) , Monocytes (%) (Auto) , Eosinophils (%) (Auto) , Basophils (%) (Auto) , Differential Total Cells Counted 100, Neutrophils % ( Manual) 90H, Lymphocytes % (Manual) 5L, Monocytes % (Manual) 5, Eosinophils % ( Manual) 0, Basophils % (Manual) 0, Band Neutrophils 0, Platelet Estimate Adequate, Platelet Morphology Normal, Hypochromasia 1+, Poikilocytosis 2+, Anisocytosis 1+, Sodium Level 145, Potassium Level 3.4L, Chloride Level 111H, Carbon Dioxide Level 23, Anion Gap 11, Blood Urea Nitrogen 27H, Creatinine 0.9, Estimat Glomerular Filtration Rate , Glucose Level 130H, Uric Acid 5.4, Calcium Level 8.6, Phosphorus Level 3.4, Magnesium Level 2.2, Total Bilirubin 0.3, Gamma Glutamyl Transpeptidase 32, Aspartate Amino Transf (AST/SGOT) 25, Alanine Aminotransferase (ALT/SGPT) 9L, Alkaline Phosphatase 59, Troponin I 0.170H, Pro- B-Type Natriuretic Peptide 2375H, Total Protein 6.5, Albumin 1.8L, Globulin 4.7 , Albumin/Globulin Ratio 0.4L, Valproic Acid (Depakene) Level 21L 09/09/17 12:00: Vancomycin Level Trough 9.0 Height (Feet): 5 Height (Inches): 3.00 Weight (Pounds): 190 EENT: other - NGT Cardiovascular: regular rhythm Respiratory/Chest: decreased breath sounds Abdomen: soft ILA LEE Sep 09, 2017 13:33
[2017-09-09] MEDS ORDERED: Potassium Chloride 40 MEQ in Sodium Chloride 500ML 550 ML IVPB ONE (15:00)
--- NOTE | 2017-09-09 15:00 | Infectious Diseases Prog Note ---
Assessment/Plan Problems: (1) HCAP (healthcare-associated pneumonia) Assessment & Plan: complicated with respiratory failure, sputum culture showed normal respiratory reny , continue vancomycin , aztreonam and flagyl empiric coverage, monitor CXR (2) Influenza B Assessment & Plan: complicated with Left side pneumonia , continue tamiflu for 5 days, and keep in droplets isolation (3) Severe sepsis Assessment & Plan: due to the above, blood culture remains negative , continue vancomycin and aztreonam pending culture results (4) Respiratory failure Assessment & Plan: due to the above, improving, off BIPAP , monitor CXR (5) UTI (urinary tract infection) Assessment & Plan: due to E coli , already on aztreonam coverage (6) DM (diabetes mellitus) Assessment & Plan: recommend tight glycemic control to keep blood glucose between 100-140 (7) Diarrhea Assessment & Plan: not due to C diff , with negative toxin (8) Dysphagia Assessment & Plan: due to poor mentation, may need PEG tube for feeding Subjective ROS Limited/Unobtainable: Yes Allergies: Coded Allergies: AMOXICILLIN (Verified Allergy, Mild, DIARRHEA, 11/03/08) PENICILLINS (Verified Allergy, Mild, HIVES, 09/11/10) Subjective she was more awake and alert, but nonverbal, no cough or SOB, no fever or chills , no diarrhea today, still has NGT for feeding and meds, daughter at the bedside Objective Vital Signs Last 24 Hour Vital Signs Date Time Temp Pulse Resp B/P (MAP) Pulse Ox O2 Delivery O2 Flow Rate FiO2 09/09/17 12:10 124/68 09/09/17 12:00 98.1 66 20 141/61 97 Nasal Cannula 2.0 98.1 09/09/17 12:00 63 09/09/17 09:49 77 123/69 09/09/17 08:00 97.9 77 20 123/69 97 Nasal Cannula 2.0 97.9 09/09/17 08:00 72 09/09/17 06:49 Nasal Cannula 2.0 09/09/17 06:49 69 Nasal Cannula 2.0 09/09/17 05:46 155/67 09/09/17 04:00 69 09/09/17 04:00 97.9 67 20 135/70 96 Nasal Cannula 2.0 97.9 09/09/17 00:10 155/67 09/09/17 00:00 64 09/09/17 00:00 97.9 65 22 158/78 96 Nasal Cannula 2.0 97.9 09/08/17 20:00 63 09/08/17 20:00 98.8 79 24 155/67 96 Nasal Cannula 2.0 98.8 17 09/08/17 19:03 Nasal Cannula 2.0 28 09/08/17 19:03 98 Nasal Cannula 2.0 28 09/08/17 17:33 124/57 09/08/17 16:15 99.1 71 124/67 97 99.1 17 09/08/17 16:00 66 Height (Feet): 5 Height (Inches): 3.00 Weight (Pounds): 190 General Appearance: WD/WN, no acute distress HEENT: normocephalic, atraumatic, anicteric, mucous membranes moist, PERRL, supple, no JVD Respiratory/Chest: chest wall non-tender, normal breath sounds, no respiratory distress, no accessory muscle use, decreased breath sounds Cardiovascular: normal peripheral pulses, normal rate, regular rhythm, no gallop/murmur, no JVD Abdomen: normal bowel sounds, soft, non tender, no organomegaly, non distended , no mass, no scars Extremities: no cyanosis, no clubbing Skin: no rash, no lesions, no ulcers Neurologic/Psychiatric: alert, responsive Lymphatic: no neck adenopathy, no groin adenopathy Musculoskeletal: normal muscle bulk, no effusion Microbiology Date/Time Source Procedure Growth Status 09/06/17 18:00 Sputum Expectorated Gram Stain - Final Complete 09/06/17 18:00 Sputum Expectorated Sputum Culture - Final NORMAL UPPER RESPIRATORY RENY PRESENT Complete 09/07/17 18:00 Stool Clostridium difficile Toxin Assay - Final Complete Laboratory Tests Test 09/09/17 08:50 09/09/17 12:00 White Blood Count 11.6 K/UL (4.8-10.8) H Red Blood Count 3.97 M/UL (4.20-5.40) L Hemoglobin 11.3 G/DL (12.0-16.0) L Hematocrit 34.2 % (37.0-47.0) L Mean Corpuscular Volume 86 FL (80-99) Mean Corpuscular Hemoglobin 28.5 PG (27.0-31.0) Mean Corpuscular Hemoglobin Concent 33.1 G/DL (32.0-36.0) Red Cell Distribution Width 15.8 % (11.6-14.8) H Platelet Count 190 K/UL (150-450) Mean Platelet Volume 8.8 FL (6.5-10.1) Neutrophils (%) (Auto) % (45.0-75.0) Lymphocytes (%) (Auto) % (20.0-45.0) Monocytes (%) (Auto) % (1.0-10.0) Eosinophils (%) (Auto) % (0.0-3.0) Basophils (%) (Auto) % (0.0-2.0) Differential Total Cells Counted 100 Neutrophils % (Manual) 90 % (45-75) H Lymphocytes % (Manual) 5 % (20-45) L Monocytes % (Manual) 5 % (1-10) Eosinophils % (Manual) 0 % (0-3) Basophils % (Manual) 0 % (0-2) Band Neutrophils 0 % (0-8) Platelet Estimate Adequate Platelet Morphology Normal Hypochromasia 1+ Poikilocytosis 2+ Anisocytosis 1+ Sodium Level 145 MMOL/L (136-145) Potassium Level 3.4 MMOL/L (3.5-5.1) L Chloride Level 111 MMOL/L (98-107) H Carbon Dioxide Level 23 MMOL/L (21-32) Anion Gap 11 mmol/L (5-15) Blood Urea Nitrogen 27 mg/dL (7-18) H Creatinine 0.9 MG/DL (0.55-1.30) Estimat Glomerular Filtration Rate mL/min (>60) Glucose Level 130 MG/DL (74-106) H Uric Acid 5.4 MG/DL (2.6-7.2) Calcium Level 8.6 MG/DL (8.5-10.1) Phosphorus Level 3.4 MG/DL (2.5-4.9) Magnesium Level 2.2 MG/DL (1.8-2.4) Total Bilirubin 0.3 MG/DL (0.2-1.0) Gamma Glutamyl Transpeptidase 32 U/L (5-85) Aspartate Amino Transf (AST/SGOT) 25 U/L (15-37) Alanine Aminotransferase (ALT/SGPT) 9 U/L (12-78) L Alkaline Phosphatase 59 U/L (46-116) Troponin I 0.170 ng/mL (0.000-0.056) Pro-B-Type Natriuretic Peptide 2375 pg/mL (0-125) H Total Protein 6.5 G/DL (6.4-8.2) Albumin 1.8 G/DL (3.4-5.0) L Globulin 4.7 g/dL Albumin/Globulin Ratio 0.4 (1.0-2.7) L Valproic Acid (Depakene) Level 21 MCG/ML (50-100) L Vancomycin Level Trough 9.0 ug/mL (5.0-12.0) Current Medications Medications (Trade) Dose Ordered Sig/Juwan Route PRN Reason Start Time Stop Time Status Last Admin Dose Admin Acetaminophen (Tylenol) 650 mg Q4H PRN GT Mild Pain/Temp > 100.5 09/06/17 15:45 10/06/17 15:44 09/07/17 07:45 Albuterol/ Ipratropium (Albuterol/ Ipratropium) 3 ml Q4H PRN HHN Shortness of Breath 09/06/17 16:30 09/11/17 16:29 Aspirin (Ecotrin) 81 mg DAILY ORAL 09/09/17 09:00 10/09/17 08:59 09/09/17 09:49 Atenolol (Tenormin) 50 mg DAILY NG 09/07/17 09:00 10/07/17 08:59 09/09/17 09:49 Atorvastatin Calcium (Lipitor) 10 mg BEDTIME ORAL 09/08/17 21:00 10/08/17 20:59 09/08/17 21:28 Aztreonam 2 gm/ Sodium Chloride 110 ml @ 220 mls/hr Q8H IVPB 09/06/17 15:00 09/13/17 14:59 09/09/17 14:08 Clopidogrel Bisulfate (Plavix) 75 mg DAILY NG 09/07/17 09:00 10/07/17 08:59 09/09/17 09:49 Dextrose (Dextrose 50%) STAT PRN IV Hypoglycemia 09/07/17 11:00 10/07/17 10:59 Docusate Sodium (Colace) 200 mg DAILY GT 09/07/17 09:00 10/07/17 08:59 09/09/17 09:49 Heparin Sodium (Porcine) (Heparin 5000 units/ml) 5,000 units EVERY 8 HOURS SUBQ 09/06/17 22:00 10/06/17 21:59 09/09/17 14:07 Hydromorphone HCl (Dilaudid) 0.5 mg Q4H PRN IVP Pain Scale (6-10) 09/07/17 10:00 09/14/17 09:59 Insulin Aspart (NovoLOG) Q6HR SUBQ 09/07/17 12:00 10/07/17 11:59 09/09/17 12:12 Isosorbide Dinitrate (Isordil) 30 mg Q6HR NG 09/09/17 18:00 10/09/17 17:59 Methylprednisolone Sodium Succinate (Solu-MEDROL) 30 mg DAILY IVP 09/10/17 09:00 10/10/17 08:59 Metronidazole (Flagyl) 500 mg Q6HR ORAL 09/06/17 18:00 09/13/17 17:59 09/09/17 12:10 Oseltamivir Phosphate (Tamiflu) 30 mg DAILY ORAL 09/08/17 09:00 09/10/17 09:15 09/09/17 09:56 Pantoprazole (Protonix) 40 mg DAILY IVP 09/09/17 09:00 10/06/17 20:59 09/09/17 09:50 Potassium Chloride 40 meq/ Sodium Chloride 570 ml @ 142.5 mls/ hr ONCE ONCE IVPB 09/09/17 15:00 09/09/17 18:59 09/09/17 14:10 Valproic Acid (Depakene) 500 mg Q12HR NG 09/07/17 21:00 10/07/17 20:59 09/09/17 09:49 Vancomycin HCl (Vanco rx to dose) 1 ea DAILY PRN MISC Per rx protocol 09/06/17 14:00 10/06/17 13:59 Vancomycin HCl/ Dextrose 250 ml @ 125 mls/hr Q24H IVPB 09/10/17 13:00 09/15/17 12:59 Eddy Worthy M.D. Sep 09, 2017 14:59
--- NOTE | 2017-09-09 15:13 | Cardiac Electrophysiology PN ---
Assessment/Plan Assessment/Plan 1. Non-ST elevation myocardial infarction The level was 0.64 and 0.26 and 0.1. The patient is currently nonverbal. We will treat the patient medically with Isordil, atenolol 50 mg daily, Plavix 75 mg daily, and aspirin. 2. Coronary artery disease, history of prior stent placement. Again, on Plavix, Isordil,atenolol and Lipitor 3. Hypertension. Continue Isordil and atenolol. 4. Severe hypokalemia. Potassium was replaced. 5. Cardiomyopathy, ejection fraction of 45%. 6. Aspiration pneumonia, on Flagyl, vancomycin, and aztreonam. 7. Dysphagia, couldn't get the swallow eval. ROCCO RN Subjective Subjective Poorly responsive getting GT feeding. Remained in SR with PACs Objective Last 24 Hour Vital Signs Date Time Temp Pulse Resp B/P (MAP) Pulse Ox O2 Delivery O2 Flow Rate FiO2 09/09/17 12:10 124/68 09/09/17 12:00 98.1 66 20 141/61 97 Nasal Cannula 2.0 98.1 09/09/17 12:00 63 09/09/17 09:49 77 123/69 09/09/17 08:00 97.9 77 20 123/69 97 Nasal Cannula 2.0 97.9 09/09/17 08:00 72 09/09/17 06:49 Nasal Cannula 2.0 09/09/17 06:49 69 Nasal Cannula 2.0 09/09/17 05:46 155/67 09/09/17 04:00 69 09/09/17 04:00 97.9 67 20 135/70 96 Nasal Cannula 2.0 97.9 09/09/17 00:10 155/67 09/09/17 00:00 64 09/09/17 00:00 97.9 65 22 158/78 96 Nasal Cannula 2.0 97.9 09/08/17 20:00 63 09/08/17 20:00 98.8 79 24 155/67 96 Nasal Cannula 2.0 98.8 17 09/08/17 19:03 Nasal Cannula 2.0 28 09/08/17 19:03 98 Nasal Cannula 2.0 28 09/08/17 17:33 124/57 09/08/17 16:15 99.1 71 124/67 97 99.1 17 09/08/17 16:00 66 Intake and Output 09/08/17 09/09/17 19:00 07:00 Intake Total 1388.334 ml 310 ml Output Total 550 ml 475 ml Balance 838.334 ml -165 ml Intake Free Water 220 ml IV Total 838.334 ml Tube Feeding 330 ml 210 ml Other 100 ml Output Urine Total 550 ml 475 ml # Bowel Movements 4 Laboratory Tests Test 09/09/17 08:50 09/09/17 12:00 White Blood Count 11.6 K/UL (4.8-10.8) H Red Blood Count 3.97 M/UL (4.20-5.40) L Hemoglobin 11.3 G/DL (12.0-16.0) L Hematocrit 34.2 % (37.0-47.0) L Mean Corpuscular Volume 86 FL (80-99) Mean Corpuscular Hemoglobin 28.5 PG (27.0-31.0) Mean Corpuscular Hemoglobin Concent 33.1 G/DL (32.0-36.0) Red Cell Distribution Width 15.8 % (11.6-14.8) H Platelet Count 190 K/UL (150-450) Mean Platelet Volume 8.8 FL (6.5-10.1) Neutrophils (%) (Auto) % (45.0-75.0) Lymphocytes (%) (Auto) % (20.0-45.0) Monocytes (%) (Auto) % (1.0-10.0) Eosinophils (%) (Auto) % (0.0-3.0) Basophils (%) (Auto) % (0.0-2.0) Differential Total Cells Counted 100 Neutrophils % (Manual) 90 % (45-75) H Lymphocytes % (Manual) 5 % (20-45) L Monocytes % (Manual) 5 % (1-10) Eosinophils % (Manual) 0 % (0-3) Basophils % (Manual) 0 % (0-2) Band Neutrophils 0 % (0-8) Platelet Estimate Adequate Platelet Morphology Normal Hypochromasia 1+ Poikilocytosis 2+ Anisocytosis 1+ Sodium Level 145 MMOL/L (136-145) Potassium Level 3.4 MMOL/L (3.5-5.1) L Chloride Level 111 MMOL/L (98-107) H Carbon Dioxide Level 23 MMOL/L (21-32) Anion Gap 11 mmol/L (5-15) Blood Urea Nitrogen 27 mg/dL (7-18) H Creatinine 0.9 MG/DL (0.55-1.30) Estimat Glomerular Filtration Rate mL/min (>60) Glucose Level 130 MG/DL (74-106) H Uric Acid 5.4 MG/DL (2.6-7.2) Calcium Level 8.6 MG/DL (8.5-10.1) Phosphorus Level 3.4 MG/DL (2.5-4.9) Magnesium Level 2.2 MG/DL (1.8-2.4) Total Bilirubin 0.3 MG/DL (0.2-1.0) Gamma Glutamyl Transpeptidase 32 U/L (5-85) Aspartate Amino Transf (AST/SGOT) 25 U/L (15-37) Alanine Aminotransferase (ALT/SGPT) 9 U/L (12-78) L Alkaline Phosphatase 59 U/L (46-116) Troponin I 0.170 ng/mL (0.000-0.056) Pro-B-Type Natriuretic Peptide 2375 pg/mL (0-125) H Total Protein 6.5 G/DL (6.4-8.2) Albumin 1.8 G/DL (3.4-5.0) L Globulin 4.7 g/dL Albumin/Globulin Ratio 0.4 (1.0-2.7) L Valproic Acid (Depakene) Level 21 MCG/ML (50-100) L Vancomycin Level Trough 9.0 ug/mL (5.0-12.0) Microbiology Date/Time Source Procedure Growth Status 09/06/17 18:00 Sputum Expectorated Gram Stain - Final Complete 09/06/17 18:00 Sputum Expectorated Sputum Culture - Final NORMAL UPPER RESPIRATORY STEVE PRESENT Complete 09/07/17 18:00 Stool Clostridium difficile Toxin Assay - Final Complete Objective HEAD AND NECK: No JVD, NG tube. LUNGS: Coarse rhonchi. CARDIOVASCULAR: Regular S1 and S2 with no gallop or murmur. ABDOMEN: Obese. EXTREMITIES: 1+ pitting edema. MARKEL PAGE Sep 09, 2017 15:13
--- NOTE | 2017-09-09 15:55 | GI Initial Consult Note ---
Xenia Zhangh Best N.P. 09/09/17 1554: History of Present Illness General Date patient seen: Sep 09, 2017 Time patient seen: 15:44 Reason for Hospitalization: Fever Referring physician: dr Buchanan Reason for Consultation: PEG EVALUATION Present Illness HPI 87-year-old female, with dementia nonverbal, bedbound, hypertension, COPD, CAD with stents, CHF, presenting with respiratory distress. Patient unable to speak , family members states that patient was fine on , however yesterday and this morning, more respiratory distress and coughing. Making a gurgling sound. No other history able to be obtained. GI consulted for PEG. ROS limited, pt seen alert NAD, noted with NGTFs. Hx significant for organic brain syndrome, obesity, previous GI bleed, hypertension , type 2 diabetes, osteoarthritis, congestive heart failure, coronary artery disease, and possible seizure disorder. The patient was in respiratory distress in emergency room, started on BiPAP and was found to have pneumonia, most likely aspiration related. ST evaluation noted >> temporary nonoral feeding to meet nutrition, will revaluate for swallow readiness tomorrow. Per RN report, patient daughter refuses to have PEG at this time, wishes for re-evaluation. Home Meds Active Scripts Valproic Acid (Valproic Acid) 250 Mg/5 Ml Liqd, 250 MG ORAL BID for 30 Days, ML Prov:ILA BUCHANAN 01/02/15 Docusate Sodium (Docusate Sodium) 250 Mg Cap, 200 MG ORAL DAILY for 30 Days, CAP Prov:ILA BUCHANAN 01/02/15 Albuterol Sulfate* (ALBUTEROL SULFATE HHN*) 2.5 Mg/3 Ml Inha, 2.5 MG HHN QIDRT for 10 Days, VIAL Prov:ILA BUCHANAN 01/02/15 Acetaminophen* (ACETAMINOPHEN 325MG TABLET*) 325 Mg Tab, 650 MG ORAL Q4H Y for Mild Pain/Temp > 100.5 for 30 Days, TAB Prov:ILA BUCHANAN 01/02/15 Reported Medications Ascorbic Acid* (VITAMIN C*) 500 Mg Tablet, 500 MG ORAL DAILY, #30 TAB 0 Refills 09/06/17 Neomycn/Baci Zn/Pmyx Bs/Pramox (TRIPLE ANTIBIOTIC PLUS OINTMNT) 28.4 Gm Oint...g., 28.4 GM TP DAILY, GM 09/06/17 Mirtazapine* (REMERON*) 15 Mg Tablet, 7.5 MG ORAL DAILY, TAB 09/06/17 Clopidogrel Bisulfate* (PLAVIX*) 75 Mg Tablet, 75 MG ORAL DAILY, TAB 09/06/17 Omeprazole (OMEPRAZOLE) 20 Mg Capsule.dr, 20 MG ORAL DAILY, CAP 09/06/17 Naphazoline Hcl/Pheniramine (EYE ALLERGY RELIEF DROPS) 15 Ml Drops, 15 ML OP TID , ML 09/06/17 Memantine Hcl* (NAMENDA*) 10 Mg Tablet, 10 MG ORAL TWICE A DAY, TAB 09/06/17 Multivitamin With Minerals (MULTIVITAMINS WITH MINERALS*) 1 Each Tablet, 1 TAB ORAL DAILY, TAB 09/06/17 Atorvastatin Calcium* (LIPITOR*) 40 Mg Tablet, 40 MG ORAL BEDTIME, #30 TAB 0 Refills 09/06/17 Furosemide* (LASIX*) 20 Mg Tablet, 20 MG ORAL DAILY, TAB 09/06/17 Hydrocodone Bit/Acetaminophen 5-325* (NORCO 5-325*) 1 Each Tablet, 1 TAB ORAL TID Y for For Pain, TAB 0 Refills 09/06/17 Menthol (Calmoseptine Ointment) 71 Gm Oint...g., 1 APPLIC TOPIC DAILY, APPLIC 09/06/17 Povidone-Iodine (BETADINE) 1 Each Med..swab, 1 EACH TP DAILY 09/06/17 Amlodipine Besylate (Norvasc) 5 Mg Tab, 5 MG ORAL DAILY, TAB 05/25/13 Polyethylene Glycol* (MIRALAX*) 17 Gm Powd.pack, 17 GM ORAL Q72H, PACKET 05/25/13 Donepezil Hcl* (ARICEPT*) 10 Mg Tablet, 10 MG PO QHS, #10 TAB Take 1 tablet by mouth every day. 04/23/12 Atenolol* (TENORMIN*) 50 Mg Tablet, 50 MG PO DAILY, #10 TAB Take 1 tablet by mouth every day. 04/23/12 Potassium Chloride* (K-DUR*) 20 Meq Tab.er.prt, 20 MEQ PO DAILY, #7 TAB Take 1 tablet by mouth daily. 04/23/12 Isosorbide Mononitrate* (IMDUR*) 30 Mg Tab.er.24h, 30 MG PO DAILY 04/23/12 Med list reviewed/reconciled: Yes Allergies: Coded Allergies: AMOXICILLIN (Verified Allergy, Mild, DIARRHEA, 11/03/08) PENICILLINS (Verified Allergy, Mild, HIVES, 09/11/10) Patient History Limited by: medical condition History Provided By: Medical Record PMH Narrative Past Medical History: see triage record Past Surgical History: unable to obtain Pertinent Family History: unable to obtain Last Menstrual Period: Post Reviewed Nursing Documentation: PMH: Agreed, PSxH: Agreed Nursing Documentation-PMH Hx Cardiac Problems: Yes - CHF, Atherosclerosis, Hyperlipidemia Hx Hypertension: Yes Hx Pacemaker: No Hx Asthma: No - PNA Hx COPD: Yes Hx Diabetes: Yes Hx Cancer: No Hx Gastrointestinal Problems: Yes - Dysphagia Hx Dialysis: No Hx Neurological Problems: Yes - Weakness, Morbid Obesity Hx Cerebrovascular Accident: No Hx Dementia: Yes Hx Alzheimer's Disease: Yes 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 Hx Memory Loss: Yes Hx Speech Problem: Yes Hx Aphasia: Yes Hx Dysphasia: Yes Hx Weakness: Yes Review of Systems All Other Systems: limited Physical Exam Vital Signs Date Time Temp Pulse Resp B/P (MAP) Pulse Ox O2 Delivery O2 Flow Rate FiO2 09/06/17 10:40 100.3 120 28 107/81 97 Nasal Cannula 4.0 100.2 09/06/17 11:39 100 Sp02 EP Interpretation: reviewed Labs Laboratory Tests Test 09/09/17 08:50 09/09/17 12:00 White Blood Count 11.6 K/UL (4.8-10.8) H Red Blood Count 3.97 M/UL (4.20-5.40) L Hemoglobin 11.3 G/DL (12.0-16.0) L Hematocrit 34.2 % (37.0-47.0) L Mean Corpuscular Volume 86 FL (80-99) Mean Corpuscular Hemoglobin 28.5 PG (27.0-31.0) Mean Corpuscular Hemoglobin Concent 33.1 G/DL (32.0-36.0) Red Cell Distribution Width 15.8 % (11.6-14.8) H Platelet Count 190 K/UL (150-450) Mean Platelet Volume 8.8 FL (6.5-10.1) Neutrophils (%) (Auto) % (45.0-75.0) Lymphocytes (%) (Auto) % (20.0-45.0) Monocytes (%) (Auto) % (1.0-10.0) Eosinophils (%) (Auto) % (0.0-3.0) Basophils (%) (Auto) % (0.0-2.0) Differential Total Cells Counted 100 Neutrophils % (Manual) 90 % (45-75) H Lymphocytes % (Manual) 5 % (20-45) L Monocytes % (Manual) 5 % (1-10) Eosinophils % (Manual) 0 % (0-3) Basophils % (Manual) 0 % (0-2) Band Neutrophils 0 % (0-8) Platelet Estimate Adequate Platelet Morphology Normal Hypochromasia 1+ Poikilocytosis 2+ Anisocytosis 1+ Sodium Level 145 MMOL/L (136-145) Potassium Level 3.4 MMOL/L (3.5-5.1) L Chloride Level 111 MMOL/L (98-107) H Carbon Dioxide Level 23 MMOL/L (21-32) Anion Gap 11 mmol/L (5-15) Blood Urea Nitrogen 27 mg/dL (7-18) H Creatinine 0.9 MG/DL (0.55-1.30) Estimat Glomerular Filtration Rate mL/min (>60) Glucose Level 130 MG/DL (74-106) H Uric Acid 5.4 MG/DL (2.6-7.2) Calcium Level 8.6 MG/DL (8.5-10.1) Phosphorus Level 3.4 MG/DL (2.5-4.9) Magnesium Level 2.2 MG/DL (1.8-2.4) Total Bilirubin 0.3 MG/DL (0.2-1.0) Gamma Glutamyl Transpeptidase 32 U/L (5-85) Aspartate Amino Transf (AST/SGOT) 25 U/L (15-37) Alanine Aminotransferase (ALT/SGPT) 9 U/L (12-78) L Alkaline Phosphatase 59 U/L (46-116) Troponin I 0.170 ng/mL (0.000-0.056) Pro-B-Type Natriuretic Peptide 2375 pg/mL (0-125) H Total Protein 6.5 G/DL (6.4-8.2) Albumin 1.8 G/DL (3.4-5.0) L Globulin 4.7 g/dL Albumin/Globulin Ratio 0.4 (1.0-2.7) L Valproic Acid (Depakene) Level 21 MCG/ML (50-100) L Vancomycin Level Trough 9.0 ug/mL (5.0-12.0) General Appearance: alert EENT: normal ENT inspection Neck: supple Respiratory: other Cardiovascular: normal rate Gastrointestinal: soft, ngt Neurologic: alert Skin: normal inspection, normal color, no rash Lymphatic: normal inspection, no adenopathy Current Medications Current Medications Medications (Trade) Dose Ordered Sig/Juwan Route PRN Reason Start Time Stop Time Status Last Admin Dose Admin Acetaminophen (Tylenol) 650 mg Q4H PRN GT Mild Pain/Temp > 100.5 09/06/17 15:45 10/06/17 15:44 09/07/17 07:45 Albuterol/ Ipratropium (Albuterol/ Ipratropium) 3 ml Q4H PRN HHN Shortness of Breath 09/06/17 16:30 09/11/17 16:29 Aspirin (Ecotrin) 81 mg DAILY ORAL 09/09/17 09:00 10/09/17 08:59 09/09/17 09:49 Atenolol (Tenormin) 50 mg DAILY NG 09/07/17 09:00 10/07/17 08:59 09/09/17 09:49 Atorvastatin Calcium (Lipitor) 10 mg BEDTIME ORAL 09/08/17 21:00 10/08/17 20:59 09/08/17 21:28 Aztreonam 2 gm/ Sodium Chloride 110 ml @ 220 mls/hr Q8H IVPB 09/06/17 15:00 09/13/17 14:59 09/09/17 14:08 Clopidogrel Bisulfate (Plavix) 75 mg DAILY NG 09/07/17 09:00 10/07/17 08:59 09/09/17 09:49 Dextrose (Dextrose 50%) STAT PRN IV Hypoglycemia 09/07/17 11:00 10/07/17 10:59 Docusate Sodium (Colace) 200 mg DAILY GT 09/07/17 09:00 10/07/17 08:59 09/09/17 09:49 Heparin Sodium (Porcine) (Heparin 5000 units/ml) 5,000 units EVERY 8 HOURS SUBQ 09/06/17 22:00 10/06/17 21:59 09/09/17 14:07 Hydromorphone HCl (Dilaudid) 0.5 mg Q4H PRN IVP Pain Scale (6-10) 09/07/17 10:00 09/14/17 09:59 Insulin Aspart (NovoLOG) Q6HR SUBQ 09/07/17 12:00 10/07/17 11:59 09/09/17 12:12 Isosorbide Dinitrate (Isordil) 30 mg Q6HR NG 09/09/17 18:00 10/09/17 17:59 Methylprednisolone Sodium Succinate (Solu-MEDROL) 30 mg DAILY IVP 09/10/17 09:00 10/10/17 08:59 Metronidazole (Flagyl) 500 mg Q6HR ORAL 09/06/17 18:00 09/13/17 17:59 09/09/17 12:10 Oseltamivir Phosphate (Tamiflu) 30 mg DAILY ORAL 09/08/17 09:00 09/10/17 09:15 09/09/17 09:56 Pantoprazole (Protonix) 40 mg DAILY IVP 09/09/17 09:00 10/06/17 20:59 09/09/17 09:50 Potassium Chloride 40 meq/ Sodium Chloride 570 ml @ 142.5 mls/ hr ONCE ONCE IVPB 09/09/17 15:00 09/09/17 18:59 09/09/17 14:10 Valproic Acid (Depakene) 500 mg Q12HR NG 09/07/17 21:00 10/07/17 20:59 09/09/17 09:49 Vancomycin HCl (Vanco rx to dose) 1 ea DAILY PRN MISC Per rx protocol 09/06/17 14:00 10/06/17 13:59 Vancomycin HCl/ Dextrose 250 ml @ 125 mls/hr Q24H IVPB 09/10/17 13:00 09/15/17 12:59 GI: Plan Problems: (1) Severe malnutrition (2) Elevated troponin I level (3) Diarrhea (4) Dysphagia (5) DM (diabetes mellitus) (6) Acute gastroenteritis (7) Dehydration Plan PEG on hold, procedure refused by daughter whom wishes patient to be re- evaluated at another time. - procedure will require cardiac clearance given elevated troponin levels. - patient is on plavix which must be discontinued min 48 hours prior any GI procedures fu ST recs/ video swallow cont NGTFs per RD ppi cdiff negative prn transfusions fu labs Discussed with Dr. Bueno. Thank you for this patient referral, we will follow. [email or web address] 09/16/17 1332: History of Present Illness General Reason for Hospitalization: Fever Present Illness Home Meds Active Scripts Valproic Acid (Valproic Acid) 250 Mg/5 Ml Liqd, 250 MG ORAL BID for 30 Days, ML Prov:ILA BUCHANAN 01/02/15 Docusate Sodium (Docusate Sodium) 250 Mg Cap, 200 MG ORAL DAILY for 30 Days, CAP Prov:ILA BUCHANAN 01/02/15 Albuterol Sulfate* (ALBUTEROL SULFATE HHN*) 2.5 Mg/3 Ml Inha, 2.5 MG HHN QIDRT for 10 Days, VIAL Prov:ILA BUCHANAN 01/02/15 Acetaminophen* (ACETAMINOPHEN 325MG TABLET*) 325 Mg Tab, 650 MG ORAL Q4H Y for Mild Pain/Temp > 100.5 for 30 Days, TAB Prov:ILA BUCHANAN 01/02/15 Reported Medications Ascorbic Acid* (VITAMIN C*) 500 Mg Tablet, 500 MG ORAL DAILY, #30 TAB 0 Refills 09/06/17 Neomycn/Baci Zn/Pmyx Bs/Pramox (TRIPLE ANTIBIOTIC PLUS OINTMNT) 28.4 Gm Oint...g., 28.4 GM TP DAILY, GM 09/06/17 Mirtazapine* (REMERON*) 15 Mg Tablet, 7.5 MG ORAL DAILY, TAB 09/06/17 Clopidogrel Bisulfate* (PLAVIX*) 75 Mg Tablet, 75 MG ORAL DAILY, TAB 09/06/17 Omeprazole (OMEPRAZOLE) 20 Mg Capsule.dr, 20 MG ORAL DAILY, CAP 09/06/17 Naphazoline Hcl/Pheniramine (EYE ALLERGY RELIEF DROPS) 15 Ml Drops, 15 ML OP TID , ML 09/06/17 Memantine Hcl* (NAMENDA*) 10 Mg Tablet, 10 MG ORAL TWICE A DAY, TAB 09/06/17 Multivitamin With Minerals (MULTIVITAMINS WITH MINERALS*) 1 Each Tablet, 1 TAB ORAL DAILY, TAB 09/06/17 Atorvastatin Calcium* (LIPITOR*) 40 Mg Tablet, 40 MG ORAL BEDTIME, #30 TAB 0 Refills 09/06/17 Furosemide* (LASIX*) 20 Mg Tablet, 20 MG ORAL DAILY, TAB 09/06/17 Hydrocodone Bit/Acetaminophen 5-325* (NORCO 5-325*) 1 Each Tablet, 1 TAB ORAL TID Y for For Pain, TAB 0 Refills 09/06/17 Menthol (Calmoseptine Ointment) 71 Gm Oint...g., 1 APPLIC TOPIC DAILY, APPLIC 09/06/17 Povidone-Iodine (BETADINE) 1 Each Med..swab, 1 EACH TP DAILY 09/06/17 Amlodipine Besylate (Norvasc) 5 Mg Tab, 5 MG ORAL DAILY, TAB 05/25/13 Polyethylene Glycol* (MIRALAX*) 17 Gm Powd.pack, 17 GM ORAL Q72H, PACKET 05/25/13 Donepezil Hcl* (ARICEPT*) 10 Mg Tablet, 10 MG PO QHS, #10 TAB Take 1 tablet by mouth every day. 04/23/12 Atenolol* (TENORMIN*) 50 Mg Tablet, 50 MG PO DAILY, #10 TAB Take 1 tablet by mouth every day. 04/23/12 Potassium Chloride* (K-DUR*) 20 Meq Tab.er.prt, 20 MEQ PO DAILY, #7 TAB Take 1 tablet by mouth daily. 04/23/12 Isosorbide Mononitrate* (IMDUR*) 30 Mg Tab.er.24h, 30 MG PO DAILY 04/23/12 Allergies: Coded Allergies: AMOXICILLIN (Verified Allergy, Mild, DIARRHEA, 11/03/08) PENICILLINS (Verified Allergy, Mild, HIVES, 09/11/10) GI: Plan Plan The patient was seen and examined at bedside and all new and available data was reviewed in the patients chart. I agree with the above findings, impression and plan. (Patient seen earlier today. Signature stamp does not reflect patient encounter time.). - MD Leatha BonillaHu [facility] Best N.PLinda Sep 09, 2017 15:54 LAKSHMI BUENO Sep 16, 2017 13:32
[2017-09-09 16:00] VITALS: BP 135/62
--- NOTE | 2017-09-09 16:24 | Cardiology Report ---
APPROVED REPORT EKG Measurement Heart [id number] ND [id number] Normal sinus rhythm Anterior infarct, age undetermined Abnormal ECG
[2017-09-09 20:00] VITALS: BP 143/68
[2017-09-10] VITALS (7 sets, daily range): BP systolic 127–173; BP diastolic 54–86
[2017-09-10] MEDS: metroNIDAZOLE 500mg tab ORAL SCH ×4 (00:33→18:48)
[2017-09-10] MEDS: NovoLOG Insulin Flexpen SUBQ SCH ×4 (00:38→18:00)
[2017-09-10] MEDS: Aztreonam Inj 2 GM in NS 110 ML IVPB SCH ×3 (06:12→22:53)
[2017-09-10] MEDS: Heparin 5000 units/ml inj SUBQ SCH ×3 (06:15→22:52)
[2017-09-10 07:26] LABS: HEMATOCRIT 36.2 % (37.0-47.0); MEAN CORPUSCULAR VOLUME 85 FL (80-99); PLATELET COUNT 203 K/UL (150-450); RED BLOOD COUNT 4.25 M/UL (4.20-5.40); RED CELL DISTRIBUTION WIDTH 15.8 % (11.6-14.8); WHITE BLOOD COUNT 15.1 K/UL (4.8-10.8)
[2017-09-10 07:34] LABS: ANION GAP 12 mmol/L (5-15); BLOOD UREA NITROGEN 22 mg/dL (7-18); CALCIUM 8.4 MG/DL (8.5-10.1); CARBON DIOXIDE 24 MMOL/L (21-32); CHLORIDE 109 MMOL/L (98-107); CREATININE 0.9 MG/DL (0.55-1.30); SODIUM 145 MMOL/L (136-145)
[2017-09-10 07:43] LABS: INR 0.9 (0.9-1.1)
[2017-09-10] MEDS ORDERED: Solu-MEDROL 40mg Inj IVP SCH (09:00)
[2017-09-10] MEDS: Docusate 100mg/10ml Liq GT SCH (09:57)
[2017-09-10] MEDS: Valproic Acid 250mg/5ml Liquid NG SCH ×2 (09:57→22:51)
[2017-09-10] MEDS: Aspirin EC 81mg tab ORAL SCH (09:57)
[2017-09-10] MEDS: Pantoprazole Inj IVP SCH (09:59)
--- NOTE | 2017-09-10 10:03 | Pulmonology Progress Note ---
Assessment/Plan Problems: (1) Pneumonia (2) Respiratory failure (3) COPD (chronic obstructive pulmonary disease) (4) DM (diabetes mellitus) (5) ARF (acute renal failure) Assessment/Plan off BIPAP now, doing much better titrate fio2 ot Sat of 92% respiratory treatment IV abc check sputum dvt prophylaxis, might need PEG cxr reviewed, much better. Subjective ROS Limited/Unobtainable: No Constitutional: Reports: no symptoms HEENT: Repors: no symptoms Respiratory: Reports: no symptoms Allergies: Coded Allergies: AMOXICILLIN (Verified Allergy, Mild, DIARRHEA, 11/03/08) PENICILLINS (Verified Allergy, Mild, HIVES, 09/11/10) Objective Last 24 Hour Vital Signs Date Time Temp Pulse Resp B/P (MAP) Pulse Ox O2 Delivery O2 Flow Rate FiO2 09/10/17 08:00 97.3 84 30 156/78 97 Nasal Cannula 2.0 97.3 09/10/17 06:55 85 Nasal Cannula 5.0 40 09/10/17 06:55 Nasal Cannula 5.0 40 09/10/17 06:55 81 20 95 Full Face 45 09/10/17 06:13 132/74 09/10/17 05:04 68 24 97 Full Face 45 09/10/17 04:00 99.1 76 28 132/74 98 Nasal Cannula 2.0 99.1 09/10/17 04:00 67 09/10/17 03:27 76 25 96 Full Face 45 09/10/17 01:12 78 34 94 Full Face 45 09/10/17 00:33 159/74 09/10/17 00:30 80 159/74 96 09/10/17 00:00 97.9 91 36 127/65 93 Nasal Cannula 2.0 97.9 09/10/17 00:00 84 09/09/17 22:28 102 24 98 Full Face 50 09/09/17 20:10 Nasal Cannula 3.0 32 09/09/17 20:00 92 Nasal Cannula 3.0 32 09/09/17 20:00 97.3 72 26 143/68 93 Nasal Cannula 2.0 97.3 09/09/17 20:00 72 09/09/17 17:56 135/63 09/09/17 16:00 98.1 68 20 135/62 98 Nasal Cannula 2.0 98.1 09/09/17 16:00 66 3/6/18 12:10 124/68 09/09/17 12:00 98.1 66 20 141/61 97 Nasal Cannula 2.0 98.1 09/09/17 12:00 63 Intake and Output 09/09/17 09/10/17 19:00 07:00 Intake Total 506 ml Output Total 300 ml 700 ml Balance 206 ml -700 ml IV Total 506 ml Output Urine Total 300 ml 700 ml Objective General Appearance: WD/WN Lines, tubes and drains: peripheral HEENT: normocephalic, atraumatic Neck: non-tender, normal alignment Respiratory/Chest: chest wall non-tender, lungs clear Breasts: no masses Cardiovascular/Chest: normal peripheral pulses, normal rate Abdomen: normal bowel sounds, non tender Genitourinary/Rectal: normal genital exam, heme negative stool Extremities: normal range of motion, non-tender Skin Exam: normal pigmentation Microbiology Date/Time Source Procedure Growth Status 09/07/17 18:00 Stool Clostridium difficile Toxin Assay - Final Complete Laboratory Tests 09/09/17 12:00: Vancomycin Level Trough 9.0 09/10/17 05:50: White Blood Count 15.1H, Red Blood Count 4.25, Hemoglobin 12.0, Hematocrit 36.2L , Mean Corpuscular Volume 85, Mean Corpuscular Hemoglobin 28.2, Mean Corpuscular Hemoglobin Concent 33.2, Red Cell Distribution Width 15.8H, Platelet Count 203, Mean Platelet Volume 9.4, Neutrophils (%) (Auto) , Lymphocytes (%) (Auto) , Monocytes (%) (Auto) , Eosinophils (%) (Auto) , Basophils (%) (Auto) , Neutrophils % (Manual) [Pending], Lymphocytes % (Manual) [Pending], Platelet Estimate [Pending], Platelet Morphology [Pending], Prothrombin Time 9.7, Prothromb Time International Ratio 0.9, Activated Partial Thromboplast Time 34H, Sodium Level 145, Potassium Level 3.0L, Chloride Level 109H, Carbon Dioxide Level 24, Anion Gap 12, Blood Urea Nitrogen 22H, Creatinine 0.9, Estimat Glomerular Filtration Rate , Glucose Level 156H, Calcium Level 8.4L Current Medications Medications (Trade) Dose Ordered Sig/Juwan Route PRN Reason Start Time Stop Time Status Last Admin Dose Admin Acetaminophen (Tylenol) 650 mg Q4H PRN GT Mild Pain/Temp > 100.5 09/06/17 15:45 10/06/17 15:44 09/07/17 07:45 Albuterol/ Ipratropium (Albuterol/ Ipratropium) 3 ml Q4H PRN HHN Shortness of Breath 09/06/17 16:30 09/11/17 16:29 Aspirin (Ecotrin) 81 mg DAILY ORAL 09/09/17 09:00 10/09/17 08:59 09/09/17 09:49 Atenolol (Tenormin) 50 mg DAILY NG 09/07/17 09:00 10/07/17 08:59 09/09/17 09:49 Atorvastatin Calcium (Lipitor) 10 mg BEDTIME ORAL 09/08/17 21:00 10/08/17 20:59 09/09/17 20:51 Aztreonam 2 gm/ Sodium Chloride 110 ml @ 220 mls/hr Q8H IVPB 09/06/17 15:00 09/13/17 14:59 09/10/17 06:12 Clopidogrel Bisulfate (Plavix) 75 mg DAILY NG 09/07/17 09:00 10/07/17 08:59 09/09/17 09:49 Dextrose (Dextrose 50%) STAT PRN IV Hypoglycemia 09/07/17 11:00 10/07/17 10:59 Docusate Sodium (Colace) 200 mg DAILY GT 09/07/17 09:00 10/07/17 08:59 09/09/17 09:49 Heparin Sodium (Porcine) (Heparin 5000 units/ml) 5,000 units EVERY 8 HOURS SUBQ 09/06/17 22:00 10/06/17 21:59 09/10/17 06:15 Hydromorphone HCl (Dilaudid) 0.5 mg Q4H PRN IVP Pain Scale (6-10) 09/07/17 10:00 09/14/17 09:59 Insulin Aspart (NovoLOG) Q6HR SUBQ 09/07/17 12:00 10/07/17 11:59 09/10/17 06:14 Isosorbide Dinitrate (Isordil) 30 mg Q6HR NG 09/09/17 18:00 10/09/17 17:59 09/10/17 06:13 Methylprednisolone Sodium Succinate (Solu-MEDROL) 30 mg DAILY IVP 09/10/17 09:00 10/10/17 08:59 Metronidazole (Flagyl) 500 mg Q6HR ORAL 09/06/17 18:00 09/13/17 17:59 09/10/17 06:13 Pantoprazole (Protonix) 40 mg DAILY IVP 09/09/17 09:00 10/06/17 20:59 09/09/17 09:50 Valproic Acid (Depakene) 500 mg Q12HR NG 09/07/17 21:00 10/07/17 20:59 09/09/17 20:51 Vancomycin HCl (Vanco rx to dose) 1 ea DAILY PRN MISC Per rx protocol 09/06/17 14:00 10/06/17 13:59 Vancomycin HCl/ Dextrose 250 ml @ 125 mls/hr Q24H IVPB 09/10/17 13:00 09/15/17 12:59 DARIAN HOOKS Sep 10, 2017 10:03
--- NOTE | 2017-09-10 11:31 | General Progress Note ---
Assessment/Plan Problem List: (1) Severe sepsis Assessment & Plan: pneumonia ? aspiration and Influenza B ICD Codes: A41.9 - Sepsis, unspecified organism; R65.20 - Severe sepsis without septic shock SNOMED: 74375920 (2) COPD (chronic obstructive pulmonary disease) ICD Codes: J44.9 - COPD (chronic obstructive pulmonary disease) SNOMED: 95499555 (3) CHF (congestive heart failure) Assessment & Plan: ej fx 40 % ICD Codes: I50.9 - Heart failure, unspecified SNOMED: 89953755 (4) Functional quadriplegia ICD Codes: R53.2 - Functional quadriplegia SNOMED: 322105431602713 (5) DM (diabetes mellitus) ICD Codes: E11.9 - DM (diabetes mellitus) SNOMED: 03927596 (6) Elevated troponin I level ICD Codes: R74.8 - Abnormal levels of other serum enzymes SNOMED: 184875723 Status: stable Assessment/Plan discussed with daughter who is considering PEG, so far refused IV K supplement add zestril change tenormin to coreg Respiratory support Antibiotics per ID IV steroid- taper as possible Sliding scale insulin NGT feeding until ST eval DC IV to tele increase isordil dose consider ltac Subjective ROS Limited/Unobtainable: No Constitutional: Reports: malaise Allergies: Coded Allergies: AMOXICILLIN (Verified Allergy, Mild, DIARRHEA, 11/03/08) PENICILLINS (Verified Allergy, Mild, HIVES, 09/11/10) Objective Last 24 Hour Vital Signs Date Time Temp Pulse Resp B/P (MAP) Pulse Ox O2 Delivery O2 Flow Rate FiO2 09/10/17 09:58 84 156/78 09/10/17 08:00 97.3 84 30 156/78 97 Nasal Cannula 2.0 97.3 09/10/17 06:55 85 Nasal Cannula 5.0 40 09/10/17 06:55 Nasal Cannula 5.0 40 09/10/17 06:55 81 20 95 Full Face 45 09/10/17 06:13 132/74 09/10/17 05:04 68 24 97 Full Face 45 09/10/17 04:00 99.1 76 28 132/74 98 Nasal Cannula 2.0 99.1 09/10/17 04:00 67 09/10/17 03:27 76 25 96 Full Face 45 09/10/17 01:12 78 34 94 Full Face 45 09/10/17 00:33 159/74 09/10/17 00:30 80 159/74 96 09/10/17 00:00 97.9 91 36 127/65 93 Nasal Cannula 2.0 97.9 09/10/17 00:00 84 09/09/17 22:28 102 24 98 Full Face 50 09/09/17 20:10 Nasal Cannula 3.0 32 09/09/17 20:00 92 Nasal Cannula 3.0 32 09/09/17 20:00 97.3 72 26 143/68 93 Nasal Cannula 2.0 97.3 09/09/17 20:00 72 09/09/17 17:56 135/63 09/09/17 16:00 98.1 68 20 135/62 98 Nasal Cannula 2.0 98.1 09/09/17 16:00 66 09/09/17 12:10 124/68 09/09/17 12:00 98.1 66 20 141/61 97 Nasal Cannula 2.0 98.1 09/09/17 12:00 63 Intake and Output 09/09/17 09/10/17 19:00 07:00 Intake Total 506 ml Output Total 300 ml 700 ml Balance 206 ml -700 ml IV Total 506 ml Output Urine Total 300 ml 700 ml Laboratory Tests 09/09/17 12:00: Vancomycin Level Trough 9.0 09/10/17 05:50: White Blood Count 15.1H, Red Blood Count 4.25, Hemoglobin 12.0, Hematocrit 36.2L , Mean Corpuscular Volume 85, Mean Corpuscular Hemoglobin 28.2, Mean Corpuscular Hemoglobin Concent 33.2, Red Cell Distribution Width 15.8H, Platelet Count 203, Mean Platelet Volume 9.4, Neutrophils (%) (Auto) , Lymphocytes (%) (Auto) , Monocytes (%) (Auto) , Eosinophils (%) (Auto) , Basophils (%) (Auto) , Differential Total Cells Counted 100, Neutrophils % ( Manual) 89H, Lymphocytes % (Manual) 9L, Monocytes % (Manual) 2, Eosinophils % ( Manual) 0, Basophils % (Manual) 0, Band Neutrophils 0, Platelet Estimate Adequate, Platelet Morphology Normal, Red Blood Cell Morphology Normal, Prothrombin Time 9.7, Prothromb Time International Ratio 0.9, Activated Partial Thromboplast Time 34H, Sodium Level 145, Potassium Level 3.0L, Chloride Level 109H, Carbon Dioxide Level 24, Anion Gap 12, Blood Urea Nitrogen 22H, Creatinine 0.9, Estimat Glomerular Filtration Rate , Glucose Level 156H, Calcium Level 8.4L Height (Feet): 5 Height (Inches): 3.00 Weight (Pounds): 190 EENT: other Cardiovascular: tachycardia Respiratory/Chest: decreased breath sounds Abdomen: soft ILA LEE Sep 10, 2017 11:31
[2017-09-10] MEDS: Albuterol/Ipratropium 3ml neb HHN PRN ×2 (11:45→17:44)
--- NOTE | 2017-09-10 12:08 | GI Progress Note ---
Assessment/Plan Problems: (1) Encounter for PEG (percutaneous endoscopic gastrostomy) ICD Codes: Z43.1 - Encounter for attention to gastrostomy SNOMED: 757420702, 426212475 (2) DM (diabetes mellitus) ICD Codes: E11.9 - DM (diabetes mellitus) SNOMED: 13665639 (3) Dehydration (4) Severe malnutrition ICD Codes: E43 - Unspecified severe protein-calorie malnutrition SNOMED: 27327047 (5) Dysphagia ICD Codes: R13.10 - Dysphagia, unspecified SNOMED: 65196159, 720172227 Status: unchanged Status Narrative Discussed with Dr. Davila. Assessment/Plan PEG on hold, procedure refused by daughter whom wishes patient to be re- evaluated at another time. - procedure will require cardiac clearance given elevated troponin levels. - patient is on plavix which must be discontinued min 48 hours prior any GI procedures - patient on BIPAP fu ST recs/ video swallow cont NGTFs per RD ppi cdiff negative prn transfusions fu labs The patient was seen and examined at bedside and all new and available data was reviewed in the patients chart. I agree with the above findings, impression and plan. (Patient seen earlier today. Signature stamp does not reflect patient encounter time.). - Travon Davila MD Subjective Subjective limited Objective Last 24 Hour Vital Signs Date Time Temp Pulse Resp B/P (MAP) Pulse Ox O2 Delivery O2 Flow Rate FiO2 09/10/17 11:55 74 20 100 Bi-pap 100 09/10/17 11:45 68 24 92 Venturi Mask 15.0 55 09/10/17 09:58 84 156/78 09/10/17 08:00 98.4 85 30 150/71 94 Nasal Cannula 2.0 98.4 09/10/17 06:55 85 Nasal Cannula 5.0 40 09/10/17 06:55 Nasal Cannula 5.0 40 09/10/17 06:55 81 20 95 Full Face 45 09/10/17 06:13 132/74 09/10/17 05:04 68 24 97 Full Face 45 09/10/17 04:00 99.1 76 28 132/74 98 Nasal Cannula 2.0 99.1 09/10/17 04:00 67 09/10/17 03:27 76 25 96 Full Face 45 09/10/17 01:12 78 34 94 Full Face 45 09/10/17 00:33 159/74 09/10/17 00:30 80 159/74 96 09/10/17 00:00 97.9 91 36 127/65 93 Nasal Cannula 2.0 97.9 09/10/17 00:00 84 09/09/17 22:28 102 24 98 Full Face 50 09/09/17 20:10 Nasal Cannula 3.0 32 09/09/17 20:00 92 Nasal Cannula 3.0 32 09/09/17 20:00 97.3 72 26 143/68 93 Nasal Cannula 2.0 97.3 09/09/17 20:00 72 09/09/17 17:56 135/63 09/09/17 16:00 98.1 68 20 135/62 98 Nasal Cannula 2.0 98.1 09/09/17 16:00 66 09/09/17 12:10 124/68 Intake and Output 09/09/17 09/10/17 19:00 07:00 Intake Total 506 ml Output Total 300 ml 700 ml Balance 206 ml -700 ml IV Total 506 ml Output Urine Total 300 ml 700 ml Laboratory Tests Test 09/10/17 05:50 White Blood Count 15.1 K/UL (4.8-10.8) H Red Blood Count 4.25 M/UL (4.20-5.40) Hemoglobin 12.0 G/DL (12.0-16.0) Hematocrit 36.2 % (37.0-47.0) L Mean Corpuscular Volume 85 FL (80-99) Mean Corpuscular Hemoglobin 28.2 PG (27.0-31.0) Mean Corpuscular Hemoglobin Concent 33.2 G/DL (32.0-36.0) Red Cell Distribution Width 15.8 % (11.6-14.8) H Platelet Count 203 K/UL (150-450) Mean Platelet Volume 9.4 FL (6.5-10.1) Neutrophils (%) (Auto) % (45.0-75.0) Lymphocytes (%) (Auto) % (20.0-45.0) Monocytes (%) (Auto) % (1.0-10.0) Eosinophils (%) (Auto) % (0.0-3.0) Basophils (%) (Auto) % (0.0-2.0) Differential Total Cells Counted 100 Neutrophils % (Manual) 89 % (45-75) H Lymphocytes % (Manual) 9 % (20-45) L Monocytes % (Manual) 2 % (1-10) Eosinophils % (Manual) 0 % (0-3) Basophils % (Manual) 0 % (0-2) Band Neutrophils 0 % (0-8) Platelet Estimate Adequate Platelet Morphology Normal Red Blood Cell Morphology Normal Prothrombin Time 9.7 SEC (9.30-11.50) Prothromb Time International Ratio 0.9 (0.9-1.1) Activated Partial Thromboplast Time 34 SEC (23-33) H Sodium Level 145 MMOL/L (136-145) Potassium Level 3.0 MMOL/L (3.5-5.1) L Chloride Level 109 MMOL/L (98-107) H Carbon Dioxide Level 24 MMOL/L (21-32) Anion Gap 12 mmol/L (5-15) Blood Urea Nitrogen 22 mg/dL (7-18) H Creatinine 0.9 MG/DL (0.55-1.30) Estimat Glomerular Filtration Rate mL/min (>60) Glucose Level 156 MG/DL (74-106) H Calcium Level 8.4 MG/DL (8.5-10.1) L C-Reactive Protein, Quantitative 2.7 mg/dL (0.00-0.90) H Height (Feet): 5 Height (Inches): 3.00 Weight (Pounds): 190 General Appearance: alert Cardiovascular: normal rate Respiratory/Chest: no respiratory distress, other - bipap Abdominal Exam: soft, other - NGT Katie Zhang N.Sergio Sep 10, 2017 12:08 LAKSHMI DAVILA Sep 16, 2017 13:36
[2017-09-10] MEDS ORDERED: Potassium Chloride 40 MEQ in Sodium Chloride 500ML 550 ML IVPB ONE (13:00)
[2017-09-10] MEDS: Vancomycin 1500mg IVPB SCH (13:56)
--- NOTE | 2017-09-10 15:13 | Infectious Diseases Prog Note ---
Assessment/Plan Problems: (1) HCAP (healthcare-associated pneumonia) Assessment & Plan: complicated with respiratory failure, sputum culture showed normal respiratory reny , continue vancomycin , aztreonam and flagyl empiric coverage, monitor CXR (2) Influenza B Assessment & Plan: complicated with Left side pneumonia , continue tamiflu for 5 days total , and keep in droplets isolation (3) Severe sepsis Assessment & Plan: due to the above, blood culture remains negative , continue vancomycin and aztreonam pending culture results (4) Respiratory failure Assessment & Plan: due to the above, improving, off BIPAP , monitor CXR (5) UTI (urinary tract infection) Assessment & Plan: due to E coli , already on aztreonam coverage (6) DM (diabetes mellitus) Assessment & Plan: recommend tight glycemic control to keep blood glucose between 100-140 (7) Diarrhea Assessment & Plan: not due to C diff , with negative toxin , suspect due to tube feeding (8) Dysphagia Assessment & Plan: due to poor mentation, may need PEG tube for feeding Subjective ROS Limited/Unobtainable: Yes Allergies: Coded Allergies: AMOXICILLIN (Verified Allergy, Mild, DIARRHEA, 11/03/08) PENICILLINS (Verified Allergy, Mild, HIVES, 09/11/10) Subjective she was unresponsive, nonverbal, on high flow oxygen , no cough or SOB, no fever or chills, no diarrhea today, still has NGT for feeding and meds, Objective Vital Signs Last 24 Hour Vital Signs Date Time Temp Pulse Resp B/P (MAP) Pulse Ox O2 Delivery O2 Flow Rate FiO2 09/10/17 13:55 156/78 09/10/17 11:55 74 20 100 Bi-pap 100 09/10/17 11:45 68 24 92 Venturi Mask 15.0 55 09/10/17 09:58 84 156/78 09/10/17 08:00 98.4 85 30 150/71 94 Nasal Cannula 2.0 98.4 09/10/17 06:55 85 Nasal Cannula 5.0 40 09/10/17 06:55 Nasal Cannula 5.0 40 09/10/17 06:55 81 20 95 Full Face 45 09/10/17 06:13 132/74 09/10/17 05:04 68 24 97 Full Face 45 09/10/17 04:00 99.1 76 28 132/74 98 Nasal Cannula 2.0 99.1 09/10/17 04:00 67 09/10/17 03:27 76 25 96 Full Face 45 09/10/17 01:12 78 34 94 Full Face 45 09/10/17 00:33 159/74 09/10/17 00:30 80 159/74 96 09/10/17 00:00 97.9 91 36 127/65 93 Nasal Cannula 2.0 97.9 09/10/17 00:00 84 09/09/17 22:28 102 24 98 Full Face 50 09/09/17 20:10 Nasal Cannula 3.0 32 09/09/17 20:00 92 Nasal Cannula 3.0 32 09/09/17 20:00 97.3 72 26 143/68 93 Nasal Cannula 2.0 97.3 09/09/17 20:00 72 09/09/17 17:56 135/63 09/09/17 16:00 98.1 68 20 135/62 98 Nasal Cannula 2.0 98.1 09/09/17 16:00 66 Height (Feet): 5 Height (Inches): 3.00 Weight (Pounds): 190 General Appearance: WD/WN, no acute distress HEENT: normocephalic, atraumatic, anicteric, mucous membranes moist, supple, no JVD Respiratory/Chest: chest wall non-tender, normal breath sounds, no respiratory distress, no accessory muscle use, decreased breath sounds, crackles/rales Cardiovascular: normal peripheral pulses, normal rate, regular rhythm, no gallop/murmur, no JVD Abdomen: normal bowel sounds, soft, non tender, no organomegaly, non distended , no mass, no scars Extremities: no cyanosis, no clubbing Skin: no rash, no lesions Neurologic/Psychiatric: unresponsiveness Lymphatic: no neck adenopathy, no groin adenopathy Musculoskeletal: normal muscle bulk, no effusion Microbiology Date/Time Source Procedure Growth Status 09/07/17 18:00 Stool Clostridium difficile Toxin Assay - Final Complete Laboratory Tests Test 09/10/17 05:50 White Blood Count 15.1 K/UL (4.8-10.8) H Red Blood Count 4.25 M/UL (4.20-5.40) Hemoglobin 12.0 G/DL (12.0-16.0) Hematocrit 36.2 % (37.0-47.0) L Mean Corpuscular Volume 85 FL (80-99) Mean Corpuscular Hemoglobin 28.2 PG (27.0-31.0) Mean Corpuscular Hemoglobin Concent 33.2 G/DL (32.0-36.0) Red Cell Distribution Width 15.8 % (11.6-14.8) H Platelet Count 203 K/UL (150-450) Mean Platelet Volume 9.4 FL (6.5-10.1) Neutrophils (%) (Auto) % (45.0-75.0) Lymphocytes (%) (Auto) % (20.0-45.0) Monocytes (%) (Auto) % (1.0-10.0) Eosinophils (%) (Auto) % (0.0-3.0) Basophils (%) (Auto) % (0.0-2.0) Differential Total Cells Counted 100 Neutrophils % (Manual) 89 % (45-75) H Lymphocytes % (Manual) 9 % (20-45) L Monocytes % (Manual) 2 % (1-10) Eosinophils % (Manual) 0 % (0-3) Basophils % (Manual) 0 % (0-2) Band Neutrophils 0 % (0-8) Platelet Estimate Adequate Platelet Morphology Normal Red Blood Cell Morphology Normal Prothrombin Time 9.7 SEC (9.30-11.50) Prothromb Time International Ratio 0.9 (0.9-1.1) Activated Partial Thromboplast Time 34 SEC (23-33) H Sodium Level 145 MMOL/L (136-145) Potassium Level 3.0 MMOL/L (3.5-5.1) L Chloride Level 109 MMOL/L (98-107) H Carbon Dioxide Level 24 MMOL/L (21-32) Anion Gap 12 mmol/L (5-15) Blood Urea Nitrogen 22 mg/dL (7-18) H Creatinine 0.9 MG/DL (0.55-1.30) Estimat Glomerular Filtration Rate mL/min (>60) Glucose Level 156 MG/DL (74-106) H Calcium Level 8.4 MG/DL (8.5-10.1) L C-Reactive Protein, Quantitative 2.7 mg/dL (0.00-0.90) H Current Medications Medications (Trade) Dose Ordered Sig/Juwan Route PRN Reason Start Time Stop Time Status Last Admin Dose Admin Acetaminophen (Tylenol) 650 mg Q4H PRN GT Mild Pain/Temp > 100.5 09/06/17 15:45 10/06/17 15:44 09/07/17 07:45 Albuterol/ Ipratropium (Albuterol/ Ipratropium) 3 ml Q4H PRN HHN Shortness of Breath 09/06/17 16:30 09/11/17 16:29 09/10/17 11:45 Aspirin (Ecotrin) 81 mg DAILY ORAL 09/09/17 09:00 10/09/17 08:59 09/10/17 09:57 Atorvastatin Calcium (Lipitor) 10 mg BEDTIME ORAL 09/08/17 21:00 10/08/17 20:59 09/09/17 20:51 Aztreonam 2 gm/ Sodium Chloride 110 ml @ 220 mls/hr Q8H IVPB 09/06/17 15:00 09/13/17 14:59 09/10/17 06:12 Carvedilol (Coreg) 12.5 mg EVERY 12 HOURS NG 09/10/17 21:00 10/10/17 20:59 Clopidogrel Bisulfate (Plavix) 75 mg DAILY NG 09/07/17 09:00 10/07/17 08:59 09/10/17 09:57 Dextrose (Dextrose 50%) STAT PRN IV Hypoglycemia 09/07/17 11:00 10/07/17 10:59 Docusate Sodium (Colace) 200 mg DAILY GT 09/07/17 09:00 10/07/17 08:59 09/10/17 09:57 Heparin Sodium (Porcine) (Heparin 5000 units/ml) 5,000 units EVERY 8 HOURS SUBQ 09/06/17 22:00 10/06/17 21:59 09/10/17 06:15 Hydromorphone HCl (Dilaudid) 0.5 mg Q4H PRN IVP Pain Scale (6-10) 09/07/17 10:00 09/14/17 09:59 Insulin Aspart (NovoLOG) Q6HR SUBQ 09/07/17 12:00 10/07/17 11:59 09/10/17 14:00 Isosorbide Dinitrate (Isordil) 30 mg Q6HR NG 09/09/17 18:00 10/09/17 17:59 09/10/17 13:55 Lisinopril (Zestril) 2.5 mg BID NG 09/10/17 18:00 10/10/17 17:59 Methylprednisolone Sodium Succinate (Solu-MEDROL) 20 mg DAILY IVP 09/11/17 09:00 10/11/17 08:59 Metronidazole (Flagyl) 500 mg Q6HR ORAL 09/06/17 18:00 09/13/17 17:59 09/10/17 13:55 Pantoprazole (Protonix) 40 mg DAILY IVP 09/09/17 09:00 10/06/17 20:59 09/10/17 09:59 Potassium Chloride 40 meq/ Sodium Chloride 570 ml @ 142.5 mls/ hr ONCE ONCE IVPB 09/10/17 13:00 09/10/17 16:59 Valproic Acid (Depakene) 500 mg Q12HR NG 09/07/17 21:00 10/07/17 20:59 09/10/17 09:57 Vancomycin HCl (Vanco rx to dose) 1 ea DAILY PRN MISC Per rx protocol 09/06/17 14:00 10/06/17 13:59 Vancomycin HCl/ Dextrose 250 ml @ 125 mls/hr Q24H IVPB 09/10/17 13:00 09/15/17 12:59 09/10/17 13:56 Eddy Worthy M.D. Sep 10, 2017 15:13
--- NOTE | 2017-09-10 17:59 | Cardiac Electrophysiology PN ---
Assessment/Plan Assessment/Plan 1. Non-ST elevation myocardial infarction The level was 0.64 and 0.26 and 0.1. The patient is currently nonverbal. Treat medically with Isordil, atenolol 50 mg daily, Plavix 75 mg daily, and aspirin via NG tube. 2. Coronary artery disease, history of prior stent placement. On Plavix, Isordil , atenolol and Lipitor 3. Hypertension. Continue Isordil and atenolol. 4. Severe hypokalemia. Potassium was replaced. 5. Cardiomyopathy, ejection fraction of 45%. 6. Aspiration pneumonia, on Flagyl, vancomycin, and aztreonam. 7. Dysphagia, failed video swallow. Family refused PEG and want redo video swallow. ROCCO RN Subjective Subjective Poorly responsive on face mask o2. Remained in SR.Family refused PEG placement. Objective Last 24 Hour Vital Signs Date Time Temp Pulse Resp B/P (MAP) Pulse Ox O2 Delivery O2 Flow Rate FiO2 09/10/17 17:40 71 33 98 Full Face 100 09/10/17 15:54 98.4 84 36 129/54 94 Nasal Cannula 2.0 98.4 09/10/17 13:55 156/78 09/10/17 12:00 98.4 84 36 173/86 94 Nasal Cannula 2.0 98.4 09/10/17 11:55 74 20 100 Bi-pap 100 09/10/17 11:45 68 24 92 Venturi Mask 15.0 55 09/10/17 09:58 84 156/78 09/10/17 08:00 98.4 85 30 150/71 94 Nasal Cannula 2.0 98.4 09/10/17 06:55 85 Nasal Cannula 5.0 40 09/10/17 06:55 Nasal Cannula 5.0 40 09/10/17 06:55 81 20 95 Full Face 45 09/10/17 06:13 132/74 09/10/17 05:04 68 24 97 Full Face 45 09/10/17 04:00 99.1 76 28 132/74 98 Nasal Cannula 2.0 99.1 09/10/17 04:00 67 09/10/17 03:27 76 25 96 Full Face 45 09/10/17 01:12 78 34 94 Full Face 45 09/10/17 00:33 159/74 09/10/17 00:30 80 159/74 96 09/10/17 00:00 97.9 91 36 127/65 93 Nasal Cannula 2.0 97.9 09/10/17 00:00 84 09/09/17 22:28 102 24 98 Full Face 50 09/09/17 20:10 Nasal Cannula 3.0 32 09/09/17 20:00 92 Nasal Cannula 3.0 32 09/09/17 20:00 97.3 72 26 143/68 93 Nasal Cannula 2.0 97.3 09/09/17 20:00 72 Intake and Output 09/09/17 09/10/17 19:00 07:00 Intake Total 506 ml Output Total 300 ml 700 ml Balance 206 ml -700 ml IV Total 506 ml Output Urine Total 300 ml 700 ml Laboratory Tests Test 09/10/17 05:50 White Blood Count 15.1 K/UL (4.8-10.8) H Red Blood Count 4.25 M/UL (4.20-5.40) Hemoglobin 12.0 G/DL (12.0-16.0) Hematocrit 36.2 % (37.0-47.0) L Mean Corpuscular Volume 85 FL (80-99) Mean Corpuscular Hemoglobin 28.2 PG (27.0-31.0) Mean Corpuscular Hemoglobin Concent 33.2 G/DL (32.0-36.0) Red Cell Distribution Width 15.8 % (11.6-14.8) H Platelet Count 203 K/UL (150-450) Mean Platelet Volume 9.4 FL (6.5-10.1) Neutrophils (%) (Auto) % (45.0-75.0) Lymphocytes (%) (Auto) % (20.0-45.0) Monocytes (%) (Auto) % (1.0-10.0) Eosinophils (%) (Auto) % (0.0-3.0) Basophils (%) (Auto) % (0.0-2.0) Differential Total Cells Counted 100 Neutrophils % (Manual) 89 % (45-75) H Lymphocytes % (Manual) 9 % (20-45) L Monocytes % (Manual) 2 % (1-10) Eosinophils % (Manual) 0 % (0-3) Basophils % (Manual) 0 % (0-2) Band Neutrophils 0 % (0-8) Platelet Estimate Adequate Platelet Morphology Normal Red Blood Cell Morphology Normal Prothrombin Time 9.7 SEC (9.30-11.50) Prothromb Time International Ratio 0.9 (0.9-1.1) Activated Partial Thromboplast Time 34 SEC (23-33) H Sodium Level 145 MMOL/L (136-145) Potassium Level 3.0 MMOL/L (3.5-5.1) L Chloride Level 109 MMOL/L (98-107) H Carbon Dioxide Level 24 MMOL/L (21-32) Anion Gap 12 mmol/L (5-15) Blood Urea Nitrogen 22 mg/dL (7-18) H Creatinine 0.9 MG/DL (0.55-1.30) Estimat Glomerular Filtration Rate mL/min (>60) Glucose Level 156 MG/DL (74-106) H Calcium Level 8.4 MG/DL (8.5-10.1) L C-Reactive Protein, Quantitative 2.7 mg/dL (0.00-0.90) H Microbiology Date/Time Source Procedure Growth Status 09/07/17 18:00 Stool Clostridium difficile Toxin Assay - Final Complete Objective HEAD AND NECK: No JVD, NG tube. LUNGS: Coarse rhonchi. CARDIOVASCULAR: Regular S1 and S2 with no gallop or murmur. ABDOMEN: Obese. EXTREMITIES: 1+ pitting edema. MARKEL PAGE Sep 10, 2017 17:59
[2017-09-10] MEDS: Lisinopril 2.5mg tab NG SCH (18:48)
[2017-09-10] MEDS: Carvedilol 12.5mg tab NG SCH (22:51)
[2017-09-11] VITALS: BP 152/104
[2017-09-11] MEDS: metroNIDAZOLE 500mg tab ORAL SCH ×4 (00:28→19:09)
[2017-09-11] MEDS: NovoLOG Insulin Flexpen SUBQ SCH ×4 (00:30→19:08)
[2017-09-11 04:00] VITALS: BP 137/69
[2017-09-11] MEDS: Aztreonam Inj 2 GM in NS 110 ML IVPB SCH ×3 (07:22→23:10)
[2017-09-11 07:39] LABS: HEMOGLOBIN 11.9 G/DL (12.0-16.0); MEAN CORPUSCULAR VOLUME 85 FL (80-99); PLATELET COUNT 193 K/UL (150-450); RED BLOOD COUNT 4.25 M/UL (4.20-5.40); RED CELL DISTRIBUTION WIDTH 15.6 % (11.6-14.8); WHITE BLOOD COUNT 9.7 K/UL (4.8-10.8)
[2017-09-11 08:00] VITALS: BP 144/67
[2017-09-11 08:12] LABS: ALANINE AMINOTRANSFERASE 8 U/L (12-78); ALBUMIN 1.5 G/DL (3.4-5.0); ALBUMIN/GLOBULIN RATIO 0.3 (1.0-2.7); ALKALINE PHOSPHATASE 59 U/L (46-116); ANION GAP 11 mmol/L (5-15); ASPARTATE AMINO TRANSFERASE 28 U/L (15-37); BILIRUBIN,TOTAL 0.4 MG/DL (0.2-1.0); BLOOD UREA NITROGEN 23 mg/dL (7-18); CALCIUM 8.5 MG/DL (8.5-10.1); CARBON DIOXIDE 24 MMOL/L (21-32); CHLORIDE 108 MMOL/L (98-107); GAMMA GLUTAMYL TRANSPEPTIDASE 37 U/L (5-85); PHOSPHORUS 2.5 MG/DL (2.5-4.9); POTASSIUM 3.1 MMOL/L (3.5-5.1); SODIUM 143 MMOL/L (136-145)
[2017-09-11] MEDS: Pantoprazole Inj IVP SCH (09:35)
[2017-09-11] MEDS: Solu-MEDROL 40mg Inj IVP SCH (09:36)
[2017-09-11] MEDS: Carvedilol 12.5mg tab NG SCH ×2 (09:36→21:32)
[2017-09-11] MEDS: Lisinopril 2.5mg tab NG SCH ×2 (09:37→19:09)
[2017-09-11] MEDS: Aspirin EC 81mg tab ORAL SCH (09:38)
[2017-09-11] MEDS: Valproic Acid 250mg/5ml Liquid NG SCH ×2 (09:38→21:30)
[2017-09-11] MEDS: Docusate 100mg/10ml Liq GT SCH (09:38)
--- NOTE | 2017-09-11 10:23 | Diagnostic Imaging Report ---
Indication: Dyspnea Comparison: 09/08/2017 A single view chest radiograph was obtained. Findings: Increasing airspace disease noted with patchy distribution and new disease in the right upper lobe and worsening disease in the left upper lobe and right lung base. Finding seen in the setting of prominent pulmonary vascularity and heart size which suggests this may be due to CHF. Please correlate clinically. Nasogastric tube is present remains in good position. IMPRESSION: Increasing patchy airspace disease probably on the basis of congestive heart failure. Please correlate clinically. Follow-up suggested. Superimposed pneumonia certainly possible.
[2017-09-11] MEDS: Hydromorphone 0.5mg/0.5ml inj IVP PRN (11:52)
[2017-09-11 12:00] VITALS: BP 131/65
--- NOTE | 2017-09-11 12:00 | GI Progress Note ---
Assessment/Plan Problems: (1) Encounter for PEG (percutaneous endoscopic gastrostomy) ICD Codes: Z43.1 - Encounter for attention to gastrostomy SNOMED: 834413108, 230184702 (2) DM (diabetes mellitus) ICD Codes: E11.9 - DM (diabetes mellitus) SNOMED: 88882599 (3) Dehydration (4) Severe malnutrition ICD Codes: E43 - Unspecified severe protein-calorie malnutrition SNOMED: 11198090 (5) Dysphagia ICD Codes: R13.10 - Dysphagia, unspecified SNOMED: 13458389, 880169085 Status: unchanged Status Narrative Discussed with Dr. Davila. Assessment/Plan PEG on hold, procedure refused by daughter whom wishes for another ST eval. - procedure will require cardiac clearance given elevated troponin levels. >> now normal - patient is on plavix which must be discontinued min 48 hours prior any GI procedures - patient on BIPAP fu ST recs/ video swallow cont NGTFs per RD ppi cdiff negative prn transfusions fu labs Subjective Subjective limited Objective Last 24 Hour Vital Signs Date Time Temp Pulse Resp B/P (MAP) Pulse Ox O2 Delivery O2 Flow Rate FiO2 09/11/17 09:37 144/67 09/11/17 09:36 87 144/67 09/11/17 09:25 80 30 98 Facial 50 09/11/17 08:00 97.5 87 41 144/67 94 Bi-pap 97.5 09/11/17 07:29 80 30 93 Facial 50 09/11/17 07:28 Bi-pap 50 09/11/17 07:28 93 Bi-pap 50 09/11/17 06:19 137/69 09/11/17 05:38 80 30 99 Facial 40 09/11/17 04:00 82 09/11/17 04:00 97.9 75 20 137/69 100 Bi-pap 100 97.9 09/11/17 03:29 74 25 97 Facial 40 09/11/17 00:28 129/54 09/11/17 00:00 79 09/11/17 00:00 99.0 76 20 152/104 100 Bi-pap 100 99.0 09/10/17 22:51 78 129/54 09/10/17 22:49 78 29 100 Facial 40 09/10/17 22:40 Bi-pap 40 3/7/18 21:20 76 30 100 Facial 80 09/10/17 20:00 99.1 72 20 147/62 100 Bi-pap 100 99.1 09/10/17 20:00 80 09/10/17 19:10 100 Bi-pap 40 09/10/17 19:10 76 30 100 Facial 100 09/10/17 18:48 129/54 09/10/17 18:00 129/54 09/10/17 17:40 71 33 98 Full Face 100 09/10/17 16:00 74 09/10/17 15:54 98.4 84 36 129/54 94 Nasal Cannula 2.0 98.4 09/10/17 13:55 156/78 09/10/17 12:00 74 09/10/17 12:00 98.4 84 36 173/86 94 Nasal Cannula 2.0 98.4 Intake and Output 09/10/17 09/11/17 19:00 07:00 Output Total 900 ml 1000 ml Balance -900 ml -1000 ml Output Urine Total 900 ml 1000 ml Laboratory Tests Test 09/11/17 06:10 09/11/17 09:15 White Blood Count 9.7 K/UL (4.8-10.8) Red Blood Count 4.25 M/UL (4.20-5.40) Hemoglobin 11.9 G/DL (12.0-16.0) L Hematocrit 36.0 % (37.0-47.0) L Mean Corpuscular Volume 85 FL (80-99) Mean Corpuscular Hemoglobin 28.0 PG (27.0-31.0) Mean Corpuscular Hemoglobin Concent 33.0 G/DL (32.0-36.0) Red Cell Distribution Width 15.6 % (11.6-14.8) H Platelet Count 193 K/UL (150-450) Mean Platelet Volume 9.2 FL (6.5-10.1) Neutrophils (%) (Auto) % (45.0-75.0) Lymphocytes (%) (Auto) % (20.0-45.0) Monocytes (%) (Auto) % (1.0-10.0) Eosinophils (%) (Auto) % (0.0-3.0) Basophils (%) (Auto) % (0.0-2.0) Neutrophils % (Manual) Pending Lymphocytes % (Manual) Pending Platelet Estimate Pending Platelet Morphology Pending Sodium Level 143 MMOL/L (136-145) Potassium Level 3.1 MMOL/L (3.5-5.1) L Chloride Level 108 MMOL/L (98-107) H Carbon Dioxide Level 24 MMOL/L (21-32) Anion Gap 11 mmol/L (5-15) Blood Urea Nitrogen 23 mg/dL (7-18) H Creatinine 1.0 MG/DL (0.55-1.30) Estimat Glomerular Filtration Rate mL/min (>60) Glucose Level 171 MG/DL (74-106) H Uric Acid 4.7 MG/DL (2.6-7.2) Calcium Level 8.5 MG/DL (8.5-10.1) Phosphorus Level 2.5 MG/DL (2.5-4.9) Magnesium Level 2.1 MG/DL (1.8-2.4) Total Bilirubin 0.4 MG/DL (0.2-1.0) Gamma Glutamyl Transpeptidase 37 U/L (5-85) Aspartate Amino Transf (AST/SGOT) 28 U/L (15-37) Alanine Aminotransferase (ALT/SGPT) 8 U/L (12-78) L Alkaline Phosphatase 59 U/L (46-116) Troponin I 0.050 ng/mL (0.000-0.056) Pro-B-Type Natriuretic Peptide 3460 pg/mL (0-125) H Total Protein 6.7 G/DL (6.4-8.2) Albumin 1.5 G/DL (3.4-5.0) L Globulin 5.2 g/dL Albumin/Globulin Ratio 0.3 (1.0-2.7) L Arterial Blood pH 7.488 (7.350-7.450) Arterial Blood Partial Pressure CO2 31.8 mmHg (35.0-45.0) L Arterial Blood Partial Pressure O2 77.3 mmHg (75.0-100.0) Arterial Blood HCO3 23.6 mmol/L (22.0-26.0) Arterial Blood Oxygen Saturation 95.8 % (92.0-98.0) Arterial Blood Base Excess 0.7 Nii Test Positive Height (Feet): 5 Height (Inches): 3.00 Weight (Pounds): 200 Cardiovascular: normal rate Respiratory/Chest: other - bipap Abdominal Exam: other - NGT Katie Zhang N.P. Sep 11, 2017 12:00
[2017-09-11] MEDS: Vancomycin 1500mg IVPB SCH (13:14)
--- NOTE | 2017-09-11 13:27 | General Progress Note ---
Assessment/Plan Problem List: (1) Severe sepsis Assessment & Plan: pneumonia ? aspiration and Influenza B ICD Codes: A41.9 - Sepsis, unspecified organism; R65.20 - Severe sepsis without septic shock SNOMED: 05302432 (2) COPD (chronic obstructive pulmonary disease) ICD Codes: J44.9 - COPD (chronic obstructive pulmonary disease) SNOMED: 01136546 (3) CHF (congestive heart failure) Assessment & Plan: ej fx 40 % ICD Codes: I50.9 - Heart failure, unspecified SNOMED: 50314346 (4) Functional quadriplegia ICD Codes: R53.2 - Functional quadriplegia SNOMED: 114819653348329 (5) DM (diabetes mellitus) ICD Codes: E11.9 - DM (diabetes mellitus) SNOMED: 92016291 (6) Elevated troponin I level ICD Codes: R74.8 - Abnormal levels of other serum enzymes SNOMED: 378310868 Status: unchanged Assessment/Plan discussed with daughter who is considering PEG, so far refused IV K supplement lasix add zestril change tenormin to coreg Respiratory support Antibiotics per ID IV steroid- taper as possible Sliding scale insulin NGT feeding until ST eval DC IV to tele increase isordil dose consider ltac Subjective ROS Limited/Unobtainable: Yes Allergies: Coded Allergies: AMOXICILLIN (Verified Allergy, Mild, DIARRHEA, 11/03/08) PENICILLINS (Verified Allergy, Mild, HIVES, 09/11/10) Objective Last 24 Hour Vital Signs Date Time Temp Pulse Resp B/P (MAP) Pulse Ox O2 Delivery O2 Flow Rate FiO2 09/11/17 09:37 144/67 09/11/17 09:36 87 144/67 09/11/17 09:25 80 30 98 Facial 50 09/11/17 08:00 97.5 87 41 144/67 94 Bi-pap 97.5 09/11/17 07:29 80 30 93 Facial 50 09/11/17 07:28 Bi-pap 50 09/11/17 07:28 93 Bi-pap 50 09/11/17 06:19 137/69 09/11/17 05:38 80 30 99 Facial 40 09/11/17 04:00 82 09/11/17 04:00 97.9 75 20 137/69 100 Bi-pap 100 97.9 09/11/17 03:29 74 25 97 Facial 40 09/11/17 00:28 129/54 09/11/17 00:00 79 09/11/17 00:00 99.0 76 20 152/104 100 Bi-pap 100 99.0 09/10/17 22:51 78 129/54 09/10/17 22:49 78 29 100 Facial 40 09/10/17 22:40 Bi-pap 40 09/10/17 21:20 76 30 100 Facial 80 09/10/17 20:00 99.1 72 20 147/62 100 Bi-pap 100 99.1 09/10/17 20:00 80 09/10/17 19:10 100 Bi-pap 40 09/10/17 19:10 76 30 100 Facial 100 09/10/17 18:48 129/54 09/10/17 18:00 129/54 09/10/17 17:40 71 33 98 Full Face 100 09/10/17 16:00 74 09/10/17 15:54 98.4 84 36 129/54 94 Nasal Cannula 2.0 98.4 09/10/17 13:55 156/78 Intake and Output 09/10/17 09/11/17 19:00 07:00 Output Total 900 ml 1000 ml Balance -900 ml -1000 ml Output Urine Total 900 ml 1000 ml Laboratory Tests 09/11/17 06:10: White Blood Count 9.7, Red Blood Count 4.25, Hemoglobin 11.9L, Hematocrit 36.0L , Mean Corpuscular Volume 85, Mean Corpuscular Hemoglobin 28.0, Mean Corpuscular Hemoglobin Concent 33.0, Red Cell Distribution Width 15.6H, Platelet Count 193, Mean Platelet Volume 9.2, Neutrophils (%) (Auto) , Lymphocytes (%) (Auto) , Monocytes (%) (Auto) , Eosinophils (%) (Auto) , Basophils (%) (Auto) , Differential Total Cells Counted 100, Neutrophils % ( Manual) 87H, Lymphocytes % (Manual) 10L, Monocytes % (Manual) 3, Eosinophils % ( Manual) 0, Basophils % (Manual) 0, Band Neutrophils 0, Platelet Estimate Adequate, Platelet Morphology Normal, Anisocytosis 1+, Sodium Level 143, Potassium Level 3.1L, Chloride Level 108H, Carbon Dioxide Level 24, Anion Gap 11 , Blood Urea Nitrogen 23H, Creatinine 1.0, Estimat Glomerular Filtration Rate , Glucose Level 171H, Uric Acid 4.7, Calcium Level 8.5, Phosphorus Level 2.5, Magnesium Level 2.1, Total Bilirubin 0.4, Gamma Glutamyl Transpeptidase 37, Aspartate Amino Transf (AST/SGOT) 28, Alanine Aminotransferase (ALT/SGPT) 8L, Alkaline Phosphatase 59, Troponin I 0.050, Pro-B-Type Natriuretic Peptide 3460H , Total Protein 6.7, Albumin 1.5L, Globulin 5.2, Albumin/Globulin Ratio 0.3L 09/11/17 09:15: Arterial Blood pH 7.488H, Arterial Blood Partial Pressure CO2 31.8L, Arterial Blood Partial Pressure O2 77.3, Arterial Blood HCO3 23.6, Arterial Blood Oxygen Saturation 95.8, Arterial Blood Base Excess 0.7, Nii Test Positive Height (Feet): 5 Height (Inches): 3.00 Weight (Pounds): 200 General Appearance: mild distress EENT: other - has ngt- had mild nasal bleed Neck: limited range of motion Cardiovascular: normal rate Respiratory/Chest: decreased breath sounds, rhonchi - bilaterally, other - + secretions Abdomen: distended Objective non verbal- cant take ILA Flores Sep 11, 2017 13:27
[2017-09-11] MEDS ORDERED: Potassium Chloride 40 MEQ in Sodium Chloride 500ML 550 ML IVPB ONE (13:30)
--- NOTE | 2017-09-11 13:40 | Pulmonology Progress Note ---
Assessment/Plan Problems: (1) Pneumonia (2) Respiratory failure (3) COPD (chronic obstructive pulmonary disease) (4) DM (diabetes mellitus) (5) ARF (acute renal failure) Assessment/Plan back on BIPAP now, doing worse cxr reviewed from 09/10: increase in infiltrates IV abx check sputum dvt prophylaxis, daughter thinking about changing the code status. Subjective ROS Limited/Unobtainable: No Constitutional: Reports: no symptoms HEENT: Repors: no symptoms Respiratory: Reports: no symptoms Allergies: Coded Allergies: AMOXICILLIN (Verified Allergy, Mild, DIARRHEA, 11/03/08) PENICILLINS (Verified Allergy, Mild, HIVES, 09/11/10) Objective Last 24 Hour Vital Signs Date Time Temp Pulse Resp B/P (MAP) Pulse Ox O2 Delivery O2 Flow Rate FiO2 09/11/17 09:37 144/67 09/11/17 09:36 87 144/67 09/11/17 09:25 80 30 98 Facial 50 09/11/17 08:00 97.5 87 41 144/67 94 Bi-pap 97.5 09/11/17 07:29 80 30 93 Facial 50 09/11/17 07:28 Bi-pap 50 09/11/17 07:28 93 Bi-pap 50 09/11/17 06:19 137/69 09/11/17 05:38 80 30 99 Facial 40 09/11/17 04:00 82 09/11/17 04:00 97.9 75 20 137/69 100 Bi-pap 100 97.9 09/11/17 03:29 74 25 97 Facial 40 09/11/17 00:28 129/54 09/11/17 00:00 79 09/11/17 00:00 99.0 76 20 152/104 100 Bi-pap 100 99.0 09/10/17 22:51 78 129/54 09/10/17 22:49 78 29 100 Facial 40 09/10/17 22:40 Bi-pap 40 09/10/17 21:20 76 30 100 Facial 80 09/10/17 20:00 99.1 72 20 147/62 100 Bi-pap 100 99.1 09/10/17 20:00 80 09/10/17 19:10 100 Bi-pap 40 09/10/17 19:10 76 30 100 Facial 100 09/10/17 18:48 129/54 09/10/17 18:00 129/54 09/10/17 17:40 71 33 98 Full Face 100 09/10/17 16:00 74 09/10/17 15:54 98.4 84 36 129/54 94 Nasal Cannula 2.0 98.4 09/10/17 13:55 156/78 Intake and Output 09/10/17 09/11/17 19:00 07:00 Output Total 900 ml 1000 ml Balance -900 ml -1000 ml Output Urine Total 900 ml 1000 ml Objective General Appearance: WD/WN Lines, tubes and drains: peripheral HEENT: normocephalic, atraumatic Neck: non-tender, normal alignment Respiratory/Chest: chest wall non-tender, lungs clear Breasts: no masses Cardiovascular/Chest: normal peripheral pulses, normal rate Abdomen: normal bowel sounds, non tender Genitourinary/Rectal: normal genital exam, heme negative stool Extremities: normal range of motion, non-tender Skin Exam: normal pigmentation Laboratory Tests 09/11/17 06:10: White Blood Count 9.7, Red Blood Count 4.25, Hemoglobin 11.9L, Hematocrit 36.0L , Mean Corpuscular Volume 85, Mean Corpuscular Hemoglobin 28.0, Mean Corpuscular Hemoglobin Concent 33.0, Red Cell Distribution Width 15.6H, Platelet Count 193, Mean Platelet Volume 9.2, Neutrophils (%) (Auto) , Lymphocytes (%) (Auto) , Monocytes (%) (Auto) , Eosinophils (%) (Auto) , Basophils (%) (Auto) , Differential Total Cells Counted 100, Neutrophils % ( Manual) 87H, Lymphocytes % (Manual) 10L, Monocytes % (Manual) 3, Eosinophils % ( Manual) 0, Basophils % (Manual) 0, Band Neutrophils 0, Platelet Estimate Adequate, Platelet Morphology Normal, Anisocytosis 1+, Sodium Level 143, Potassium Level 3.1L, Chloride Level 108H, Carbon Dioxide Level 24, Anion Gap 11 , Blood Urea Nitrogen 23H, Creatinine 1.0, Estimat Glomerular Filtration Rate , Glucose Level 171H, Uric Acid 4.7, Calcium Level 8.5, Phosphorus Level 2.5, Magnesium Level 2.1, Total Bilirubin 0.4, Gamma Glutamyl Transpeptidase 37, Aspartate Amino Transf (AST/SGOT) 28, Alanine Aminotransferase (ALT/SGPT) 8L, Alkaline Phosphatase 59, Troponin I 0.050, Pro-B-Type Natriuretic Peptide 3460H , Total Protein 6.7, Albumin 1.5L, Globulin 5.2, Albumin/Globulin Ratio 0.3L 09/11/17 09:15: Arterial Blood pH 7.488H, Arterial Blood Partial Pressure CO2 31.8L, Arterial Blood Partial Pressure O2 77.3, Arterial Blood HCO3 23.6, Arterial Blood Oxygen Saturation 95.8, Arterial Blood Base Excess 0.7, Nii Test Positive Current Medications Medications (Trade) Dose Ordered Sig/Juwan Route PRN Reason Start Time Stop Time Status Last Admin Dose Admin Acetaminophen (Tylenol) 650 mg Q4H PRN GT Mild Pain/Temp > 100.5 09/06/17 15:45 10/06/17 15:44 09/07/17 07:45 Albuterol/ Ipratropium (Albuterol/ Ipratropium) 3 ml Q4H PRN HHN Shortness of Breath 09/06/17 16:30 09/11/17 16:29 09/10/17 17:44 Aspirin (Ecotrin) 81 mg DAILY ORAL 09/09/17 09:00 10/09/17 08:59 09/11/17 09:38 Atorvastatin Calcium (Lipitor) 10 mg BEDTIME ORAL 09/08/17 21:00 10/08/17 20:59 09/10/17 22:51 Aztreonam 2 gm/ Sodium Chloride 110 ml @ 220 mls/hr Q8H IVPB 09/06/17 15:00 09/13/17 14:59 09/11/17 07:22 Carvedilol (Coreg) 12.5 mg EVERY 12 HOURS NG 09/10/17 21:00 10/10/17 20:59 09/11/17 09:36 Dextrose (Dextrose 50%) STAT PRN IV Hypoglycemia 09/07/17 11:00 10/07/17 10:59 Docusate Sodium (Colace) 200 mg DAILY GT 09/07/17 09:00 10/07/17 08:59 09/11/17 09:38 Furosemide (Lasix) 40 mg DAILY IV 09/12/17 09:00 10/12/17 08:59 Hydromorphone HCl (Dilaudid) 0.5 mg Q4H PRN IVP Pain Scale (6-10) 09/07/17 10:00 09/14/17 09:59 09/11/17 11:52 Insulin Aspart (NovoLOG) Q6HR SUBQ 09/07/17 12:00 10/07/17 11:59 09/11/17 11:54 Isosorbide Dinitrate (Isordil) 30 mg Q6HR NG 09/09/17 18:00 10/09/17 17:59 09/11/17 06:19 Lisinopril (Zestril) 2.5 mg BID NG 09/10/17 18:00 10/10/17 17:59 09/11/17 09:37 Methylprednisolone Sodium Succinate (Solu-MEDROL) 20 mg DAILY IVP 09/11/17 09:00 10/11/17 08:59 09/11/17 09:36 Metronidazole (Flagyl) 500 mg Q6HR ORAL 09/06/17 18:00 09/13/17 17:59 09/11/17 13:14 Pantoprazole (Protonix) 40 mg DAILY IVP 09/09/17 09:00 10/06/17 20:59 09/11/17 09:35 Potassium Chloride 40 meq/ Sodium Chloride 570 ml @ 142.5 mls/ hr ONCE ONCE IVPB 09/11/17 13:30 09/11/17 17:29 Potassium Chloride (K-Dur) 40 meq DAILY ORAL 09/12/17 09:00 10/12/17 08:59 Valproic Acid (Depakene) 500 mg Q12HR NG 09/07/17 21:00 10/07/17 20:59 09/11/17 09:38 Vancomycin HCl (Vanco rx to dose) 1 ea DAILY PRN MISC Per rx protocol 09/06/17 14:00 10/06/17 13:59 Vancomycin HCl/ Dextrose 250 ml @ 125 mls/hr Q24H IVPB 09/10/17 13:00 09/15/17 12:59 09/11/17 13:14 DARIAN HOOKS 8, 2018 13:40
--- NOTE | 2017-09-11 14:35 | Infectious Diseases Prog Note ---
Assessment/Plan Problems: (1) HCAP (healthcare-associated pneumonia) Assessment & Plan: complicated with respiratory failure, BACK OB bipap , will send sputum culture again , continue vancomycin , aztreonam and flagyl empiric coverage, monitor CXR (2) Influenza B Assessment & Plan: complicated with Left side pneumonia , continue tamiflu for 5 days total , and keep in droplets isolation (3) Severe sepsis Assessment & Plan: due to the above, blood culture remains negative , will repeat another sets of blood culture, and continue vancomycin and aztreonam empiric coverage (4) Respiratory failure Assessment & Plan: due to the above, not improving, back on BIPAP , monitor CXR , pulmonary is following (5) UTI (urinary tract infection) Assessment & Plan: due to E coli , already on aztreonam coverage (6) DM (diabetes mellitus) Assessment & Plan: recommend tight glycemic control to keep blood glucose between 100-140 (7) Diarrhea Assessment & Plan: not due to C diff , with negative toxin , suspect due to tube feeding (8) Dysphagia Assessment & Plan: due to poor mentation, may need PEG tube for feeding Subjective ROS Limited/Unobtainable: Yes Allergies: Coded Allergies: AMOXICILLIN (Verified Allergy, Mild, DIARRHEA, 11/03/08) PENICILLINS (Verified Allergy, Mild, HIVES, 09/11/10) Subjective she was wheezing with respiratory distress, back on BIPAP , unresponsive, nonverbal, no fever or chills, no diarrhea today, still has NGT for feeding and meds Objective Vital Signs Last 24 Hour Vital Signs Date Time Temp Pulse Resp B/P (MAP) Pulse Ox O2 Delivery O2 Flow Rate FiO2 09/11/17 12:00 96.6 82 37 131/65 99 Bi-pap 96.6 09/11/17 09:37 144/67 09/11/17 09:36 87 144/67 09/11/17 09:25 80 30 98 Facial 50 09/11/17 08:00 97.5 87 41 144/67 94 Bi-pap 97.5 09/11/17 07:29 80 30 93 Facial 50 09/11/17 07:28 Bi-pap 50 09/11/17 07:28 93 Bi-pap 50 09/11/17 06:19 137/69 09/11/17 05:38 80 30 99 Facial 40 09/11/17 04:00 82 09/11/17 04:00 97.9 75 20 137/69 100 Bi-pap 100 97.9 09/11/17 03:29 74 25 97 Facial 40 09/11/17 00:28 129/54 09/11/17 00:00 79 09/11/17 00:00 99.0 76 20 152/104 100 Bi-pap 100 99.0 09/10/17 22:51 78 129/54 09/10/17 22:49 78 29 100 Facial 40 09/10/17 22:40 Bi-pap 40 09/10/17 21:20 76 30 100 Facial 80 09/10/17 20:00 99.1 72 20 147/62 100 Bi-pap 100 99.1 09/10/17 20:00 80 09/10/17 19:10 100 Bi-pap 40 09/10/17 19:10 76 30 100 Facial 100 09/10/17 18:48 129/54 09/10/17 18:00 129/54 09/10/17 17:40 71 33 98 Full Face 100 09/10/17 16:00 74 09/10/17 15:54 98.4 84 36 129/54 94 Nasal Cannula 2.0 98.4 Height (Feet): 5 Height (Inches): 3.00 Weight (Pounds): 200 General Appearance: WD/WN, no acute distress HEENT: normocephalic, atraumatic, anicteric, mucous membranes moist, PERRL Respiratory/Chest: chest wall non-tender, lungs clear, normal breath sounds, no respiratory distress, no accessory muscle use, respiratory distress Cardiovascular: normal peripheral pulses, normal rate, regular rhythm, no gallop/murmur, no JVD Abdomen: normal bowel sounds, soft, non tender, no organomegaly, non distended , no mass, no scars Genitourinary: normal external genitalia Extremities: no cyanosis, no clubbing Skin: no rash, no lesions, no ulcers Neurologic/Psychiatric: unresponsiveness Laboratory Tests Test 09/11/17 06:10 09/11/17 09:15 White Blood Count 9.7 K/UL (4.8-10.8) Red Blood Count 4.25 M/UL (4.20-5.40) Hemoglobin 11.9 G/DL (12.0-16.0) L Hematocrit 36.0 % (37.0-47.0) L Mean Corpuscular Volume 85 FL (80-99) Mean Corpuscular Hemoglobin 28.0 PG (27.0-31.0) Mean Corpuscular Hemoglobin Concent 33.0 G/DL (32.0-36.0) Red Cell Distribution Width 15.6 % (11.6-14.8) H Platelet Count 193 K/UL (150-450) Mean Platelet Volume 9.2 FL (6.5-10.1) Neutrophils (%) (Auto) % (45.0-75.0) Lymphocytes (%) (Auto) % (20.0-45.0) Monocytes (%) (Auto) % (1.0-10.0) Eosinophils (%) (Auto) % (0.0-3.0) Basophils (%) (Auto) % (0.0-2.0) Differential Total Cells Counted 100 Neutrophils % (Manual) 87 % (45-75) H Lymphocytes % (Manual) 10 % (20-45) L Monocytes % (Manual) 3 % (1-10) Eosinophils % (Manual) 0 % (0-3) Basophils % (Manual) 0 % (0-2) Band Neutrophils 0 % (0-8) Platelet Estimate Adequate Platelet Morphology Normal Anisocytosis 1+ Sodium Level 143 MMOL/L (136-145) Potassium Level 3.1 MMOL/L (3.5-5.1) L Chloride Level 108 MMOL/L (98-107) H Carbon Dioxide Level 24 MMOL/L (21-32) Anion Gap 11 mmol/L (5-15) Blood Urea Nitrogen 23 mg/dL (7-18) H Creatinine 1.0 MG/DL (0.55-1.30) Estimat Glomerular Filtration Rate mL/min (>60) Glucose Level 171 MG/DL (74-106) H Uric Acid 4.7 MG/DL (2.6-7.2) Calcium Level 8.5 MG/DL (8.5-10.1) Phosphorus Level 2.5 MG/DL (2.5-4.9) Magnesium Level 2.1 MG/DL (1.8-2.4) Total Bilirubin 0.4 MG/DL (0.2-1.0) Gamma Glutamyl Transpeptidase 37 U/L (5-85) Aspartate Amino Transf (AST/SGOT) 28 U/L (15-37) Alanine Aminotransferase (ALT/SGPT) 8 U/L (12-78) L Alkaline Phosphatase 59 U/L (46-116) Troponin I 0.050 ng/mL (0.000-0.056) C-Reactive Protein, Quantitative 28.9 mg/dL (0.00-0.90) H Pro-B-Type Natriuretic Peptide 3460 pg/mL (0-125) H Total Protein 6.7 G/DL (6.4-8.2) Albumin 1.5 G/DL (3.4-5.0) L Globulin 5.2 g/dL Albumin/Globulin Ratio 0.3 (1.0-2.7) L Arterial Blood pH 7.488 (7.350-7.450) Arterial Blood Partial Pressure CO2 31.8 mmHg (35.0-45.0) L Arterial Blood Partial Pressure O2 77.3 mmHg (75.0-100.0) Arterial Blood HCO3 23.6 mmol/L (22.0-26.0) Arterial Blood Oxygen Saturation 95.8 % (92.0-98.0) Arterial Blood Base Excess 0.7 Nii Test Positive Current Medications Medications (Trade) Dose Ordered Sig/Juwan Route PRN Reason Start Time Stop Time Status Last Admin Dose Admin Acetaminophen (Tylenol) 650 mg Q4H PRN GT Mild Pain/Temp > 100.5 09/06/17 15:45 10/06/17 15:44 09/07/17 07:45 Albuterol/ Ipratropium (Albuterol/ Ipratropium) 3 ml Q4H PRN HHN Shortness of Breath 09/06/17 16:30 09/11/17 16:29 09/10/17 17:44 Aspirin (Ecotrin) 81 mg DAILY ORAL 09/09/17 09:00 10/09/17 08:59 09/11/17 09:38 Atorvastatin Calcium (Lipitor) 10 mg BEDTIME ORAL 09/08/17 21:00 10/08/17 20:59 09/10/17 22:51 Aztreonam 2 gm/ Sodium Chloride 110 ml @ 220 mls/hr Q8H IVPB 09/06/17 15:00 09/13/17 14:59 09/11/17 07:22 Carvedilol (Coreg) 12.5 mg EVERY 12 HOURS NG 09/10/17 21:00 10/10/17 20:59 09/11/17 09:36 Dextrose (Dextrose 50%) STAT PRN IV Hypoglycemia 09/07/17 11:00 10/07/17 10:59 Docusate Sodium (Colace) 200 mg DAILY GT 09/07/17 09:00 10/07/17 08:59 09/11/17 09:38 Furosemide (Lasix) 40 mg DAILY IV 09/12/17 09:00 10/12/17 08:59 Hydromorphone HCl (Dilaudid) 0.5 mg Q4H PRN IVP Pain Scale (6-10) 09/07/17 10:00 09/14/17 09:59 09/11/17 11:52 Insulin Aspart (NovoLOG) Q6HR SUBQ 09/07/17 12:00 10/07/17 11:59 09/11/17 11:54 Isosorbide Dinitrate (Isordil) 30 mg Q6HR NG 09/09/17 18:00 10/09/17 17:59 09/11/17 06:19 Lisinopril (Zestril) 2.5 mg BID NG 09/10/17 18:00 10/10/17 17:59 09/11/17 09:37 Methylprednisolone Sodium Succinate (Solu-MEDROL) 20 mg DAILY IVP 09/11/17 09:00 10/11/17 08:59 09/11/17 09:36 Metronidazole (Flagyl) 500 mg Q6HR ORAL 09/06/17 18:00 09/13/17 17:59 09/11/17 13:14 Pantoprazole (Protonix) 40 mg DAILY IVP 09/09/17 09:00 10/06/17 20:59 09/11/17 09:35 Potassium Chloride 40 meq/ Sodium Chloride 570 ml @ 142.5 mls/ hr ONCE ONCE IVPB 09/11/17 13:30 09/11/17 17:29 Potassium Chloride (K-Dur) 40 meq DAILY ORAL 09/12/17 09:00 10/12/17 08:59 Valproic Acid (Depakene) 500 mg Q12HR NG 09/07/17 21:00 10/07/17 20:59 09/11/17 09:38 Vancomycin HCl (Vanco rx to dose) 1 ea DAILY PRN MISC Per rx protocol 09/06/17 14:00 10/06/17 13:59 Vancomycin HCl/ Dextrose 250 ml @ 125 mls/hr Q24H IVPB 09/10/17 13:00 09/15/17 12:59 09/11/17 13:14 Eddy Worthy M.D. Sep 11, 2017 14:35
--- NOTE | 2017-09-11 15:23 | Cardiac Electrophysiology PN ---
Assessment/Plan Assessment/Plan 1. Non-ST elevation myocardial infarction . Troponin levels were 0.64 and 0.26 and 0.1. The patient is currently nonverbal. Treat medically with Isordil, atenolol 50 mg daily, Plavix 75 mg daily, and aspirin via NG tube. 2. Coronary artery disease, history of prior stent placement. On Plavix, Isordil , atenolol and Lipitor 3. Hypertension. Continue Isordil and atenolol. 4. Severe hypokalemia. Potassium was replaced. 5. Cardiomyopathy, ejection fraction of 45%.Lasix iv started 6. Aspiration pneumonia, on Flagyl, vancomycin, and aztreonam. 7. Dysphagia, failed video swallow. Family refused PEG DW RN Subjective Subjective Poorly responsive on face mask. Remained in SR. Family refused PEG placement. Objective Last 24 Hour Vital Signs Date Time Temp Pulse Resp B/P (MAP) Pulse Ox O2 Delivery O2 Flow Rate FiO2 09/11/17 14:44 131/65 09/11/17 12:00 96.6 82 37 131/65 99 Bi-pap 96.6 09/11/17 09:37 144/67 09/11/17 09:36 87 144/67 09/11/17 09:25 80 30 98 Facial 50 09/11/17 08:00 97.5 87 41 144/67 94 Bi-pap 97.5 09/11/17 07:29 80 30 93 Facial 50 09/11/17 07:28 Bi-pap 50 09/11/17 07:28 93 Bi-pap 50 09/11/17 06:19 137/69 09/11/17 05:38 80 30 99 Facial 40 09/11/17 04:00 82 09/11/17 04:00 97.9 75 20 137/69 100 Bi-pap 100 97.9 09/11/17 03:29 74 25 97 Facial 40 09/11/17 00:28 129/54 09/11/17 00:00 79 09/11/17 00:00 99.0 76 20 152/104 100 Bi-pap 100 99.0 09/10/17 22:51 78 129/54 09/10/17 22:49 78 29 100 Facial 40 09/10/17 22:40 Bi-pap 40 09/10/17 21:20 76 30 100 Facial 80 09/10/17 20:00 99.1 72 20 147/62 100 Bi-pap 100 99.1 09/10/17 20:00 80 09/10/17 19:10 100 Bi-pap 40 09/10/17 19:10 76 30 100 Facial 100 09/10/17 18:48 129/54 09/10/17 18:00 129/54 09/10/17 17:40 71 33 98 Full Face 100 09/10/17 16:00 74 09/10/17 15:54 98.4 84 36 129/54 94 Nasal Cannula 2.0 98.4 Intake and Output 09/10/17 09/11/17 19:00 07:00 Output Total 900 ml 1000 ml Balance -900 ml -1000 ml Output Urine Total 900 ml 1000 ml Laboratory Tests Test 09/11/17 06:10 09/11/17 09:15 White Blood Count 9.7 K/UL (4.8-10.8) Red Blood Count 4.25 M/UL (4.20-5.40) Hemoglobin 11.9 G/DL (12.0-16.0) L Hematocrit 36.0 % (37.0-47.0) L Mean Corpuscular Volume 85 FL (80-99) Mean Corpuscular Hemoglobin 28.0 PG (27.0-31.0) Mean Corpuscular Hemoglobin Concent 33.0 G/DL (32.0-36.0) Red Cell Distribution Width 15.6 % (11.6-14.8) H Platelet Count 193 K/UL (150-450) Mean Platelet Volume 9.2 FL (6.5-10.1) Neutrophils (%) (Auto) % (45.0-75.0) Lymphocytes (%) (Auto) % (20.0-45.0) Monocytes (%) (Auto) % (1.0-10.0) Eosinophils (%) (Auto) % (0.0-3.0) Basophils (%) (Auto) % (0.0-2.0) Differential Total Cells Counted 100 Neutrophils % (Manual) 87 % (45-75) H Lymphocytes % (Manual) 10 % (20-45) L Monocytes % (Manual) 3 % (1-10) Eosinophils % (Manual) 0 % (0-3) Basophils % (Manual) 0 % (0-2) Band Neutrophils 0 % (0-8) Platelet Estimate Adequate Platelet Morphology Normal Anisocytosis 1+ Sodium Level 143 MMOL/L (136-145) Potassium Level 3.1 MMOL/L (3.5-5.1) L Chloride Level 108 MMOL/L (98-107) H Carbon Dioxide Level 24 MMOL/L (21-32) Anion Gap 11 mmol/L (5-15) Blood Urea Nitrogen 23 mg/dL (7-18) H Creatinine 1.0 MG/DL (0.55-1.30) Estimat Glomerular Filtration Rate mL/min (>60) Glucose Level 171 MG/DL (74-106) H Uric Acid 4.7 MG/DL (2.6-7.2) Calcium Level 8.5 MG/DL (8.5-10.1) Phosphorus Level 2.5 MG/DL (2.5-4.9) Magnesium Level 2.1 MG/DL (1.8-2.4) Total Bilirubin 0.4 MG/DL (0.2-1.0) Gamma Glutamyl Transpeptidase 37 U/L (5-85) Aspartate Amino Transf (AST/SGOT) 28 U/L (15-37) Alanine Aminotransferase (ALT/SGPT) 8 U/L (12-78) L Alkaline Phosphatase 59 U/L (46-116) Troponin I 0.050 ng/mL (0.000-0.056) C-Reactive Protein, Quantitative 28.9 mg/dL (0.00-0.90) H Pro-B-Type Natriuretic Peptide 3460 pg/mL (0-125) H Total Protein 6.7 G/DL (6.4-8.2) Albumin 1.5 G/DL (3.4-5.0) L Globulin 5.2 g/dL Albumin/Globulin Ratio 0.3 (1.0-2.7) L Arterial Blood pH 7.488 (7.350-7.450) Arterial Blood Partial Pressure CO2 31.8 mmHg (35.0-45.0) L Arterial Blood Partial Pressure O2 77.3 mmHg (75.0-100.0) Arterial Blood HCO3 23.6 mmol/L (22.0-26.0) Arterial Blood Oxygen Saturation 95.8 % (92.0-98.0) Arterial Blood Base Excess 0.7 Nii Test Positive Objective HEAD AND NECK: No JVD, NG tube.Face MAsk LUNGS: Coarse rhonchi. CARDIOVASCULAR: Regular S1 and S2 with no gallop or murmur. ABDOMEN: Obese. EXTREMITIES: 1+ pitting edema. MARKEL PAGE Sep 11, 2017 15:23
[2017-09-11 16:00] VITALS: BP 126/79
[2017-09-11 20:00] VITALS: BP 117/53
[2017-09-11] MEDS ORDERED: Tubing IV Secondary IV ONE (22:17)
[2017-09-11] MEDS ORDERED: NS 275ml ONE (22:17)
[2017-09-11] MEDS ORDERED: D5NS 1000ml IV ONE (22:17)
[2017-09-12] VITALS (11 sets, daily range): BP systolic 118–147; BP diastolic 51–85
[2017-09-12] MEDS: metroNIDAZOLE 500mg tab ORAL SCH ×4 (00:50→18:47)
[2017-09-12] MEDS: NovoLOG Insulin Flexpen SUBQ SCH ×4 (00:55→18:49)
[2017-09-12] MEDS: Aztreonam Inj 2 GM in NS 110 ML IVPB SCH ×3 (05:56→23:25)
[2017-09-12 07:22] LABS: BASOPHILS % (AUTO) 0.7 % (0.0-2.0); HEMATOCRIT 30.7 % (37.0-47.0); HEMOGLOBIN 10.1 G/DL (12.0-16.0); LYMPHOCYTES % (AUTO) 9.4 % (20.0-45.0); MEAN CORPUSCULAR VOLUME 85 FL (80-99); MONOCYTES % (AUTO) 5.1 % (1.0-10.0); NEUTROPHILS % (AUTO) 84.7 % (45.0-75.0); PLATELET COUNT 235 K/UL (150-450); RED BLOOD COUNT 3.62 M/UL (4.20-5.40); RED CELL DISTRIBUTION WIDTH 15.5 % (11.6-14.8); WHITE BLOOD COUNT 10.3 K/UL (4.8-10.8)
[2017-09-12 07:32] LABS: ALANINE AMINOTRANSFERASE 6 U/L (12-78); ALBUMIN 1.4 G/DL (3.4-5.0); ALBUMIN/GLOBULIN RATIO 0.3 (1.0-2.7); ALKALINE PHOSPHATASE 49 U/L (46-116); ANION GAP 8 mmol/L (5-15); ASPARTATE AMINO TRANSFERASE 19 U/L (15-37); BILIRUBIN,TOTAL 0.3 MG/DL (0.2-1.0); BLOOD UREA NITROGEN 28 mg/dL (7-18); CALCIUM 8.3 MG/DL (8.5-10.1); CARBON DIOXIDE 27 MMOL/L (21-32); CHLORIDE 110 MMOL/L (98-107); CREATININE 0.9 MG/DL (0.55-1.30); POTASSIUM 3.1 MMOL/L (3.5-5.1); SODIUM 145 MMOL/L (136-145)
[2017-09-12 08:33] LABS: PHOSPHORUS 2.4 MG/DL (2.5-4.9)
--- NOTE | 2017-09-12 08:35 | Pre-Procedure Note/Attestation ---
Pre-Procedure Note/Attestation Complete Prior to Procedure Planned Procedure: not applicable Procedure Narrative: egd/peg Indications for Procedure Pre-Operative Diagnosis: dysphagia/FTT Attestation I attest that I discussed the nature of the procedure; its benefits; risks and complications; and alternatives (and the risks and benefits of such alternatives ), prior to the procedure, with the patient (or the patient's legal medical office representative). I attest that, if there was a reasonable possibility of needing a blood transfusion, the patient (or the patient's legal medical office representative) was given the [facility] standardized written summary, pursuant to the [place] Blood Safety Act ([place] Health and Safety Code # 1645, as amended). I attest that I re-evaluated the patient just prior to the surgery and that there has been no change in the patient's H&P, except as documented below: LAKSHMI BUENO Sep 12, 2017 08:35
--- NOTE | 2017-09-12 08:36 | General Progress Note ---
Assessment/Plan Problem List: (1) COPD (chronic obstructive pulmonary disease) ICD Codes: J44.9 - COPD (chronic obstructive pulmonary disease) SNOMED: 70541130 (2) DM (diabetes mellitus) ICD Codes: E11.9 - DM (diabetes mellitus) SNOMED: 51805723 (3) HTN (hypertension) ICD Codes: I10 - HTN (hypertension) SNOMED: 10956966 (4) SEIZURE, ALOC (5) Dysphagia ICD Codes: R13.10 - Dysphagia, unspecified SNOMED: 86628580, 521063586 Assessment/Plan plan EGD/peg placement today Subjective ROS Limited/Unobtainable: No Allergies: Coded Allergies: AMOXICILLIN (Verified Allergy, Mild, DIARRHEA, 11/03/08) PENICILLINS (Verified Allergy, Mild, HIVES, 09/11/10) Objective Last 24 Hour Vital Signs Date Time Temp Pulse Resp B/P (MAP) Pulse Ox O2 Delivery O2 Flow Rate FiO2 09/12/17 07:33 96 Bi-pap 09/12/17 07:33 Bi-pap 09/12/17 07:32 77 28 96 Facial 35 09/12/17 05:33 141/59 09/12/17 05:06 81 26 99 Facial 40 09/12/17 04:00 98.4 73 20 141/59 97 Bi-pap 100 98.4 09/12/17 04:00 77 09/12/17 03:27 76 22 96 Facial 40 09/12/17 01:03 72 22 99 Facial 40 09/12/17 00:50 147/57 09/12/17 00:00 98.4 82 20 147/57 96 Bi-pap 100 98.4 09/11/17 22:28 74 23 99 Facial 50 09/11/17 21:32 74 117/53 09/11/17 20:41 75 22 95 Facial 50 09/11/17 20:00 81 09/11/17 20:00 98.1 74 20 117/53 95 Bi-pap 100 98.1 09/11/17 19:53 Bi-pap 09/11/17 19:53 Bi-pap 09/11/17 19:53 71 20 96 Facial 50 09/11/17 19:09 119/53 09/11/17 19:09 119/53 09/11/17 17:02 70 22 98 Facial 50 09/11/17 16:00 81 09/11/17 16:00 96.4 68 20 126/79 100 Bi-pap 96.4 09/11/17 15:00 78 36 98 Facial 50 09/11/17 14:44 131/65 09/11/17 13:00 82 22 71 Facial 50 09/11/17 12:00 96.6 82 37 131/65 99 Bi-pap 96.6 09/11/17 12:00 83 09/11/17 11:00 80 30 97 Facial 50 09/11/17 09:37 144/67 09/11/17 09:36 87 144/67 09/11/17 09:25 80 30 98 Facial 50 Intake and Output 09/11/17 09/12/17 19:00 07:00 Intake Total 628 ml Output Total 950 ml 600 ml Balance -950 ml 28 ml IV Total 220 ml Tube Feeding 288 ml Other 120 ml Output Urine Total 950 ml 600 ml # Bowel Movements 1 Laboratory Tests 09/11/17 09:15: Arterial Blood pH 7.488H, Arterial Blood Partial Pressure CO2 31.8L, Arterial Blood Partial Pressure O2 77.3, Arterial Blood HCO3 23.6, Arterial Blood Oxygen Saturation 95.8, Arterial Blood Base Excess 0.7, Nii Test Positive 09/12/17 06:25: White Blood Count 10.3, Red Blood Count 3.62L, Hemoglobin 10.1L, Hematocrit 30.7L, Mean Corpuscular Volume 85, Mean Corpuscular Hemoglobin 27.9, Mean Corpuscular Hemoglobin Concent 32.8, Red Cell Distribution Width 15.5H, Platelet Count 235, Mean Platelet Volume 10.7H, Neutrophils (%) (Auto) 84.7H, Lymphocytes (%) (Auto) 9.4L, Monocytes (%) (Auto) 5.1, Eosinophils (%) (Auto) 0.0, Basophils (%) (Auto) 0.7, Prothrombin Time 10.7, Prothromb Time International Ratio 1.0, Activated Partial Thromboplast Time 32, Sodium Level 145, Potassium Level 3.1L, Chloride Level 110H, Carbon Dioxide Level 27, Anion Gap 8, Blood Urea Nitrogen 28H, Creatinine 0.9, Estimat Glomerular Filtration Rate , Glucose Level 155H, Uric Acid [Pending], Calcium Level 8.3L, Phosphorus Level [Pending], Magnesium Level [Pending], Total Bilirubin 0.3, Aspartate Amino Transf (AST/SGOT) 19, Alanine Aminotransferase (ALT/SGPT) 6L, Alkaline Phosphatase 49, Troponin I [Pending], Pro-B-Type Natriuretic Peptide [Pending], Total Protein 6.4, Albumin 1.4L, Globulin 5.0, Albumin/Globulin Ratio 0.3L Height (Feet): 5 Height (Inches): 3.00 Weight (Pounds): 200 General Appearance: no apparent distress EENT: normal ENT inspection Neck: supple Cardiovascular: normal rate Respiratory/Chest: decreased breath sounds Abdomen: normal bowel sounds, non tender, soft Extremities: non-tender LAKSHMI BUENO Sep 12, 2017 08:36
[2017-09-12] MEDS: Solu-MEDROL 40mg Inj IVP SCH (08:58)
[2017-09-12] MEDS: Valproic Acid 250mg/5ml Liquid NG SCH ×2 (08:59→21:23)
[2017-09-12] MEDS: Docusate 100mg/10ml Liq GT SCH (08:59)
[2017-09-12] MEDS: Lisinopril 2.5mg tab NG SCH ×2 (08:59→18:47)
[2017-09-12] MEDS: Aspirin EC 81mg tab ORAL SCH (08:59)
[2017-09-12] MEDS: Carvedilol 12.5mg tab NG SCH ×2 (09:00→21:23)
[2017-09-12] MEDS: Pantoprazole Inj IVP SCH (09:00)
[2017-09-12] MEDS ORDERED: Potassium Chloride 40 MEQ in Sodium Chloride 500ML 550 ML IVPB ONE (11:00)
[2017-09-12] MEDS ORDERED: LR 1000ml ONE (11:00)
[2017-09-12] MEDS ORDERED: Lidocaine 1% MPF 10mg/ml 5ml ONE (11:00)
[2017-09-12] MEDS ORDERED: NS 500ML IV ONE (11:00)
[2017-09-12] MEDS ORDERED: Propofol 200mg/20ml IV ONE (11:00)
--- NOTE | 2017-09-12 11:06 | General Progress Note ---
Assessment/Plan Problem List: (1) Severe sepsis Assessment & Plan: pneumonia ? aspiration and Influenza B ICD Codes: A41.9 - Sepsis, unspecified organism; R65.20 - Severe sepsis without septic shock SNOMED: 16455391 (2) COPD (chronic obstructive pulmonary disease) ICD Codes: J44.9 - COPD (chronic obstructive pulmonary disease) SNOMED: 76286131 (3) CHF (congestive heart failure) Assessment & Plan: ej fx 40 % ICD Codes: I50.9 - Heart failure, unspecified SNOMED: 25478370 (4) Functional quadriplegia ICD Codes: R53.2 - Functional quadriplegia SNOMED: 885820824367487 (5) DM (diabetes mellitus) ICD Codes: E11.9 - DM (diabetes mellitus) SNOMED: 69765884 (6) Elevated troponin I level ICD Codes: R74.8 - Abnormal levels of other serum enzymes SNOMED: 266830803 Status: stable Assessment/Plan discussed with daughter who agreed to PEG, PEG today IV K supplement lasix zestril change tenormin to coreg Respiratory support Antibiotics per ID IV steroid- taper as possible Sliding scale insulin NGT feeding until ST eval DC IV to tele increase isordil dose Subjective ROS Limited/Unobtainable: No Constitutional: Reports: malaise Allergies: Coded Allergies: AMOXICILLIN (Verified Allergy, Mild, DIARRHEA, 11/03/08) PENICILLINS (Verified Allergy, Mild, HIVES, 09/11/10) Objective Last 24 Hour Vital Signs Date Time Temp Pulse Resp B/P (MAP) Pulse Ox O2 Delivery O2 Flow Rate FiO2 09/12/17 09:48 84 30 93 Facial 30 09/12/17 09:00 64 146/59 09/12/17 08:59 146/59 09/12/17 08:00 98.5 64 21 146/59 94 Bi-pap 100 98.5 09/12/17 07:33 96 Bi-pap 09/12/17 07:33 Bi-pap 09/12/17 07:32 77 28 96 Facial 35 09/12/17 05:33 141/59 09/12/17 05:06 81 26 99 Facial 40 09/12/17 04:00 98.4 73 20 141/59 97 Bi-pap 100 98.4 09/12/17 04:00 77 09/12/17 03:27 76 22 96 Facial 40 09/12/17 01:03 72 22 99 Facial 40 09/12/17 00:50 147/57 09/12/17 00:00 98.4 82 20 147/57 96 Bi-pap 100 98.4 09/11/17 22:28 74 23 99 Facial 50 09/11/17 21:32 74 117/53 09/11/17 20:41 75 22 95 Facial 50 09/11/17 20:00 81 09/11/17 20:00 98.1 74 20 117/53 95 Bi-pap 100 98.1 09/11/17 19:53 Bi-pap 09/11/17 19:53 Bi-pap 09/11/17 19:53 71 20 96 Facial 50 09/11/17 19:09 119/53 09/11/17 19:09 119/53 09/11/17 17:02 70 22 98 Facial 50 09/11/17 16:00 81 09/11/17 16:00 96.4 68 20 126/79 100 Bi-pap 96.4 09/11/17 15:00 78 36 98 Facial 50 09/11/17 14:44 131/65 09/11/17 13:00 82 22 71 Facial 50 09/11/17 12:00 96.6 82 37 131/65 99 Bi-pap 96.6 09/11/17 12:00 83 Intake and Output 09/11/17 09/12/17 19:00 07:00 Intake Total 628 ml Output Total 950 ml 600 ml Balance -950 ml 28 ml IV Total 220 ml Tube Feeding 288 ml Other 120 ml Output Urine Total 950 ml 600 ml # Bowel Movements 1 Laboratory Tests 09/12/17 06:25: White Blood Count 10.3, Red Blood Count 3.62L, Hemoglobin 10.1L, Hematocrit 30.7L, Mean Corpuscular Volume 85, Mean Corpuscular Hemoglobin 27.9, Mean Corpuscular Hemoglobin Concent 32.8, Red Cell Distribution Width 15.5H, Platelet Count 235, Mean Platelet Volume 10.7H, Neutrophils (%) (Auto) 84.7H, Lymphocytes (%) (Auto) 9.4L, Monocytes (%) (Auto) 5.1, Eosinophils (%) (Auto) 0.0, Basophils (%) (Auto) 0.7, Prothrombin Time 10.7, Prothromb Time International Ratio 1.0, Activated Partial Thromboplast Time 32, Sodium Level 145, Potassium Level 3.1L, Chloride Level 110H, Carbon Dioxide Level 27, Anion Gap 8, Blood Urea Nitrogen 28H, Creatinine 0.9, Estimat Glomerular Filtration Rate , Glucose Level 155H, Uric Acid 5.1, Calcium Level 8.3L, Phosphorus Level 2.4L, Magnesium Level 2.1, Total Bilirubin 0.3, Aspartate Amino Transf (AST/SGOT ) 19, Alanine Aminotransferase (ALT/SGPT) 6L, Alkaline Phosphatase 49, Troponin I 0.023, Pro-B-Type Natriuretic Peptide 1654H, Total Protein 6.4, Albumin 1.4L, Globulin 5.0, Albumin/Globulin Ratio 0.3L Height (Feet): 5 Height (Inches): 3.00 Weight (Pounds): 200 General Appearance: no apparent distress Cardiovascular: normal rate, tachycardia Respiratory/Chest: decreased breath sounds Abdomen: distended Objective non verbal- cant take ILA Flores Sep 12, 2017 11:06
--- NOTE | 2017-09-12 11:22 | Endoscopy Procedure Note ---
Endoscopy Procedure Note General Indication for Procedure: dysphagia Procedures Performed: EGD Operative Findings/Diagnosis: same Specimen: none Pt Tolerated Procedure Well: Yes Estimated Blood Loss: none Anesthesia Anesthesiologist: lynn Anesthesia: MAC Inserted Devices Implant(s) used?: No GI Core Measures 50 yrs or older w/o bx or poly: Not Applicable 10yrs. F/U not recommended: Not Applicable LAKSHMI BUENO Sep 12, 2017 11:22
--- NOTE | 2017-09-12 11:38 | Immediate Post-Op Evaluation ---
Immediate Post-Op Evalulation Immediate Post-Op Evalulation Procedure: EGD/ PEG Date of Evaluation: Sep 12, 2017 Time of Evaluation: 11:37 IV Fluids: 300 Blood Pressure Systolic: 122 Blood Pressure Diastolic: 51 Pulse Rate: 83 Respiratory Rate: 14 O2 Sat by Pulse Oximetry: 100 Temperature (Fahrenheit): 98.0 Nausea: No Vomiting: No Complications none Patient Status: awake, reacts, patent - called RT for breathing tx; currently on 100% FM Hydration Status: adequate Drug: see chart DEEPA MENDEZ CRNA Sep 12, 2017 11:38
--- NOTE | 2017-09-12 12:15 | 48 Hour Post Anesthesia Eval ---
Post Anesthesia Evaluation Procedure: EGD/ PEG Date of Evaluation: Sep 12, 2017 Time of Evaluation: 12:15 Blood Pressure Systolic: 134 0: 66 Pulse Rate: 85 Respiratory Rate: 25 O2 Sat by Pulse Oximetry: 98 Airway: patent Nausea: No Vomiting: No Hydration Status: adequate Cardiopulmonary Status: stable Mental Status/LOC: patient returned to baseline Follow-up Care/Observations: na Post-Anesthesia Complications: none Follow-up care needed: N/A DEEPA MENDEZ CRNA Sep 12, 2017 12:15
[2017-09-12] MEDS: Hydromorphone 0.5mg/0.5ml inj IVP PRN (12:43)
[2017-09-12] MEDS: Vancomycin 1500mg IVPB SCH (12:54)
--- NOTE | 2017-09-12 13:29 | Pulmonology Progress Note ---
Assessment/Plan Problems: (1) Pneumonia (2) Respiratory failure (3) COPD (chronic obstructive pulmonary disease) (4) DM (diabetes mellitus) (5) ARF (acute renal failure) Assessment/Plan off BIPAP now, doing worse IV abx check sputum dvt prophylaxis, check electrolytes daughter thinking about changing the code status. Subjective ROS Limited/Unobtainable: No Constitutional: Reports: no symptoms HEENT: Repors: no symptoms Respiratory: Reports: no symptoms Allergies: Coded Allergies: AMOXICILLIN (Verified Allergy, Mild, DIARRHEA, 11/03/08) PENICILLINS (Verified Allergy, Mild, HIVES, 09/11/10) Objective Last 24 Hour Vital Signs Date Time Temp Pulse Resp B/P (MAP) Pulse Ox O2 Delivery O2 Flow Rate FiO2 09/12/17 12:15 85 25 98 09/12/17 11:55 98.0 85 25 134/66 10 Venturi Mask 50 98.0 09/12/17 11:44 89 30 138/60 97 Venturi Mask 50 09/12/17 11:39 85 19 125/60 100 Venturi Mask 50 09/12/17 11:38 208.4 83 14 100 09/12/17 11:33 80 19 122/59 100 Venturi Mask 50 09/12/17 11:28 97.8 81 15 122/85 100 Venturi Mask 50 97.8 09/12/17 09:48 84 30 93 Facial 30 09/12/17 09:00 64 146/59 09/12/17 08:59 146/59 09/12/17 08:00 98.5 64 21 146/59 94 Bi-pap 100 98.5 09/12/17 07:33 96 Bi-pap 09/12/17 07:33 Bi-pap 09/12/17 07:32 77 28 96 Facial 35 09/12/17 05:33 141/59 09/12/17 05:06 81 26 99 Facial 40 09/12/17 04:00 98.4 73 20 141/59 97 Bi-pap 100 98.4 09/12/17 04:00 77 09/12/17 03:27 76 22 96 Facial 40 09/12/17 01:03 72 22 99 Facial 40 09/12/17 00:50 147/57 09/12/17 00:00 98.4 82 20 147/57 96 Bi-pap 100 98.4 09/11/17 22:28 74 23 99 Facial 50 09/11/17 21:32 74 117/53 09/11/17 20:41 75 22 95 Facial 50 09/11/17 20:00 81 09/11/17 20:00 98.1 74 20 117/53 95 Bi-pap 100 98.1 09/11/17 19:53 Bi-pap 09/11/17 19:53 Bi-pap 09/11/17 19:53 71 20 96 Facial 50 09/11/17 19:09 119/53 09/11/17 19:09 119/53 09/11/17 17:02 70 22 98 Facial 50 09/11/17 16:00 81 09/11/17 16:00 96.4 68 20 126/79 100 Bi-pap 96.4 09/11/17 15:00 78 36 98 Facial 50 09/11/17 14:44 131/65 Intake and Output 09/11/17 09/12/17 19:00 07:00 Intake Total 628 ml Output Total 950 ml 600 ml Balance -950 ml 28 ml IV Total 220 ml Tube Feeding 288 ml Other 120 ml Output Urine Total 950 ml 600 ml # Bowel Movements 1 Objective General Appearance: WD/WN Lines, tubes and drains: peripheral HEENT: normocephalic, atraumatic Neck: non-tender, normal alignment Respiratory/Chest: chest wall non-tender, lungs clear Breasts: no masses Cardiovascular/Chest: normal peripheral pulses, normal rate Abdomen: normal bowel sounds, non tender Genitourinary/Rectal: normal genital exam, heme negative stool Extremities: normal range of motion, non-tender Skin Exam: normal pigmentation Laboratory Tests 09/12/17 06:25: White Blood Count 10.3, Red Blood Count 3.62L, Hemoglobin 10.1L, Hematocrit 30.7L, Mean Corpuscular Volume 85, Mean Corpuscular Hemoglobin 27.9, Mean Corpuscular Hemoglobin Concent 32.8, Red Cell Distribution Width 15.5H, Platelet Count 235, Mean Platelet Volume 10.7H, Neutrophils (%) (Auto) 84.7H, Lymphocytes (%) (Auto) 9.4L, Monocytes (%) (Auto) 5.1, Eosinophils (%) (Auto) 0.0, Basophils (%) (Auto) 0.7, Prothrombin Time 10.7, Prothromb Time International Ratio 1.0, Activated Partial Thromboplast Time 32, Sodium Level 145, Potassium Level 3.1L, Chloride Level 110H, Carbon Dioxide Level 27, Anion Gap 8, Blood Urea Nitrogen 28H, Creatinine 0.9, Estimat Glomerular Filtration Rate , Glucose Level 155H, Uric Acid 5.1, Calcium Level 8.3L, Phosphorus Level 2.4L, Magnesium Level 2.1, Total Bilirubin 0.3, Aspartate Amino Transf (AST/SGOT ) 19, Alanine Aminotransferase (ALT/SGPT) 6L, Alkaline Phosphatase 49, Troponin I 0.023, C-Reactive Protein, Quantitative 56.2H, Pro-B-Type Natriuretic Peptide 1654H, Total Protein 6.4, Albumin 1.4L, Globulin 5.0, Albumin/Globulin Ratio 0.3L 09/12/17 12:10: Vancomycin Level Trough 10.9 Current Medications Medications (Trade) Dose Ordered Sig/Juwan Route PRN Reason Start Time Stop Time Status Last Admin Dose Admin Acetaminophen (Tylenol) 650 mg Q4H PRN GT Mild Pain/Temp > 100.5 09/06/17 15:45 10/06/17 15:44 09/07/17 07:45 Aspirin (Ecotrin) 81 mg DAILY ORAL 09/09/17 09:00 10/09/17 08:59 09/12/17 08:59 Atorvastatin Calcium (Lipitor) 10 mg BEDTIME ORAL 09/08/17 21:00 10/08/17 20:59 09/11/17 21:30 Aztreonam 2 gm/ Sodium Chloride 110 ml @ 220 mls/hr Q8H IVPB 09/06/17 15:00 09/13/17 14:59 09/12/17 05:56 Carvedilol (Coreg) 12.5 mg EVERY 12 HOURS NG 09/10/17 21:00 10/10/17 20:59 09/12/17 09:00 Dextrose (Dextrose 50%) STAT PRN IV Hypoglycemia 09/07/17 11:00 10/07/17 10:59 Docusate Sodium (Colace) 200 mg DAILY GT 09/07/17 09:00 10/07/17 08:59 09/12/17 08:59 Furosemide (Lasix) 40 mg DAILY IV 09/12/17 09:00 10/12/17 08:59 09/12/17 09:00 Hydromorphone HCl (Dilaudid) 0.5 mg Q4H PRN IVP Pain Scale (6-10) 09/07/17 10:00 09/14/17 09:59 09/12/17 12:43 Insulin Aspart (NovoLOG) Q6HR SUBQ 09/07/17 12:00 10/07/17 11:59 09/12/17 05:49 Isosorbide Dinitrate (Isordil) 30 mg Q6HR NG 09/09/17 18:00 10/09/17 17:59 09/12/17 05:33 Lisinopril (Zestril) 2.5 mg BID NG 09/10/17 18:00 10/10/17 17:59 09/12/17 08:59 Methylprednisolone Sodium Succinate (Solu-MEDROL) 20 mg DAILY IVP 09/11/17 09:00 10/11/17 08:59 09/12/17 08:58 Metronidazole (Flagyl) 500 mg Q6HR ORAL 09/06/17 18:00 09/13/17 17:59 09/12/17 05:33 Pantoprazole (Protonix) 40 mg DAILY IVP 09/09/17 09:00 10/06/17 20:59 09/12/17 09:00 Potassium Chloride 40 meq/ Sodium Chloride 570 ml @ 142.5 mls/ hr ONCE ONCE IVPB 09/12/17 11:00 09/12/17 14:59 Potassium Chloride (K-Dur) 40 meq DAILY ORAL 09/12/17 09:00 10/12/17 08:59 09/12/17 08:59 Valproic Acid (Depakene) 500 mg Q12HR NG 09/07/17 21:00 10/07/17 20:59 09/12/17 08:59 Vancomycin HCl (Vanco rx to dose) 1 ea DAILY PRN MISC Per rx protocol 09/06/17 14:00 10/06/17 13:59 Vancomycin HCl/ Dextrose 250 ml @ 125 mls/hr Q24H IVPB 09/10/17 13:00 09/15/17 12:59 09/12/17 12:54 DARIAN HOOKS Sep 12, 2017 13:29
--- NOTE | 2017-09-12 14:19 | Infectious Diseases Prog Note ---
Assessment/Plan Problems: (1) HCAP (healthcare-associated pneumonia) Assessment & Plan: complicated with respiratory failure, off bipap today , still wheezing , continue vancomycin , aztreonam and flagyl empiric coverage, monitor CXR (2) Influenza B Assessment & Plan: complicated with Left side pneumonia , continue tamiflu for 5 days total , and keep in droplets isolation (3) Severe sepsis Assessment & Plan: due to the above, blood culture remains negative , will repeat another sets of blood culture, and continue vancomycin and aztreonam empiric coverage (4) Respiratory failure Assessment & Plan: due to the above, improving off BIPAP , monitor CXR , pulmonary is following (5) UTI (urinary tract infection) Assessment & Plan: due to E coli , already on aztreonam coverage (6) DM (diabetes mellitus) Assessment & Plan: recommend tight glycemic control to keep blood glucose between 100-140 (7) Diarrhea Assessment & Plan: not due to C diff , with negative toxin , suspect due to tube feeding (8) Dysphagia Assessment & Plan: due to poor mentation, has PEG tube for feeding placed today. Subjective ROS Limited/Unobtainable: Yes Allergies: Coded Allergies: AMOXICILLIN (Verified Allergy, Mild, DIARRHEA, 11/03/08) PENICILLINS (Verified Allergy, Mild, HIVES, 09/11/10) Subjective she was awake and alert, but not responsive , and wheezing , just had PEG tube placement , off BIPAP , nonverbal, no fever or chills, no diarrhea today, had some pain Objective Vital Signs Last 24 Hour Vital Signs Date Time Temp Pulse Resp B/P (MAP) Pulse Ox O2 Delivery O2 Flow Rate FiO2 09/12/17 12:15 85 25 98 09/12/17 11:55 98.0 85 25 134/66 10 Venturi Mask 50 98.0 09/12/17 11:44 89 30 138/60 97 Venturi Mask 50 09/12/17 11:39 85 19 125/60 100 Venturi Mask 50 09/12/17 11:38 208.4 83 14 100 09/12/17 11:33 80 19 122/59 100 Venturi Mask 50 09/12/17 11:28 97.8 81 15 122/85 100 Venturi Mask 50 97.8 09/12/17 09:48 84 30 93 Facial 30 09/12/17 09:00 64 146/59 09/12/17 08:59 146/59 09/12/17 08:00 98.5 64 21 146/59 94 Bi-pap 100 98.5 09/12/17 07:33 96 Bi-pap 09/12/17 07:33 Bi-pap 09/12/17 07:32 77 28 96 Facial 35 09/12/17 05:33 141/59 09/12/17 05:06 81 26 99 Facial 40 09/12/17 04:00 98.4 73 20 141/59 97 Bi-pap 100 98.4 09/12/17 04:00 77 09/12/17 03:27 76 22 96 Facial 40 09/12/17 01:03 72 22 99 Facial 40 09/12/17 00:50 147/57 09/12/17 00:00 98.4 82 20 147/57 96 Bi-pap 100 98.4 09/11/17 22:28 74 23 99 Facial 50 09/11/17 21:32 74 117/53 09/11/17 20:41 75 22 95 Facial 50 09/11/17 20:00 81 09/11/17 20:00 98.1 74 20 117/53 95 Bi-pap 100 98.1 09/11/17 19:53 Bi-pap 09/11/17 19:53 Bi-pap 09/11/17 19:53 71 20 96 Facial 50 09/11/17 19:09 119/53 09/11/17 19:09 119/53 09/11/17 17:02 70 22 98 Facial 50 09/11/17 16:00 81 09/11/17 16:00 96.4 68 20 126/79 100 Bi-pap 96.4 09/11/17 15:00 78 36 98 Facial 50 09/11/17 14:44 131/65 Height (Feet): 5 Height (Inches): 3.00 Weight (Pounds): 200 General Appearance: WD/WN, no acute distress HEENT: normocephalic, atraumatic, anicteric, mucous membranes moist, PERRL, EOMI, pharynx normal, supple, no JVD Respiratory/Chest: no respiratory distress, no accessory muscle use, decreased breath sounds, expiratory wheezing, inspiratory wheezing Cardiovascular: normal peripheral pulses, normal rate, regular rhythm, no gallop/murmur, no JVD Abdomen: normal bowel sounds, soft, non tender, no organomegaly, non distended , no mass, no scars Extremities: no cyanosis, no clubbing Skin: no rash, no lesions, no ulcers Neurologic/Psychiatric: alert, unresponsiveness Lymphatic: no neck adenopathy Musculoskeletal: normal muscle bulk, no effusion Laboratory Tests Test 09/12/17 06:25 09/12/17 12:10 White Blood Count 10.3 K/UL (4.8-10.8) Red Blood Count 3.62 M/UL (4.20-5.40) L Hemoglobin 10.1 G/DL (12.0-16.0) L Hematocrit 30.7 % (37.0-47.0) L Mean Corpuscular Volume 85 FL (80-99) Mean Corpuscular Hemoglobin 27.9 PG (27.0-31.0) Mean Corpuscular Hemoglobin Concent 32.8 G/DL (32.0-36.0) Red Cell Distribution Width 15.5 % (11.6-14.8) H Platelet Count 235 K/UL (150-450) Mean Platelet Volume 10.7 FL (6.5-10.1) H Neutrophils (%) (Auto) 84.7 % (45.0-75.0) H Lymphocytes (%) (Auto) 9.4 % (20.0-45.0) L Monocytes (%) (Auto) 5.1 % (1.0-10.0) Eosinophils (%) (Auto) 0.0 % (0.0-3.0) Basophils (%) (Auto) 0.7 % (0.0-2.0) Prothrombin Time 10.7 SEC (9.30-11.50) Prothromb Time International Ratio 1.0 (0.9-1.1) Activated Partial Thromboplast Time 32 SEC (23-33) Sodium Level 145 MMOL/L (136-145) Potassium Level 3.1 MMOL/L (3.5-5.1) L Chloride Level 110 MMOL/L (98-107) H Carbon Dioxide Level 27 MMOL/L (21-32) Anion Gap 8 mmol/L (5-15) Blood Urea Nitrogen 28 mg/dL (7-18) H Creatinine 0.9 MG/DL (0.55-1.30) Estimat Glomerular Filtration Rate mL/min (>60) Glucose Level 155 MG/DL (74-106) H Uric Acid 5.1 MG/DL (2.6-7.2) Calcium Level 8.3 MG/DL (8.5-10.1) L Phosphorus Level 2.4 MG/DL (2.5-4.9) L Magnesium Level 2.1 MG/DL (1.8-2.4) Total Bilirubin 0.3 MG/DL (0.2-1.0) Aspartate Amino Transf (AST/SGOT) 19 U/L (15-37) Alanine Aminotransferase (ALT/SGPT) 6 U/L (12-78) L Alkaline Phosphatase 49 U/L (46-116) Troponin I 0.023 ng/mL (0.000-0.056) C-Reactive Protein, Quantitative 56.2 mg/dL (0.00-0.90) H Pro-B-Type Natriuretic Peptide 1654 pg/mL (0-125) H Total Protein 6.4 G/DL (6.4-8.2) Albumin 1.4 G/DL (3.4-5.0) L Globulin 5.0 g/dL Albumin/Globulin Ratio 0.3 (1.0-2.7) L Vancomycin Level Trough 10.9 ug/mL (5.0-12.0) Current Medications Medications (Trade) Dose Ordered Sig/Juwan Route PRN Reason Start Time Stop Time Status Last Admin Dose Admin Acetaminophen (Tylenol) 650 mg Q4H PRN GT Mild Pain/Temp > 100.5 09/06/17 15:45 10/06/17 15:44 09/07/17 07:45 Aspirin (Ecotrin) 81 mg DAILY ORAL 09/09/17 09:00 10/09/17 08:59 09/12/17 08:59 Atorvastatin Calcium (Lipitor) 10 mg BEDTIME ORAL 09/08/17 21:00 10/08/17 20:59 09/11/17 21:30 Aztreonam 2 gm/ Sodium Chloride 110 ml @ 220 mls/hr Q8H IVPB 09/06/17 15:00 09/13/17 14:59 09/12/17 05:56 Carvedilol (Coreg) 12.5 mg EVERY 12 HOURS NG 09/10/17 21:00 10/10/17 20:59 3/9/18 09:00 Dextrose (Dextrose 50%) STAT PRN IV Hypoglycemia 09/07/17 11:00 10/07/17 10:59 Docusate Sodium (Colace) 200 mg DAILY GT 09/07/17 09:00 10/07/17 08:59 09/12/17 08:59 Furosemide (Lasix) 40 mg DAILY IV 09/12/17 09:00 10/12/17 08:59 09/12/17 09:00 Hydromorphone HCl (Dilaudid) 0.5 mg Q4H PRN IVP Pain Scale (6-10) 09/07/17 10:00 09/14/17 09:59 09/12/17 12:43 Insulin Aspart (NovoLOG) Q6HR SUBQ 09/07/17 12:00 10/07/17 11:59 09/12/17 05:49 Isosorbide Dinitrate (Isordil) 30 mg Q6HR NG 09/09/17 18:00 10/09/17 17:59 09/12/17 05:33 Lisinopril (Zestril) 2.5 mg BID NG 09/10/17 18:00 10/10/17 17:59 09/12/17 08:59 Methylprednisolone Sodium Succinate (Solu-MEDROL) 20 mg DAILY IVP 09/11/17 09:00 10/11/17 08:59 09/12/17 08:58 Metronidazole (Flagyl) 500 mg Q6HR ORAL 09/06/17 18:00 09/13/17 17:59 09/12/17 05:33 Pantoprazole (Protonix) 40 mg DAILY IVP 09/09/17 09:00 10/06/17 20:59 09/12/17 09:00 Potassium Chloride 40 meq/ Sodium Chloride 570 ml @ 142.5 mls/ hr ONCE ONCE IVPB 09/12/17 11:00 09/12/17 14:59 Potassium Chloride (K-Dur) 40 meq DAILY ORAL 09/12/17 09:00 10/12/17 08:59 09/12/17 08:59 Valproic Acid (Depakene) 500 mg Q12HR NG 09/07/17 21:00 10/07/17 20:59 09/12/17 08:59 Vancomycin HCl (Vanco rx to dose) 1 ea DAILY PRN MISC Per rx protocol 09/06/17 14:00 10/06/17 13:59 Vancomycin HCl 1 gm/Dextrose 275 ml @ 183.708 mls/hr Q12HR@0200,1200 IVPB 09/13/17 02:00 09/18/17 01:59 Vancomycin HCl/ Dextrose 250 ml @ 125 mls/hr Q24H IVPB 09/10/17 13:00 09/12/17 23:59 09/12/17 12:54 Eddy Worthy M.D. Sep 12, 2017 14:19
--- NOTE | 2017-09-12 15:28 | Cardiac Electrophysiology PN ---
Assessment/Plan Assessment/Plan 1. Non-ST elevation myocardial infarction . Troponin levels were 0.64 and 0.26 and 0.1. The patient is currently nonverbal. Continue Isordil, atenolol 50 mg daily, Plavix 75 mg daily and aspirin via NG tube. 2. Coronary artery disease, history of prior stent placement. On Plavix, Isordil , atenolol and Lipitor 3. Hypertension. Continue Isordil and atenolol. 4. Severe hypokalemia. Potassium was replaced. 5. Cardiomyopathy, ejection fraction of 45%.on Lasix 6. Aspiration pneumonia, on Flagyl, vancomycin, and aztreonam. 7. Dysphagia, S/P PEG today DW RN Subjective Subjective Poorly responsive on face mask. Remained in SR. S/P PEG placement today . Objective Last 24 Hour Vital Signs Date Time Temp Pulse Resp B/P (MAP) Pulse Ox O2 Delivery O2 Flow Rate FiO2 09/12/17 12:15 85 25 98 09/12/17 11:55 98.0 85 25 134/66 10 Venturi Mask 50 98.0 09/12/17 11:44 89 30 138/60 97 Venturi Mask 50 09/12/17 11:39 85 19 125/60 100 Venturi Mask 50 09/12/17 11:38 208.4 83 14 100 09/12/17 11:33 80 19 122/59 100 Venturi Mask 50 09/12/17 11:28 97.8 81 15 122/85 100 Venturi Mask 50 97.8 09/12/17 09:48 84 30 93 Facial 30 09/12/17 09:00 64 146/59 09/12/17 08:59 146/59 09/12/17 08:00 98.5 64 21 146/59 94 Bi-pap 100 98.5 09/12/17 07:33 96 Bi-pap 09/12/17 07:33 Bi-pap 09/12/17 07:32 77 28 96 Facial 35 09/12/17 05:33 141/59 09/12/17 05:06 81 26 99 Facial 40 09/12/17 04:00 98.4 73 20 141/59 97 Bi-pap 100 98.4 09/12/17 04:00 77 09/12/17 03:27 76 22 96 Facial 40 09/12/17 01:03 72 22 99 Facial 40 09/12/17 00:50 147/57 09/12/17 00:00 98.4 82 20 147/57 96 Bi-pap 100 98.4 09/11/17 22:28 74 23 99 Facial 50 09/11/17 21:32 74 117/53 09/11/17 20:41 75 22 95 Facial 50 09/11/17 20:00 81 09/11/17 20:00 98.1 74 20 117/53 95 Bi-pap 100 98.1 09/11/17 19:53 Bi-pap 09/11/17 19:53 Bi-pap 09/11/17 19:53 71 20 96 Facial 50 09/11/17 19:09 119/53 09/11/17 19:09 119/53 09/11/17 17:02 70 22 98 Facial 50 09/11/17 16:00 81 09/11/17 16:00 96.4 68 20 126/79 100 Bi-pap 96.4 Intake and Output 09/11/17 09/12/17 19:00 07:00 Intake Total 628 ml Output Total 950 ml 600 ml Balance -950 ml 28 ml IV Total 220 ml Tube Feeding 288 ml Other 120 ml Output Urine Total 950 ml 600 ml # Bowel Movements 1 Laboratory Tests Test 09/12/17 06:25 09/12/17 12:10 White Blood Count 10.3 K/UL (4.8-10.8) Red Blood Count 3.62 M/UL (4.20-5.40) L Hemoglobin 10.1 G/DL (12.0-16.0) L Hematocrit 30.7 % (37.0-47.0) L Mean Corpuscular Volume 85 FL (80-99) Mean Corpuscular Hemoglobin 27.9 PG (27.0-31.0) Mean Corpuscular Hemoglobin Concent 32.8 G/DL (32.0-36.0) Red Cell Distribution Width 15.5 % (11.6-14.8) H Platelet Count 235 K/UL (150-450) Mean Platelet Volume 10.7 FL (6.5-10.1) H Neutrophils (%) (Auto) 84.7 % (45.0-75.0) H Lymphocytes (%) (Auto) 9.4 % (20.0-45.0) L Monocytes (%) (Auto) 5.1 % (1.0-10.0) Eosinophils (%) (Auto) 0.0 % (0.0-3.0) Basophils (%) (Auto) 0.7 % (0.0-2.0) Prothrombin Time 10.7 SEC (9.30-11.50) Prothromb Time International Ratio 1.0 (0.9-1.1) Activated Partial Thromboplast Time 32 SEC (23-33) Sodium Level 145 MMOL/L (136-145) Potassium Level 3.1 MMOL/L (3.5-5.1) L Chloride Level 110 MMOL/L (98-107) H Carbon Dioxide Level 27 MMOL/L (21-32) Anion Gap 8 mmol/L (5-15) Blood Urea Nitrogen 28 mg/dL (7-18) H Creatinine 0.9 MG/DL (0.55-1.30) Estimat Glomerular Filtration Rate mL/min (>60) Glucose Level 155 MG/DL (74-106) H Uric Acid 5.1 MG/DL (2.6-7.2) Calcium Level 8.3 MG/DL (8.5-10.1) L Phosphorus Level 2.4 MG/DL (2.5-4.9) L Magnesium Level 2.1 MG/DL (1.8-2.4) Total Bilirubin 0.3 MG/DL (0.2-1.0) Aspartate Amino Transf (AST/SGOT) 19 U/L (15-37) Alanine Aminotransferase (ALT/SGPT) 6 U/L (12-78) L Alkaline Phosphatase 49 U/L (46-116) Troponin I 0.023 ng/mL (0.000-0.056) C-Reactive Protein, Quantitative 56.2 mg/dL (0.00-0.90) H Pro-B-Type Natriuretic Peptide 1654 pg/mL (0-125) H Total Protein 6.4 G/DL (6.4-8.2) Albumin 1.4 G/DL (3.4-5.0) L Globulin 5.0 g/dL Albumin/Globulin Ratio 0.3 (1.0-2.7) L Vancomycin Level Trough 10.9 ug/mL (5.0-12.0) Objective HEAD AND NECK: No JVD, NG tube.Face Mask LUNGS: Coarse rhonchi. CARDIOVASCULAR: Regular S1 and S2 with no gallop or murmur. ABDOMEN: Obese.PEG in place EXTREMITIES: 1+ pitting edema. MARKEL PAGE Sep 12, 2017 15:28
--- NOTE | 2017-09-12 19:15 | Procedure Note ---
DATE OF PROCEDURE: 09/12/2017 SURGEON: Fran Davila M.D. REFERRING PHYSICIAN: Neel Buchanan M.D. PROCEDURE: Upper endoscopy with PEG placement. ANESTHESIA: Per HAND [employer]SEM[employer]Y WORKER, Venus Weeks. INSTRUMENT: Olympus adult flexible upper endoscope. INDICATION: Dysphagia, failure to thrive. The procedure, risks, benefits, and possible consequences, including hemorrhage, aspiration, perforation and infection, and alternative treatments, were explained to the patient/legal guardian by Dr. Fran Davila and the patient/legal guardian understood and accepted these risks. DESCRIPTION OF PROCEDURE: After informed consent was obtained and the patient was adequately sedated, Olympus upper endoscope was advanced from the mouth into the second portion of duodenum and retroflexion was performed in the stomach. The patient had numerous polyps in the stomach, most probably fundic gland polyps. None of these polyps were biopsied. We had to do this procedure pretty fast because the patient was multiple medical problems, we did not want to spend too much time in the stomach. Then under endoscopic guidance under sterile condition, a 20-Frisian pull type of G-tube was successfully placed in epigastric area. The distance from the tip of the tube to skin was about 3 cm in size. The patient tolerated the procedure well without any complication. SUMMARY OF FINDINGS: 1. Status post successful PEG placement. 2. Multiple gastric polyps. RECOMMENDATIONS: 1. Abdominal binder. 2. Elevate the head of the bed at all times. 3. G-tube flush. 4. G-tube care. 5. Start tube feeding later today. 6. The patient currently on vancomycin. No need for adding antibiotics at this time. I want to thank Dr. Buchanan for this kind referral. Fran Davila M.D. DR: Yuliya JOB#: [id number] CC: Neel Buchanan M.D.
[2017-09-13] MEDS: metroNIDAZOLE 500mg tab ORAL SCH ×3 (00:10→11:54)
[2017-09-13] MEDS: NovoLOG Insulin Flexpen SUBQ SCH ×5 (01:11→23:55)
[2017-09-13] MEDS: Vancomycin 1gm in D5W 275ml IVPB SCH ×2 (02:16→11:59)
[2017-09-13 04:00] VITALS: BP 117/64
[2017-09-13] MEDS: Acetaminophen 650mg/20.3ml GT PRN ×2 (05:20→20:39)
[2017-09-13] MEDS: Aztreonam Inj 2 GM in NS 110 ML IVPB SCH ×3 (07:00→20:25)
--- NOTE | 2017-09-13 07:17 | General Progress Note ---
Assessment/Plan Problem List: (1) Severe sepsis Assessment & Plan: pneumonia ? aspiration and Influenza B ICD Codes: A41.9 - Sepsis, unspecified organism; R65.20 - Severe sepsis without septic shock SNOMED: 35578970 (2) COPD (chronic obstructive pulmonary disease) ICD Codes: J44.9 - COPD (chronic obstructive pulmonary disease) SNOMED: 33503315 (3) CHF (congestive heart failure) Assessment & Plan: ej fx 40 % ICD Codes: I50.9 - Heart failure, unspecified SNOMED: 66377297 (4) Functional quadriplegia ICD Codes: R53.2 - Functional quadriplegia SNOMED: 083912455873692 (5) DM (diabetes mellitus) ICD Codes: E11.9 - DM (diabetes mellitus) SNOMED: 84352683 (6) Elevated troponin I level ICD Codes: R74.8 - Abnormal levels of other serum enzymes SNOMED: 758191877 Assessment/Plan Labs reviewed discussed with daughter who agreed to PEG, PEG 09/12 K supplement lasix zestril change tenormin to coreg Respiratory support Antibiotics per ID IV steroid- taper as possible change to po Sliding scale insulin DC IV tele isordil Subjective ROS Limited/Unobtainable: No Constitutional: Reports: malaise Allergies: Coded Allergies: AMOXICILLIN (Verified Allergy, Mild, DIARRHEA, 11/03/08) PENICILLINS (Verified Allergy, Mild, HIVES, 09/11/10) Objective Last 24 Hour Vital Signs Date Time Temp Pulse Resp B/P (MAP) Pulse Ox O2 Delivery O2 Flow Rate FiO2 09/13/17 05:19 117/64 09/13/17 04:00 97.0 82 20 117/64 97 97.0 09/13/17 04:00 75 09/13/17 00:11 125/62 09/13/17 00:00 79 09/12/17 23:59 97.7 67 20 125/62 94 97.7 09/12/17 21:23 69 125/56 09/12/17 20:06 Venturi Mask 50 09/12/17 20:06 95 Venturi Mask 12.0 50 09/12/17 20:00 97.7 70 20 118/51 92 97.7 09/12/17 20:00 74 09/12/17 18:47 130/66 09/12/17 18:47 130/66 09/12/17 16:00 67 09/12/17 16:00 98.2 85 20 130/66 94 Venturi Mask 50 98.2 09/12/17 12:15 85 25 98 09/12/17 11:55 98.0 85 25 134/66 10 Venturi Mask 50 98.0 09/12/17 11:44 89 30 138/60 97 Venturi Mask 50 09/12/17 11:39 85 19 125/60 100 Venturi Mask 50 09/12/17 11:38 208.4 83 14 100 09/12/17 11:33 80 19 122/59 100 Venturi Mask 50 09/12/17 11:28 97.8 81 15 122/85 100 Venturi Mask 50 97.8 09/12/17 09:48 84 30 93 Facial 30 09/12/17 09:00 64 146/59 09/12/17 08:59 146/59 09/12/17 08:00 98.5 64 21 141/59 94 Bi-pap 35 98.5 09/12/17 08:00 82 09/12/17 07:33 96 Bi-pap 09/12/17 07:33 Bi-pap 09/12/17 07:32 77 28 96 Facial 35 Intake and Output 09/12/17 09/13/17 19:00 07:00 Intake Total 100 ml Output Total 700 ml 300 ml Balance -600 ml -300 ml IV Total 100 ml Output Urine Total 700 ml 300 ml # Voids 1 # Bowel Movements 1 Laboratory Tests 09/12/17 12:10: Vancomycin Level Trough 10.9 Height (Feet): 5 Height (Inches): 3.00 Weight (Pounds): 200 General Appearance: no apparent distress Cardiovascular: normal rate Respiratory/Chest: decreased breath sounds Abdomen: soft, other - GT Objective non verbal- cant take ILA Flores Sep 13, 2017 07:17
[2017-09-13 08:00] VITALS: BP 117/64
[2017-09-13 08:01] LABS: HEMATOCRIT 30.5 % (37.0-47.0); MEAN CORPUSCULAR VOLUME 85 FL (80-99); PLATELET COUNT 257 K/UL (150-450); RED BLOOD COUNT 3.59 M/UL (4.20-5.40); RED CELL DISTRIBUTION WIDTH 15.8 % (11.6-14.8); WHITE BLOOD COUNT 10.4 K/UL (4.8-10.8)
[2017-09-13 08:59] LABS: % IRON SATURATION 13 % (15-50); IRON 15 ug/dL (50-175); TOTAL IRON BINDING CAPACITY 116 ug/dL (250-450)
[2017-09-13] MEDS: Lisinopril 2.5mg tab NG SCH (09:00)
[2017-09-13] MEDS: Carvedilol 12.5mg tab NG SCH ×2 (09:00→20:38)
--- NOTE | 2017-09-13 09:03 | Pulmonology Progress Note ---
Assessment/Plan Problems: (1) Pneumonia (2) Respiratory failure (3) COPD (chronic obstructive pulmonary disease) (4) DM (diabetes mellitus) (5) ARF (acute renal failure) Assessment/Plan more stabel IV abx check sputum dvt prophylaxis, check electrolytes chest pt titrate fio2 to sat of 92% Subjective ROS Limited/Unobtainable: No Constitutional: Reports: no symptoms HEENT: Repors: no symptoms Respiratory: Reports: no symptoms Allergies: Coded Allergies: AMOXICILLIN (Verified Allergy, Mild, DIARRHEA, 11/03/08) PENICILLINS (Verified Allergy, Mild, HIVES, 09/11/10) Objective Last 24 Hour Vital Signs Date Time Temp Pulse Resp B/P (MAP) Pulse Ox O2 Delivery O2 Flow Rate FiO2 09/13/17 07:31 96 Venturi Mask 12.0 50 09/13/17 07:31 Venturi Mask 12.0 50 09/13/17 05:19 117/64 09/13/17 04:00 97.0 82 20 117/64 97 97.0 09/13/17 04:00 75 09/13/17 00:11 125/62 09/13/17 00:00 79 09/12/17 23:59 97.7 67 20 125/62 94 97.7 09/12/17 21:23 69 125/56 09/12/17 20:06 Venturi Mask 50 09/12/17 20:06 95 Venturi Mask 12.0 50 09/12/17 20:00 97.7 70 20 118/51 92 97.7 09/12/17 20:00 74 09/12/17 18:47 130/66 09/12/17 18:47 130/66 09/12/17 16:00 67 09/12/17 16:00 98.2 85 20 130/66 94 Venturi Mask 50 98.2 09/12/17 12:15 85 25 98 09/12/17 11:55 98.0 85 25 134/66 10 Venturi Mask 50 98.0 09/12/17 11:44 89 30 138/60 97 Venturi Mask 50 09/12/17 11:39 85 19 125/60 100 Venturi Mask 50 09/12/17 11:38 208.4 83 14 100 09/12/17 11:33 80 19 122/59 100 Venturi Mask 50 09/12/17 11:28 97.8 81 15 122/85 100 Venturi Mask 50 97.8 09/12/17 09:48 84 30 93 Facial 30 Intake and Output 09/12/17 09/13/17 19:00 07:00 Intake Total 100 ml 786 ml Output Total 700 ml 300 ml Balance -600 ml 486 ml Intake Free Water 210 ml IV Total 100 ml Tube Feeding 576 ml Output Urine Total 700 ml 300 ml # Voids 1 # Bowel Movements 1 Objective General Appearance: WD/WN Lines, tubes and drains: peripheral HEENT: normocephalic, atraumatic Neck: non-tender, normal alignment Respiratory/Chest: chest wall non-tender, lungs clear Breasts: no masses Cardiovascular/Chest: normal peripheral pulses, normal rate Abdomen: normal bowel sounds, non tender Genitourinary/Rectal: normal genital exam, heme negative stool Extremities: normal range of motion, non-tender Skin Exam: normal pigmentation Laboratory Tests 09/12/17 12:10: Vancomycin Level Trough 10.9 09/13/17 06:50: White Blood Count 10.4, Red Blood Count 3.59L, Hemoglobin 10.0L, Hematocrit 30.5L, Mean Corpuscular Volume 85, Mean Corpuscular Hemoglobin 27.9, Mean Corpuscular Hemoglobin Concent 32.9, Red Cell Distribution Width 15.8H, Platelet Count 257, Mean Platelet Volume 10.4H, Neutrophils (%) (Auto) , Lymphocytes (%) (Auto) , Monocytes (%) (Auto) , Eosinophils (%) (Auto) , Basophils (%) (Auto) , Neutrophils % (Manual) [Pending], Lymphocytes % (Manual) [Pending], Platelet Estimate [Pending], Platelet Morphology [Pending], Sodium Level [Pending], Potassium Level [Pending], Chloride Level [Pending], Carbon Dioxide Level [Pending], Blood Urea Nitrogen [Pending], Creatinine [Pending], Estimat Glomerular Filtration Rate [Pending], Glucose Level [Pending], Uric Acid [Pending], Calcium Level [Pending], Phosphorus Level [Pending], Magnesium Level [Pending], Iron Level [Pending], Unsaturated Iron Binding [Pending], Ferritin [Pending], Total Bilirubin [Pending], Gamma Glutamyl Transpeptidase [ Pending], Aspartate Amino Transf (AST/SGOT) [Pending], Alanine Aminotransferase (ALT/SGPT) [Pending], Alkaline Phosphatase [Pending], Troponin I 0.040, Pro-B- Type Natriuretic Peptide [Pending], Total Protein [Pending], Albumin [Pending], Globulin [Pending], Vitamin B12 Level [Pending], Folate [Pending] Current Medications Medications (Trade) Dose Ordered Sig/Juwan Route PRN Reason Start Time Stop Time Status Last Admin Dose Admin Acetaminophen (Tylenol) 650 mg Q4H PRN GT Mild Pain/Temp > 100.5 09/06/17 15:45 10/06/17 15:44 09/13/17 05:20 Aspirin (Ecotrin) 81 mg DAILY ORAL 09/09/17 09:00 10/09/17 08:59 09/12/17 08:59 Atorvastatin Calcium (Lipitor) 10 mg BEDTIME ORAL 09/08/17 21:00 10/08/17 20:59 09/12/17 21:22 Aztreonam 2 gm/ Sodium Chloride 110 ml @ 220 mls/hr Q8H IVPB 09/06/17 15:00 09/13/17 14:59 09/12/17 23:25 Carvedilol (Coreg) 12.5 mg EVERY 12 HOURS NG 09/10/17 21:00 10/10/17 20:59 09/12/17 21:23 Dextrose (Dextrose 50%) STAT PRN IV Hypoglycemia 09/07/17 11:00 10/07/17 10:59 Docusate Sodium (Colace) 200 mg DAILY GT 09/07/17 09:00 10/07/17 08:59 09/12/17 08:59 Furosemide (Lasix) 40 mg DAILY IV 09/12/17 09:00 10/12/17 08:59 09/12/17 09:00 Hydromorphone HCl (Dilaudid) 0.5 mg Q4H PRN IVP Pain Scale (6-10) 09/07/17 10:00 09/14/17 09:59 09/12/17 12:43 Insulin Aspart (NovoLOG) Q6HR SUBQ 09/07/17 12:00 10/07/17 11:59 09/13/17 08:00 Isosorbide Dinitrate (Isordil) 30 mg Q6HR NG 09/09/17 18:00 10/09/17 17:59 09/13/17 05:19 Lisinopril (Zestril) 2.5 mg BID NG 09/10/17 18:00 10/10/17 17:59 09/12/17 18:47 Methylprednisolone Sodium Succinate (Solu-MEDROL) 20 mg DAILY IVP 09/11/17 09:00 10/11/17 08:59 09/12/17 08:58 Metronidazole (Flagyl) 500 mg Q6HR ORAL 09/06/17 18:00 09/13/17 17:59 09/13/17 05:19 Pantoprazole (Protonix) 40 mg DAILY IVP 09/09/17 09:00 10/06/17 20:59 09/12/17 09:00 Potassium Chloride (K-Dur) 40 meq DAILY ORAL 09/12/17 09:00 10/12/17 08:59 09/12/17 08:59 Valproic Acid (Depakene) 500 mg Q12HR NG 09/07/17 21:00 10/07/17 20:59 09/12/17 21:23 Vancomycin HCl (Vanco rx to dose) 1 ea DAILY PRN MISC Per rx protocol 09/06/17 14:00 10/06/17 13:59 Vancomycin HCl 1 gm/Dextrose 275 ml @ 183.708 mls/hr Q12HR@0200,1200 IVPB 09/13/17 02:00 09/18/17 01:59 09/13/17 02:16 DARIAN HOOKS 10, 2018 09:03
[2017-09-13] MEDS: Valproic Acid 250mg/5ml Liquid NG SCH ×2 (09:04→20:38)
[2017-09-13] MEDS: Docusate 100mg/10ml Liq GT SCH (09:04)
[2017-09-13] MEDS: Pantoprazole Inj IVP SCH (09:05)
[2017-09-13] MEDS: Solu-MEDROL 40mg Inj IVP SCH (09:06)
[2017-09-13 09:12] LABS: ALANINE AMINOTRANSFERASE 8 U/L (12-78); ALBUMIN 1.4 G/DL (3.4-5.0); ALBUMIN/GLOBULIN RATIO 0.3 (1.0-2.7); ALKALINE PHOSPHATASE 47 U/L (46-116); ANION GAP 8 mmol/L (5-15); ASPARTATE AMINO TRANSFERASE 17 U/L (15-37); BILIRUBIN,TOTAL 0.3 MG/DL (0.2-1.0); BLOOD UREA NITROGEN 40 mg/dL (7-18); CALCIUM 8.3 MG/DL (8.5-10.1); CARBON DIOXIDE 26 MMOL/L (21-32); CHLORIDE 110 MMOL/L (98-107); FERRITIN 1330 NG/ML (8-388); GAMMA GLUTAMYL TRANSPEPTIDASE 31 U/L (5-85); PHOSPHORUS 2.8 MG/DL (2.5-4.9); POTASSIUM 3.1 MMOL/L (3.5-5.1); SODIUM 143 MMOL/L (136-145)
[2017-09-13] MEDS: Aspirin EC 81mg tab ORAL SCH (09:12)
[2017-09-13] MEDS: traMADol 50mg tab GT SCH ×2 (11:53→17:41)
[2017-09-13] MEDS: Metoclopramide 10mg/10ml Liq NG SCH ×3 (11:54→23:51)
[2017-09-13 12:00] VITALS: BP 141/65
--- NOTE | 2017-09-13 13:01 | Infectious Diseases Prog Note ---
Assessment/Plan Problems: (1) HCAP (healthcare-associated pneumonia) Assessment & Plan: complicated with respiratory failure, continue vancomycin , aztreonam and flagyl for 10 days total empiric coverage, monitor CXR. EOT 09/16 (2) Influenza B Assessment & Plan: complicated with Left side pneumonia , s/p tamiflu for 5 days total , may remove from droplets isolation (3) Severe sepsis Assessment & Plan: due to the above, blood culture remains negative , repeated another sets of blood culture is still negative , continue vancomycin and aztreonam empiric coverage (4) Respiratory failure Assessment & Plan: due to the above, improving off BIPAP , monitor CXR , pulmonary is following (5) UTI (urinary tract infection) Assessment & Plan: due to E coli , already on aztreonam coverage (6) DM (diabetes mellitus) Assessment & Plan: recommend tight glycemic control to keep blood glucose between 100-140 (7) Diarrhea Assessment & Plan: not due to C diff , with negative toxin , suspect due to tube feeding (8) Dysphagia Assessment & Plan: due to poor mentation, has PEG tube for feeding placed today. Subjective ROS Limited/Unobtainable: Yes Allergies: Coded Allergies: AMOXICILLIN (Verified Allergy, Mild, DIARRHEA, 11/03/08) PENICILLINS (Verified Allergy, Mild, HIVES, 09/11/10) Subjective she was more awake and alert, but not responsive , comfortable, not in distress , daughter at the bed side . had PEG tube placement , off BIPAP , no fever or chills, no diarrhea today Objective Vital Signs Last 24 Hour Vital Signs Date Time Temp Pulse Resp B/P (MAP) Pulse Ox O2 Delivery O2 Flow Rate FiO2 09/13/17 12:52 97.5 09/13/17 12:00 97.5 20 141/65 100 97.5 09/13/17 12:00 76 09/13/17 11:53 97.0 09/13/17 11:52 141/65 09/13/17 10:32 81 18 Venturi Mask 12.0 50 09/13/17 09:00 117/48 09/13/17 09:00 58 117/48 09/13/17 08:00 97.0 82 20 117/64 97 97.0 09/13/17 08:00 79 09/13/17 07:31 96 Venturi Mask 12.0 50 09/13/17 07:31 Venturi Mask 12.0 50 09/13/17 05:19 117/64 09/13/17 04:00 97.0 82 20 117/64 97 97.0 09/13/17 04:00 75 09/13/17 00:11 125/62 09/13/17 00:00 79 09/12/17 23:59 97.7 67 20 125/62 94 97.7 09/12/17 21:23 69 125/56 09/12/17 20:06 Venturi Mask 50 09/12/17 20:06 95 Venturi Mask 12.0 50 09/12/17 20:00 97.7 70 20 118/51 92 97.7 09/12/17 20:00 74 09/12/17 18:47 130/66 09/12/17 18:47 130/66 09/12/17 16:00 67 09/12/17 16:00 98.2 85 20 130/66 94 Venturi Mask 50 98.2 Height (Feet): 5 Height (Inches): 3.00 Weight (Pounds): 200 General Appearance: WD/WN, no acute distress HEENT: normocephalic, atraumatic, anicteric, mucous membranes moist, supple, no JVD Respiratory/Chest: chest wall non-tender, normal breath sounds, no respiratory distress, no accessory muscle use, decreased breath sounds, crackles/rales Cardiovascular: normal peripheral pulses, normal rate, regular rhythm, no gallop/murmur, no JVD Abdomen: normal bowel sounds, soft, non tender, no organomegaly, non distended , no mass, no scars Extremities: no cyanosis, no clubbing Skin: no rash, no lesions Neurologic/Psychiatric: alert, unresponsiveness Lymphatic: no neck adenopathy, no groin adenopathy Laboratory Tests Test 09/13/17 06:50 White Blood Count 10.4 K/UL (4.8-10.8) Red Blood Count 3.59 M/UL (4.20-5.40) L Hemoglobin 10.0 G/DL (12.0-16.0) L Hematocrit 30.5 % (37.0-47.0) L Mean Corpuscular Volume 85 FL (80-99) Mean Corpuscular Hemoglobin 27.9 PG (27.0-31.0) Mean Corpuscular Hemoglobin Concent 32.9 G/DL (32.0-36.0) Red Cell Distribution Width 15.8 % (11.6-14.8) H Platelet Count 257 K/UL (150-450) Mean Platelet Volume 10.4 FL (6.5-10.1) H Neutrophils (%) (Auto) % (45.0-75.0) Lymphocytes (%) (Auto) % (20.0-45.0) Monocytes (%) (Auto) % (1.0-10.0) Eosinophils (%) (Auto) % (0.0-3.0) Basophils (%) (Auto) % (0.0-2.0) Differential Total Cells Counted 100 Neutrophils % (Manual) 86 % (45-75) H Lymphocytes % (Manual) 9 % (20-45) L Monocytes % (Manual) 5 % (1-10) Eosinophils % (Manual) 0 % (0-3) Basophils % (Manual) 0 % (0-2) Band Neutrophils 0 % (0-8) Platelet Estimate Adequate Platelet Morphology Normal Anisocytosis 1+ Sodium Level 143 MMOL/L (136-145) Potassium Level 3.1 MMOL/L (3.5-5.1) L Chloride Level 110 MMOL/L (98-107) H Carbon Dioxide Level 26 MMOL/L (21-32) Anion Gap 8 mmol/L (5-15) Blood Urea Nitrogen 40 mg/dL (7-18) H Creatinine 1.0 MG/DL (0.55-1.30) Estimat Glomerular Filtration Rate mL/min (>60) Glucose Level 224 MG/DL (74-106) H Uric Acid 6.3 MG/DL (2.6-7.2) Calcium Level 8.3 MG/DL (8.5-10.1) L Phosphorus Level 2.8 MG/DL (2.5-4.9) Magnesium Level 2.3 MG/DL (1.8-2.4) Iron Level 15 ug/dL (50-175) L Total Iron Binding Capacity 116 ug/dL (250-450) L Percent Iron Saturation 13 % (15-50) L Unsaturated Iron Binding 101 ug/dL (112-346) L Ferritin 1330 NG/ML (8-388) H Total Bilirubin 0.3 MG/DL (0.2-1.0) Gamma Glutamyl Transpeptidase 31 U/L (5-85) Aspartate Amino Transf (AST/SGOT) 17 U/L (15-37) Alanine Aminotransferase (ALT/SGPT) 8 U/L (12-78) L Alkaline Phosphatase 47 U/L (46-116) Troponin I 0.040 ng/mL (0.000-0.056) Pro-B-Type Natriuretic Peptide 1849 pg/mL (0-125) H Total Protein 6.4 G/DL (6.4-8.2) Albumin 1.4 G/DL (3.4-5.0) L Globulin 5.0 g/dL Albumin/Globulin Ratio 0.3 (1.0-2.7) L Vitamin B12 Level 1233 PG/ML (193-986) H Folate 3.2 NG/ML (8.6-58.9) L Current Medications Medications (Trade) Dose Ordered Sig/Juwan Route PRN Reason Start Time Stop Time Status Last Admin Dose Admin Acetaminophen (Tylenol) 650 mg Q4H PRN GT Mild Pain/Temp > 100.5 09/06/17 15:45 10/06/17 15:44 09/13/17 05:20 Aspirin (Ecotrin) 81 mg DAILY ORAL 09/09/17 09:00 10/09/17 08:59 09/13/17 09:12 Atorvastatin Calcium (Lipitor) 10 mg BEDTIME ORAL 09/08/17 21:00 10/08/17 20:59 09/12/17 21:22 Aztreonam 2 gm/ Sodium Chloride 110 ml @ 220 mls/hr Q8H IVPB 09/13/17 20:00 09/14/17 23:59 Carvedilol (Coreg) 12.5 mg EVERY 12 HOURS NG 09/10/17 21:00 10/10/17 20:59 09/12/17 21:23 Dextrose (Dextrose 50%) STAT PRN IV Hypoglycemia 09/07/17 11:00 10/07/17 10:59 Docusate Sodium (Colace) 200 mg DAILY GT 09/07/17 09:00 10/07/17 08:59 09/13/17 09:04 Famotidine (Pepcid) 20 mg BID GT 09/13/17 18:00 10/13/17 17:59 Folic Acid (Folate) 5 mg DAILY GT 09/13/17 10:00 10/13/17 09:59 09/13/17 11:51 Furosemide (Lasix) 40 mg DAILY ORAL 09/14/17 09:00 10/14/17 08:59 Insulin Aspart (NovoLOG) Q6HR SUBQ 09/07/17 12:00 10/07/17 11:59 09/13/17 11:57 Isosorbide Dinitrate (Isordil) 20 mg Q6HR NG 09/13/17 12:00 10/13/17 11:59 09/13/17 11:52 Lisinopril (Zestril) 2.5 mg DAILY NG 09/14/17 09:00 10/10/17 17:59 Metoclopramide HCl (Reglan) 5 mg EVERY 6 HOURS NG 09/13/17 12:00 10/13/17 11:59 09/13/17 11:54 Metronidazole (Flagyl) 500 mg Q6HR ORAL 09/06/17 18:00 09/13/17 17:59 09/13/17 11:54 Potassium Chloride (K-Dur) 40 meq DAILY ORAL 09/12/17 09:00 10/12/17 08:59 09/13/17 09:00 Prednisone (predniSONE) 20 mg DAILY GT 09/14/17 09:00 10/14/17 08:59 Tramadol HCl (Ultram) 25 mg Q8H GT 09/13/17 10:00 09/20/17 09:59 09/13/17 11:53 Valproic Acid (Depakene) 500 mg Q12HR NG 09/07/17 21:00 10/07/17 20:59 09/13/17 09:04 Vancomycin HCl (Vanco rx to dose) 1 ea DAILY PRN MISC Per rx protocol 09/06/17 14:00 10/06/17 13:59 Vancomycin HCl 1 gm/Dextrose 275 ml @ 183.708 mls/hr Q12HR@0200,1200 IVPB 09/13/17 02:00 09/18/17 01:59 09/13/17 11:59 Eddy Worthy M.D. Sep 13, 2017 13:01
--- NOTE | 2017-09-13 15:16 | Cardiac Electrophysiology PN ---
Assessment/Plan Assessment/Plan 1. Non-ST elevation myocardial infarction. Troponin levels were 0.64 and 0.26 and 0.1. Nonverbal. Continue Isordil, atenolol 50 mg daily, Plavix 75 mg daily and aspirin via PEG 2. Coronary artery disease, history of prior stent placement. On Plavix, Isordil , atenolol and Lipitor 3. Hypertension. Continue Isordil and atenolol. 4. Severe hypokalemia. Potassium was replaced. 5. Cardiomyopathy, ejection fraction of 45%.on Lasix 6. Aspiration pneumonia, on iv Abx per ID 7. Dysphagia, S/P PEG DW RN Subjective Subjective Poorly responsive on face mask. Remained in SR. RN at bed side. Started on ABx again . Objective Last 24 Hour Vital Signs Date Time Temp Pulse Resp B/P (MAP) Pulse Ox O2 Delivery O2 Flow Rate FiO2 09/13/17 12:52 97.5 09/13/17 12:00 97.5 20 141/65 100 97.5 09/13/17 12:00 76 09/13/17 11:53 97.0 09/13/17 11:52 141/65 09/13/17 10:32 81 18 Venturi Mask 12.0 50 09/13/17 09:00 117/48 09/13/17 09:00 58 117/48 09/13/17 08:00 97.0 82 20 117/64 97 97.0 09/13/17 08:00 79 09/13/17 07:31 96 Venturi Mask 12.0 50 09/13/17 07:31 Venturi Mask 12.0 50 09/13/17 05:19 117/64 09/13/17 04:00 97.0 82 20 117/64 97 97.0 09/13/17 04:00 75 09/13/17 00:11 125/62 09/13/17 00:00 79 09/12/17 23:59 97.7 67 20 125/62 94 97.7 09/12/17 21:23 69 125/56 09/12/17 20:06 Venturi Mask 50 09/12/17 20:06 95 Venturi Mask 12.0 50 09/12/17 20:00 97.7 70 20 118/51 92 97.7 09/12/17 20:00 74 09/12/17 18:47 130/66 09/12/17 18:47 130/66 09/12/17 16:00 67 09/12/17 16:00 98.2 85 20 130/66 94 Venturi Mask 50 98.2 Intake and Output 09/12/17 09/13/17 19:00 07:00 Intake Total 100 ml 786 ml Output Total 700 ml 300 ml Balance -600 ml 486 ml Intake Free Water 210 ml IV Total 100 ml Tube Feeding 576 ml Output Urine Total 700 ml 300 ml # Voids 1 # Bowel Movements 1 Laboratory Tests Test 09/13/17 06:50 White Blood Count 10.4 K/UL (4.8-10.8) Red Blood Count 3.59 M/UL (4.20-5.40) L Hemoglobin 10.0 G/DL (12.0-16.0) L Hematocrit 30.5 % (37.0-47.0) L Mean Corpuscular Volume 85 FL (80-99) Mean Corpuscular Hemoglobin 27.9 PG (27.0-31.0) Mean Corpuscular Hemoglobin Concent 32.9 G/DL (32.0-36.0) Red Cell Distribution Width 15.8 % (11.6-14.8) H Platelet Count 257 K/UL (150-450) Mean Platelet Volume 10.4 FL (6.5-10.1) H Neutrophils (%) (Auto) % (45.0-75.0) Lymphocytes (%) (Auto) % (20.0-45.0) Monocytes (%) (Auto) % (1.0-10.0) Eosinophils (%) (Auto) % (0.0-3.0) Basophils (%) (Auto) % (0.0-2.0) Differential Total Cells Counted 100 Neutrophils % (Manual) 86 % (45-75) H Lymphocytes % (Manual) 9 % (20-45) L Monocytes % (Manual) 5 % (1-10) Eosinophils % (Manual) 0 % (0-3) Basophils % (Manual) 0 % (0-2) Band Neutrophils 0 % (0-8) Platelet Estimate Adequate Platelet Morphology Normal Anisocytosis 1+ Sodium Level 143 MMOL/L (136-145) Potassium Level 3.1 MMOL/L (3.5-5.1) L Chloride Level 110 MMOL/L (98-107) H Carbon Dioxide Level 26 MMOL/L (21-32) Anion Gap 8 mmol/L (5-15) Blood Urea Nitrogen 40 mg/dL (7-18) H Creatinine 1.0 MG/DL (0.55-1.30) Estimat Glomerular Filtration Rate mL/min (>60) Glucose Level 224 MG/DL (74-106) H Uric Acid 6.3 MG/DL (2.6-7.2) Calcium Level 8.3 MG/DL (8.5-10.1) L Phosphorus Level 2.8 MG/DL (2.5-4.9) Magnesium Level 2.3 MG/DL (1.8-2.4) Iron Level 15 ug/dL (50-175) L Total Iron Binding Capacity 116 ug/dL (250-450) L Percent Iron Saturation 13 % (15-50) L Unsaturated Iron Binding 101 ug/dL (112-346) L Ferritin 1330 NG/ML (8-388) H Total Bilirubin 0.3 MG/DL (0.2-1.0) Gamma Glutamyl Transpeptidase 31 U/L (5-85) Aspartate Amino Transf (AST/SGOT) 17 U/L (15-37) Alanine Aminotransferase (ALT/SGPT) 8 U/L (12-78) L Alkaline Phosphatase 47 U/L (46-116) Troponin I 0.040 ng/mL (0.000-0.056) Pro-B-Type Natriuretic Peptide 1849 pg/mL (0-125) H Total Protein 6.4 G/DL (6.4-8.2) Albumin 1.4 G/DL (3.4-5.0) L Globulin 5.0 g/dL Albumin/Globulin Ratio 0.3 (1.0-2.7) L Vitamin B12 Level 1233 PG/ML (193-986) H Folate 3.2 NG/ML (8.6-58.9) L Objective HEAD AND NECK: No JVD, NG tube.Face Mask LUNGS: Coarse rhonchi. CARDIOVASCULAR: Regular S1 and S2 with no gallop or murmur. ABDOMEN: Obese.PEG in place EXTREMITIES: 1+ pitting edema. MARKEL PAGE Sep 13, 2017 15:16
[2017-09-13 16:00] VITALS: BP 141/65
[2017-09-13 20:00] VITALS: BP 150/99
[2017-09-13 23:56] VITALS: BP 111/63
[2017-09-14] MEDS: Vancomycin 1gm in D5W 275ml IVPB SCH ×2 (01:39→11:37)
[2017-09-14] MEDS: traMADol 50mg tab GT SCH ×3 (01:39→17:19)
[2017-09-14] MEDS: Aztreonam Inj 2 GM in NS 110 ML IVPB SCH ×3 (03:57→20:52)
[2017-09-14] MEDS: Acetaminophen 650mg/20.3ml GT PRN (03:58)
[2017-09-14 04:00] VITALS: BP 103/48
[2017-09-14] MEDS: Metoclopramide 10mg/10ml Liq NG SCH ×3 (06:08→17:19)
[2017-09-14] MEDS: NovoLOG Insulin Flexpen SUBQ SCH ×3 (06:08→17:27)
[2017-09-14 08:00] VITALS: BP 116/66
[2017-09-14 08:32] LABS: HEMATOCRIT 30.9 % (37.0-47.0); HEMOGLOBIN 9.8 G/DL (12.0-16.0); MEAN CORPUSCULAR VOLUME 86 FL (80-99); PLATELET COUNT 324 K/UL (150-450); RED BLOOD COUNT 3.59 M/UL (4.20-5.40); RED CELL DISTRIBUTION WIDTH 16.2 % (11.6-14.8)
[2017-09-14] MEDS ORDERED: Lisinopril 2.5mg tab NG SCH (09:00)
[2017-09-14] MEDS ORDERED: Furosemide 40mg tab ORAL SCH (09:00)
[2017-09-14 09:02] LABS: ALANINE AMINOTRANSFERASE 7 U/L (12-78); ALBUMIN 1.5 G/DL (3.4-5.0); ALBUMIN/GLOBULIN RATIO 0.3 (1.0-2.7); ALKALINE PHOSPHATASE 55 U/L (46-116); ANION GAP 8 mmol/L (5-15); ASPARTATE AMINO TRANSFERASE 18 U/L (15-37); BILIRUBIN,TOTAL 0.2 MG/DL (0.2-1.0); BLOOD UREA NITROGEN 35 mg/dL (7-18); CALCIUM 7.7 MG/DL (8.5-10.1); CARBON DIOXIDE 27 MMOL/L (21-32); CHLORIDE 111 MMOL/L (98-107); CREATININE 0.9 MG/DL (0.55-1.30); SODIUM 146 MMOL/L (136-145)
[2017-09-14] MEDS: Docusate 100mg/10ml Liq GT SCH (09:15)
[2017-09-14] MEDS: Carvedilol 12.5mg tab NG SCH ×2 (09:17→20:54)
[2017-09-14] MEDS: Valproic Acid 250mg/5ml Liquid NG SCH ×2 (09:17→20:52)
[2017-09-14] MEDS: Aspirin EC 81mg tab ORAL SCH (09:18)
--- NOTE | 2017-09-14 11:26 | Pulmonology Progress Note ---
Assessment/Plan Problems: (1) Pneumonia (2) Respiratory failure (3) COPD (chronic obstructive pulmonary disease) (4) DM (diabetes mellitus) (5) ARF (acute renal failure) Assessment/Plan episode of rapid afib IV abx check sputum dvt prophylaxis, check electrolytes chest pt titrate fio2 to sat of 92% check CXR in am Subjective Interval Events: on face mask Allergies: Coded Allergies: AMOXICILLIN (Verified Allergy, Mild, DIARRHEA, 11/03/08) PENICILLINS (Verified Allergy, Mild, HIVES, 09/11/10) Objective Last 24 Hour Vital Signs Date Time Temp Pulse Resp B/P (MAP) Pulse Ox O2 Delivery O2 Flow Rate FiO2 09/14/17 09:18 116/66 09/14/17 09:17 91 116/66 09/14/17 09:12 Venturi Mask 12.0 50 09/14/17 09:11 97 Venturi Mask 12.0 50 09/14/17 08:00 97.0 91 22 116/66 99 Venturi Mask 12.0 50 97.0 09/14/17 06:08 119/74 09/14/17 04:00 96.6 85 20 103/48 100 Venturi Mask 12.0 50 96.6 09/14/17 04:00 121 09/14/17 02:38 97.5 09/14/17 00:00 116 09/13/17 23:56 97.5 100 20 111/63 100 Venturi Mask 12.0 50 97.5 09/13/17 23:52 111/63 09/13/17 21:09 97.5 09/13/17 20:38 118 150/99 09/13/17 20:00 121 09/13/17 20:00 97.5 118 20 150/99 97 Venturi Mask 12.0 50 97.5 09/13/17 19:05 Venturi Mask 12.0 50 09/13/17 19:05 97 Venturi Mask 12.0 50 09/13/17 17:41 97.5 09/13/17 17:39 123/62 09/13/17 16:00 97.4 73 20 141/65 100 Venturi Mask 12.0 50 97.4 09/13/17 16:00 62 09/13/17 12:00 97.5 20 141/65 100 97.5 09/13/17 12:00 76 09/13/17 11:53 97.0 09/13/17 11:52 141/65 Intake and Output 09/13/17 09/14/17 19:00 07:00 Intake Total 480 ml 858 ml Output Total 1100 ml 425 ml Balance -620 ml 433 ml Intake Free Water 150 ml Tube Feeding 480 ml 528 ml Other 180 ml Output Urine Total 1100 ml 425 ml Objective General Appearance: WD/WN Lines, tubes and drains: peripheral HEENT: normocephalic, atraumatic Neck: non-tender, normal alignment Respiratory/Chest: chest wall non-tender, lungs clear Breasts: no masses Cardiovascular/Chest: normal peripheral pulses, normal rate Abdomen: normal bowel sounds, non tender Genitourinary/Rectal: normal genital exam, heme negative stool Extremities: normal range of motion, non-tender Skin Exam: normal pigmentation Microbiology Date/Time Source Procedure Growth Status 09/12/17 06:35 Blood Blood Culture - Preliminary NO GROWTH AFTER 24 HOURS Resulted 09/12/17 06:25 Blood Blood Culture - Preliminary NO GROWTH AFTER 24 HOURS Resulted 09/12/17 17:00 Sputum Expectorated Gram Stain Pending Resulted 09/12/17 17:00 Sputum Expectorated Sputum Culture - Preliminary NO GROWTH Resulted Laboratory Tests 09/14/17 07:45: White Blood Count 11.0H, Red Blood Count 3.59L, Hemoglobin 9.8L, Hematocrit 30.9L, Mean Corpuscular Volume 86, Mean Corpuscular Hemoglobin 27.3, Mean Corpuscular Hemoglobin Concent 31.7L, Red Cell Distribution Width 16.2H, Platelet Count 324, Mean Platelet Volume 9.4, Neutrophils (%) (Auto) , Lymphocytes (%) (Auto) , Monocytes (%) (Auto) , Eosinophils (%) (Auto) , Basophils (%) (Auto) , Neutrophils % (Manual) [Pending], Lymphocytes % (Manual) [Pending], Platelet Estimate [Pending], Platelet Morphology [Pending], Erythrocyte Sedimentation Rate 115H, Sodium Level 146H, Potassium Level 3.0L, Chloride Level 111H, Carbon Dioxide Level 27, Anion Gap 8, Blood Urea Nitrogen 35H, Creatinine 0.9, Estimat Glomerular Filtration Rate , Glucose Level 213H, Uric Acid 6.3, Calcium Level 7.7L, Phosphorus Level 3.0, Magnesium Level 2.3, Total Bilirubin 0.2, Aspartate Amino Transf (AST/SGOT) 18, Alanine Aminotransferase (ALT/SGPT) 7L, Alkaline Phosphatase 55, C-Reactive Protein, Quantitative 12.9H, Pro-B-Type Natriuretic Peptide 3965H, Total Protein 5.8L, Albumin 1.5L, Globulin 4.3, Albumin/Globulin Ratio 0.3L Current Medications Medications (Trade) Dose Ordered Sig/Juwan Route PRN Reason Start Time Stop Time Status Last Admin Dose Admin Acetaminophen (Tylenol) 650 mg Q4H PRN GT Mild Pain/Temp > 100.5 09/06/17 15:45 10/06/17 15:44 09/14/17 03:58 Aspirin (Ecotrin) 81 mg DAILY ORAL 09/09/17 09:00 10/09/17 08:59 09/14/17 09:18 Atorvastatin Calcium (Lipitor) 10 mg BEDTIME ORAL 09/08/17 21:00 10/08/17 20:59 09/13/17 20:38 Aztreonam 2 gm/ Sodium Chloride 110 ml @ 220 mls/hr Q8H IVPB 09/13/17 20:00 09/14/17 23:59 09/14/17 03:57 Carvedilol (Coreg) 12.5 mg EVERY 12 HOURS NG 09/10/17 21:00 10/10/17 20:59 09/14/17 09:17 Dextrose (Dextrose 50%) STAT PRN IV Hypoglycemia 09/07/17 11:00 10/07/17 10:59 Docusate Sodium (Colace) 200 mg DAILY GT 09/07/17 09:00 10/07/17 08:59 09/14/17 09:15 Famotidine (Pepcid) 20 mg BID GT 09/13/17 18:00 10/13/17 17:59 09/14/17 09:16 Folic Acid (Folate) 5 mg DAILY GT 09/13/17 10:00 10/13/17 09:59 09/14/17 09:16 Furosemide (Lasix) 40 mg DAILY ORAL 09/14/17 09:00 10/14/17 08:59 09/14/17 09:19 Insulin Aspart (NovoLOG) Q6HR SUBQ 09/07/17 12:00 10/07/17 11:59 09/14/17 06:08 Lisinopril (Zestril) 2.5 mg DAILY NG 09/14/17 09:00 10/10/17 17:59 09/14/17 09:18 Metoclopramide HCl (Reglan) 5 mg EVERY 6 HOURS NG 09/13/17 12:00 10/13/17 11:59 09/14/17 06:08 Nitroglycerin (Ntg) 1 patch Q24H TDERMAL 09/14/17 12:00 10/14/17 11:59 Potassium Chloride 50 meq/ Sodium Chloride 575 ml @ 115 mls/hr ONCE ONCE IVPB 09/14/17 13:00 09/14/17 17:59 Potassium Chloride (K-Dur) 40 meq DAILY ORAL 09/12/17 09:00 10/12/17 08:59 09/14/17 09:19 Prednisone (predniSONE) 20 mg DAILY GT 09/14/17 09:00 10/14/17 08:59 09/14/17 09:17 Tramadol HCl (Ultram) 25 mg Q8H GT 09/13/17 10:00 09/20/17 09:59 09/14/17 09:20 Valproic Acid (Depakene) 500 mg Q12HR NG 09/07/17 21:00 10/07/17 20:59 09/14/17 09:17 Vancomycin HCl (Vanco rx to dose) 1 ea DAILY PRN MISC Per rx protocol 09/06/17 14:00 10/06/17 13:59 Vancomycin HCl 1 gm/Dextrose 275 ml @ 183.708 mls/hr Q12HR@0200,1200 IVPB 09/13/17 02:00 09/18/17 01:59 09/14/17 01:39 DARIAN HOOKS Sep 14, 2017 11:26
[2017-09-14] MEDS: Nitroglycerin Patch 0.2mg/hr TDERMAL SCH (11:38)
[2017-09-14 12:00] VITALS: BP 110/59
[2017-09-14] MEDS ORDERED: Potassium Chloride 50 MEQ in Sodium Chloride 500ML 550 ML IVPB ONE (13:00)
--- NOTE | 2017-09-14 13:04 | Infectious Diseases Prog Note ---
Assessment/Plan Problems: (1) HCAP (healthcare-associated pneumonia) Assessment & Plan: complicated with respiratory failure, continue vancomycin , aztreonam and flagyl for 10 days total empiric coverage, monitor CXR. EOT 09/16 (2) Influenza B Assessment & Plan: complicated with Left side pneumonia , s/p tamiflu for 5 days total , improved, may remove from droplets isolation (3) Severe sepsis Assessment & Plan: due to the above, blood culture remains negative , repeated another sets of blood culture is still negative , continue vancomycin and aztreonam empiric coverage (4) Respiratory failure Assessment & Plan: due to the above, improving off BIPAP , monitor CXR , pulmonary is following (5) UTI (urinary tract infection) Assessment & Plan: due to E coli , already on aztreonam coverage (6) DM (diabetes mellitus) Assessment & Plan: recommend tight glycemic control to keep blood glucose between 100-140 (7) Diarrhea Assessment & Plan: not due to C diff , with negative toxin , suspect due to tube feeding (8) Dysphagia Assessment & Plan: due to poor mentation, has PEG tube for feeding placed today. (9) Leukocytosis Assessment & Plan: suspect due to steroids , monitor WBC , taper steroids Subjective ROS Limited/Unobtainable: Yes Allergies: Coded Allergies: AMOXICILLIN (Verified Allergy, Mild, DIARRHEA, 11/03/08) PENICILLINS (Verified Allergy, Mild, HIVES, 09/11/10) Subjective she was more awake and alert, but not responsive , comfortable, not in distress , had PEG tube placement , on nasal canula , no fever or chills, no diarrhea today Objective Vital Signs Last 24 Hour Vital Signs Date Time Temp Pulse Resp B/P (MAP) Pulse Ox O2 Delivery O2 Flow Rate FiO2 09/14/17 12:00 100 09/14/17 11:38 116/66 09/14/17 09:18 116/66 09/14/17 09:17 91 116/66 09/14/17 09:12 Venturi Mask 12.0 50 09/14/17 09:11 97 Venturi Mask 12.0 50 09/14/17 08:00 100 09/14/17 08:00 97.0 91 22 116/66 99 Venturi Mask 12.0 50 97.0 09/14/17 06:08 119/74 09/14/17 04:00 96.6 85 20 103/48 100 Venturi Mask 12.0 50 96.6 09/14/17 04:00 121 09/14/17 02:38 97.5 09/14/17 00:00 116 09/13/17 23:56 97.5 100 20 111/63 100 Venturi Mask 12.0 50 97.5 09/13/17 23:52 111/63 09/13/17 21:09 97.5 09/13/17 20:38 118 150/99 09/13/17 20:00 121 09/13/17 20:00 97.5 118 20 150/99 97 Venturi Mask 12.0 50 97.5 09/13/17 19:05 Venturi Mask 12.0 50 09/13/17 19:05 97 Venturi Mask 12.0 50 09/13/17 17:41 97.5 09/13/17 17:39 123/62 09/13/17 16:00 97.4 73 20 141/65 100 Venturi Mask 12.0 50 97.4 09/13/17 16:00 62 Height (Feet): 5 Height (Inches): 3.00 Weight (Pounds): 199 General Appearance: WD/WN, no acute distress HEENT: normocephalic, atraumatic, anicteric, mucous membranes moist, PERRL, supple, no JVD Respiratory/Chest: chest wall non-tender, no respiratory distress, no accessory muscle use, expiratory wheezing Cardiovascular: normal peripheral pulses, normal rate, regular rhythm, no gallop/murmur, no JVD Abdomen: normal bowel sounds, soft, non tender, no organomegaly, non distended , no mass, no scars Extremities: no cyanosis, no clubbing Skin: no rash, no lesions, ulcers Neurologic/Psychiatric: alert, responsive Musculoskeletal: normal muscle bulk, no effusion Microbiology Date/Time Source Procedure Growth Status 09/12/17 06:35 Blood Blood Culture - Preliminary NO GROWTH AFTER 24 HOURS Resulted 09/12/17 06:25 Blood Blood Culture - Preliminary NO GROWTH AFTER 24 HOURS Resulted 09/12/17 17:00 Sputum Expectorated Gram Stain Pending Resulted 09/12/17 17:00 Sputum Expectorated Sputum Culture - Preliminary NO GROWTH Resulted Laboratory Tests Test 09/14/17 07:45 White Blood Count 11.0 K/UL (4.8-10.8) H Red Blood Count 3.59 M/UL (4.20-5.40) L Hemoglobin 9.8 G/DL (12.0-16.0) L Hematocrit 30.9 % (37.0-47.0) L Mean Corpuscular Volume 86 FL (80-99) Mean Corpuscular Hemoglobin 27.3 PG (27.0-31.0) Mean Corpuscular Hemoglobin Concent 31.7 G/DL (32.0-36.0) L Red Cell Distribution Width 16.2 % (11.6-14.8) H Platelet Count 324 K/UL (150-450) Mean Platelet Volume 9.4 FL (6.5-10.1) Neutrophils (%) (Auto) % (45.0-75.0) Lymphocytes (%) (Auto) % (20.0-45.0) Monocytes (%) (Auto) % (1.0-10.0) Eosinophils (%) (Auto) % (0.0-3.0) Basophils (%) (Auto) % (0.0-2.0) Neutrophils % (Manual) Pending Lymphocytes % (Manual) Pending Platelet Estimate Pending Platelet Morphology Pending Erythrocyte Sedimentation Rate 115 MM/HR (0-42) H Sodium Level 146 MMOL/L (136-145) H Potassium Level 3.0 MMOL/L (3.5-5.1) L Chloride Level 111 MMOL/L (98-107) H Carbon Dioxide Level 27 MMOL/L (21-32) Anion Gap 8 mmol/L (5-15) Blood Urea Nitrogen 35 mg/dL (7-18) H Creatinine 0.9 MG/DL (0.55-1.30) Estimat Glomerular Filtration Rate mL/min (>60) Glucose Level 213 MG/DL (74-106) H Uric Acid 6.3 MG/DL (2.6-7.2) Calcium Level 7.7 MG/DL (8.5-10.1) L Phosphorus Level 3.0 MG/DL (2.5-4.9) Magnesium Level 2.3 MG/DL (1.8-2.4) Total Bilirubin 0.2 MG/DL (0.2-1.0) Aspartate Amino Transf (AST/SGOT) 18 U/L (15-37) Alanine Aminotransferase (ALT/SGPT) 7 U/L (12-78) L Alkaline Phosphatase 55 U/L (46-116) C-Reactive Protein, Quantitative 12.9 mg/dL (0.00-0.90) H Pro-B-Type Natriuretic Peptide 3965 pg/mL (0-125) H Total Protein 5.8 G/DL (6.4-8.2) L Albumin 1.5 G/DL (3.4-5.0) L Globulin 4.3 g/dL Albumin/Globulin Ratio 0.3 (1.0-2.7) L Current Medications Medications (Trade) Dose Ordered Sig/Juwan Route PRN Reason Start Time Stop Time Status Last Admin Dose Admin Acetaminophen (Tylenol) 650 mg Q4H PRN GT Mild Pain/Temp > 100.5 09/06/17 15:45 10/06/17 15:44 09/14/17 03:58 Aspirin (Ecotrin) 81 mg DAILY ORAL 09/09/17 09:00 10/09/17 08:59 09/14/17 09:18 Atorvastatin Calcium (Lipitor) 10 mg BEDTIME ORAL 09/08/17 21:00 10/08/17 20:59 09/13/17 20:38 Aztreonam 2 gm/ Sodium Chloride 110 ml @ 220 mls/hr Q8H IVPB 09/13/17 20:00 09/14/17 23:59 09/14/17 11:37 Carvedilol (Coreg) 12.5 mg EVERY 12 HOURS NG 09/10/17 21:00 10/10/17 20:59 09/14/17 09:17 Dextrose (Dextrose 50%) STAT PRN IV Hypoglycemia 09/07/17 11:00 10/07/17 10:59 Docusate Sodium (Colace) 200 mg DAILY GT 09/07/17 09:00 10/07/17 08:59 09/14/17 09:15 Famotidine (Pepcid) 20 mg BID GT 09/13/17 18:00 10/13/17 17:59 09/14/17 09:16 Folic Acid (Folate) 5 mg DAILY GT 09/13/17 10:00 10/13/17 09:59 09/14/17 09:16 Furosemide (Lasix) 40 mg DAILY ORAL 09/14/17 09:00 10/14/17 08:59 09/14/17 09:19 Insulin Aspart (NovoLOG) Q6HR SUBQ 09/07/17 12:00 10/07/17 11:59 09/14/17 11:36 Lisinopril (Zestril) 2.5 mg DAILY NG 09/14/17 09:00 10/10/17 17:59 09/14/17 09:18 Metoclopramide HCl (Reglan) 5 mg EVERY 6 HOURS NG 09/13/17 12:00 10/13/17 11:59 09/14/17 11:38 Nitroglycerin (Ntg) 1 patch Q24H TDERMAL 09/14/17 12:00 10/14/17 11:59 09/14/17 11:38 Potassium Chloride 50 meq/ Sodium Chloride 575 ml @ 115 mls/hr ONCE ONCE IVPB 09/14/17 13:00 09/14/17 17:59 09/14/17 12:18 Potassium Chloride (K-Dur) 40 meq DAILY ORAL 09/12/17 09:00 10/12/17 08:59 09/14/17 09:19 Prednisone (predniSONE) 20 mg DAILY GT 09/14/17 09:00 10/14/17 08:59 09/14/17 09:17 Tramadol HCl (Ultram) 25 mg Q8H GT 09/13/17 10:00 09/20/17 09:59 09/14/17 09:20 Valproic Acid (Depakene) 500 mg Q12HR NG 09/07/17 21:00 10/07/17 20:59 09/14/17 09:17 Vancomycin HCl (Vanco rx to dose) 1 ea DAILY PRN MISC Per rx protocol 09/06/17 14:00 10/06/17 13:59 Vancomycin HCl 1 gm/Dextrose 275 ml @ 183.708 mls/hr Q12HR@0200,1200 IVPB 09/13/17 02:00 09/18/17 01:59 09/14/17 11:37 Eddy Worthy M.D. Sep 14, 2017 13:04
[2017-09-14] MEDS ORDERED: Hydromorphone 0.5mg/0.5ml inj IVP PRN (14:45)
--- NOTE | 2017-09-14 14:50 | General Progress Note ---
Assessment/Plan Problem List: (1) Severe sepsis Assessment & Plan: pneumonia ? aspiration and Influenza B ICD Codes: A41.9 - Sepsis, unspecified organism; R65.20 - Severe sepsis without septic shock SNOMED: 22193838 (2) COPD (chronic obstructive pulmonary disease) ICD Codes: J44.9 - COPD (chronic obstructive pulmonary disease) SNOMED: 53054868 (3) CHF (congestive heart failure) Assessment & Plan: ej fx 40 % ICD Codes: I50.9 - Heart failure, unspecified SNOMED: 48632643 (4) Functional quadriplegia ICD Codes: R53.2 - Functional quadriplegia SNOMED: 866164958223971 (5) DM (diabetes mellitus) ICD Codes: E11.9 - DM (diabetes mellitus) SNOMED: 46851824 (6) Elevated troponin I level ICD Codes: R74.8 - Abnormal levels of other serum enzymes SNOMED: 209152013 Assessment/Plan Labs reviewed discussed with daughter who agreed to PEG, PEG 09/12 K supplement lasix zestril change tenormin to coreg Respiratory support Antibiotics per ID IV steroid- taper as possible change to po Sliding scale insulin DC IV tele isordil Subjective ROS Limited/Unobtainable: No Allergies: Coded Allergies: AMOXICILLIN (Verified Allergy, Mild, DIARRHEA, 11/03/08) PENICILLINS (Verified Allergy, Mild, HIVES, 09/11/10) Objective Last 24 Hour Vital Signs Date Time Temp Pulse Resp B/P (MAP) Pulse Ox O2 Delivery O2 Flow Rate FiO2 09/14/17 12:00 100 09/14/17 12:00 97.3 110 20 110/59 97 Venturi Mask 12.0 50 97.3 09/14/17 11:38 116/66 09/14/17 09:18 116/66 09/14/17 09:17 91 116/66 09/14/17 09:12 Venturi Mask 12.0 50 09/14/17 09:11 97 Venturi Mask 12.0 50 09/14/17 08:00 100 09/14/17 08:00 97.0 91 22 116/66 99 Venturi Mask 12.0 50 97.0 09/14/17 06:08 119/74 09/14/17 04:00 96.6 85 20 103/48 100 Venturi Mask 12.0 50 96.6 09/14/17 04:00 121 09/14/17 02:38 97.5 09/14/17 00:00 116 09/13/17 23:56 97.5 100 20 111/63 100 Venturi Mask 12.0 50 97.5 09/13/17 23:52 111/63 09/13/17 21:09 97.5 09/13/17 20:38 118 150/99 09/13/17 20:00 121 09/13/17 20:00 97.5 118 20 150/99 97 Venturi Mask 12.0 50 97.5 09/13/17 19:05 Venturi Mask 12.0 50 09/13/17 19:05 97 Venturi Mask 12.0 50 09/13/17 17:41 97.5 09/13/17 17:39 123/62 09/13/17 16:00 97.4 73 20 141/65 100 Venturi Mask 12.0 50 97.4 09/13/17 16:00 62 Intake and Output 09/13/17 09/14/17 19:00 07:00 Intake Total 480 ml 858 ml Output Total 1100 ml 425 ml Balance -620 ml 433 ml Intake Free Water 150 ml Tube Feeding 480 ml 528 ml Other 180 ml Output Urine Total 1100 ml 425 ml Laboratory Tests 09/14/17 07:45: White Blood Count 11.0H, Red Blood Count 3.59L, Hemoglobin 9.8L, Hematocrit 30.9L, Mean Corpuscular Volume 86, Mean Corpuscular Hemoglobin 27.3, Mean Corpuscular Hemoglobin Concent 31.7L, Red Cell Distribution Width 16.2H, Platelet Count 324, Mean Platelet Volume 9.4, Neutrophils (%) (Auto) , Lymphocytes (%) (Auto) , Monocytes (%) (Auto) , Eosinophils (%) (Auto) , Basophils (%) (Auto) , Differential Total Cells Counted 100, Neutrophils % ( Manual) 92H, Lymphocytes % (Manual) 6L, Monocytes % (Manual) 2, Eosinophils % ( Manual) 0, Basophils % (Manual) 0, Band Neutrophils 0, Platelet Estimate Adequate, Platelet Morphology Normal, Hypochromasia 2+, Erythrocyte Sedimentation Rate 115H, Sodium Level 146H, Potassium Level 3.0L, Chloride Level 111H, Carbon Dioxide Level 27, Anion Gap 8, Blood Urea Nitrogen 35H, Creatinine 0.9, Estimat Glomerular Filtration Rate , Glucose Level 213H, Uric Acid 6.3, Calcium Level 7.7L, Phosphorus Level 3.0, Magnesium Level 2.3, Total Bilirubin 0.2, Aspartate Amino Transf (AST/SGOT) 18, Alanine Aminotransferase ( ALT/SGPT) 7L, Alkaline Phosphatase 55, C-Reactive Protein, Quantitative 12.9H, Pro-B-Type Natriuretic Peptide 3965H, Total Protein 5.8L, Albumin 1.5L, Globulin 4.3, Albumin/Globulin Ratio 0.3L Height (Feet): 5 Height (Inches): 3.00 Weight (Pounds): 199 General Appearance: no apparent distress Respiratory/Chest: decreased breath sounds Abdomen: soft, other - PEG Objective have PEG now ILA LEE Sep 14, 2017 14:50
[2017-09-14 16:00] VITALS: BP 120/62
[2017-09-14 20:00] VITALS: BP 121/55
--- NOTE | 2017-09-14 23:12 | Wound Care Consultation ---
Wound Assessment Wound Assessment #1: Wound Present on Admission: Yes New Wound: No Status Change of Wound: No Wound Location Body Site Modif: mid Wound Location Body Site: sacral Wound Type: pressure ulcer Paola Test: Does not Paola Pressure Ulcer Stage: III Wound Thickness: Full Thickness Wound Length: 2.5 Wound Width: 2.5 Wound Depth: 0.3 Percent of Wound Ronan/Red: 90 Percent of Wound Bed Yellow/Wh: 10 Wound Drainage Description: Serosanguineous Wound Drainage Amount: Moderate Wound Drainage Odor: None/Absent Tissue Surrounding Wound: Macerated Wound General Appearance: Reddened, Draining Wound Assessment #2: Wound Number: 2 Wound Present on Admission: Yes New Wound: No Status Change of Wound: No Wound Location Body Site Modif: left Wound Location Body Site: trochanter Wound Type: pressure ulcer Paola Test: Does not Paola Pressure Ulcer Stage: Deep Tissue Injury Wound Thickness: Full Thickness Wound Length: 3.5 Wound Width: 3.5 Wound Depth: utd Percent of Wound Ronan/Red: 100 Wound Drainage Amount: None Wound Drainage Odor: None/Absent Tissue Surrounding Wound: Intact Wound General Appearance: Reddened Wound Assessment #3: Wound Number: 3 Wound Present on Admission: Yes New Wound: No Status Change of Wound: No Wound Location Body Site Modif: left, mid Wound Location Body Site: back Wound Type: pressure ulcer Paola Test: Does not Paola Pressure Ulcer Stage: Deep Tissue Injury Wound Thickness: Full Thickness Wound Length: 2.5 Wound Width: 3.0 Wound Depth: utd Percent of Wound Ronan/Red: 100 Wound Drainage Amount: None Wound Drainage Odor: None/Absent Tissue Surrounding Wound: Intact Wound General Appearance: Reddened Wound Assessment #4: Wound Number: 4 Wound Present on Admission: Yes New Wound: No Status Change of Wound: No Wound Location Body Site Modif: right Wound Location Body Site: heel Wound Type: pressure ulcer Paola Test: Does not Paola Pressure Ulcer Stage: Deep Tissue Injury Wound Thickness: Full Thickness Wound Length: 3.0 Wound Width: 3.0 Wound Depth: utd Percent of Wound Purple/Maroon: 100 Wound Drainage Amount: None Wound Drainage Odor: None/Absent Tissue Surrounding Wound: Intact Wound General Appearance: Reddened - purple/maroon Wound Assessment #5: Wound Number: 5 Wound Present on Admission: Yes New Wound: No Status Change of Wound: No Wound Location Body Site Modif: left Wound Location Body Site: heel Wound Type: pressure ulcer Paola Test: Does not Paola Pressure Ulcer Stage: Unstageable Wound Thickness: Full Thickness Wound Length: 2.5 Wound Width: 2.0 Wound Depth: utd Percent of Wound Ronan/Red: 70 Percent of Wound Black/Brown: 30 Wound Drainage Amount: None Wound Drainage Odor: None/Absent Tissue Surrounding Wound: Intact Wound General Appearance: Reddened - purple/maroon Wound Comment #1 Left trochanter DTI pressure ulcer. Skin still intact #2 Left mid back DTI pressure ulcer. Skin still intact #3 Right heel DTI pressure ulcer. Skin still intact #4 Left heel unstageable pressure ulcer. No deterioration noted. #5 Sacral stage III pressure ulcer. Good progress noted Good progress noted in all area. will cont same wound care treatment and recommendations below. Recommendation -Local wound care per protocol -Keep clean and dry -Turn and reposition -Offload both heels -Heel protector on both heels -Optimize nutrition -Low air loss mattress -Assess and f/u accordingly for any changes PAOLA WINSLOW RN Sep 14, 2017 23:12
[2017-09-15] VITALS: BP 126/90
[2017-09-15] MEDS: Metoclopramide 10mg/10ml Liq GT SCH ×4 (00:54→19:22)
[2017-09-15] MEDS: NovoLOG Insulin Flexpen SUBQ SCH ×4 (00:55→19:19)
[2017-09-15] MEDS: Vancomycin 1gm in D5W 275ml IVPB SCH ×2 (01:44→13:05)
[2017-09-15] MEDS: traMADol 50mg tab GT SCH ×3 (01:44→19:16)
[2017-09-15] MEDS ORDERED: Digoxin 0.5mg/2ml Inj IVP STA (03:47)
[2017-09-15 04:00] VITALS: BP 145/80
[2017-09-15] MEDS ORDERED: Digoxin 0.5mg/2ml Inj IVP PRN (04:47)
[2017-09-15 08:41] LABS: MEAN CORPUSCULAR VOLUME 87 FL (80-99); PLATELET COUNT 347 K/UL (150-450); RED BLOOD COUNT 3.57 M/UL (4.20-5.40); RED CELL DISTRIBUTION WIDTH 16.2 % (11.6-14.8); WHITE BLOOD COUNT 16.1 K/UL (4.8-10.8)
[2017-09-15] MEDS ORDERED: Furosemide 40mg tab GT SCH (09:00)
[2017-09-15] MEDS ORDERED: Lisinopril 2.5mg tab GT SCH (09:00)
[2017-09-15] MEDS ORDERED: Valproic Acid 250mg/5ml Liquid GT SCH (09:00)
[2017-09-15 09:24] LABS: ALANINE AMINOTRANSFERASE 9 U/L (12-78); ALBUMIN 1.4 G/DL (3.4-5.0); ALBUMIN/GLOBULIN RATIO 0.3 (1.0-2.7); ALKALINE PHOSPHATASE 74 U/L (46-116); ANION GAP 7 mmol/L (5-15); ASPARTATE AMINO TRANSFERASE 19 U/L (15-37); BILIRUBIN,TOTAL 0.3 MG/DL (0.2-1.0); BLOOD UREA NITROGEN 29 mg/dL (7-18); CALCIUM 8.4 MG/DL (8.5-10.1); CARBON DIOXIDE 26 MMOL/L (21-32); CHLORIDE 113 MMOL/L (98-107); CREATININE 0.8 MG/DL (0.55-1.30); POTASSIUM 4.2 MMOL/L (3.5-5.1); SODIUM 146 MMOL/L (136-145)
[2017-09-15] MEDS ORDERED: dilTIAZem HCl 30mg tab GT SCH ×2 (09:30→14:00)
--- NOTE | 2017-09-15 10:29 | General Progress Note ---
Assessment/Plan Problem List: (1) Severe sepsis Assessment & Plan: pneumonia ? aspiration and Influenza B ICD Codes: A41.9 - Sepsis, unspecified organism; R65.20 - Severe sepsis without septic shock SNOMED: 71052270 (2) COPD (chronic obstructive pulmonary disease) ICD Codes: J44.9 - COPD (chronic obstructive pulmonary disease) SNOMED: 63147661 (3) CHF (congestive heart failure) Assessment & Plan: ej fx 40 % ICD Codes: I50.9 - Heart failure, unspecified SNOMED: 67852924 (4) Functional quadriplegia ICD Codes: R53.2 - Functional quadriplegia SNOMED: 162443566229289 (5) DM (diabetes mellitus) ICD Codes: E11.9 - DM (diabetes mellitus) SNOMED: 70549000 (6) Elevated troponin I level ICD Codes: R74.8 - Abnormal levels of other serum enzymes SNOMED: 637207720 (7) Atrial fibrillation with RVR ICD Codes: I48.91 - Unspecified atrial fibrillation SNOMED: 405244055356029 Status: stable Status Narrative had at [facility] with FVR Assessment/Plan start Digoxin- start Cardiazem discussed with daughter who agreed to PEG, PEG 09/12 K supplement lasix stop zestril change tenormin to coreg Respiratory support Antibiotics per ID IV steroid- taper as possible change to po Sliding scale insulin DC IV tele isordil Subjective Allergies: Coded Allergies: AMOXICILLIN (Verified Allergy, Mild, DIARRHEA, 11/03/08) PENICILLINS (Verified Allergy, Mild, HIVES, 09/11/10) Objective Last 24 Hour Vital Signs Date Time Temp Pulse Resp B/P (MAP) Pulse Ox O2 Delivery O2 Flow Rate FiO2 09/15/17 07:52 94 18 Venturi Mask 12.0 50 09/15/17 07:16 95 Venturi Mask 14.0 55 09/15/17 07:16 Venturi Mask 14.0 55 09/15/17 04:21 155 09/15/17 04:00 97.0 111 30 145/80 88 Venturi Mask 12.0 50 97.0 09/15/17 04:00 142 09/15/17 00:00 97.0 110 21 126/90 97 Venturi Mask 12.0 50 97.0 09/15/17 00:00 138 09/14/17 20:54 102 141/108 09/14/17 20:00 97.7 117 24 121/55 97 Venturi Mask 12.0 50 97.7 09/14/17 20:00 105 09/14/17 19:43 Venturi Mask 12.0 50 09/14/17 19:42 96 Venturi Mask 12.0 50 09/14/17 16:00 131 09/14/17 16:00 97.2 110 28 120/62 98 Venturi Mask 12.0 50 97.2 09/14/17 12:00 100 09/14/17 12:00 97.3 110 20 110/59 97 Venturi Mask 12.0 50 97.3 09/14/17 11:38 116/66 Intake and Output 09/14/17 09/15/17 19:00 07:00 Intake Total 1052.416 ml 798 ml Output Total 550 ml 600 ml Balance 502.416 ml 198 ml Intake Free Water 150 ml IV Total 1052.416 ml Tube Feeding 528 ml Other 120 ml Output Urine Total 550 ml 600 ml # Bowel Movements 1 1 Laboratory Tests 09/15/17 04:34: Arterial Blood pH 7.333L, Arterial Blood Partial Pressure CO2 46.5H, Arterial Blood Partial Pressure O2 53.2L, Arterial Blood HCO3 24.1, Arterial Blood Oxygen Saturation 84.9L, Arterial Blood Base Excess -1.9, Nii Test Positive 09/15/17 07:30: White Blood Count 16.1H, Red Blood Count 3.57L, Hemoglobin 10.0L, Hematocrit 31.0L, Mean Corpuscular Volume 87, Mean Corpuscular Hemoglobin 28.1, Mean Corpuscular Hemoglobin Concent 32.3, Red Cell Distribution Width 16.2H, Platelet Count 347, Mean Platelet Volume 9.3, Neutrophils (%) (Auto) , Lymphocytes (%) (Auto) , Monocytes (%) (Auto) , Eosinophils (%) (Auto) , Basophils (%) (Auto) , Differential Total Cells Counted 100, Neutrophils % ( Manual) 89H, Lymphocytes % (Manual) 9L, Monocytes % (Manual) 2, Eosinophils % ( Manual) 0, Basophils % (Manual) 0, Band Neutrophils 0, Platelet Estimate Adequate, Platelet Morphology Normal, Hypochromasia 1+, Anisocytosis 1+, Sodium Level 146H, Potassium Level 4.2, Chloride Level 113H, Carbon Dioxide Level 26, Anion Gap 7, Blood Urea Nitrogen 29H, Creatinine 0.8, Estimat Glomerular Filtration Rate , Glucose Level 180H, Calcium Level 8.4L, Total Bilirubin 0.3, Aspartate Amino Transf (AST/SGOT) 19, Alanine Aminotransferase (ALT/SGPT) 9L, Alkaline Phosphatase 74, Pro-B-Type Natriuretic Peptide 8055H, Total Protein 6.8 , Albumin 1.4L, Globulin 5.4, Albumin/Globulin Ratio 0.3L Height (Feet): 5 Height (Inches): 3.00 Weight (Pounds): 197 Objective have PEG now ILA LEE Sep 15, 2017 10:29
[2017-09-15] MEDS: Docusate 100mg/10ml Liq GT SCH (10:32)
[2017-09-15] MEDS: Carvedilol 12.5mg tab NG SCH (10:37)
[2017-09-15 10:41] LABS: PHOSPHORUS 2.6 MG/DL (2.5-4.9)
[2017-09-15] MEDS ORDERED: Digoxin 0.5mg/2ml Inj IVP ONE (11:30)
--- NOTE | 2017-09-15 11:48 | Diagnostic Imaging Report ---
Indication: Dyspnea Technique: One view of the chest Comparison: 09/10/2017 Findings: Extensive bilateral infiltrates persist, increased in the retrocardiac region and right lung base, unchanged elsewhere. The heart remains borderline enlarged. There may be some pleural fluid developing on the left. Previously demonstrated nasogastric tube is been removed Impression: Worsening bilateral infiltrates, over 5 days Possible new or increased left pleural fluid Cardiomegaly Interim nasogastric tube removal
--- NOTE | 2017-09-15 12:06 | GI Progress Note ---
Assessment/Plan Problems: (1) Encounter for PEG (percutaneous endoscopic gastrostomy) ICD Codes: Z43.1 - Encounter for attention to gastrostomy SNOMED: 663607090, 947573247 (2) DM (diabetes mellitus) ICD Codes: E11.9 - DM (diabetes mellitus) SNOMED: 68220477 (3) Dehydration (4) Severe malnutrition ICD Codes: E43 - Unspecified severe protein-calorie malnutrition SNOMED: 73689685 (5) Dysphagia ICD Codes: R13.10 - Dysphagia, unspecified SNOMED: 43058703, 913073817 Status: unchanged Status Narrative Discussed with Dr. Davila. Assessment/Plan 1. Status post successful PEG placement. 2. Multiple gastric polyps. cdiff negative RECOMMENDATIONS: fu ST recs/ video swallow GTFs per RD ppi prn transfusions fu labs Subjective Subjective limited Objective Last 24 Hour Vital Signs Date Time Temp Pulse Resp B/P (MAP) Pulse Ox O2 Delivery O2 Flow Rate FiO2 09/15/17 10:37 96 151/71 09/15/17 07:52 94 18 Venturi Mask 12.0 50 09/15/17 07:16 95 Venturi Mask 14.0 55 09/15/17 07:16 Venturi Mask 14.0 55 09/15/17 04:21 155 09/15/17 04:00 97.0 111 30 145/80 88 Venturi Mask 12.0 50 97.0 09/15/17 04:00 142 09/15/17 00:00 97.0 110 21 126/90 97 Venturi Mask 12.0 50 97.0 09/15/17 00:00 138 09/14/17 20:54 102 141/108 09/14/17 20:00 97.7 117 24 121/55 97 Venturi Mask 12.0 50 97.7 09/14/17 20:00 105 09/14/17 19:43 Venturi Mask 12.0 50 09/14/17 19:42 96 Venturi Mask 12.0 50 09/14/17 16:00 131 09/14/17 16:00 97.2 110 28 120/62 98 Venturi Mask 12.0 50 97.2 Intake and Output 09/14/17 09/15/17 19:00 07:00 Intake Total 1052.416 ml 798 ml Output Total 550 ml 600 ml Balance 502.416 ml 198 ml Intake Free Water 150 ml IV Total 1052.416 ml Tube Feeding 528 ml Other 120 ml Output Urine Total 550 ml 600 ml # Bowel Movements 1 1 Laboratory Tests Test 09/15/17 04:34 09/15/17 07:30 Arterial Blood pH 7.333 (7.350-7.450) Arterial Blood Partial Pressure CO2 46.5 mmHg (35.0-45.0) H Arterial Blood Partial Pressure O2 53.2 mmHg (75.0-100.0) L Arterial Blood HCO3 24.1 mmol/L (22.0-26.0) Arterial Blood Oxygen Saturation 84.9 % (92.0-98.0) L Arterial Blood Base Excess -1.9 Nii Test Positive White Blood Count 16.1 K/UL (4.8-10.8) H Red Blood Count 3.57 M/UL (4.20-5.40) L Hemoglobin 10.0 G/DL (12.0-16.0) L Hematocrit 31.0 % (37.0-47.0) L Mean Corpuscular Volume 87 FL (80-99) Mean Corpuscular Hemoglobin 28.1 PG (27.0-31.0) Mean Corpuscular Hemoglobin Concent 32.3 G/DL (32.0-36.0) Red Cell Distribution Width 16.2 % (11.6-14.8) H Platelet Count 347 K/UL (150-450) Mean Platelet Volume 9.3 FL (6.5-10.1) Neutrophils (%) (Auto) % (45.0-75.0) Lymphocytes (%) (Auto) % (20.0-45.0) Monocytes (%) (Auto) % (1.0-10.0) Eosinophils (%) (Auto) % (0.0-3.0) Basophils (%) (Auto) % (0.0-2.0) Differential Total Cells Counted 100 Neutrophils % (Manual) 89 % (45-75) H Lymphocytes % (Manual) 9 % (20-45) L Monocytes % (Manual) 2 % (1-10) Eosinophils % (Manual) 0 % (0-3) Basophils % (Manual) 0 % (0-2) Band Neutrophils 0 % (0-8) Platelet Estimate Adequate Platelet Morphology Normal Hypochromasia 1+ Anisocytosis 1+ Sodium Level 146 MMOL/L (136-145) H Potassium Level 4.2 MMOL/L (3.5-5.1) Chloride Level 113 MMOL/L (98-107) H Carbon Dioxide Level 26 MMOL/L (21-32) Anion Gap 7 mmol/L (5-15) Blood Urea Nitrogen 29 mg/dL (7-18) H Creatinine 0.8 MG/DL (0.55-1.30) Estimat Glomerular Filtration Rate mL/min (>60) Glucose Level 180 MG/DL (74-106) H Calcium Level 8.4 MG/DL (8.5-10.1) L Phosphorus Level 2.6 MG/DL (2.5-4.9) Magnesium Level 2.4 MG/DL (1.8-2.4) Total Bilirubin 0.3 MG/DL (0.2-1.0) Aspartate Amino Transf (AST/SGOT) 19 U/L (15-37) Alanine Aminotransferase (ALT/SGPT) 9 U/L (12-78) L Alkaline Phosphatase 74 U/L (46-116) Pro-B-Type Natriuretic Peptide 8055 pg/mL (0-125) H Total Protein 6.8 G/DL (6.4-8.2) Albumin 1.4 G/DL (3.4-5.0) L Globulin 5.4 g/dL Albumin/Globulin Ratio 0.3 (1.0-2.7) L Height (Feet): 5 Height (Inches): 3.00 Weight (Pounds): 197 Cardiovascular: normal rate Respiratory/Chest: no respiratory distress, other - venturi mask Abdominal Exam: normal bowel sounds, non tender, soft, GT site - c/d/i Extremities: non-tender Katie Zhang N.Sergio Sep 15, 2017 12:06
[2017-09-15] MEDS: Nitroglycerin Patch 0.2mg/hr TDERMAL SCH (13:06)
--- NOTE | 2017-09-15 13:26 | Pulmonology Progress Note ---
Assessment/Plan Problems: (1) Pneumonia (2) Respiratory failure (3) COPD (chronic obstructive pulmonary disease) (4) DM (diabetes mellitus) (5) ARF (acute renal failure) Assessment/Plan tolerating gtube feeding IV abx check sputum dvt prophylaxis, check electrolytes chest pt titrate fio2 to sat of 92% CXR reviewed, extensive infiltrate Subjective ROS Limited/Unobtainable: No Constitutional: Reports: no symptoms HEENT: Repors: no symptoms Respiratory: Reports: no symptoms Allergies: Coded Allergies: AMOXICILLIN (Verified Allergy, Mild, DIARRHEA, 11/03/08) PENICILLINS (Verified Allergy, Mild, HIVES, 09/11/10) Objective Last 24 Hour Vital Signs Date Time Temp Pulse Resp B/P (MAP) Pulse Ox O2 Delivery O2 Flow Rate FiO2 09/15/17 13:06 151/71 09/15/17 10:37 96 151/71 09/15/17 07:52 94 18 Venturi Mask 12.0 50 09/15/17 07:16 95 Venturi Mask 14.0 55 09/15/17 07:16 Venturi Mask 14.0 55 09/15/17 04:21 155 09/15/17 04:00 97.0 111 30 145/80 88 Venturi Mask 12.0 50 97.0 09/15/17 04:00 142 09/15/17 00:00 97.0 110 21 126/90 97 Venturi Mask 12.0 50 97.0 09/15/17 00:00 138 09/14/17 20:54 102 141/108 09/14/17 20:00 97.7 117 24 121/55 97 Venturi Mask 12.0 50 97.7 09/14/17 20:00 105 09/14/17 19:43 Venturi Mask 12.0 50 09/14/17 19:42 96 Venturi Mask 12.0 50 09/14/17 16:00 131 09/14/17 16:00 97.2 110 28 120/62 98 Venturi Mask 12.0 50 97.2 Intake and Output 09/14/17 09/15/17 19:00 07:00 Intake Total 1052.416 ml 798 ml Output Total 550 ml 600 ml Balance 502.416 ml 198 ml Intake Free Water 150 ml IV Total 1052.416 ml Tube Feeding 528 ml Other 120 ml Output Urine Total 550 ml 600 ml # Bowel Movements 1 1 Objective General Appearance: WD/WN Lines, tubes and drains: peripheral HEENT: normocephalic, atraumatic Neck: non-tender, normal alignment Respiratory/Chest: chest wall non-tender, lungs clear Breasts: no masses Cardiovascular/Chest: normal peripheral pulses, normal rate Abdomen: normal bowel sounds, non tender Genitourinary/Rectal: normal genital exam, heme negative stool Extremities: normal range of motion, non-tender Skin Exam: normal pigmentation Microbiology Date/Time Source Procedure Growth Status 09/12/17 17:00 Sputum Expectorated Gram Stain - Final Complete 09/12/17 17:00 Sputum Expectorated Sputum Culture - Final NORMAL UPPER RESPIRATORY STEVE PRESENT Complete Laboratory Tests 09/15/17 04:34: Arterial Blood pH 7.333L, Arterial Blood Partial Pressure CO2 46.5H, Arterial Blood Partial Pressure O2 53.2L, Arterial Blood HCO3 24.1, Arterial Blood Oxygen Saturation 84.9L, Arterial Blood Base Excess -1.9, Nii Test Positive 09/15/17 07:30: White Blood Count 16.1H, Red Blood Count 3.57L, Hemoglobin 10.0L, Hematocrit 31.0L, Mean Corpuscular Volume 87, Mean Corpuscular Hemoglobin 28.1, Mean Corpuscular Hemoglobin Concent 32.3, Red Cell Distribution Width 16.2H, Platelet Count 347, Mean Platelet Volume 9.3, Neutrophils (%) (Auto) , Lymphocytes (%) (Auto) , Monocytes (%) (Auto) , Eosinophils (%) (Auto) , Basophils (%) (Auto) , Differential Total Cells Counted 100, Neutrophils % ( Manual) 89H, Lymphocytes % (Manual) 9L, Monocytes % (Manual) 2, Eosinophils % ( Manual) 0, Basophils % (Manual) 0, Band Neutrophils 0, Platelet Estimate Adequate, Platelet Morphology Normal, Hypochromasia 1+, Anisocytosis 1+, Sodium Level 146H, Potassium Level 4.2, Chloride Level 113H, Carbon Dioxide Level 26, Anion Gap 7, Blood Urea Nitrogen 29H, Creatinine 0.8, Estimat Glomerular Filtration Rate , Glucose Level 180H, Calcium Level 8.4L, Phosphorus Level 2.6, Magnesium Level 2.4, Total Bilirubin 0.3, Aspartate Amino Transf (AST/SGOT) 19, Alanine Aminotransferase (ALT/SGPT) 9L, Alkaline Phosphatase 74, Pro-B-Type Natriuretic Peptide 8055H, Total Protein 6.8, Albumin 1.4L, Globulin 5.4, Albumin/Globulin Ratio 0.3L Current Medications Medications (Trade) Dose Ordered Sig/Juwan Route PRN Reason Start Time Stop Time Status Last Admin Dose Admin Acetaminophen (Tylenol) 650 mg Q4H PRN GT Mild Pain/Temp > 100.5 09/06/17 15:45 10/06/17 15:44 09/14/17 03:58 Aspirin (ASA) 81 mg DAILY GT 09/16/17 09:00 10/16/17 08:59 Atorvastatin Calcium (Lipitor) 10 mg BEDTIME GT 09/15/17 21:00 10/15/17 20:59 Aztreonam 2 gm/ Sodium Chloride 110 ml @ 220 mls/hr Q8HR IVPB 09/15/17 14:00 09/16/17 23:59 Carvedilol (Coreg) 12.5 mg EVERY 12 HOURS NG 09/10/17 21:00 10/10/17 20:59 09/15/17 10:37 Dextrose (Dextrose 50%) STAT PRN IV Hypoglycemia 09/07/17 11:00 10/07/17 10:59 Digoxin (Lanoxin) 0.125 mg DAILY NG 09/16/17 09:00 10/16/17 08:59 Diltiazem HCl (Cardizem) 30 mg EVERY 8 HOURS GT 09/15/17 14:00 10/15/17 09:29 Docusate Sodium (Colace) 200 mg DAILY GT 09/07/17 09:00 10/07/17 08:59 09/15/17 10:32 Famotidine (Pepcid) 20 mg BID GT 09/13/17 18:00 10/13/17 17:59 09/15/17 10:35 Folic Acid (Folate) 5 mg DAILY GT 09/13/17 10:00 10/13/17 09:59 09/15/17 10:33 Furosemide (Lasix) 40 mg DAILY GT 09/15/17 09:00 10/15/17 08:59 09/15/17 10:31 Hydromorphone HCl (Dilaudid) 0.5 mg Q6H PRN IVP pain 6 above 09/14/17 14:45 09/21/17 14:44 09/14/17 16:30 Insulin Aspart (NovoLOG) Q6HR SUBQ 09/07/17 12:00 10/07/17 11:59 09/15/17 13:17 Metoclopramide HCl (Reglan) 5 mg EVERY 6 HOURS GT 09/15/17 00:00 10/15/17 00:00 09/15/17 13:05 Nitroglycerin (Ntg) 1 patch Q24H TDERMAL 09/14/17 12:00 10/14/17 11:59 09/15/17 13:06 Potassium Chloride (K-Dur) 20 meq DAILY GT 09/16/17 09:00 10/16/17 08:59 Prednisone (predniSONE) 15 mg DAILY GT 09/16/17 09:00 10/16/17 08:59 Tramadol HCl (Ultram) 25 mg Q8H GT 09/13/17 10:00 09/20/17 09:59 09/15/17 10:31 Valproic Acid (Depakene) 500 mg Q12HR GT 09/15/17 09:00 10/15/17 08:59 09/15/17 10:33 Vancomycin HCl (Vanco rx to dose) 1 ea DAILY PRN MISC Per rx protocol 09/06/17 14:00 10/06/17 13:59 Vancomycin HCl 1 gm/Dextrose 275 ml @ 183.708 mls/hr Q12HR@0200,1200 IVPB 09/13/17 02:00 09/18/17 01:59 09/15/17 13:05 DARIAN HOOKS Sep 15, 2017 13:26
[2017-09-15] MEDS ORDERED: Aztreonam Inj 2 GM in NS 110 ML IVPB SCH (14:00)
[2017-09-15 14:36] VITALS: BP 148/73
--- NOTE | 2017-09-15 14:36 | Cardiac Electrophysiology PN ---
Assessment/Plan Assessment/Plan 1. Non-ST elevation myocardial infarction. Troponin levels were 0.64 and 0.26 and 0.1. Nonverbal. Continue Isordil, Plavix 75 mg daily and aspirin via PEG. Increase Coreg to 25 bid. 2. Coronary artery disease, history of prior stent placement. On Plavix, Isordil , atenolol and Lipitor 3. Atrial fib with RVR. Increase Coreg to 25 bid. Continue Dig 0.125 daily. Dig level in AM 4. Hypertension. Continue Isordil and Coreg 5. Cardiomyopathy, ejection fraction of 45%.on Lasix 6. Aspiration pneumonia, on iv Abx per ID 7. Dysphagia, S/P PEG DW RN Subjective Subjective Poorly responsive on face mask. Had atrial fib with RVR 140s and received additional digoxin iv. Now in SR Objective Last 24 Hour Vital Signs Date Time Temp Pulse Resp B/P (MAP) Pulse Ox O2 Delivery O2 Flow Rate FiO2 09/15/17 13:06 151/71 09/15/17 10:37 96 151/71 09/15/17 07:52 94 18 Venturi Mask 12.0 50 09/15/17 07:16 95 Venturi Mask 14.0 55 09/15/17 07:16 Venturi Mask 14.0 55 09/15/17 04:21 155 09/15/17 04:00 97.0 111 30 145/80 88 Venturi Mask 12.0 50 97.0 09/15/17 04:00 142 09/15/17 00:00 97.0 110 21 126/90 97 Venturi Mask 12.0 50 97.0 09/15/17 00:00 138 09/14/17 20:54 102 141/108 09/14/17 20:00 97.7 117 24 121/55 97 Venturi Mask 12.0 50 97.7 09/14/17 20:00 105 09/14/17 19:43 Venturi Mask 12.0 50 09/14/17 19:42 96 Venturi Mask 12.0 50 09/14/17 16:00 131 09/14/17 16:00 97.2 110 28 120/62 98 Venturi Mask 12.0 50 97.2 Intake and Output 09/14/17 09/15/17 19:00 07:00 Intake Total 1052.416 ml 798 ml Output Total 550 ml 600 ml Balance 502.416 ml 198 ml Intake Free Water 150 ml IV Total 1052.416 ml Tube Feeding 528 ml Other 120 ml Output Urine Total 550 ml 600 ml # Bowel Movements 1 1 Laboratory Tests Test 09/15/17 04:34 09/15/17 07:30 Arterial Blood pH 7.333 (7.350-7.450) Arterial Blood Partial Pressure CO2 46.5 mmHg (35.0-45.0) H Arterial Blood Partial Pressure O2 53.2 mmHg (75.0-100.0) L Arterial Blood HCO3 24.1 mmol/L (22.0-26.0) Arterial Blood Oxygen Saturation 84.9 % (92.0-98.0) L Arterial Blood Base Excess -1.9 Nii Test Positive White Blood Count 16.1 K/UL (4.8-10.8) H Red Blood Count 3.57 M/UL (4.20-5.40) L Hemoglobin 10.0 G/DL (12.0-16.0) L Hematocrit 31.0 % (37.0-47.0) L Mean Corpuscular Volume 87 FL (80-99) Mean Corpuscular Hemoglobin 28.1 PG (27.0-31.0) Mean Corpuscular Hemoglobin Concent 32.3 G/DL (32.0-36.0) Red Cell Distribution Width 16.2 % (11.6-14.8) H Platelet Count 347 K/UL (150-450) Mean Platelet Volume 9.3 FL (6.5-10.1) Neutrophils (%) (Auto) % (45.0-75.0) Lymphocytes (%) (Auto) % (20.0-45.0) Monocytes (%) (Auto) % (1.0-10.0) Eosinophils (%) (Auto) % (0.0-3.0) Basophils (%) (Auto) % (0.0-2.0) Differential Total Cells Counted 100 Neutrophils % (Manual) 89 % (45-75) H Lymphocytes % (Manual) 9 % (20-45) L Monocytes % (Manual) 2 % (1-10) Eosinophils % (Manual) 0 % (0-3) Basophils % (Manual) 0 % (0-2) Band Neutrophils 0 % (0-8) Platelet Estimate Adequate Platelet Morphology Normal Hypochromasia 1+ Anisocytosis 1+ Sodium Level 146 MMOL/L (136-145) H Potassium Level 4.2 MMOL/L (3.5-5.1) Chloride Level 113 MMOL/L (98-107) H Carbon Dioxide Level 26 MMOL/L (21-32) Anion Gap 7 mmol/L (5-15) Blood Urea Nitrogen 29 mg/dL (7-18) H Creatinine 0.8 MG/DL (0.55-1.30) Estimat Glomerular Filtration Rate mL/min (>60) Glucose Level 180 MG/DL (74-106) H Calcium Level 8.4 MG/DL (8.5-10.1) L Phosphorus Level 2.6 MG/DL (2.5-4.9) Magnesium Level 2.4 MG/DL (1.8-2.4) Total Bilirubin 0.3 MG/DL (0.2-1.0) Aspartate Amino Transf (AST/SGOT) 19 U/L (15-37) Alanine Aminotransferase (ALT/SGPT) 9 U/L (12-78) L Alkaline Phosphatase 74 U/L (46-116) Pro-B-Type Natriuretic Peptide 8055 pg/mL (0-125) H Total Protein 6.8 G/DL (6.4-8.2) Albumin 1.4 G/DL (3.4-5.0) L Globulin 5.4 g/dL Albumin/Globulin Ratio 0.3 (1.0-2.7) L Microbiology Date/Time Source Procedure Growth Status 09/12/17 17:00 Sputum Expectorated Gram Stain - Final Complete 09/12/17 17:00 Sputum Expectorated Sputum Culture - Final NORMAL UPPER RESPIRATORY STEVE PRESENT Complete Objective HEAD AND NECK: No JVD. Face Mask LUNGS: Coarse rhonchi. CARDIOVASCULAR: Regular S1 and S2 with no gallop or murmur. ABDOMEN: Obese.PEG in place EXTREMITIES: 1+ pitting edema. MARKEL PAGE Sep 15, 2017 14:36
--- NOTE | 2017-09-15 15:31 | Infectious Diseases Prog Note ---
Assessment/Plan Problems: (1) HCAP (healthcare-associated pneumonia) Assessment & Plan: complicated with respiratory failure, continue vancomycin , aztreonam and flagyl for 10 days total empiric coverage, monitor CXR. EOT 09/16 (2) Influenza B Assessment & Plan: complicated with Left side pneumonia , s/p tamiflu for 5 days total , improved, may remove from droplets isolation (3) Severe sepsis Assessment & Plan: due to the above, blood culture remains negative , repeated another sets of blood culture is still negative , continue vancomycin and aztreonam empiric coverage (4) Respiratory failure Assessment & Plan: due to the above, improving off BIPAP , monitor CXR , pulmonary is following (5) UTI (urinary tract infection) Assessment & Plan: due to E coli , already on aztreonam coverage (6) DM (diabetes mellitus) Assessment & Plan: recommend tight glycemic control to keep blood glucose between 100-140 (7) Diarrhea Assessment & Plan: not due to C diff , with negative toxin , suspect due to tube feeding (8) Dysphagia Assessment & Plan: due to poor mentation, has PEG tube for feeding . (9) Leukocytosis Assessment & Plan: suspect due to steroids , monitor WBC , taper steroids Subjective ROS Limited/Unobtainable: Yes Allergies: Coded Allergies: AMOXICILLIN (Verified Allergy, Mild, DIARRHEA, 11/03/08) PENICILLINS (Verified Allergy, Mild, HIVES, 09/11/10) Subjective she was not responsive , alert, comfortable, lying in bed , on oxygen via nasal canula , no fever or chills, no diarrhea today, wheezing Objective Vital Signs Last 24 Hour Vital Signs Date Time Temp Pulse Resp B/P (MAP) Pulse Ox O2 Delivery O2 Flow Rate FiO2 09/15/17 14:36 95 148/73 09/15/17 13:06 151/71 09/15/17 10:37 96 151/71 09/15/17 07:52 94 18 Venturi Mask 12.0 50 09/15/17 07:16 95 Venturi Mask 14.0 55 09/15/17 07:16 Venturi Mask 14.0 55 09/15/17 04:21 155 09/15/17 04:00 97.0 111 30 145/80 88 Venturi Mask 12.0 50 97.0 09/15/17 04:00 142 09/15/17 00:00 97.0 110 21 126/90 97 Venturi Mask 12.0 50 97.0 09/15/17 00:00 138 09/14/17 20:54 102 141/108 09/14/17 20:00 97.7 117 24 121/55 97 Venturi Mask 12.0 50 97.7 09/14/17 20:00 105 09/14/17 19:43 Venturi Mask 12.0 50 09/14/17 19:42 96 Venturi Mask 12.0 50 09/14/17 16:00 131 09/14/17 16:00 97.2 110 28 120/62 98 Venturi Mask 12.0 50 97.2 Height (Feet): 5 Height (Inches): 3.00 Weight (Pounds): 197 General Appearance: WD/WN, no acute distress HEENT: normocephalic, atraumatic, anicteric, mucous membranes moist Respiratory/Chest: chest wall non-tender, no respiratory distress, no accessory muscle use, respiratory distress, decreased breath sounds, expiratory wheezing Cardiovascular: normal peripheral pulses, normal rate, regular rhythm, no gallop/murmur, no JVD Abdomen: normal bowel sounds, soft, non tender, no organomegaly, non distended , no mass, no scars Extremities: no cyanosis, no clubbing Skin: no rash, no lesions, no ulcers Neurologic/Psychiatric: alert Musculoskeletal: normal muscle bulk, no effusion Microbiology Date/Time Source Procedure Growth Status 09/12/17 17:00 Sputum Expectorated Gram Stain - Final Complete 09/12/17 17:00 Sputum Expectorated Sputum Culture - Final NORMAL UPPER RESPIRATORY STEVE PRESENT Complete Laboratory Tests Test 09/15/17 04:34 09/15/17 07:30 Arterial Blood pH 7.333 (7.350-7.450) Arterial Blood Partial Pressure CO2 46.5 mmHg (35.0-45.0) H Arterial Blood Partial Pressure O2 53.2 mmHg (75.0-100.0) L Arterial Blood HCO3 24.1 mmol/L (22.0-26.0) Arterial Blood Oxygen Saturation 84.9 % (92.0-98.0) L Arterial Blood Base Excess -1.9 Nii Test Positive White Blood Count 16.1 K/UL (4.8-10.8) H Red Blood Count 3.57 M/UL (4.20-5.40) L Hemoglobin 10.0 G/DL (12.0-16.0) L Hematocrit 31.0 % (37.0-47.0) L Mean Corpuscular Volume 87 FL (80-99) Mean Corpuscular Hemoglobin 28.1 PG (27.0-31.0) Mean Corpuscular Hemoglobin Concent 32.3 G/DL (32.0-36.0) Red Cell Distribution Width 16.2 % (11.6-14.8) H Platelet Count 347 K/UL (150-450) Mean Platelet Volume 9.3 FL (6.5-10.1) Neutrophils (%) (Auto) % (45.0-75.0) Lymphocytes (%) (Auto) % (20.0-45.0) Monocytes (%) (Auto) % (1.0-10.0) Eosinophils (%) (Auto) % (0.0-3.0) Basophils (%) (Auto) % (0.0-2.0) Differential Total Cells Counted 100 Neutrophils % (Manual) 89 % (45-75) H Lymphocytes % (Manual) 9 % (20-45) L Monocytes % (Manual) 2 % (1-10) Eosinophils % (Manual) 0 % (0-3) Basophils % (Manual) 0 % (0-2) Band Neutrophils 0 % (0-8) Platelet Estimate Adequate Platelet Morphology Normal Hypochromasia 1+ Anisocytosis 1+ Sodium Level 146 MMOL/L (136-145) H Potassium Level 4.2 MMOL/L (3.5-5.1) Chloride Level 113 MMOL/L (98-107) H Carbon Dioxide Level 26 MMOL/L (21-32) Anion Gap 7 mmol/L (5-15) Blood Urea Nitrogen 29 mg/dL (7-18) H Creatinine 0.8 MG/DL (0.55-1.30) Estimat Glomerular Filtration Rate mL/min (>60) Glucose Level 180 MG/DL (74-106) H Calcium Level 8.4 MG/DL (8.5-10.1) L Phosphorus Level 2.6 MG/DL (2.5-4.9) Magnesium Level 2.4 MG/DL (1.8-2.4) Total Bilirubin 0.3 MG/DL (0.2-1.0) Aspartate Amino Transf (AST/SGOT) 19 U/L (15-37) Alanine Aminotransferase (ALT/SGPT) 9 U/L (12-78) L Alkaline Phosphatase 74 U/L (46-116) Pro-B-Type Natriuretic Peptide 8055 pg/mL (0-125) H Total Protein 6.8 G/DL (6.4-8.2) Albumin 1.4 G/DL (3.4-5.0) L Globulin 5.4 g/dL Albumin/Globulin Ratio 0.3 (1.0-2.7) L Current Medications Medications (Trade) Dose Ordered Sig/Juwan Route PRN Reason Start Time Stop Time Status Last Admin Dose Admin Acetaminophen (Tylenol) 650 mg Q4H PRN GT Mild Pain/Temp > 100.5 09/06/17 15:45 10/06/17 15:44 09/14/17 03:58 Aspirin (ASA) 81 mg DAILY GT 09/16/17 09:00 10/16/17 08:59 Atorvastatin Calcium (Lipitor) 10 mg BEDTIME GT 09/15/17 21:00 10/15/17 20:59 Aztreonam 2 gm/ Sodium Chloride 110 ml @ 220 mls/hr Q8HR IVPB 09/15/17 14:00 09/16/17 23:59 09/15/17 14:35 Carvedilol (Coreg) 25 mg EVERY 12 HOURS NG 09/15/17 21:00 10/15/17 20:59 Dextrose (Dextrose 50%) STAT PRN IV Hypoglycemia 09/07/17 11:00 10/07/17 10:59 Digoxin (Lanoxin) 0.125 mg DAILY NG 09/16/17 09:00 10/16/17 08:59 Docusate Sodium (Colace) 200 mg DAILY GT 09/07/17 09:00 10/07/17 08:59 09/15/17 10:32 Famotidine (Pepcid) 20 mg BID GT 09/13/17 18:00 10/13/17 17:59 09/15/17 10:35 Folic Acid (Folate) 5 mg DAILY GT 09/13/17 10:00 10/13/17 09:59 09/15/17 10:33 Furosemide (Lasix) 40 mg DAILY GT 09/15/17 09:00 10/15/17 08:59 09/15/17 10:31 Hydromorphone HCl (Dilaudid) 0.5 mg Q6H PRN IVP pain 6 above 09/14/17 14:45 09/21/17 14:44 09/14/17 16:30 Insulin Aspart (NovoLOG) Q6HR SUBQ 09/07/17 12:00 10/07/17 11:59 09/15/17 13:17 Metoclopramide HCl (Reglan) 5 mg EVERY 6 HOURS GT 09/15/17 00:00 10/15/17 00:00 09/15/17 13:05 Nitroglycerin (Ntg) 1 patch Q24H TDERMAL 09/14/17 12:00 10/14/17 11:59 09/15/17 13:06 Potassium Chloride (K-Dur) 20 meq DAILY GT 09/16/17 09:00 10/16/17 08:59 Prednisone (predniSONE) 15 mg DAILY GT 09/16/17 09:00 10/16/17 08:59 Tramadol HCl (Ultram) 25 mg Q8H GT 09/13/17 10:00 09/20/17 09:59 09/15/17 10:31 Valproic Acid (Depakene) 500 mg Q12HR GT 09/15/17 09:00 10/15/17 08:59 09/15/17 10:33 Vancomycin HCl (Vanco rx to dose) 1 ea DAILY PRN MISC Per rx protocol 09/06/17 14:00 10/06/17 13:59 Vancomycin HCl 1 gm/Dextrose 275 ml @ 183.708 mls/hr Q12HR@0200,1200 IVPB 09/13/17 02:00 09/18/17 01:59 09/15/17 13:05 Eddy Worthy M.D. Sep 15, 2017 15:31
[2017-09-15] MEDS ORDERED: Aspirin Baby 81mg GT SCH (16:30)
[2017-09-15] MEDS ORDERED: Carvedilol 25mg Tab NG SCH (21:00)
[2017-09-15] MEDS ORDERED: Sterile Water Irrig 1000ml IRRIG ONE ×2 (21:59)
[2017-09-15] MEDS ORDERED: Tubing IV Secondary IV ONE (21:59)
[2017-09-15] MEDS ORDERED: NS 275ml ONE (21:59)
[2017-09-16] MEDS ORDERED: Digoxin Elixir 0.125mg NG SCH (09:00)
--- NOTE | 2017-09-16 17:53 | Cardiology Report ---
APPROVED REPORT EKG Measurement Heart [id number] OR [id number] Sinus rhythm with occasional premature ventricular complexes and premature atrial complexes Abnormal ECG short pr interval
--- NOTE | 2017-09-17 16:42 | Cardiology Report ---
APPROVED REPORT EKG Measurement Heart [id number] [place] [id number] Sinus tachycardia Nonspecific T wave abnormality Abnormal ECG
--- NOTE | 2017-09-18 11:33 | Discharge Summary ---
Discharge Summary Hospital Course Date of Admission Sep 06, 2017 at 11:35 Date of Discharge Sep 15, 2017 at 22:00 Admitting Diagnosis resp failure HPI Negar aSntos is a 87 year old female who was admitted on Sep 06, 2017 at 11:35 for Respiratory Failure Hospital Course summary #[id number] Discharge Discharge Disposition Patient Discharge Diagnoses: Luis Alberto ([facility]),Shayla GARZA Sep 18, 2017 11:33
--- NOTE | 2017-09-18 16:45 | Discharge Summary 2 SIG ---
SUMMARY DATE OF ADMISSION: 09/06/2017 DATE OF DISCHARGE: 09/15/2017 REASON FOR ADMISSION: 87-year-old female with past medical history of CHF, COPD, diabetes, atherosclerosis, coronary artery disease, hyperlipidemia, morbid obesity, seizure disorder, dysphagia, and dementia presented to emergency department with altered level of consciousness. Upon evaluation, she was febrile, tachycardic, tachypneic, and hypoxic. Lactic acid -5.1. No leukocytosis. Urinalysis with evidence of probable UTI. Chest x-ray with evidence of pneumonia. Influenza screen test was positive for influenza type B. Elevated troponin -0.131. Pro BNP -1161. EKG showed sinus tachycardia, no acute ischemic changes. The patient was placed on supplemental oxygen -5 liters via nasal cannula with pulse oximetry barely reaching 94%. The patient was admitted to [facility] for further management. ADMITTING DIAGNOSES: 1. Acute toxic metabolic encephalopathy (likely due to respiratory failure and sepsis). 2. Acute hypoxemic respiratory failure requiring BiPAP. Of note, the patient was placed on the BiPAP. 3. Severe sepsis. 4. Urinary tract infection. 5. Pneumonia. 6. Influenza type B. 7. Chronic obstructive pulmonary disease exacerbation. 8. Congestive heart failure. 9. Diabetes. 10. Hyperlipidemia. 11. Seizure disorder. 12. Morbid obesity. 13. Coronary artery disease. 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 15. Functional quadriplegia. HOSPITAL COURSE: The patient admitted to [facility]. The patient was placed on the BiPAP. Initially, Pulmonary, Infectious Disease, and Cardiology consults were requested. The patient was started on the IV steroids. Pulmonary toilet in form of nebulizing treatment and chest physical therapy provided. The patient was placed on droplet isolation. The patient was on empiric antibiotic and Tamiflu, as per ID specialist direction. Blood culture were negative. Sputum culture was negative. Stool for C. difficile was negative. Urine culture revealed E coli. Antibiotic regimen optimized. Serial troponin were elevated. [employer] closely followed. After four subsequent elevated troponin, troponin down to normal. According to food counter worker, the patient had non-STEMI. Due to the advanced age and comorbidities, food counter worker recommended medical management with dual antiplatelet therapy: aspirin and Plavix. Echocardiogram revealed ejection fraction of 45% with global left ventricular hypokinesis and right ventricular systolic pressure of 28 consistent with mild pulmonary hypertension. Medical management of cardiomyopathy consisted of beta-ko, digoxin, and Lasix. Volumes and cardiorenal parameters were closely monitored. Blood pressure was managed with Coreg, Isordil, and Lasix. The patient exhibited episodes of atrial fibrillation with rapid ventricular response. Coreg dose was increased. Digoxin was continued. Lipid panel stable. Lipitor continued. The patient initially was able to be weaned from the BiPAP to nasal cannula, but then required placement on the BiPAP and then to Venturi mask for more comfort later on. The patient failed swallow evaluation. Subsequently, GI consult was requested. Video swallow evaluation was completed in [facility] in 07/2016. The patient presented with persistent moderate oropharyngeal dysphagia characterized by sensory motor deficit and oral apraxia. ST recommended continue strict NPO with non-oral feedings to meet nutritional and hydration needs. The patient initially was on NG tube feeding and GI was consulted for possible placement for PEG. Daughter consented to PEG placement. Subsequently, on 09/12/2017 the patient undergone EGD with PEG placement. The patient was started on G-tube feeding with strict aspiration precaution. Nutritional recommendation were implemented after percutaneous endoscopic gastrostomy was placed. Blood sugar was managed with sliding scale of insulin. The patient was initially hydrated, then IV fluids were discontinued. Electrolytes and renal parameters were closely monitored and electrolytes were corrected as needed. Wound care was provided as per wound nurse recommendation for sacral decubitus stage III, un-stageable left heel decubitus, and deep tissue injury of the left trochanter, right heel and left mid back,all of them present on admission. Seizure precautions were maintained. Ativan was on board as needed. Depakote initially was hold and then resumed. The patient demonstrated continued deterioration in her condition. She was unable to be weaned from the Venturi mask and continued to be in respiratory failure. The patient was tachycardic. Chest x-ray showed worsening pneumonia on the 09/10/2017 and then on 09/15/2017. The patient's condition was discussed with the patient's daughter, who agreed to DNR/DNI status. Code status was changed on 09/14/2017 to DNR/DNI. The patient's condition continued to deteriorate and on 09/15/2017, she was transferred to ICU. Shortly after transfer, the patient noted to be in asystole on the monitor. The patient was pronounced at 20:15 on 09/15/2017. Cause of : cardiopulmonary arrest. FINAL DIAGNOSES: 1. Acute toxic metabolic encephalopathy (likely secondary to respiratory failure and sepsis). 2. Acute hypoxemic respiratory failure requiring BiPAP. 3. Severe sepsis. 4. Urinary tract infection with Escherichia coli. 5. Pneumonia, likely aspiration pneumonia. 6. Influenza type B. 7. Chronic obstructive pulmonary disease, probable exacerbation. 8. Congestive heart failure. 9. Non ST-elevated myocardial infarction. 10. Cardiomyopathy with ejection fraction of 45%. 11. Atrial fibrillation with rapid ventricular response. 12. Coronary artery disease with history of prior stent placement. 13. Hypertension. 14. Dysphagia, status post percutaneous endoscopic gastrostomy. 15. Diabetes mellitus. 16. Functional quadriplegia. 17. Seizure disorder. 18. Morbid obesity. 19. Dehydration. 20. Severe malnutrition. 21. Sacral decubitus stage III, present on admission. 22. Left trochanter deep tissue injury ulcer, present on admission. 23. Left heel un-stageable pressure ulcer, present on admission. 24. Right heel deep tissue injury ulcer, present on admission. 25. Left mid back deep tissue injury ulcer, present on admission. Neel Buchanan M.D. Shayla RodarteNewyork-Presbyterian Brooklyn Methodist HospitalBari N.PLinda DR: SHELBY JOB#: [id number] CC: [id number]
== END 2017-09-15 22:00 | disposition expired | DRG 871 ==
LOC: EDBD 10:38 → EMR 11:15 → 2W 11:35 → EDBEDREQSVC 11:49 → EDBEDREQ 14:53 → 2E 09-08 23:21 → ICU 09-15 20:17
PROC: 0DJ08ZZ Inspection of Upper Intestinal Tract, Via Natural or Artificial Opening Endoscopic (ICD-10-PCS; principal; 2017-09-12 11:13)
PROC: 0DH63UZ Insertion of Feeding Device into Stomach, Percutaneous Approach (ICD-10-PCS; principal; 2017-09-12 11:13)
DX: A41.9 Sepsis, unspecified organism (principal); J96.01 Acute respiratory failure with hypoxia; J69.0 Pneumonitis due to inhalation of food and vomit; I21.4 Non-ST elevation (NSTEMI) myocardial infarction; E43 Unspecified severe protein-calorie malnutrition; G93.41 Metabolic encephalopathy; L89.109 Pressure ulcer of unspecified part of back, unspecified stage; N17.9 Acute kidney failure, unspecified; R53.2 Functional quadriplegia; L89.153 Pressure ulcer of sacral region, stage 3; J44.0 Chronic obstructive pulmonary disease with (acute) lower respiratory infection; J44.1 Chronic obstructive pulmonary disease with (acute) exacerbation; N39.0 Urinary tract infection, site not specified; R47.01 Aphasia; I42.9 Cardiomyopathy, unspecified; I11.0 Hypertensive heart disease with heart failure; G30.9 Alzheimer's disease, unspecified; F02.80 Dementia in other diseases classified elsewhere, unspecified severity, without behavioral disturbance, psychotic disturbance, mood disturbance, and anxiety; R13.10 Dysphagia, unspecified; I50.9 Heart failure, unspecified; E11.9 Type 2 diabetes mellitus without complications; G40.909 Epilepsy, unspecified, not intractable, without status epilepticus; R65.20 Severe sepsis without septic shock; J10.1 Influenza due to other identified influenza virus with other respiratory manifestations; E78.5 Hyperlipidemia, unspecified; E66.01 Morbid (severe) obesity due to excess calories; K31.7 Polyp of stomach and duodenum; R62.7 Adult failure to thrive; F09 Unspecified mental disorder due to known physiological condition; I25.10 Atherosclerotic heart disease of native coronary artery without angina pectoris; Z95.5 Presence of coronary angioplasty implant and graft; Z68.34 Body mass index [BMI] 34.0-34.9, adult; Z88.0 Allergy status to penicillin; E87.6 Hypokalemia; E86.0 Dehydration; I48.91 Unspecified atrial fibrillation; R19.7 Diarrhea, unspecified; L89.220 Pressure ulcer of left hip, unstageable; L89.620 Pressure ulcer of left heel, unstageable; L89.610 Pressure ulcer of right heel, unstageable
CPT/HCPCS: 36415; 36600; 71045; 74018; 80048; 80053; 80061; 80164; 80202; 81003; 82550; 82607; 82728; 82746; 82803; 82962; 82977; 83036; 83540; 83550; 83605; 83735; 83880; 84100; 84443; 84484; 84550; 85007; 85025; 85610; 85651; 85730; 86140; 86710; 87040; 87070; 87081; 87086; 87181; 87205; 87324; 93005; 93306; 94003; 94150; 94640; 94660; 94664; 94760; 99291; J1815; J7620; J8499; S5561